=== PATIENT | female | born 1995 | race Caucasian/White ===

== ENCOUNTER 2021-09-20 10:46 | Outpatient (REF) | payer OTHER, SELFPAY ==
[2021-09-20 13:53] LABS: MANUAL DIFF FLAG NO
[2021-09-20 13:58] LABS: Basophils Percent Auto 0.4 % (0-2); Eosinophils Absolute Auto 0.1 X10*3/uL (0.0-0.4); Eosinophils Percent Auto 1.2 % (0-4); Hematocrit 39.8 % (37.0-47.0); Hemoglobin 13.2 g/dl (12.0-16.0); Imm Gran Abs Auto 0.03 X10*3/uL (0.00-0.03); Imm Gran Pct Auto 0.3 % (0.0-0.4); Lymphocytes Absolute Auto 2.6 X10*3/uL (1.2-4.9); Lymphocytes Percent Auto 28.5 % (20-40); Mean Corpuscular HGB Conc 33.2 g/dl (31.0-35.0); Mean Corpuscular Volume 84.5 fL (80.0-98.0); Mean Platelet Volume 9.6 fL (9.4-12.3); Monocytes Absolute Auto 0.4 X10*3/uL (0.1-1.2); Monocytes Percent Auto 4.7 % (2-11); Neutrophils Percent Auto 64.9 % (45-73); Platelet Count 408 X10*3/uL (160-400); Red Blood Count 4.71 X10*6/uL (4.20-5.50); Red Cell Distribution Width 13.4 % (11.0-16.0); White Blood Count 9.2 X10*3/uL (4.8-10.8)
[2021-09-20 14:43] LABS: Alanine Aminotransferase 19 U/L (0-31); Albumin Level 4.2 g/dL (3.5-5.0); Alkaline Phosphatase 77 U/L (39-117); Anion Gap 13 (12-20); Aspartate Amino Transferase 19 U/L (5-31); Bilirubin Total 0.4 mg/dL (0.0-1.0); Blood Urea Nitrogen 11 mg/dL (9-16); Calcium 9.9 mg/dL (8.4-10.2); Carbon Dioxide 26 mmol/L (22-29); Chloride 103 mmol/L (96-108); Cholesterol 200 mg/dL; Estimated Glomerular Filt Rate > 60; Glucose Fasting 90 mg/dL (60-99); HDL Cholesterol 43 mg/dL; LDL Cholesterol Calculated 112 mg/dl; Potassium 4.5 mmol/L (3.3-5.1); Sodium 137 mmol/L (135-145); Total Protein 7.3 g/dL (6.5-8.0); Triglycerides 227 mg/dL
[2021-09-20 15:05] LABS: TSH reflex Free T4 1.99 uIU/mL (0.32-4.0)
== END 2021-09-20 10:47 | disposition home or self-care (01) ==
LOC: HO.WFDLDS 10:46
PROVIDERS: Visit Provider Family Medicine
DX: Z00.00 Encounter for general adult medical examination without abnormal findings (principal); E55.9 Vitamin D deficiency, unspecified
CPT/HCPCS: 36415; 80053; 80061; 82306; 84443; 85025

== ENCOUNTER 2021-10-23 08:29 | Outpatient (REF) | payer OTHER, SELFPAY ==
[2021-10-23 11:44] LABS: Free T4 (Free Thyroxine) 0.88 ng/dL (0.71-1.85); Thyroid Stimulating Hormone 1.71 uIU/mL (0.32-4.0)
[2021-10-23 12:20] LABS: Folate 3.6 ng/mL (> or = 4.0)
[2021-10-23 13:52] LABS: Vitamin B12 324 pg/mL (200-900)
[2021-10-24 22:02] LABS: Triiodothyronine T3 Total 135 ng/dL (76-181)
[2021-10-25 14:49] LABS: H Pylori Breath Test Negative (Negative)
[2021-10-26 06:46] LABS: Transglutaminase IgA <1.0 U/mL
[2021-10-26 06:51] LABS: Transglutaminase Ab IgG <1.0 U/mL
== END 2021-10-23 08:30 | disposition home or self-care (01) ==
LOC: HO.LAB 08:29
PROVIDERS: PCP Family Medicine; Referring Provider Family Medicine; Visit Provider Nurse Practitioner Family
DX: E03.9 Hypothyroidism, unspecified (principal); K57.92 Diverticulitis of intestine, part unspecified, without perforation or abscess without bleeding; K57.90 Diverticulosis of intestine, part unspecified, without perforation or abscess without bleeding; E66.01 Morbid (severe) obesity due to excess calories; R79.89 Other specified abnormal findings of blood chemistry; K58.2 Mixed irritable bowel syndrome; K21.9 Gastro-esophageal reflux disease without esophagitis; Z68.42 Body mass index [BMI] 45.0-49.9, adult; Z87.891 Personal history of nicotine dependence
CPT/HCPCS: 36415; 82607; 82746; 83013; 84439; 84443; 84480; 86140; 86364; 99202

== ENCOUNTER → 2021-11-27 08:33 | Outpatient (BNVA) | payer OTHER, SELFPAY | PROVIDERS: PCP Family Medicine; Referring Provider Family Medicine; Visit Provider Nurse Practitioner Family | DX: K58.2 Mixed irritable bowel syndrome (principal); K59.04 Chronic idiopathic constipation; R10.32 Left lower quadrant pain | CPT/HCPCS: 99212 ==

== ENCOUNTER 2021-12-11 08:14 | Outpatient (REF) | payer OTHER, SELFPAY ==
[2021-12-11 11:14] LABS: Blood Urea Nitrogen 8 mg/dL (9-16); Estimated Glomerular Filt Rate > 60
[2021-12-12 17:46] LABS: Transglutaminase IgA <1.0 U/mL
== END 2021-12-11 08:15 | disposition home or self-care (01) ==
LOC: HO.LAB 08:14
PROVIDERS: PCP Family Medicine; Visit Provider Nurse Practitioner Family
DX: R10.32 Left lower quadrant pain (principal); R10.11 Right upper quadrant pain; K58.2 Mixed irritable bowel syndrome
CPT/HCPCS: 36415; 82565; 84520; 86364; 99212

== ENCOUNTER 2021-12-13 12:48 | Outpatient (REF) | payer OTHER, SELFPAY ==
--- NOTE | ~2021-12-13 | CT_ITS ---
EXAMINATION: CT ABDOMEN AND PELVIS WITH CONTRAST CLINICAL INFORMATION: Abdominal pain COMPARISON: None TECHNIQUE: Multidetector volumetric images were obtained from the superior aspect of the liver through the pubic symphysis following administration 100 mL of Omnipaque 350 intravenous contrast. Sagittal and coronal reformatted images were obtained on the technologist's workstation. Oral contrast: Yes This CT examination was performed using dose optimization techniques as appropriate, variously including the following: *Automated exposure control *Adjustment of mA and/or kV according to patient size (this includes techniques or standardized protocols for targeted exams where dose is matched to indication/reason for exam; i.e. extremities or head) *Use of iterative reconstruction technique DLP: 746 mGy-cm FINDINGS: LUNG BASES: The visualized lung bases are unremarkable. No pleural or pericardial effusion. LIVER, GALLBLADDER, AND BILIARY TREE: There is diffuse fatty infiltration of the liver. No focal mass or intrahepatic bile duct dilatation is seen. The gallbladder is unremarkable with no evidence of radiopaque gallstones, gallbladder wall thickening, or obvious pericholecystic inflammatory changes. PANCREAS: Unremarkable. SPLEEN: Unremarkable. There is a small accessory spleen present ADRENAL GLANDS: Unremarkable. KIDNEYS AND URETERS: The kidneys are normal in size, shape, and attenuation. No hydronephrosis, hydroureter, or calculi seen. No perinephric stranding. BLADDER: Unremarkable. GASTROINTESTINAL TRACT: No dilated loops of large or small bowel are evident. No free air or free fluid. No pericolonic inflammatory change. Appendix appears unremarkable. ABDOMINAL WALL: No significant hernia is appreciated. LYMPH NODES: No lymphadenopathy appreciated. VASCULAR: Unremarkable. PELVIC VISCERA: Pessary seen in place. OSSEOUS STRUCTURES: Unremarkable. CT/CT abdomen pelvis w con IMPRESSION: Fatty infiltration of liver. No evidence of obstructive uropathy. No evidence of ileus or obstruction. Fleischner guidelines were followed.
[2021-12-13] MEDS: iohexoL 350 MG/ML 100 ML INFUS..BTL IV (15:34)
[2021-12-13] MEDS: Barium Sulfate Oral (Berry) 450 ML ORAL.SUSP 900 ML PO (15:34)
== END 2021-12-13 12:49 | disposition home or self-care (01) ==
LOC: HO.CT 12:48
PROVIDERS: PCP Family Medicine; Visit Provider Nurse Practitioner Family
DX: R10.9 Unspecified abdominal pain (principal); K57.92 Diverticulitis of intestine, part unspecified, without perforation or abscess without bleeding
CPT/HCPCS: 74177; Q9967

== ENCOUNTER → 2022-02-15 08:50 | Outpatient (BNVA) | payer OTHER, SELFPAY | PROVIDERS: PCP Family Medicine; Referring Provider Family Medicine; Visit Provider Nurse Practitioner Family | DX: K21.9 Gastro-esophageal reflux disease without esophagitis (principal); K58.2 Mixed irritable bowel syndrome; R10.32 Left lower quadrant pain | CPT/HCPCS: 99212 ==

== ENCOUNTER 2022-06-11 07:36 | Day surgery (SDC) | payer OTHER, SELFPAY ==
[2022-06-05 13:58] VITALS: BMI 47.5
[2022-06-11 08:32] LABS: UPreg QC Valid YES; Urine Pregnancy NEGATIVE (NEGATIVE)
[2022-06-11] MEDS: Lactated Ringers 1,000 ML 50 ML IVCONT (08:34)
[2022-06-11 08:36] VITALS: BP 114/63; PULSE 82; RESP 18; TEMP 36.6; O2SAT 96
--- NOTE | 2022-06-11 08:40 | P.HPSUR_ITS ---
Pre-Procedural Eval Section A Date of Service: 06/11/22 Section B Chief Complaint: reflux disease Relevant Family History (Specify if Yes): No Relevant Social History: None Present Medications: see Short Stay Collaborative assessment Medical History: Significant History (Diverticulitis IBS (irritable bowel syndrome) Low vitamin D level) History of Previous Operations: Relevant previous surgery/procedure and date(s) (History of colonoscopy History of esophagogastroduodenoscopy (EGD) History of tonsillectomy History of wisdom tooth extraction) Allergies: Allergies Allergy/AdvReac Type Severity Reaction Status Date / Time cobalt Allergy Intermediate Rash Verified 06/11/22 08:19 gluten Allergy Intermediate rash, GI Verified 06/11/22 08:19 issues nickel Allergy Intermediate Rash Verified 06/11/22 08:19 Review of Systems Sugical H&P ROS: Negative: Constitution, Cardiovascular, Respiratory, Neurological, Psychiatric, Hem-Onc, Allergic/Immunologic, Gastrointestinal, Genitourinary, Musculoskeletal, Integumentary, Endocrine and Eyes/Ears/Nose/Th roat Exam Surgical H&P Exam: Normal: HEENT, Normal: Heart, Normal: Lungs, Normal: Extremities, Normal: Abdomen, Normal: Skin and Normal: Neurological Plan Diagnosis/Plan: Unchanged I have reviewed the history and physical and performed a pertinent physical examination on my patient. No changes have occurred unless specified.
--- NOTE | 2022-06-11 08:52 | HO.ANESPROP2 ---
[facility] Active Problems Active Problems: All Active Problems (Updated 02/15/22 @ 17:46 by Edel Andersen, [facility]) Morbid obesity with BMI of 45.0-49.9, adult (Acute) Dermatofibroma (Acute) Screening for cervical cancer (Acute) High triglycerides (Acute) Adult general medical exam (Acute) Abdominal pain (Acute) Anxiety (Acute) History of Lyme disease (Acute) Low vitamin D level (Acute) Hypothyroidism (Acute) IBS (irritable bowel syndrome) (Acute) Laboratory exam ordered as part of routine general medical examination (Acute) Past Medical History Medical History Diverticulitis IBS (irritable bowel syndrome) Low vitamin D level Patient : No Family History Family History Other Mental health disorder Family history of problems with anesthesia: No Surgical History Surgical History History of colonoscopy History of esophagogastroduodenoscopy (EGD) History of tonsillectomy History of wisdom tooth extraction History of Problems with Anesthesia: No Social History Social History Housing: House Alcohol intake: current Alcohol intake frequency: a few times a month Patient Tobacco Use Status: Former Tobacco user e-Cigarette/Vaping Use: Never Used Second Hand Smoke Exposure: No Substance Use Frequency: Occasionally Are you DNR?: No Advance Directives: No Advance Directives Information Provided: Yes Nutrition Risks: No Nutritional Risk FDLMP: FINISHED TWO DAYS A service: No Current occupational status: employed 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 Cognitive needs: No Hearing needs: No Vision needs: Yes (reading glasses) Meds Allergies Allergy/AdvReac Type Severity Reaction Status Date / Time cobalt Allergy Intermediate Rash Verified 06/11/22 08:19 gluten Allergy Intermediate rash, GI Verified 06/11/22 08:19 issues nickel Allergy Intermediate Rash Verified 06/11/22 08:19 Active Medications: Current Medications Lactated Ringer's (Lr) 1,000 mls @ 50 mls/hr IVCONT .Q20H HILARIO Last Admin: 06/11/22 08:34 Dose: 50 mls/hr Exam Exam Date and Time: June 11, 2022 0852 Height,Weight and Vital Signs: Height 4 ft 11 in Weight 106.594 kg Last Vital Signs Temp 97.8 F 06/11/22 08:36 Pulse 82 06/11/22 08:36 Resp 18 06/11/22 08:36 BP 114/63 06/11/22 08:36 Pulse Ox 96 06/11/22 08:36 O2 Del Method 06/11/22 08:36 Pertinent Lab Results Pertinent Lab Results: Laboratory Tests 06/11/22 08:21 Urine Test NEGATIVE Airway Mallampati Class: II TM Dist: >3cm Neck ROM: Full Loose/Missing/Broken Teeth: No Heart: rrr Lungs: clear Assessment and Plan Final Anesthetic Review Family History of Problems with Anesthesia: No History of Problems with Anesthesia: No NPO: Yes ASA Class: II Final Preanesthetic Review: No Changes in Pt Med Stat, Meds/Allgs Chart Reviewed, Consent Obtained/Reviewed and Anes Risks/Benef Reviewed Patient Risk: Intermediate Procedure Risk: Low Anesthetic Plan Anesthetic Plan: MAC: Disposition: Standard PACU
--- NOTE | 2022-06-11 09:29 | W.PM.OPN ---
Operative Note Operative Note Date of Service: 06/11/22 Narrative: Procedure Description: EGD Indication: GERD Anesthesia: MAC FLEXIBLE TRANSORAL UPPER GASTROINTESTINAL ENDOSCOPY UPPER ENDOSCOPY Consent: Indications for the procedure and potential complications of bleeding, perforation, reaction to medications and missed diagnosis were discussed with the patient and informed consent was obtained. Instrument: Olympus GIF H 190 J mid size upper endoscope Monitoring: Vital signs and clinical assessment, continuous EKG monitoring, Pulse oximetry, Carbon Dioxide monitoring and blood pressure monitoring were done throughout the procedure. Procedure: The patient was placed in the left lateral decubitis position and pre-procedure medications were administered and a bite block was placed. The endoscope was inserted into the mouth and advanced under direct vision to the third part of duodenum. A careful inspection was made as the upper endoscope was withdrawn including a retroflexed examination of the proximal stomach; Findings and interventions are described below. Findings: Larynx:normal Esophagus: GE junction at 35 cm, diaphragm hiatus at 35 cm, mild esophagitis, bx taken from GEJ and distal/proximal esophagus in separate jars Stomach: Mild patchy gastric erythema. Biopsies were obtained. Grade 2 flap valve on retroflexed examination of the cardia. Few fundic gland polyps noted, one of these was biopsied Duodenum: Normal bulb and descending duodenum, Intervention: Biopsies as noted above Impression/Findings: mild esophagitis mild gastritis fundic gland polyps PLAN: cont with PPI seems her reflux is well controlled
[2022-06-11 10:19] VITALS: BP 101/44; PULSE 91; RESP 20; TEMP 36.1; O2SAT 97
[2022-06-11 10:33] VITALS: BP 117/66; PULSE 79; RESP 18; TEMP 36.1; O2SAT 99
== END 2022-06-11 11:18 | disposition home or self-care (01) ==
PROVIDERS: Anesthesiology; PCP Family Medicine; Visit Provider Internal Medicine Gastroenterology
PROC: 0DJ08ZZ Inspection of Upper Intestinal Tract, Via Natural or Artificial Opening Endoscopic (ICD-10-PCS; CPT 43235; principal; 2022-06-11 09:20)
DX: K21.9 Gastro-esophageal reflux disease without esophagitis (principal); K20.80 Other esophagitis without bleeding; K29.50 Unspecified chronic gastritis without bleeding; K31.7 Polyp of stomach and duodenum; K44.9 Diaphragmatic hernia without obstruction or gangrene; K58.2 Mixed irritable bowel syndrome; E55.9 Vitamin D deficiency, unspecified; Z79.899 Other long term (current) drug therapy; Z87.891 Personal history of nicotine dependence
CPT/HCPCS: 43239; 81025; 88305; 88342

== ENCOUNTER 2022-06-19 17:34 | Emergency (ER) | payer OTHER, SELFPAY ==
--- NOTE | ~2022-06-19 | CT_ITS ---
EXAMINATION: CT ABDOMEN AND PELVIS WITH CONTRAST CLINICAL INFORMATION: Left lower quadrant pain, nausea/vomiting, history of diverticulitis COMPARISON: 12/13/2021 TECHNIQUE: Multidetector volumetric images were obtained from the superior aspect of the liver through the pubic symphysis following administration 85 mL of Omnipaque 350 intravenous contrast. Sagittal and coronal reformatted images were obtained on the technologist's workstation. Oral contrast: No This CT examination was performed using dose optimization techniques as appropriate, variously including the following: *Automated exposure control *Adjustment of mA and/or kV according to patient size (this includes techniques or standardized protocols for targeted exams where dose is matched to indication/reason for exam; i.e. extremities or head) *Use of iterative reconstruction technique DLP: 956 mGy-cm FINDINGS: LUNG BASES: The visualized lung bases are unremarkable. LIVER, GALLBLADDER, AND BILIARY TREE: There is hypoattenuation of the liver suspicious for steatosis, with some sparing near the gallbladder. No intrahepatic biliary ductal dilatation. The gallbladder is unremarkable with no evidence of radiopaque gallstones, gallbladder wall thickening, or obvious pericholecystic inflammatory changes. PANCREAS: Unremarkable. SPLEEN: Unremarkable. ADRENAL GLANDS: Unremarkable. KIDNEYS AND URETERS: The kidneys are normal in size, shape, and attenuation. No hydronephrosis, hydroureter, or calculi seen. No perinephric stranding. BLADDER: Unremarkable. GASTROINTESTINAL TRACT: No evidence of bowel obstruction. Colonic diverticulosis is present. There is a short segment of wall thickening and surrounding inflammation in the presence of proximal descending colon diverticula, most consistent with diverticulitis. No pericolonic abscess or free air is seen. The appendix is unremarkable. ABDOMINAL WALL: No significant hernia is appreciated. LYMPH NODES: Normal. VASCULAR: Unremarkable. PELVIC VISCERA: Unremarkable. Trace pelvic free fluid may be physiologic or reactive. OSSEOUS STRUCTURES: Unremarkable. CT/CT abdomen pelvis w IV con IMPRESSION: Diverticulitis of the proximal descending colon. No pericolonic abscess or free air identified.
[2022-06-19 17:40] VITALS: BP 143/85; PULSE 122; RESP 18; TEMP 36.9; O2SAT 94; BMI 46.4
[2022-06-19 19:05] LABS: MANUAL DIFF FLAG NO
[2022-06-19 19:13] LABS: Basophils Percent Auto 0.2 % (0-2); Eosinophils Absolute Auto 0.1 X10*3/uL (0.0-0.4); Eosinophils Percent Auto 0.3 % (0-4); Hematocrit 38.4 % (37.0-47.0); Hemoglobin 12.3 g/dl (12.0-16.0); Imm Gran Abs Auto 0.07 X10*3/uL (0.00-0.03); Imm Gran Pct Auto 0.4 % (0.0-0.4); Lymphocytes Percent Auto 11.2 % (20-40); Mean Corpuscular Hemoglobin 25.4 pg (27.0-33.0); Mean Corpuscular Volume 79.3 fL (80.0-98.0); Mean Platelet Volume 9.2 fL (9.4-12.3); Monocytes Percent Auto 5.7 % (2-11); Neutrophils Absolute Auto 14.4 x10*3/uL (2.0-8.3); Neutrophils Percent Auto 82.2 % (45-73); Platelet Count 402 X10*3/uL (160-400); Red Blood Count 4.84 X10*6/uL (4.20-5.50); Red Cell Distribution Width 14.9 % (11.0-16.0); White Blood Count 17.4 X10*3/uL (4.8-10.8)
[2022-06-19 19:22] LABS: Anion Gap 16 (12-20); Blood Urea Nitrogen 6 mg/dL (9-16); Calcium 9.6 mg/dL (8.4-10.2); Carbon Dioxide 24 mmol/L (22-29); Chloride 99 mmol/L (96-108); Creatinine Clr Calc Pharmacy 105.2; Estimated Glomerular Filt Rate > 60; Glucose Random 113 mg/dL (60-115); Potassium 4.1 mmol/L (3.3-5.1); Sodium 135 mmol/L (135-145)
[2022-06-19 19:41] LABS: Appearance Urine Cloudy; Color Urine Yellow; Glucose Urine UA Negative (Negative); Leukocyte Esterase Urine Small (1+) (Negative); Nitrite Urine Negative (Negative); Specific Gravity - Urine 1.015 (1.005-1.025); Urine Blood Trace (Negative); Urine Ketones Trace mg/dL (Negative); Urine Protein Trace mg/dL (Neg-Trace)
[2022-06-19 19:48] LABS: Bacteria Urine 1+ (None Seen); RBC Urine 0-2 /HPF (0-2); UACC Culture Trigger YES; WBC Urine 0-5 /HPF (0-5)
[2022-06-19 20:49] VITALS: BP 133/74; PULSE 100; RESP 16; TEMP 36.7; O2SAT 97
--- NOTE | 2022-06-20 00:13 | ED_ITS ---
HPI - Abdominal Pain General Chief Complaint: Abdominal Pain Stated Complaint: left sided abd pain Time Seen by Provider: 06/20/22 00:10 Source: patient Mode of arrival: ambulatory Limitations: no limitations History of Present Illness HPI narrative: This is a 26-year-old female past medical history significant for anxiety, hypothyroidism, IBS, diverticulitis presenting to the emergency department with complaints of severe left lower quadrant pain and nausea and vomiting that started this morning. Patient tells me the pain is constant severe, sharp and localized to the left lower quadrant without radiation. Unable to specify what makes the pain better or worse. Patient tells me she has not been able to keep anything down by mouth. She tells me that this feels like the time she diverticulitis. Patient tells me she is very uncomfortable. She denies fevers, chills, chest pain, shortness of breath, nausea, vomiting, headache, dizziness, weakness. MD elicited complaint: abdominal pain Pertinent past history: diverticulitis Onset (ago): day(s) (1) Pain Consistency: constant Location: LLQ Severity: severe Pain scale (0-10): 10 Quality: cramping, stabbing and aching Radiation: none Related Data Previous Rx's Medication Instructions Recorded cholecalciferol (vitamin D3) 50 50 mcg PO DAILY 90 days #90 caps 02/05/22 mcg (2,000 unit) capsule methylcellulose (laxative) 500 mg 500 mg PO DAILY #90 tabs 02/15/22 tablet (Citrucel) pantoprazole 40 mg tablet,delayed 40 mg PO DAILY #90 tabs 02/15/22 release sennosides 8.6 mg tablet (Natural 17.2 mg PO BEDTIME constipation 02/15/22 Senna Laxative) #180 tabs levofloxacin 750 mg tablet 750 mg PO DAILY 7 days #7 tabs 06/20/22 metronidazole 500 mg tablet 500 mg PO BID 7 days #14 tabs 06/20/22 Allergies Allergy/AdvReac Type Severity Reaction Status Date / Time cobalt Allergy Intermediate Rash Verified 06/11/22 08:19 gluten Allergy Intermediate rash, GI Verified 06/11/22 08:19 issues nickel Allergy Intermediate Rash Verified 06/11/22 08:19 Review of Systems Review of Systems Constitutional : No Weight loss, No Fever, No Chills, No Fatigue, No Malaise ENT/Mouth : No sore throat, No Rhinorrhea Eyes: No Eye Pain, No Swelling, No Redness Cardiovascular : No Chest Pain, No SOB, No Dyspnea on Exertion, No Orthopnea, No Edema, No Palpitations Respiratory : No Cough, No Sputum, No Wheezing Gastrointestinal : + Nausea, + Vomiting, No Diarrhea, No Constipation, + abdominal Pain, No Hematochezia, No Melena Genitourinary : No Dysuria, No Urinary Frequency, No Hematuria, Musculoskeletal : No joint pain, No Myalgias, No Joint Swelling Skin : No Skin Lesions, No rash Neuro : No Weakness, No Numbness, No Dizziness, No Headache Psych : No Anxiety/Panic, No Depression All other systems reviewed and are negative Yes all other systems are reviewed and are negative [facility] Past Medical History Attestation statement: The following information was validated with the patient. Source: old records reviewed and nursing notes reviewed Medical History Diverticulitis IBS (irritable bowel syndrome) Low vitamin D level Surgical History History of colonoscopy History of esophagogastroduodenoscopy (EGD) History of tonsillectomy History of wisdom tooth extraction Family History Family History Other Mental health disorder Social History Social History Housing: House Alcohol intake: current Alcohol intake frequency: a few times a month Patient Tobacco Use Status: Former Tobacco user e-Cigarette/Vaping Use: Never Used Second Hand Smoke Exposure: No Advance Directives: No Advance Directives Information Provided: Yes service: No Current occupational status: employed 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 Oriented X3.? No acute distress.? Head: Normocephalic, atraumatic, no step-offs or deformities Eyes: Pupils equal, round and reactive to light.? Neck: Normal inspection.? Neck supple.? CVS: Normal heart rate and rhythm.? Pulses normal.? Respiratory: No respiratory distress.? Breath sounds normal.? Abdomen: Soft and + pain with palpation to left lower quadrant. Normoactive bowel sounds. No peritoneal signs on exam..? Skin: Skin warm and dry.? Normal skin color.? Normal skin turgor.? Extremities: No lower extremity edema.? No calf ttp. 5/5 strength to bilateral upper and lower extremities Back: No midline tenderness, no C-spine tenderness, full range of motion, no CVA tenderness bilaterally Neuro: Oriented X 3.? No motor deficit.? No sensory deficit. CN 2-12 intact Course Reevaluation(s) Reevaluation #1: Patient noted to have a leukocytosis, concern for possible infection verses reactive from nausea and vomiting, at this time blood cultures lactic acid have been ordered as well as IV fluids, chemistry with no acute electrolyte abnormalities requiring intervention. UA with small amount of blood however no signs of acute infection, low suspicion for kidney stone and pyelo based off patient history and physical examination. HCG pending. CT of the abdomen pelvis pending at this time. Time: 00:18 Reevaluation #2: CT of the abdomen pelvis concerning for sigmoid diverticulitis, patient will receive Levaquin 750 mg p.o. now as well as metronidazole 500 mg p.o. now. Patient will be discharged on these antibiotics as well, educated on tendon rupture, advised her to follow clear liquid diet for week and then transition to a bland diet, provided her with a handout of diverticulitis diet. This time patient tolerating p.o. fluids in the emergency department, patient will be di scharged home educated on worrisome signs and symptoms and when to return. Comfortable discharge home Time: 01:50 MDM - Abdominal Pain MDM Narrative Medical decision making narrative: 0015 26-year-old female presents with nausea, vomiting and left lower quadrant pain x1 day worsening, patient reports history of diverticulitis, which feels like this episode. On physical exam patient with left lower quadrant pain to palpation on exam, no peritoneal signs, normoactive bowel sounds, soft abdomen, regular rate and rhythm, lungs clear, abdomen soft nontender nondistended. Vital signs are stable. Concerns for diverticulitis, low suspicion for appendicitis, cholecystitis, acute abdomen. Plan at this time is to obtain basic labs, urine, hCG, CT of the abdomen and pelvis with contrast, fluids. Medical Records Attestation: I reviewed the patient's medical records. Lab Data Attestation: I reviewed the patient's lab results. Result diagrams: 06/19/22 18:57 06/19/22 18:57 Labs: Lab Results 06/19/22 06/19/22 06/19/22 Range/Units 18:57 18:57 19:28 WBC 17.4 H (4.8-10.8) X10*3/uL RBC 4.84 (4.20-5.50) X10*6/uL Hgb 12.3 (12.0-16.0) g/dl Hct 38.4 (37.0-47.0) % MCV 79.3 L (80.0-98.0) fL MCH 25.4 L (27.0-33.0) pg MCHC 32.0 (31.0-35.0) g/dl RDW 14.9 (11.0-16.0) % Plt Count 402 H (160-400) X10*3/uL MPV 9.2 L (9.4-12.3) fL Immature Gran % (Auto) 0.4 (0.0-0.4) % Neut % (Auto) 82.2 H (45-73) % Lymph % (Auto) 11.2 L (20-40) % [place] % (Auto) 5.7 (2-11) % Eos % (Auto) 0.3 (0-4) % Baso % (Auto) 0.2 (0-2) % Lymph # (Auto) 2.0 (1.2-4.9) X10*3/uL [place] # (Auto) 1.0 (0.1-1.2) X10*3/uL Eos # (Auto) 0.1 (0.0-0.4) X10*3/uL Baso # (Auto) 0.0 (0.0-0.2) X10*3/uL Abs Immat Gran (auto) 0.07 H (0.00-0.03) X10*3/uL Absolute Neuts (auto) 14.4 H (2.0-8.3) x10*3/uL Absolute Nucleated RBC 0.000 (0.0-0.012) X10*3/uL Nucleated RBC % (auto) 0.0 (0.0-0.2) /100WBC Sodium 135 (135-145) mmol/L Potassium 4.1 (3.3-5.1) mmol/L Chloride 99 (96-108) mmol/L Carbon Dioxide 24 (22-29) mmol/L Anion Gap 16 (12-20) BUN 6 L (9-16) mg/dL Creatinine 0.85 (0.5-1.4) mg/dL Estim Creat Clear Calc 105.2 Estimated GFR > 60 Random Glucose 113 (60-115) mg/dL Lactic Acid (0.5-2.0) mmol/L Calcium 9.6 (8.4-10.2) mg/dL Total Bilirubin 0.7 (0.0-1.0) mg/dL Direct Bilirubin 0.3 (0.0-0.5) mg/dL AST 14 (5-31) U/L ALT 22 (0-31) U/L Alkaline Phosphatase 83 (39-117) U/L Total Protein 7.5 (6.5-8.0) g/dL Albumin 4.4 (3.5-5.0) g/dL Beta HCG, Quant < 2 mIU/mL Urine Color Yellow Urine Appearance Cloudy Urine pH 6.0 (5.0-9.0) Ur Specific [place] 1.015 (1.005-1.025) Urine Protein Trace (Neg-Trace) mg/dL Urine Glucose (UA) Negative (Negative) mg/dL Urine Ketones Trace (Negative) mg/dL Urine Blood Trace H (Negative) Urine Nitrite Negative (Negative) Ur Leukocyte Esterase Small (1+) H (Negative) Urine RBC 0-2 (0-2) /HPF Urine WBC 0-5 (0-5) /HPF Ur Squamous Epith Cells 11-20 (0-2) /HPF Urine Bacteria 1+ (None Seen) Hyaline Casts 3-5 (0-2) /LPF 06/20/22 Range/Units 00:39 WBC (4.8-10.8) X10*3/uL RBC (4.20-5.50) X10*6/uL Hgb (12.0-16.0) g/dl Hct (37.0-47.0) % MCV (80.0-98.0) fL MCH (27.0-33.0) pg MCHC (31.0-35.0) g/dl RDW (11.0-16.0) % Plt Count (160-400) X10*3/uL MPV (9.4-12.3) fL Immature Gran % (Auto) (0.0-0.4) % Neut % (Auto) (45-73) % Lymph % (Auto) (20-40) % [place] % (Auto) (2-11) % Eos % (Auto) (0-4) % Baso % (Auto) (0-2) % Lymph # (Auto) (1.2-4.9) X10*3/uL [place] # (Auto) (0.1-1.2) X10*3/uL Eos # (Auto) (0.0-0.4) X10*3/uL Baso # (Auto) (0.0-0.2) X10*3/uL Abs Immat Gran (auto) (0.00-0.03) X10*3/uL Absolute Neuts (auto) (2.0-8.3) x10*3/uL Absolute Nucleated RBC (0.0-0.012) X10*3/uL Nucleated RBC % (auto) (0.0-0.2) /100WBC Sodium (135-145) mmol/L Potassium (3.3-5.1) mmol/L Chloride (96-108) mmol/L Carbon Dioxide (22-29) mmol/L Anion Gap (12-20) BUN (9-16) mg/dL Creatinine (0.5-1.4) mg/dL Estim Creat Clear Calc Estimated GFR Random Glucose (60-115) mg/dL Lactic Acid 1.2 (0.5-2.0) mmol/L Calcium (8.4-10.2) mg/dL Total Bilirubin (0.0-1.0) mg/dL Direct Bilirubin (0.0-0.5) mg/dL AST (5-31) U/L ALT (0-31) U/L Alkaline Phosphatase (39-117) U/L Total Protein (6.5-8.0) g/dL Albumin (3.5-5.0) g/dL Beta HCG, Quant mIU/mL Urine Color Urine Appearance Urine pH (5.0-9.0) Ur Specific [place] (1.005-1.025) Urine Protein (Neg-Trace) mg/dL Urine Glucose (UA) (Negative) mg/dL Urine Ketones (Negative) mg/dL Urine Blood (Negative) Urine Nitrite (Negative) Ur Leukocyte Esterase (Negative) Urine RBC (0-2) /HPF Urine WBC (0-5) /HPF Ur Squamous Epith Cells (0-2) /HPF Urine Bacteria (None Seen) Hyaline Casts (0-2) /LPF Critical Care Time Critical Care Time Critical Care Time: No Discharge Plan Discharge Clinical Impression: Diverticulitis Patient Disposition: Home, Self-Care Instructions: Diverticulitis (ED), Diverticulitis Diet (ED) Additional Instructions: Take your medications as prescribed. If you were prescribed antibiotics today, it is important that you take your medication to their entirety, do not skip any doses, do not finish them early. Follow-up with your primary care provider this week. Return to the emergency department with new or worsening symptoms. Such as fevers, chills, chest pain, shortness of breath, nausea, vomiting, dizziness, headache, vision changes, lethargy In case of emergency call 911 Please follow bland diet, I recommend doing clear liquids for a week, and then follow up with a bland diet. I provided you with a pamphlet on diverticulitis and a diverticulitis diet. Levaquin is a antibiotic that is classified as a fluoroquinolone, this class of antibiotics has a black box warning for tendon rupture, your experience any pain anywhere, please be evaluated by medical professional immediately. I do advise that you refrain from physical activity for at least 2-3 weeks until medically cleared. CT/CT abdomen pelvis w IV con IMPRESSION: Diverticulitis of the proximal descending colon. No pericolonic abscess or free air identified. ? Prescriptions: New metronidazole 500 mg tablet 500 mg PO BID 7 Days Qty: 14 0RF levofloxacin 750 mg tablet 750 mg PO DAILY 7 Days Qty: 7 0RF No Action cholecalciferol (vitamin D3) 50 mcg (2,000 unit) capsule 50 mcg PO DAILY 90 Days Qty: 90 3RF Citrucel 500 mg tablet 500 mg PO DAILY Qty: 90 4RF Rx Instructions: take it with full glass of water pantoprazole 40 mg tablet,delayed release (DR/EC) 40 mg PO DAILY Qty: 90 2RF Rx Instructions: take one tablet half an hour before breakfast sennosides [Natural Senna Laxative] 8.6 mg tablet 17.2 mg PO BEDTIME Qty: 180 3RF Referrals: Santy Carolina MD [Primary Care Provider] - 2 days Stand Alone Forms: Work/School Release
[2022-06-20 00:25] LABS: Alanine Aminotransferase 22 U/L (0-31); Albumin Level 4.4 g/dL (3.5-5.0); Alkaline Phosphatase 83 U/L (39-117); Aspartate Amino Transferase 14 U/L (5-31); Bilirubin Direct 0.3 mg/dL (0.0-0.5); Bilirubin Total 0.7 mg/dL (0.0-1.0); Total Protein 7.5 g/dL (6.5-8.0)
[2022-06-20 00:31] VITALS: BP 114/58; PULSE 103; RESP 16; TEMP 37.3; O2SAT 95
[2022-06-20 00:33] LABS: HCG Quantitative < 2 mIU/mL
[2022-06-20] MEDS: 0.9 % Sodium Chloride 1,000 ML 999 ML IV (00:39)
[2022-06-20 00:57] LABS: Lactic Acid 1.2 mmol/L (0.5-2.0)
[2022-06-20] MEDS: iohexoL 350 MG/ML 100 ML INFUS..BTL 85 ML IV (01:22)
[2022-06-20] MEDS: Ketorolac Tromethamine 15 MG/ML VIAL 30 MG IVPUSH (01:52)
[2022-06-20] MEDS: metroNIDAZOLE 500 MG TABLET PO (01:53)
[2022-06-20] MEDS: levoFLOXacin 750 MG TABLET PO (01:53)
== END 2022-06-20 02:16 | disposition home or self-care (01) ==
PROVIDERS: Physician Assistant; Emergency Provider Internal Medicine; PCP Family Medicine
DX: K57.90 Diverticulosis of intestine, part unspecified, without perforation or abscess without bleeding (principal); R10.32 Left lower quadrant pain; R11.2 Nausea with vomiting, unspecified; Z79.899 Other long term (current) drug therapy; Z87.891 Personal history of nicotine dependence
CPT/HCPCS: 36415; 74177; 80048; 80076; 81001; 83605; 84702; 85025; 87040; 87086; 96361; 96374; 99283; 99284; J1885; Q9967

== ENCOUNTER → 2022-06-25 09:04 | Outpatient (BNVA) | payer OTHER, SELFPAY | PROVIDERS: PCP Family Medicine; Visit Provider Nurse Practitioner Family | DX: K21.00 Gastro-esophageal reflux disease with esophagitis, without bleeding (principal); R10.32 Left lower quadrant pain; K58.2 Mixed irritable bowel syndrome; K57.92 Diverticulitis of intestine, part unspecified, without perforation or abscess without bleeding | CPT/HCPCS: 99212 ==

== ENCOUNTER → 2022-09-03 08:20 | Outpatient (BNVA) | payer OTHER, SELFPAY | PROVIDERS: PCP Family Medicine; Visit Provider Nurse Practitioner Family | DX: R10.32 Left lower quadrant pain (principal); K58.2 Mixed irritable bowel syndrome | CPT/HCPCS: 99212 ==

== ENCOUNTER 2022-11-05 11:20 | Outpatient (REF) | payer OTHER, SELFPAY ==
[2022-11-05 14:18] LABS: Basophils Percent Auto 0.5 % (0-2); Eosinophils Absolute Auto 0.1 X10*3/uL (0.0-0.4); Eosinophils Percent Auto 1.7 % (0-4); Hematocrit 35.7 % (37.0-47.0); Imm Gran Abs Auto 0.02 X10*3/uL (0.00-0.03); Imm Gran Pct Auto 0.2 % (0.0-0.4); Lymphocytes Absolute Auto 2.8 X10*3/uL (1.2-4.9); Lymphocytes Percent Auto 33.4 % (20-40); MANUAL DIFF FLAG NO; Mean Corpuscular HGB Conc 30.8 g/dl (31.0-35.0); Mean Corpuscular Hemoglobin 24.6 pg (27.0-33.0); Mean Corpuscular Volume 79.7 fL (80.0-98.0); Mean Platelet Volume 9.9 fL (9.4-12.3); Monocytes Absolute Auto 0.4 X10*3/uL (0.1-1.2); Monocytes Percent Auto 5.3 % (2-11); Neutrophils Absolute Auto 4.9 x10*3/uL (2.0-8.3); Neutrophils Percent Auto 58.9 % (45-73); Platelet Count 421 X10*3/uL (160-400); Red Blood Count 4.48 X10*6/uL (4.20-5.50); Red Cell Distribution Width 14.4 % (11.0-16.0); White Blood Count 8.3 X10*3/uL (4.8-10.8)
[2022-11-05 15:07] LABS: Creatinine Urine 238.77 mg/dL
[2022-11-05 15:41] LABS: Alanine Aminotransferase 17 U/L (0-31); Alkaline Phosphatase 76 U/L (39-117); Anion Gap 15 (12-20); Aspartate Amino Transferase 15 U/L (5-31); Bilirubin Total 0.3 mg/dL (0.0-1.0); Blood Urea Nitrogen 13 mg/dL (9-16); Calcium 9.4 mg/dL (8.4-10.2); Carbon Dioxide 25 mmol/L (22-29); Chloride 104 mmol/L (96-108); Cholesterol 179 mg/dL; Estimated Glomerular Filt Rate > 60; Glucose Fasting 91 mg/dL (60-99); HDL Cholesterol 43 mg/dL; Iron 37 mcg/dL (30-160); LDL Cholesterol Calculated 101 mg/dl; Percent Iron Saturation 10 % (15-50); Potassium 4.5 mmol/L (3.3-5.1); Sodium 139 mmol/L (135-145); TSH reflex Free T4 2.04 uIU/mL (0.32-4.0); Total Iron Binding Capacity 379 mcg/dL (228-428); Total Protein 6.9 g/dL (6.5-8.0); Triglycerides 176 mg/dL; Unsaturated Iron Binding 342 ug/dL; Vitamin D 25-OH Total 26.5 ng/mL (>30)
[2022-11-05 17:07] LABS: Microalbum/Creatinine Ratio Ur 5.8 ug/mg cr
== END 2022-11-05 11:21 | disposition home or self-care (01) ==
LOC: HO.WFDLDS 11:20
PROVIDERS: Visit Provider Family Medicine
DX: Z00.00 Encounter for general adult medical examination without abnormal findings (principal); D64.9 Anemia, unspecified; I10 Essential (primary) hypertension; E55.9 Vitamin D deficiency, unspecified
CPT/HCPCS: 36415; 80053; 80061; 82043; 82306; 83540; 84443; 85025

== ENCOUNTER → 2023-01-08 09:33 | Outpatient (BNVA) | payer OTHER, SELFPAY | PROVIDERS: PCP Family Medicine; Visit Provider Nurse Practitioner Family | DX: R06.83 Snoring (principal); R53.83 Other fatigue; G47.10 Hypersomnia, unspecified | CPT/HCPCS: 99202 ==

== ENCOUNTER → 2023-01-29 09:18 | Outpatient (REF) | payer OTHER, SELFPAY | LOC: HO.SL 09:18 | PROVIDERS: PCP Family Medicine; Visit Provider Nurse Practitioner Family | DX: G47.10 Hypersomnia, unspecified (principal); R06.83 Snoring; R53.83 Other fatigue; E66.01 Morbid (severe) obesity due to excess calories; Z68.42 Body mass index [BMI] 45.0-49.9, adult | CPT/HCPCS: 95806 ==

== ENCOUNTER 2023-05-13 07:44 | Outpatient (REF) | payer OTHER, SELFPAY ==
[2023-05-13 11:16] LABS: MANUAL DIFF FLAG NO
[2023-05-13 11:29] LABS: Basophils Absolute Auto 0.1 X10*3/uL (0.0-0.2); Basophils Percent Auto 0.5 % (0-2); Eosinophils Absolute Auto 0.2 X10*3/uL (0.0-0.4); Eosinophils Percent Auto 1.9 % (0-4); Hematocrit 36.8 % (37.0-47.0); Hemoglobin 11.5 g/dl (12.0-16.0); Imm Gran Abs Auto 0.03 X10*3/uL (0.00-0.03); Imm Gran Pct Auto 0.3 % (0.0-0.4); Lymphocytes Absolute Auto 3.1 X10*3/uL (1.2-4.9); Lymphocytes Percent Auto 31.7 % (20-40); Mean Corpuscular HGB Conc 31.3 g/dl (31.0-35.0); Mean Corpuscular Hemoglobin 25.1 pg (27.0-33.0); Mean Corpuscular Volume 80.3 fL (80.0-98.0); Mean Platelet Volume 9.5 fL (9.4-12.3); Monocytes Absolute Auto 0.6 X10*3/uL (0.1-1.2); Monocytes Percent Auto 5.9 % (2-11); Neutrophils Absolute Auto 5.8 x10*3/uL (2.0-8.3); Neutrophils Percent Auto 59.7 % (45-73); Platelet Count 387 X10*3/uL (160-400); Red Blood Count 4.58 X10*6/uL (4.20-5.50); Red Cell Distribution Width 16.1 % (11.0-16.0); White Blood Count 9.7 X10*3/uL (4.8-10.8)
[2023-05-13 12:49] LABS: Alanine Aminotransferase 18 U/L (0-31); Albumin Level 3.8 g/dL (3.5-5.0); Alkaline Phosphatase 64 U/L (39-117); Anion Gap 16 (12-20); Aspartate Amino Transferase 15 U/L (5-31); Bilirubin Total 0.3 mg/dL (0.0-1.0); Blood Urea Nitrogen 14 mg/dL (9-16); Calcium 9.4 mg/dL (8.4-10.2); Carbon Dioxide 20 mmol/L (22-29); Chloride 105 mmol/L (96-108); Cholesterol 174 mg/dL; Estimated Glomerular Filt Rate > 60; Glucose Fasting 92 mg/dL (60-99); Glucose Random 91 mg/dL (60-115); HDL Cholesterol 41 mg/dL; LDL Cholesterol Calculated 90 mg/dl; Potassium 4.1 mmol/L (3.3-5.1); Sodium 137 mmol/L (135-145); TSH reflex Free T4 3.41 uIU/mL (0.32-4.0); Triglycerides 216 mg/dL
[2023-05-14 15:13] LABS: Lyme Blot 3.62 index
[2023-05-14 16:04] LABS: Lyme Abs Screen POSITIVE
[2023-05-14 21:49] LABS: 18 KD (IgG) Band REACTIVE; 23 KD (IgG) Band REACTIVE; 23 KD (IgM) Band REACTIVE; 28 KD (IgG) Band REACTIVE; 30 KD (IgG) Band REACTIVE; 39 KD (IgM) Band NON-REACTIVE; 39KD (IgG) Band REACTIVE; 41 KD (IgM) Band NON-REACTIVE; 41KD (IgG) Band REACTIVE; 45 KD (IgG) Band REACTIVE; 58 KD (IgG) Band REACTIVE; 66 KD (IgG) Band REACTIVE; 93 KD (IgG) Band REACTIVE; Lyme IgG Blot Interp POSITIVE (NEGATIVE); Lyme IgM Blot Interp NEGATIVE (NEGATIVE)
== END 2023-05-13 07:45 | disposition home or self-care (01) ==
LOC: HO.WFDLDS 07:44
PROVIDERS: Visit Provider Family Medicine
DX: Z00.00 Encounter for general adult medical examination without abnormal findings (principal); R53.83 Other fatigue; T14.8XXA Other injury of unspecified body region, initial encounter; W57.XXXA Bitten or stung by nonvenomous insect and other nonvenomous arthropods, initial encounter
CPT/HCPCS: 36415; 80048; 80053; 80061; 84443; 85025; 86617; 86618

== ENCOUNTER → 2023-05-21 19:30 | Outpatient (REF) | payer OTHER, SELFPAY | LOC: HO.SL 19:30 | PROVIDERS: PCP Family Medicine; Visit Provider Nurse Practitioner Family | DX: G47.10 Hypersomnia, unspecified (principal); R06.83 Snoring; R53.83 Other fatigue; E66.01 Morbid (severe) obesity due to excess calories; Z68.42 Body mass index [BMI] 45.0-49.9, adult | CPT/HCPCS: 95810 ==

== ENCOUNTER → 2023-05-21 21:51 | Outpatient (BNV) | payer OTHER, SELFPAY | PROVIDERS: PCP Family Medicine; Visit Provider Psychiatry & Neurology Neurology | DX: R06.83 Snoring (principal) | CPT/HCPCS: 95810 ==

== ENCOUNTER 2023-05-22 13:34 | Outpatient (AMB) | payer OTHER, SELFPAY ==
[2023-05-22 13:53] VITALS: BP 110/70; PULSE 98; O2SAT 99; BMI 47.9
--- NOTE | 2023-05-22 13:53 | A.OFFPC_ITS ---
Vital Signs 05/22/23 13:53 Height 4 ft 11 in Weight 237 lb 4 oz BMI 47.9 BP 110/70 Blood Pressure Location Lt brachial Position Sitting Pulse 98 Pulse Source Pulse Oximeter Pulse Oximetry (%) 99 Oxygen Delivery Method Room Air Intake Visit Reasons: f/u labs Intake Note: Patient is here to review blood work. Allergies adhesive Allergy (Intermediate, Verified 05/22/23 13:55) Rash cobalt Allergy (Intermediate, Verified 05/22/23 13:55) Rash gluten Allergy (Intermediate, Verified 05/22/23 13:55) rash, GI issues nickel Allergy (Intermediate, Verified 05/22/23 13:55) Rash Tobacco use date assessed: 05/22/23 Dental Screening Dental Screen Date: 05/22/23 Did you have a dental visit in the last 12 months?: No Did you have a dental problem in the last 6 months where you did not have access to dental care?: No Was dental information given to patient?: No HPI f/u labs HPI Details 27 y/o female presents to f/u fatigue and labs. Labs were drawn 05/13/23. Reviewed labs with pt. Ongoing but improving mild anemia. Positive Lyme IgG. Triglycerides 216. TC 174. LDL 90. HDL 41. She reports she had used to be on thyroid medications but had stopped this in 2016. She had been on it for 10 years. [facility] Medical History Diverticulitis Hx of endometriosis IBS (irritable bowel syndrome) Low vitamin D level Surgical History History of appendix removal History of colonoscopy History of esophagogastroduodenoscopy (EGD) History of tonsillectomy History of wisdom tooth extraction Family History Father History of IBS HTN (hypertension) Psoriasis Mother Lupus Skin cancer Sister Lupus Thyroid disease Cervical cancer Other Mental health disorder Social History Housing: House Alcohol intake: former Patient Tobacco Use Status: Former Tobacco user e-Cigarette/Vaping Use: Never Used Second Hand Smoke Exposure: No service: No Current occupational status: employed 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 Bari Aguillon, Ammy Fisher, Ish Grimaldo and colleagues, with an educational maldonado from [employer]. Review of Systems Const Reports fatigue, Denies headache(s) and Denies weakness ENT Denies dizziness and Denies headache(s) Card Denies dyspnea Resp Denies cough, Denies dyspnea, Denies wheezing and Denies other (shortness of breath) Musc Denies numbness and Denies tingling Neuro Denies dizziness, Denies headache(s), Denies numbness, Denies tingling and Denies weakness Psych Denies anxiety and Denies depression Endo Reports fatigue Aller/Immun Denies wheezing Physical exam (Primary Care) Vital Signs: Last Vital Signs Pulse 98 05/22/23 13:53 BP 110/70 05/22/23 13:53 Pulse Ox 99 05/22/23 13:53 Oxygen Delivery Method Room Air 05/22/23 13:53 BMI result Body Mass Index 47.9 Tobacco/Smoking Status: Tobacco use Status Tobacco use date assessed 05/22/23 05/22/23 14:00 Patient Tobacco Use Status Former Tobacco user 05/22/23 14:00 e-Cigarette/Vaping Use Never Used 05/22/23 14:00 Thrive Assessment: Date of Thrive Assessment Date Thrive assessed 10/28/22 05/22/23 14:00 Const General: well developed; No acute distress Nutritional Appearance: well nourished and obese morbidly obese Orientation/consciousness: patient oriented x3 [facility] Head: Yes normocephalic and Yes atraumatic Eyes General: appearance normal, both eyes and all related structures Pupils: Equal, round and reactive pupils present EOM: EOMs intact bilaterally Resp Effort & Inspection: normal respiratory effort Auscultation: clear to auscultation bilaterally Cardio Rate: regular rate Rhythm: regular rhythm Heart sounds: S1 normal heart sound present, S2 normal heart sound present, no gallops, no murmurs and no rubs Neuro General: patient oriented x3 and gait normal Cranial nerves: Yes Equal, round and reactive pupils present Psych Affect: normal affect Assessment and Plan Assessment & Plan (1) Fatigue: Code(s): R53.83 - Other fatigue Plan: Ongoing fatigue. Had sleep study yesterday. Lab work unrevealing for explanation of fatigue. Recent tick bite but Lyme titers negative for a new/current infection. She does have a history of old affection and lab work is consistent with this. Patient has significant irritability and I will give her a script for bupropion which may help with irritability as well as fatigue Has a family history of lupus. Checking inflammatory and autoimmune markers She also notes history of hypothyroidism though TSH is still within normal limits today. Patient requests more thorough investigation so rechecking with free T4 and total T3. (2) Mild anemia: Code(s): D64.9 - Anemia, unspecified Plan: Improving Continue iron supplement (3) Family history of lupus erythematosus: Code(s): Z84.0 - Family history of diseases of the skin and subcutaneous tissue Plan: Checking labs as above (4) Anxiety: Code(s): F41.9 - Anxiety disorder, unspecified Plan: Irritability and anxiety. She has a therapist. Adding bupropion which may help with anxiety as well as some of her other carmen rns and symptoms (5) Tick bite: Code(s): W57.XXXA - Bitten or stung by nonvenomous insect and other nonvenomous arthropods, initial encounter Plan: Recent Lyme titer consistent with old infection. Patient is still having significant fatigue and joint pain. Rechecking Lyme titer Orders: Orders Vitamin B12 and Folate Today E53.8 - Deficiency of other specified B group vitamins, R53.83 - Other fatigue Basic Metabolic Panel Today R53.83 - Other fatigue, Z00.00 - Encounter for general adult medical examination without abnormal findings CRP High Sensitivity Today R53.83 - Other fatigue IRON PROFILE Today R53.83 - Other fatigue Triiodothyronine T3 Total Today E03.9 - Hypothyroidism, unspecified, R53.83 - Other fatigue Free T4 (Free Thyroxine) Today E03.9 - Hypothyroidism, unspecified, R53.83 - Other fatigue Thyroid Stimulating Hormone Today E03.9 - Hypothyroidism, unspecified, R53.83 - Other fatigue Vitamin D 25-OH Total Today E55.9 - Vitamin D deficiency, unspecified, R53.83 - Other fatigue Complete Blood Count Auto Diff Today R53.83 - Other fatigue, Z00.00 - Encounter for general adult medical examination without abnormal findings Erythrocyte Sedimentation Rate Today R53.83 - Other fatigue ENID Reflex Titer and Pattern Today R53.83 - Other fatigue, Z84.0 - Family history of diseases of the skin and subcutaneous tissue Lyme IgG/IgM w/reflex to WB Today R53.83 - Other fatigue Medications: New bupropion HCl 75 mg PO BID 30 days 60 tabs 1RF Coding Level of Care Code Est Pt Level 4 (86268) Diagnoses Fatigue R53.83 Mild anemia D64.9 Family history of lupus erythematosus Z84.0 Anxiety F41.9 Tick bite W57.XXXA
== END 2023-05-22 14:32 | disposition home or self-care (01) ==
PROVIDERS: PCP Family Medicine; Visit Provider Family Medicine
DX: R53.83 Other fatigue (principal); D64.9 Anemia, unspecified; Z84.0 Family history of diseases of the skin and subcutaneous tissue; F41.9 Anxiety disorder, unspecified; W57.XXXA Bitten or stung by nonvenomous insect and other nonvenomous arthropods, initial encounter
CPT/HCPCS: 99214

== ENCOUNTER 2023-05-27 14:48 | Outpatient (AMB) | payer OTHER, SELFPAY ==
--- NOTE | 2023-05-27 14:50 | A.OFFPC_ITS ---
Vital Signs 05/27/23 14:53 Height 4 ft 11 in Weight 238 lb BMI 48.1 BP 118/72 Blood Pressure Location Lt brachial Position Sitting Pulse 69 Pulse Source Pulse Oximeter Pulse Oximetry (%) 97 Oxygen Delivery Method Room Air Intake Visit Reasons: f/u paperwork for intermittent leave Intake Note: Patient is here for paperwork for itermittent leave. Allergies adhesive Allergy (Intermediate, Verified 05/27/23 14:54) Rash cobalt Allergy (Intermediate, Verified 05/27/23 14:54) Rash gluten Allergy (Intermediate, Verified 05/27/23 14:54) rash, GI issues nickel Allergy (Intermediate, Verified 05/27/23 14:54) Rash Tobacco use date assessed: 05/27/23 Dental Screening Dental Screen Date: 05/27/23 Did you have a dental visit in the last 12 months?: No Did you have a dental problem in the last 6 months where you did not have access to dental care?: No Was dental information given to patient?: Patient has dentist HPI f/u paperwork for intermittent leave HPI Details Pt presents today to f/u paperwork for intermittent leave due to worsening fatigue. Hx of mild anemia and lyme disease. Pt reports episodes up to twice a month, with about 8 hours each episode. [facility] Medical History Diverticulitis Hx of endometriosis IBS (irritable bowel syndrome) Low vitamin D level Surgical History History of appendix removal History of colonoscopy History of esophagogastroduodenoscopy (EGD) History of tonsillectomy History of wisdom tooth extraction Family History Father History of IBS HTN (hypertension) Psoriasis Mother Lupus Skin cancer Sister Lupus Thyroid disease Cervical cancer Other Mental health disorder Social History Housing: House Alcohol intake: former Patient Tobacco Use Status: Former Tobacco user e-Cigarette/Vaping Use: Never Used Second Hand Smoke Exposure: No service: No Current occupational status: employed 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 Bari Aguillon, Ammy Fisher, Ish Grimaldo and colleagues, with an educational maldonado from [employer]. Review of Systems Const Denies chills, Reports fatigue, Denies fever(s), Denies headache(s) and Denies weakness ENT Denies dizziness and Denies headache(s) Card Denies dyspnea Resp Denies cough, Denies dyspnea, Denies wheezing and Denies other (shortness of breath) Musc Denies numbness and Denies tingling Neuro Denies dizziness, Denies headache(s), Denies numbness, Denies tingling and Denies weakness Psych Denies anxiety and Denies depression Endo Reports fatigue Aller/Immun Denies wheezing Physical exam (Primary Care) Vital Signs: Last Vital Signs Pulse 69 05/27/23 14:53 BP 118/72 05/27/23 14:53 Pulse Ox 97 05/27/23 14:53 Oxygen Delivery Method Room Air 05/27/23 14:53 BMI result Body Mass Index 48.1 Tobacco/Smoking Status: Tobacco use Status Tobacco use date assessed 05/27/23 05/27/23 15:00 Patient Tobacco Use Status Former Tobacco user 05/27/23 14:52 e-Cigarette/Vaping Use Never Used 05/27/23 14:52 Thrive Assessment: Date of Thrive Assessment Date Thrive assessed 10/28/22 05/27/23 14:52 Const General: well developed; No acute distress Nutritional Appearance: well nourished Orientation/consciousness: patient oriented x3 [facility] Head: Yes normocephalic and Yes atraumatic Eyes General: appearance normal, both eyes and all related structures Pupils: Equal, round and reactive pupils present EOM: EOMs intact bilaterally Resp Effort & Inspection: normal respiratory effort Neuro General: patient oriented x3 and gait normal Cranial nerves: Yes Equal, round and reactive pupils present Psych Affect: normal affect Assessment and Plan Assessment & Plan (1) Fatigue: Code(s): R53.83 - Other fatigue Plan: Patient presents for ongoing fatigue and intermittent leave paperwork due to this. Contributing factors may be a history of Lyme disease though no current infect ion and also history of IBS and mild anemia. Patient still has current, mild anemia. No single definitive underlying cause has been found at present. Reviewed paperwork with patient. She will require intermittent leave of 2-3 episodes per month and up to 8 hours out of work per episode. Estimated time of intermittent leave is 6 months. She will follow-up with me just prior to this to review fatigue and review need for intermittent leave (2) History of Lyme disease: Code(s): Z86.19 - Personal history of other infectious and parasitic diseases Plan: IgM bands negative for current infection IgG bands positive for prior infection (3) Mild anemia: Code(s): D64.9 - Anemia, unspecified Plan: Ongoing mild anemia Will follow-up Coding Level of Care Code Est Pt Level 3 (62078) Diagnoses Fatigue R53.83 History of Lyme disease Z86.19 Mild anemia D64.9
[2023-05-27 14:53] VITALS: BP 118/72; PULSE 69; O2SAT 97; BMI 48.1
== END 2023-05-27 15:31 | disposition home or self-care (01) ==
PROVIDERS: PCP Family Medicine; Visit Provider Family Medicine
DX: R53.83 Other fatigue (principal); Z86.19 Personal history of other infectious and parasitic diseases; D64.9 Anemia, unspecified
CPT/HCPCS: 99213

== ENCOUNTER 2023-06-04 11:42 | Outpatient (REF) | payer OTHER, SELFPAY ==
[2023-06-04 14:36] LABS: MANUAL DIFF FLAG NO
[2023-06-04 14:52] LABS: Basophils Percent Auto 0.4 % (0-2); Eosinophils Absolute Auto 0.1 X10*3/uL (0.0-0.4); Eosinophils Percent Auto 1.2 % (0-4); Hematocrit 38.5 % (37.0-47.0); Hemoglobin 12.4 g/dl (12.0-16.0); Imm Gran Abs Auto 0.04 X10*3/uL (0.00-0.03); Imm Gran Pct Auto 0.5 % (0.0-0.4); Lymphocytes Absolute Auto 2.8 X10*3/uL (1.2-4.9); Mean Corpuscular HGB Conc 32.2 g/dl (31.0-35.0); Mean Corpuscular Hemoglobin 26.1 pg (27.0-33.0); Mean Corpuscular Volume 80.9 fL (80.0-98.0); Mean Platelet Volume 9.6 fL (9.4-12.3); Monocytes Absolute Auto 0.3 X10*3/uL (0.1-1.2); Neutrophils Absolute Auto 5.1 x10*3/uL (2.0-8.3); Neutrophils Percent Auto 60.9 % (45-73); Platelet Count 418 X10*3/uL (160-400); Red Blood Count 4.76 X10*6/uL (4.20-5.50); Red Cell Distribution Width 16.1 % (11.0-16.0); White Blood Count 8.4 X10*3/uL (4.8-10.8)
[2023-06-04 15:07] LABS: Anion Gap 14 (12-20); Blood Urea Nitrogen 8 mg/dL (9-16); Calcium 9.9 mg/dL (8.4-10.2); Carbon Dioxide 23 mmol/L (22-29); Chloride 105 mmol/L (96-108); Estimated Glomerular Filt Rate > 60; Glucose Random 109 mg/dL (60-115); Iron 36 mcg/dL (30-160); Percent Iron Saturation 10 % (15-50); Potassium 3.9 mmol/L (3.3-5.1); Sodium 138 mmol/L (135-145); Total Iron Binding Capacity 351 mcg/dL (228-428); Unsaturated Iron Binding 315 ug/dL
[2023-06-04 15:22] LABS: Free T4 (Free Thyroxine) 0.83 ng/dL (0.71-1.85)
[2023-06-04 15:28] LABS: Erythrocyte Sedimentation Rate 11 MM/HR (0-20)
[2023-06-04 15:40] LABS: Vitamin B12 429 pg/mL (200-900)
[2023-06-05 13:48] LABS: CRP High Sensitivity 5.4 mg/L
[2023-06-05 15:23] LABS: Triiodothyronine T3 Total 143 ng/dL (76-181)
[2023-06-05 21:04] LABS: Lyme Blot 3.51 index
[2023-06-09 07:33] LABS: Anti Nuclear Antibody Screen NEGATIVE (NEGATIVE)
[2023-06-09 10:54] LABS: 18 KD (IgG) Band NON-REACTIVE; 23 KD (IgG) Band REACTIVE; 23 KD (IgM) Band REACTIVE; 28 KD (IgG) Band NON-REACTIVE; 30 KD (IgG) Band NON-REACTIVE; 39 KD (IgM) Band NON-REACTIVE; 39KD (IgG) Band REACTIVE; 41 KD (IgM) Band NON-REACTIVE; 41KD (IgG) Band REACTIVE; 45 KD (IgG) Band NON-REACTIVE; 58 KD (IgG) Band REACTIVE; 66 KD (IgG) Band NON-REACTIVE; 93 KD (IgG) Band REACTIVE; Lyme IgG Blot Interp POSITIVE (NEGATIVE); Lyme IgM Blot Interp NEGATIVE (NEGATIVE)
[2023-06-09 11:01] LABS: Lyme Abs Screen POSITIVE
== END 2023-06-04 11:43 | disposition home or self-care (01) ==
LOC: HO.WFDLDS 11:42
PROVIDERS: Visit Provider Family Medicine
DX: E55.9 Vitamin D deficiency, unspecified (principal); R53.83 Other fatigue; E03.9 Hypothyroidism, unspecified; Z00.00 Encounter for general adult medical examination without abnormal findings; E53.8 Deficiency of other specified B group vitamins; Z84.0 Family history of diseases of the skin and subcutaneous tissue
CPT/HCPCS: 36415; 80048; 82306; 82607; 82746; 83540; 84439; 84443; 84480; 85025; 85652; 86038; 86141; 86617; 86618

== ENCOUNTER 2023-06-06 09:24 | Outpatient (AMB) | payer OTHER, SELFPAY ==
--- NOTE | 2023-06-06 09:29 | MHC.OFFVIS ---
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 The PSG sleep study result was normal sleep study. There was no evidence of sleep apnea or sleep related movement disorders. Sleep efficiency was 72.8%. Pt continues to endorse daytime tiredness and fatigue. Pt reports that her sleep hours 5-6 hrs, from around 1 am to 6 am. She can take a nap but not falling asleep during work or sudden loss of muscle tone with strong emotions. Denies hallucination when she falling asleep. Pt reports that she had hx of Lyme disease and anemia, followed by PCP. [facility] Medical History Diverticulitis Hx of endometriosis IBS (irritable bowel syndrome) Low vitamin D level Surgical History History of appendix removal History of colonoscopy History of esophagogastroduodenoscopy (EGD) History of tonsillectomy History of wisdom tooth extraction Family History Father History of IBS HTN (hypertension) Psoriasis Mother Lupus Skin cancer Sister Lupus Thyroid disease Cervical cancer Other Mental health disorder Social History (Updated 06/06/23 @ 09:32 by Thao Lee CMA) Housing: House Alcohol intake: former Patient Tobacco Use Status: Never used Tobacco e-Cigarette/Vaping Use: Never Used Second Hand Smoke Exposure: No Use of substances other than those prescribed or required for medical reasons: No service: No Current occupational status: employed 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 Current occupational exposures/hazards: No Cognitive needs: No Hearing needs: No Vision needs: Yes (reading glasses) Review of Systems Const All systems reviewed & are unremarkable except as noted in HPI and below ENT Reports Normal hearing present Neuro Reports Normal hearing present Physical Exam Vital Signs: Last Vital Signs Pulse 76 06/06/23 09:33 BP 122/76 06/06/23 09:33 Pulse Ox 98 06/06/23 09:33 Oxygen Delivery Method Room Air 06/06/23 09:33 Const General: cooperative and tired appearing Nutritional Appearance: obese Orientation/consciousness: patient oriented x3 HEENT Throat: Yes other (mallampati grade 4) Neck Neck: Yes full ROM and Yes supple Resp Effort & Inspection: normal respiratory effort and able to speak in complete sentences Neuro General: patient oriented x3, gait normal and moves all extremities Cranial nerves: Yes Bilaterally intact EOM present, Yes Normal facial strength present, Yes Midline tongue present, Yes Symmetric palate elevation present, Yes Normal hearing present, Yes Ability to bilaterally rotate head present and Yes Ability to bilaterally elevate shoulders present Cognition (Neuro): normal cognition Gait exam (Neuro): Normal gait present Motor exam (neuro): 5/5 motor strength present throughout, Pronator motor function not present and no tremor noted Psych Appearance: grossly normal Mental Status: mental status grossly normal Speech and movement: Normal speech and movement present Affect: normal affect Attitude: cooperative Assessment & Plan Assessment & Plan (1) Fatigue: Code(s): R53.83 - Other fatigue (2) Snoring: Code(s): R06.83 - Snoring Plan Advised patient to increase sleep hours, 7-9 hrs sleep for adult. Practice sleep hygiene, increase daily physical activity during daytime. Continue to take vitamin D and iron supplement. Coding Level of Care Code Est Pt Level 3 (98813) Diagnoses Fatigue R53.83 Snoring R06.83
[2023-06-06 09:33] VITALS: BP 122/76; PULSE 76; O2SAT 98
== END 2023-06-06 10:29 | disposition home or self-care (01) ==
PROVIDERS: Visit Provider Nurse Practitioner Family
DX: R53.83 Other fatigue (principal); R06.83 Snoring
CPT/HCPCS: 99213

== ENCOUNTER → 2023-06-06 09:24 | Outpatient (BNVA) | payer OTHER, SELFPAY | PROVIDERS: Visit Provider Nurse Practitioner Family | DX: R53.83 Other fatigue (principal); R06.83 Snoring | CPT/HCPCS: 99212 ==

== ENCOUNTER 2023-06-19 10:36 | Outpatient (AMB) | payer OTHER, SELFPAY ==
--- NOTE | 2023-06-19 10:46 | A.OFFPC_ITS ---
Vital Signs 06/19/23 10:48 Height 4 ft 11 in Weight 237 lb BMI 47.9 BP 122/64 Blood Pressure Location Rt brachial Position Sitting Respiration 14 Pulse 87 Pulse Source Pulse Oximeter Temp 98.9 F Temp Source Oral Pulse Oximetry (%) 99 Oxygen Delivery Method Room Air Intake Visit Reasons: f/u labs Intake Note: Patient reports she is here to follow up on labs and expresses no concerns. 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 Labs were drawn 06/04/23. Reviewed labs with pt. Mildly high platelet count at 418. Anemia has resolved. She notes bupropion 75mg b.i.d. has not been doing much for her. [facility] Medical History Diverticulitis Hx of endometriosis IBS (irritable bowel syndrome) Low vitamin D level Surgical History History of appendix removal History of colonoscopy History of esophagogastroduodenoscopy (EGD) History of tonsillectomy History of wisdom tooth extraction Family History Father History of IBS HTN (hypertension) Psoriasis Mother Lupus Skin cancer Sister Lupus Thyroid disease Cervical cancer Other Mental health disorder Social History (Updated 06/06/23 @ 09:32 by Thao Lee CMA) Housing: House Alcohol intake: former Patient Tobacco Use Status: Never used Tobacco e-Cigarette/Vaping Use: Never Used Second Hand Smoke Exposure: No service: No Current occupational status: employed 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 Bari Aguillon, Ammy Fisher, Ish Grimaldo and colleagues, with an educational maldonado from [employer]. Review of Systems Const Denies chills, Denies fatigue, Denies fever(s), Denies headache(s) and Denies weakness ENT Denies dizziness and Denies headache(s) Card Denies dyspnea Resp Denies cough, Denies dyspnea, Denies wheezing and Denies other (shortness of breath) Musc Denies numbness and Denies tingling Neuro Denies dizziness, Denies headache(s), Denies numbness, Denies tingling and Denies weakness Psych Reports anxiety Endo Denies fatigue Aller/Immun Denies wheezing Physical exam (Primary Care) Vital Signs: Last Vital Signs Temp 98.9 F 06/19/23 10:48 Pulse 87 06/19/23 10:48 Resp 14 06/19/23 10:48 BP 122/64 06/19/23 10:48 Pulse Ox 99 06/19/23 10:48 Oxygen Delivery Method Room Air 06/19/23 10:48 BMI result Body Mass Index 47.9 Tobacco/Smoking Status: Tobacco use Status Tobacco use date assessed 05/27/23 06/19/23 10:47 Patient Tobacco Use Status Never used Tobacco 06/19/23 10:47 e-Cigarette/Vaping Use Never Used 06/19/23 10:47 Thrive Assessment: Date of Thrive Assessment Date Thrive assessed 10/28/22 06/19/23 10:47 Const General: well developed; No acute distress Nutritional Appearance: well nourished Orientation/consciousness: patient oriented x3 [facility] Head: Yes normocephalic and Yes atraumatic Eyes General: appearance normal, both eyes and all related structures Pupils: Equal, round and reactive pupils present EOM: EOMs intact bilaterally Resp Effort & Inspection: normal respiratory effort Neuro General: patient oriented x3 and gait normal Cranial nerves: Yes Equal, round and reactive pupils present Psych Affect: normal affect Assessment and Plan Assessment & Plan (1) Fatigue: Code(s): R53.83 - Other fatigue Plan: Ongoing significant fatigue. Likely multifactorial. She had anemia and a prior Lyme infection. These have resolved She also has significant anxiety and depression. I have started her on bupropion and she has only recently increased This medication to b.i.d. dosing. Will continue to follow Sleep medicine has also recommended increasing hours of sleep and working on sleep hygiene (2) Anxiety: Code(s): F41.9 - Anxiety disorder, unspecified Plan: Recently increased bupropion to b.i.d. dosing No changes made today Will follow-up in 4-6 weeks (3) Snoring: Code(s): R06.83 - Snoring Plan: Snoring and high BMI but sleep study negative for sleep apnea. She can sleep on her side and sleep Anacin recommended increasing hours of sleep and working on sleep hygiene. Coding Level of Care Code Est Pt Level 3 (68311) Diagnoses Fatigue R53.83 Anxiety F41.9 Snoring R06.83
[2023-06-19 10:48] VITALS: BP 122/64; PULSE 87; RESP 14; TEMP 37.2; O2SAT 99; BMI 47.9
== END 2023-06-19 11:25 | disposition home or self-care (01) ==
PROVIDERS: PCP Family Medicine; Visit Provider Family Medicine
DX: R53.83 Other fatigue (principal); F41.9 Anxiety disorder, unspecified; R06.83 Snoring
CPT/HCPCS: 99213

== ENCOUNTER 2023-09-10 08:45 | Outpatient (AMB) | payer OTHER, SELFPAY ==
[2023-09-10 08:48] VITALS: BP 104/66; PULSE 82; RESP 13; TEMP 36.3; O2SAT 99; BMI 48.1
--- NOTE | 2023-09-10 08:48 | A.OFFPC_ITS ---
Vital Signs 09/10/23 08:48 Height 4 ft 11 in Weight 238 lb BMI 48.1 BP 104/66 Blood Pressure Location Rt brachial Position Sitting Respiration 13 Pulse 82 Pulse Source Pulse Oximeter Temp 97.4 F Temp Source Temporal Artery Scan Pulse Oximetry (%) 99 Oxygen Delivery Method Room Air Intake Visit Reasons: f/u anxiety Marketing Segment Manager Required: No Accompanied by: Self / Same As Patient Allergies adhesive Allergy (Intermediate, Verified 09/10/23 08:52) Rash cobalt Allergy (Intermediate, Verified 09/10/23 08:52) Rash gluten Allergy (Intermediate, Verified 09/10/23 08:52) rash, GI issues nickel Allergy (Intermediate, Verified 09/10/23 08:52) Rash Tobacco use date assessed: 05/27/23 Dental Screening Dental Screen Date: 09/10/23 Did you have a dental visit in the last 12 months?: No Did you have a dental problem in the last 6 months where you did not have access to dental care?: No Was dental information given to patient?: Patient has dentist HPI f/u anxiety HPI Details 28 y/o female presents to f/u anxiety. She had recently increased bupropion from once a day dosing to b.i.d. dosing. She reports she is - 12 weeks. Also f/u ongoing significant fatigue. Sleep study showed no sleep apnea. She reports sleep improved ever since and is able to fall asleep right away. Fatigue has significantly improved. She reports she has been experiencing bursts of energy throughout the day. Pt reports she had stopped her bupropion due to hives. Hives had stopped when she stopped her buproprion and had come back when she restarted it. Mood feels stable and denies any SI/HI. She states she feels okay discontinuing meds while . [facility] Medical History 12 weeks gestation of Hx of endometriosis Low vitamin D level IBS (irritable bowel syndrome) Diverticulitis Surgical History History of appendix removal History of esophagogastroduodenoscopy (EGD) History of wisdom tooth extraction History of tonsillectomy History of colonoscopy Family History Father History of IBS HTN (hypertension) Psoriasis Mother Lupus Skin cancer Sister Lupus Thyroid disease Cervical cancer Other Mental health disorder Social History Housing: House Alcohol intake: former Patient Tobacco Use Status: Never used Tobacco e-Cigarette/Vaping Use: Never Used Second Hand Smoke Exposure: No service: No Current occupational status: employed 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 Current occupational exposures/hazards: No Cognitive needs: No Hearing needs: No Vision needs: No (reading glasses) Questionnaire Thrive Questionnaire Date Thrive assessed: 10/28/22 JADON-7 AMB Questionnaire JADON-7 Date JADON - 7 assessed: 09/10/23 Feeling nervous, anxious, or on edge: 0 = Not at all Not being able to stop or control worryin = Not at all Worrying too much about different things: 0 = Not at all Trouble relaxin = Several days Being so restless that it is hard to sit still: 0 = Not at all Becoming easily annoyed or irritable: 1 = Several days Feeling afraid as if something awful might happen: 1 = Several days Total JADON-7 score (0-4 normal; 5-9 mild; 10-14 moderate; 15-21 severe): 3 Source: Developed by Drs. Bari Aguillon, Ammy Fisher, Ish Grimaldo and colleagues, with an educational maldonado from [employer]. JADON-7 Assessment Billing JADON-7 Assessment Tool: JADON-7 Assessment 22046 Review of Systems Const Denies chills, Denies fatigue, Denies fever(s), Denies headache(s) and Denies weakness ENT Denies dizziness and Denies headache(s) Card Denies chest pain, Denies lightheadedness, Denies dyspnea and Denies other (Palpitations) Resp Denies cough, Denies dyspnea, Denies wheezing and Denies other ( shortness of breath) Musc Denies numbness and Denies tingling Neuro Denies dizziness, Denies headache(s), Denies numbness, Denies tingling, Denies paresthesias and Denies weakness Psych Denies anxiety and Denies depression Endo Denies fatigue Aller/Immun Denies wheezing Physical exam (Primary Care) Vital Signs: Last Vital Signs Temp 97.4 F 09/10/23 08:48 Pulse 82 09/10/23 08:48 Resp 13 09/10/23 08:48 BP 104/66 09/10/23 08:48 Pulse Ox 99 09/10/23 08:48 Oxygen Delivery Method Room Air 09/10/23 08:48 BMI result Body Mass Index 48.1 Tobacco/Smoking Status: Tobacco use Status Tobacco use date assessed 05/27/23 09/10/23 09:15 Patient Tobacco Use Status Never used Tobacco 09/10/23 09:15 e-Cigarette/Vaping Use Never Used 09/10/23 09:15 Thrive Assessment: Date of Thrive Assessment Date Thrive assessed 10/28/22 09/10/23 09:15 Const General: no acute distress and well developed Nutritional Appearance: obese morbidly obese Orientation/consciousness: patient oriented x3 HENMT Head: Yes normocephalic and Yes atraumatic Eyes General: appearance normal, both eyes and all related structures Pupils: Equal, round and reactive pupils present EOM: EOMs intact bilaterally Resp Effort & Inspection: normal respiratory effort Auscultation: clear to auscultation bilaterally Cardio Rate: regular rate Rhythm: regular rhythm Heart sounds: S1 normal heart sound present, S2 normal heart sound present, no gallops, no murmurs and no rubs Neuro General: patient oriented x3 and gait normal Cranial nerves: Yes Equal, round and reactive pupils present Psych Affect: normal affect Assessment and Plan Assessment & Plan (1) Anxiety: Code(s): F41.9 - Anxiety disorder, unspecified Plan: Patient?is?off?bupropion?which?was?causing?hives. Mood?is?rather?stable?and?no?thoughts?of?harming?herself?or?others. She?feels?okay?with?discontinuing?medications?right?now?as?she?is?12?weeks?pregn ant. Will?continue?to?follow.??She?has?an?appointment?in?October?for?paperwork (2) Fatigue: Code(s): R53.83 - Other fatigue Plan: Had?advised?improving?her?sleep?hygiene. Patient?notes?that?since?she?has?been??her?fatigue?has?decreased?signifi cantly.??She?is?sleeping?better. Evaluation?for?sleep?apnea?was?negative. (3) Incidental : Code(s): Z33.1 - state, incidental Plan: Patient?is?12?weeks?. She?is?followed?by?die designer and?getting??care Taking?a??vitamin Doing?well I?advised?regular?mild?exercise Coding Level of Care Code Est Pt Level 4 (87910) Diagnoses Anxiety F41.9 Fatigue R53.83 Incidental Z33.1 Additional Codes JADON-7 Assessment Billing - JADON-7 Assessment Tool: JADON-7 Assessment 21235 ([id number])
== END 2023-09-10 09:30 | disposition home or self-care (01) ==
PROVIDERS: PCP Family Medicine; Visit Provider Family Medicine
DX: F41.9 Anxiety disorder, unspecified (principal); R53.83 Other fatigue; Z33.1 Pregnant state, incidental
CPT/HCPCS: 99214

== ENCOUNTER 2023-10-21 14:28 | Outpatient (AMB) | payer OTHER, SELFPAY ==
[2023-10-21 14:37] VITALS: BP 104/54; PULSE 111; RESP 13; O2SAT 97; BMI 48.5
--- NOTE | 2023-10-21 14:37 | A.OFFPC_ITS ---
Vital Signs 10/21/23 14:37 Height 4 ft 11 in Weight 240 lb BMI 48.5 BP 104/54 L Blood Pressure Location Rt brachial Position Sitting Respiration 13 Pulse 111 H Pulse Source Pulse Oximeter Pulse Oximetry (%) 97 Oxygen Delivery Method Room Air Intake Visit Reasons: f/u paperwork for intermittent leave Intake Note: Patient reports she has no concerns at this time. Patient would like to return back to full schedule. Allergies adhesive Allergy (Intermediate, Verified 10/21/23 14:41) Rash cobalt Allergy (Intermediate, Verified 10/21/23 14:41) Rash gluten Allergy (Intermediate, Verified 10/21/23 14:41) rash, GI issues nickel Allergy (Intermediate, Verified 10/21/23 14:41) Rash Tobacco use date assessed: 05/27/23 HPI f/u paperwork for intermittent leave HPI Details 28 y/o female presents to f/u intermitte nt leave paperwork. Pt would like to return back to full schedule. She states she has been doing well now and is able to make it to the end of the day. She has been doing well in regard to her and continues to f/u with her Scheduling Clerk. ON LICENSE OF [facility] Medical History 12 weeks gestation of Hx of endometriosis Low vitamin D level IBS (irritable bowel syndrome) Diverticulitis Surgical History History of appendix removal History of esophagogastroduodenoscopy (EGD) History of wisdom tooth extraction History of tonsillectomy History of colonoscopy Family History Father History of IBS HTN (hypertension) Psoriasis Mother Lupus Skin cancer Sister Lupus Thyroid disease Cervical cancer Other Mental health disorder Social History Housing: House Alcohol intake: former Patient Tobacco Use Status: Never used Tobacco e-Cigarette/Vaping Use: Never Used Second Hand Smoke Exposure: No service: No Current occupational status: employed 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 Bari Aguillon, Ammy Fisher, Ish Grimaldo and colleagues, with an educational maldonado from [employer]. Review of Systems Const Denies chills, Denies fatigue, Denies fever(s), Denies headache(s) and Denies weakness ENT Denies dizziness and Denies headache(s) Card Denies chest pain, Denies lightheadedness, Denies dyspnea and Denies other (Palpitations) Resp Denies cough, Denies dyspnea, Denies wheezing and Denies other ( shortness of breath) Musc Denies numbness and Denies tingling Neuro Denies dizziness, Denies headache(s), Denies numbness, Denies tingling, Denies paresthesias and Denies weakness Psych Denies anxiety and Denies depression Endo Denies fatigue Aller/Immun Denies wheezing Physical exam (Primary Care) Vital Signs: Last Vital Signs Pulse 111 H 10/21/23 14:37 Resp 13 10/21/23 14:37 BP 104/54 L 10/21/23 14:37 Pulse Ox 97 10/21/23 14:37 Oxygen Delivery Method Room Air 10/21/23 14:37 BMI result Body Mass Index 48.5 Tobacco/Smoking Status: Tobacco use Status Tobacco use date assessed 05/27/23 10/21/23 14:42 Patient Tobacco Use Status Never used Tobacco 10/21/23 14:42 e-Cigarette/Vaping Use Never Used 10/21/23 14:42 Thrive Assessment: Date of Thrive Assessment Date Thrive assessed 10/28/22 10/21/23 14:42 Const General: no acute distress and well developed Nutritional Appearance: well nourished Orientation/consciousness: patient oriented x3 HENMT Head: Yes normocephalic and Yes atraumatic Eyes General: appearance normal, both eyes and all related structures Pupils: Equal, round and reactive pupils present EOM: EOMs intact bilaterally Resp Effort & Inspection: normal respiratory effort Auscultation: clear to auscultation bilaterally Cardio Rate: regular rate Rhythm: regular rhythm Heart sounds: S1 normal heart sound present, S2 normal heart sound present, no gallops, no murmurs and no rubs Neuro General: patient oriented x3 and gait normal Cranial nerves: Yes Equal, round and reactive pupils present Psych Affect: normal affect Assessment and Plan Assessment & Plan (1) Fatigue: Code(s): R53.83 - Other fatigue Plan: Fatigue?has?resolved?and?patient?would?like?to?return?to?full- time?work?without?restrictions. Exam?today?is?within?normal?limits Will?send?a?letter?to?her?employer?for?the?above?change. (2) Incidental : Code(s): Z33.1 - state, incidental Plan: Doing?well?and?excited?about?her?20?week?evaluation. Follow-up?with?Ob?as?recommended Coding Level of Care Code Est Pt Level 3 (14623) Diagnoses Fatigue R53.83 Incidental Z33.1
== END 2023-10-21 15:06 | disposition home or self-care (01) ==
PROVIDERS: PCP Family Medicine; Visit Provider Family Medicine
DX: R53.83 Other fatigue (principal); Z33.1 Pregnant state, incidental
CPT/HCPCS: 99213

== ENCOUNTER 2024-01-01 09:01 | Outpatient (AMB) | payer OTHER, SELFPAY ==
[2024-01-01 09:03] VITALS: BP 108/68; PULSE 80; O2SAT 98; BMI 51.3
--- NOTE | 2024-01-01 09:03 | A.OFFPC_ITS ---
Vital Signs 01/01/24 09:03 Height 4 ft 11 in Weight 254 lb 4 oz BMI 51.3 BP 108/68 Blood Pressure Location Rt brachial Position Sitting Pulse 80 Pulse Source Pulse Oximeter Pulse Oximetry (%) 98 Oxygen Delivery Method Room Air Intake Visit Reasons: CPE Intake Note: Patient is here for her physical today. Patient : Yes (28 weeks.) Allergies adhesive Allergy (Intermediate, Verified 01/01/24 09:06) Rash cobalt Allergy (Intermediate, Verified 01/01/24 09:06) Rash gluten Allergy (Intermediate, Verified 01/01/24 09:06) rash, GI issues nickel Allergy (Intermediate, Verified 01/01/24 09:06) Rash Tobacco use date assessed: 01/01/24 Dental Screening Dental Screen Date: 01/01/24 Did you have a dental visit in the last 12 months?: Yes Did you have a dental problem in the last 6 months where you did not have access to dental care?: No Was dental information given to patient?: Patient has dentist HPI CPE HPI Details 28 y/o female presents for a CPE with f/ u labs and health maintenance. No recent labs to review. Takes aspirin every morning. 28 weeks . [facility] Medical History 12 weeks gestation of Hx of endometriosis Low vitamin D level IBS (irritable bowel syndrome) Diverticulitis Surgical History History of appendix removal History of esophagogastroduodenoscopy (EGD) History of wisdom tooth extraction History of tonsillectomy History of colonoscopy Family History Father History of IBS HTN (hypertension) Psoriasis Mother Lupus Skin cancer Sister Lupus Thyroid disease Cervical cancer Other Mental health disorder Social History Housing: House Alcohol intake: former Patient Tobacco Use Status: Never used Tobacco e-Cigarette/Vaping Use: Never Used Second Hand Smoke Exposure: No service: No Current occupational status: employed 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 1. Little interest or pleasure in doing things: not at all 2. Feeling down, depressed, or hopeless: not at all 3. Trouble falling or staying asleep, or sleeping too much: several days 4. Feeling tired or having little energy: several days () 5. Poor appetite or overeating: not at all 6. Feeling bad about yourself - or that you are a failure or have let yourself or your family down: not at all 7. Trouble concentrating on things, such as reading the newspaper or watching television: several days 8. Moving or speaking so slowly that other people could have noticed. Or the opposite - being so fidgety or restless that you have been moving around a lot more than usual: not at all 9. Thoughts that you would be better off or of hurting yourself in some way: not at all Total score: 3 Depression Screening Interpretation: Negative Depression Screening Done: Yes Source: Developed by Drs. Bari Aguillon, Ammy Fisher, Ish Grimaldo and colleagues, with an educational maldonado from [employer]. Thrive Questionnaire Date Thrive assessed: 10/28/22 I am a: Patient What is your living situation today?: I have a steady place to live Within the past 12 months, did the food you bought not last and you didn't have the money to get more?: Never true Within the past 12 months, did you worry whether your food would run out before you got money to buy more?: Never true Do you have trouble paying for medicines?: No Do you have trouble getting transportation to medical appointments?: No Do you have trouble paying your heating and electricity bill?: No Do you have trouble taking care of your child, family member or friend?: No Do you have trouble with day-to-day activities such as bathing, preparing meals, shopping, managing finances, etc.?: No Are you currently unemployed and looking for a job?: No Are you interested in more education?: No THRIVE Score: 0 AUDIT C Alcohol Use Questionnaire (AUDIT-C) 1. How often do you have a drink containing alcohol?: Never 3. How often do you have six or more drinks on one occasion?: Never Total Score: 0 JADON-7 AMB Questionnaire JADON-7 Date JADON - 7 assessed: 01/01/24 Feeling nervous, anxious, or on edge: 1 = Several days Not being able to stop or control worryin = Several days Worrying too much about different things: 1 = Several days Trouble relaxin = Not at all Being so restless that it is hard to sit still: 0 = Not at all Becoming easily annoyed or irritable: 0 = Not at all Feeling afraid as if something awful might happen: 0 = Not at all Total JADON-7 score (0-4 normal; 5-9 mild; 10-14 moderate; 15-21 severe): 3 Source: Developed by Drs. Bari Aguillon, Ammy Fisher, Ish Grimaldo and colleagues, with an educational maldonado from [employer]. Review of Systems Const Denies chills, Denies fatigue, Denies fever(s), Denies headache(s) and Denies weakness Eyes Denies change in vision ENT Denies dizziness, Denies headache(s), Denies hearing loss, Denies nasal congestion, Denies sinus pain, Denies sinus pressure and Denies sore throat Card Denies chest pain, Denies lightheadedness, Denies dyspnea and Denies other (palpitations) Resp Denies cough, Denies dyspnea and Denies wheezing GI Denies abdominal pain, Denies melena, Denies hematochezia, Denies change in bowel habits, Denies dyspepsia and Denies nausea Denies hematuria and Denies dysuria Musc Denies abnormal gait, Denies myalgias, Denies arthralgias, Denies numbness and Denies tingling Skin/Breast Denies rash, Denies unusual bruising and Denies wounds Neuro Denies abnormal gait, Denies dizziness, Denies headache(s), Denies memory loss, Denies numbness, Denies Sensory deficit (Neuro), Denies tingling and Denies weakness Psych Denies anxiety, Denies depression and Denies memory loss Endo Denies cold intolerance, Denies fatigue, Denies heat intolerance, Denies polydipsia and Denies polyuria Jeremiah/Lymph Denies easy bleeding and Denies easy bruising Aller/Immun Denies wheezing Physical exam (Primary Care) Vital Signs: Last Vital Signs Pulse 80 01/01/24 09:03 BP 108/68 01/01/24 09:03 Pulse Ox 98 01/01/24 09:03 Oxygen Delivery Method Room Air 01/01/24 09:03 BMI result Body Mass Index 51.3 Tobacco/Smoking Status: Tobacco use Status Tobacco use date assessed 01/01/24 01/01/24 09:14 Patient Tobacco Use Status Never used Tobacco 01/01/24 09:14 e-Cigarette/Vaping Use Never Used 01/01/24 09:14 PHQ-9: PHQ-9 Score PHQ-9: Total score 3 01/01/24 09:14 Depression Screening Interpretation: Negative Thrive Assessment: Date of Thrive Assessment Date Thrive assessed 10/28/22 01/01/24 09:14 Const General: no acute distress, well developed, alert and awake Nutritional Appearance: well nourished and obese morbidly obese Orientation/consciousness: patient oriented x3 HENMT Head: Yes normocephalic and Yes atraumatic Ears: hearing grossly normal bilaterally and TM's normal bilaterally General nose exam: Normal external nose present and Normal nares present Mouth: Normal oral and palatal mucosa present and moist mucous membranes Teeth and gingiva: dentition normal Throat: Yes posterior oropharynx normal Eyes General: appearance normal, both eyes and all related structures Pupils: Equal, round and reactive pupils present and Pupil accommodation reflex normal EOM: EOMs intact bilaterally Neck Neck: Yes normal visual inspection, Yes no lymphadenopathy and Yes trachea midline Thyroid: Thyroid normal Carotids: no bruits Lymphatic: no lymphadenopathy noted Chest Chest palpation & inspection: normal inspection of the chest Resp Effort & Inspection: normal respiratory effort Auscultation: clear to auscultation bilaterally Cardio Rate: regular rate Rhythm: regular rhythm Heart sounds: S1 normal heart sound present, S2 normal heart sound present, no gallops, no murmurs and no rubs Bruits: no abdominal aortic bruits and no carotid bruits GI Other: Gravid?abdomen.??Nontender Palpation (GI): No Abdominal aortic bruit present, Soft to palpation, nontender, No hepatosplenomegaly present and No Rebound tenderness present Auscultation: normal bowel sounds General: Yes no CVA tenderness Back/Spine/Pelvis Back: no CVA tenderness Cervical Spine: cervical ROM normal and No Cervical spine tenderness Thoracic/Lumbar Spine: thoraco-lumbar ROM normal, No pain with thoraco-lumbar ROM, No thoracic spinal tenderness and No lumbar spinal tenderness Skin Lesions: no lesions Rashes: no rashes Trauma: no lacerations or abrasions Wounds: no wounds Nails: normal Neuro General: patient oriented x3 Cranial nerves: Yes Equal, round and reactive pupils present Cognition (Neuro): normal cognition Gait exam (Neuro): Normal gait present Motor exam (neuro): 5/5 motor strength present throughout Sensory Exam: No Sensory deficit (Neuro) Deep tendon reflexes (DTR's): Right patellar reflex intensity grade: 2+ and Left patellar reflex intensity grade: 2+ Extrem General: Yes normal to inspection and No edema Psych Appearance: grossly normal Affect: normal affect Attitude: cooperative Thought process: Normal thought process present Assessment and Plan Assessment & Plan (1) Adult general medical exam: Code(s): Z00.00 - Encounter for general adult medical examination without abnormal findings Plan: 28-year-old?female?presents?for?complete?physical?exam Encouraged?healthy?diet?with?active?lifestyle?and?plenty?of?exercise?as?tolerate d (2) Incidental : Code(s): Z33.1 - state, incidental Plan: Now?at?28?weeks?gestation Doing?well.??Has?some?pubic?symphysis?pain?and?will?begin?physical?therapy. Taking??vitamin?and?has??care?with?OBGYN. She?is?using?aspirin?for?aches/pain?discomfort. I?encouraged?her?to?discuss?this?with?her?OBGYN?as?as pirin?towards?the?end?of??can?lead?to?complications. (3) Screening for cervical cancer: Code(s): Z12.4 - Encounter for screening for malignant neoplasm of cervix Plan: Followed?by?OBGYN Medications: Discontinued sennosides (Natural Senna Laxative) Discontinued Reason: Doctor's Order 17.2 mg (2 x 8.6 mg) PO BEDTIME 180 tabs 3RF constipation K59.00 - Constipation, unspecified pantoprazole take one tablet half an hour before breakfast Discontinued Reason: Doctor's Order 40 mg PO DAILY 90 tabs 2RF K21.9 - Gastro-esophageal reflux disease without esophagitis Coding Level of Care Code Est Pt Level 3 (25055) Est Pt Prev Care 18-39y(24314) Diagnoses Adult general medical exam Z00.00 Incidental Z33.1 Screening for cervical cancer Z12.4
== END 2024-01-01 09:35 | disposition home or self-care (01) ==
PROVIDERS: PCP Family Medicine; Visit Provider Family Medicine
DX: Z00.00 Encounter for general adult medical examination without abnormal findings (principal); Z33.1 Pregnant state, incidental
CPT/HCPCS: 99395

== ENCOUNTER 2024-01-15 10:06 | Outpatient (REF) | payer OTHER, SELFPAY ==
[2024-01-15 11:19] LABS: MANUAL DIFF FLAG NO
[2024-01-15 11:38] LABS: Basophils Percent Auto 0.2 % (0-2); Eosinophils Absolute Auto 0.1 X10*3/uL (0.0-0.4); Eosinophils Percent Auto 1.1 % (0-4); Hematocrit 36.8 % (37.0-47.0); Hemoglobin 12.1 g/dl (12.0-16.0); Lymphocytes Percent Auto 20.1 % (20-40); Mean Corpuscular HGB Conc 32.9 g/dl (31.0-35.0); Mean Corpuscular Hemoglobin 28.1 pg (27.0-33.0); Mean Corpuscular Volume 85.4 fL (80.0-98.0); Mean Platelet Volume 10.4 fL (9.4-12.3); Monocytes Absolute Auto 0.5 X10*3/uL (0.1-1.2); Monocytes Percent Auto 5.2 % (2-11); Neutrophils Absolute Auto 7.1 x10*3/uL (2.0-8.3); Neutrophils Percent Auto 72.4 % (45-73); Platelet Count 298 X10*3/uL (160-400); Red Blood Count 4.31 X10*6/uL (4.20-5.50); Red Cell Distribution Width 14.9 % (11.0-16.0); White Blood Count 9.8 X10*3/uL (4.8-10.8)
[2024-01-15 11:54] LABS: Alanine Aminotransferase 11 U/L (0-31); Albumin Level 3.3 g/dL (3.5-5.0); Alkaline Phosphatase 120 U/L (39-117); Anion Gap 13 (12-20); Aspartate Amino Transferase 15 U/L (5-31); Bilirubin Total 0.2 mg/dL (0.0-1.0); Blood Urea Nitrogen 6 mg/dL (9-16); Calcium 9.5 mg/dL (8.4-10.2); Carbon Dioxide 20 mmol/L (22-29); Chloride 106 mmol/L (96-108); Cholesterol 226 mg/dL (<200); Estimated Glomerular Filt Rate > 60; Glucose Fasting 94 mg/dL (60-99); HDL Cholesterol 56 mg/dL (>40); LDL Cholesterol Calculated 104 mg/dL (<100); Sodium 135 mmol/L (135-145); Total Protein 6.5 g/dL (6.5-8.0); Triglycerides 334 mg/dL (<150)
[2024-01-15 12:13] LABS: TSH reflex Free T4 2.15 uIU/mL (0.32-4.0); Vitamin D 25-OH Total 52.3 ng/mL (>30)
[2024-01-15 12:26] LABS: Folate 15.4 ng/mL (> or = 4.0)
[2024-01-15 12:32] LABS: Vitamin B12 254 pg/mL (200-900)
== END 2024-01-15 10:07 | disposition home or self-care (01) ==
LOC: HO.WFDLDS 10:06
PROVIDERS: Visit Provider Family Medicine
DX: Z00.00 Encounter for general adult medical examination without abnormal findings (principal); Z13.6 Encounter for screening for cardiovascular disorders; R53.83 Other fatigue; E53.8 Deficiency of other specified B group vitamins; E55.9 Vitamin D deficiency, unspecified
CPT/HCPCS: 36415; 80053; 80061; 82306; 82607; 82746; 84443; 85025

== ENCOUNTER → 2024-02-10 14:05 | Outpatient (AMB) | payer OTHER, SELFPAY ==
--- NOTE | 2024-02-10 13:55 | MHC.PC.OV ---
Intake Visit Reasons: f/u CPE-labs Intake Note: Patient is calling to follow up on her recent labs, also, she was seen at [facility] ED for vision changes. She states she also had CT done, which came out normal, would like Dr. Carolina to be aware of the visit. Notes are on Dr. Carolina's desk. Allergies adhesive Allergy (Intermediate, Verified 02/10/24 13:56) Rash cobalt Allergy (Intermediate, Verified 02/10/24 13:56) Rash gluten Allergy (Intermediate, Verified 02/10/24 13:56) rash, GI issues nickel Allergy (Intermediate, Verified 02/10/24 13:56) Rash Tobacco use date assessed: 02/10/24 Dental Screening Dental Screen Date: 01/01/24 HPI f/u CPE-labs HPI Details 28 y/o female presents to f/u CPE-labs via telemedicine. Labs were drawn 01/15/24. Reviewed labs with pt. Triglycerides 334. TC 226. LDL 104. HDL 56. TSH level 2.15. She reprots she does have gestational diabetes. [facility] Medical History 12 weeks gestation of Hx of endometriosis Low vitamin D level IBS (irritable bowel syndrome) Diverticulitis Surgical History History of appendix removal History of esophagogastroduodenoscopy (EGD) History of wisdom tooth extraction History of tonsillectomy History of colonoscopy Family History Father History of IBS HTN (hypertension) Psoriasis Mother Lupus Skin cancer Sister Lupus Thyroid disease Cervical cancer Other Mental health disorder Social History Housing: House Alcohol intake: former Patient Tobacco Use Status: Never used Tobacco e-Cigarette/Vaping Use: Never Used Second Hand Smoke Exposure: No service: No Current occupational status: employed 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 Bari Aguillon, Ammy Fisher, Ish Grimaldo and colleagues, with an educational maldonado from [employer]. Review of Systems Const Denies chills, Denies fatigue, Denies fever(s), Denies headache(s) and Denies weakness ENT Denies dizziness and Denies headache(s) Card Denies dyspnea Resp Denies cough, Denies dyspnea, Denies wheezing and Denies other (shortness of breath) Musc Denies numbness and Denies tingling Neuro Denies dizziness, Denies headache(s), Denies numbness, Denies tingling and Denies weakness Psych Denies anxiety and Denies depression Endo Denies fatigue Aller/Immun Denies wheezing Physical exam (Primary Care) Tobacco/Smoking Status: Tobacco use Status Tobacco use date assessed 02/10/24 02/10/24 14:04 Patient Tobacco Use Status Never used Tobacco 02/10/24 14:04 e-Cigarette/Vaping Use Never Used 02/10/24 14:04 Thrive Assessment: Date of Thrive Assessment Date Thrive assessed 10/28/22 02/10/24 14:04 Telehealth Telehealth Telehealth Platform: Telephone Location of provider rendering services: practice address Location of patient: address on file Patient Identification confirmed using: Name, : Yes Telehealth method: voice only Patient verbally consented to treatment: Yes Patient verbally consented to billing insurance company: Yes Patient informed of any privacy concerns related to visit: Yes Minutes spent on Phone/Video with Pt.: 11 Assessment and Plan Assessment & Plan (1) Gestational diabetes: Code(s): O24.419 - Gestational diabetes mellitus in , unspecified control Plan: Fasting?blood?sugar?is?okay?but?patient?failed?her?glucose?tolerance?test?with?her?OBGYN. She?is?working?on?diet?control (2) Hypertriglyceridemia: Code(s): E78.1 - Pure hyperglyceridemia Plan: Triglycerides?are?significantly?elevated?and?this?is?likely?due?to?her?elevated?blood?sugars Encouraged?her?to?continue?working?on?diet?control?of?gestational?diabetes?as?recommended?by?her?OBGYN?and?to?watch?saturated?fats?and?cholesterol?as?well (3) Incidental : Code(s): Z33.1 - state, incidental Plan: Patient?is?due?March?. Now?diagnosed?with?gestational?diabetes?and?is?also?being?watched?for?preeclampsia. She?had?high?blood?pressures?and?double?vision.??Encouraged?her?to?follow-up?with?her?neurology professor. Coding Level of Care Code Tele Est Pt Level 2 (25122) Diagnoses Gestational diabetes O24.419 Hypertriglyceridemia E78.1 Incidental Z33.1
== END ==
PROVIDERS: PCP Family Medicine; Visit Provider Family Medicine
DX: E78.1 Pure hyperglyceridemia (principal); O24.419 Gestational diabetes mellitus in pregnancy, unspecified control
CPT/HCPCS: 99212

== ENCOUNTER 2024-04-14 12:53 | Outpatient (AMB) | payer OTHER, SELFPAY ==
--- NOTE | 2024-04-14 13:03 | A.OFFPC_ITS ---
Vital Signs 04/14/24 13:09 Weight 238 lb 4 oz BP 128/70 Blood Pressure Location Lt brachial Position Sitting Respiration 16 Pulse 71 Pulse Source Pulse Oximeter Temp 98.1 F Temp Source Temporal Artery Scan Pulse Oximetry (%) 97 Oxygen Delivery Method Room Air Intake Visit Reasons: Discharged from [facility] 04/07/24. Intake Note: patient here for follow up from hospital. she was admitted for diverticulitis. Payroll Manager Required: No Is last menstrual period known: Yes Last menstrual period: 06/15/23 Post menopausal: No Patient : No Allergies adhesive Allergy (Intermediate, Verified 04/14/24 13:38) Rash cobalt Allergy (Intermediate, Verified 04/14/24 13:38) Rash gluten Allergy (Intermediate, Verified 04/14/24 13:38) rash, GI issues nickel Allergy (Intermediate, Verified 04/14/24 13:38) Rash Medication List - Last Reconciled 04/14/24 by Idalia Leal, SENIOR MOBILE WEB DEVELOPER- cholecalciferol (vitamin D3) (Vitamin D3) 25 mcg PO DAILY compr.stocking,knee,long,large Daily As directed, 90 days PNV #[id number] acid-[id number] 30 mg iron-10 mg iron-1 mg caps PO Tobacco use date assessed: 02/10/24 Dental Screening Dental Screen Date: 01/01/24 HPI HPI Comments History of Present Illness Details 28-year-old female being seen today for hospital discharge follow up. She was admitted to [facility] 04/05/2024 and discharged 04/07/2024. Discharge summary has been reviewed. Medication reconciliation has been done. She had a normal spontaneous vaginal delivery about 3 weeks ago which was complicated by preeclampsia and diverticulitis. She was admitted with pyelonephritis of the left kidney and leukocytosis. She was managed in the hospital with ceftriaxone, she was found to have acute diverticulitis so Flagyl was added. She was able to tolerate a p.o. diet. . CT of the abdomen was reviewed. The liver showed diffuse low attenuation throughout the liver parenchyma consistent with hepatic steatosis. No evidence of liver mass, new splenomegaly measuring up to 15.5 cm, slight asymmetric enlargement of the left kidney with mild surrounding fat stranding. No loss of corticomedullary different chair cushion. No hydronephrosis, stones or suspicious masses. Mild fluid flat stranding along the left paracolic gutter centered around and inflamed appearing reticulum arising from the splenic flexure sure consistent with acute uncomplicated diverticulitis of the left colon. The splenomegaly could be reactive. She had an ultrasound of the abdomen done which showed cholelithiasis, unremarkable kidneys, hepatic steatosis. Discharge medications include Tylenol as needed for pain, ciprofloxacin 500 mg 1 tab p.o. b.i.d. x7 days, ibuprofen 800 as needed for pain, metronidazole 500 mg 1 tab by mouth every 8 hours for 7 days, vitamin, Zofran She presents today overall feeling much better. She reports that she continues to have some mild pain in her left lower quadrant. She has not having any flank pain. She will complete her antibiotics tomorrow. She has not taking any medications for pain. No medications for nausea. She reports normal urination. She continues with bloody vaginal discharge status post vaginal 4 weeks ago. She is having daily bowel movements however she reports that they are thin and pencil like. Denies bloody stools. Admits to not following a low fiber diet as she is and during her acute illness her milk supply went down and she has been trying to eat normally to increase her breast milk supply; has been pumping/dumping w/ current meds Reports a longstanding history of diverticulitis. Diagnosed about 10 years ago. Hospitalized with the 1st time in 2020. A total of 6 flares since diagnosis. She was being ff'd by GI prior to becoming but fell out of care during - [place], will send her back. Other concerns she reported is that of depression. 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 She wonders if this is circumstantial. Has fu with GENERAL COUNSEL 04/21/24 , Initially had hard time getting OOB when got home from hosp assoc w/ crying & feeling of not bonding w/ the baby like my baby bird fell out of the nest . Admits this has resolved. Denies fever, chills, nausea, vomiting. Urine dip negative for nitrites today, + blood however she reports vaginally bleeding from P.P. Exam Awake alert oriented, morbidly obese, accompanied by 4-week-old son Appears bonded and nurturing with child Regular rate and rhythm Lung sounds clear to auscultation bilat No CVAT bilat Abdomen- difficult exam given body habitus however is soft, nontender, hypoactive bowel sounds, no peritoneal signs Plan Miralax at bedtime, colace 100 mg po BID , senna p.r.n. Avoid constipation, low fiber diet, increase p.o. fluids Follow up with [facility]'s GI group. A stat referral has been placed. Complete antibiotics Follow up with experimental mechanic electrical in regards to the depression and . Discuss potential referral to Urology or Nephrology however she does not feel this is necessary. Thinks that she had a UTI as a result of labor. However she ignored the symptoms as she was busy tending to her . Return to the office to see your primary care in 2-3 weeks, sooner as needed. [facility] Medical History (Updated 04/14/24 @ 15:34 by Idalia Leal, [facility]) Diverticulitis 12 weeks gestation of Hx of endometriosis Low vitamin D level IBS (irritable bowel syndrome) Surgical History History of appendix removal History of esophagogastroduodenoscopy (EGD) History of wisdom tooth extraction History of tonsillectomy History of colonoscopy Family History Father History of IBS HTN (hypertension) Psoriasis Mother Lupus Skin cancer Sister Lupus Thyroid disease Cervical cancer Other Mental health disorder Social History Housing: House Alcohol intake: former Patient Tobacco Use Status: Never used Tobacco e-Cigarette/Vaping Use: Never Used Second Hand Smoke Exposure: No service: No Current occupational status: employed 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 Bari Aguillon, Ammy Fisher, Ish Grimaldo and colleagues, with an educational maldonado from [employer]. Physical exam (Primary Care) Vital Signs: Last Vital Signs Temp 98.1 F 04/14/24 13:09 Pulse 71 04/14/24 13:09 Resp 16 04/14/24 13:09 BP 128/70 04/14/24 13:09 Pulse Ox 97 04/14/24 13:09 Oxygen Delivery Method Room Air 04/14/24 13:09 Tobacco/Smoking Status: Tobacco use Status Tobacco use date assessed 02/10/24 04/14/24 13:05 Patient Tobacco Use Status Never used Tobacco 04/14/24 13:05 e-Cigarette/Vaping Use Never Used 04/14/24 13:05 Thrive Assessment: Date of Thrive Assessment Date Thrive assessed 10/28/22 04/14/24 13:05 Results AMB Urinalysis Dipstick UR Leukocytes Small Last Edit by Comfort Estrella CMA on 04/14/24 14: 09 UR Nitrite Negative Last Edit by Comfort Estrella CMA on 04/14/24 14: 09 UR Urobilinogen Normal Last Edit by Comfort Estrella CMA on 04/14/24 14:09 UR Protein Trace Last Edit by Comfort Estrella CMA on 04/14/24 14:09 UR Ph 5.0 Last Edit by Comfort Estrella CMA on 04/14/24 14:09 UR Blood Large Last Edit by Comfort Estrella CMA on 04/14/24 14:09 UR Specific [place] 1.025 Last Edit by Comfort Estrella CMA on 14:09 UR Ketone Negative Last Edit by Comfort Estrella CMA on 04/14/24 14:0 9 UR Bilirubin Negative Last Edit by Comfort Estrella CMA on 04/14/24 14:09 UR Glucose Negative Last Edit by Comfort Estrella CMA on 04/14/24 14: 09 Results Reviewed Results Reviewed: Laboratory Last Values Urine pH (Clinic) 5.0 04/14/24 14:06 Specific [place] (Clinic) 1.025 04/14/24 14:06 Ur Protein (Clinic) Trace 04/14/24 14:06 Ur Ketones (Clinic) Negative 04/14/24 14:06 Urine Blood (Clinic) Large 04/14/24 14:06 Urine Nitrite Negative 04/14/24 14:06 Urine Bilirubin (Clinic) Negative 04/14/24 14:06 Urobilinogen (Clinic) Normal 04/14/24 14:06 Leukocyte Esterase (Clinic) Small 04/14/24 14:06 Urine Glucose (Clinic) Negative 04/14/24 14:06 Assessment and Plan Assessment & Plan (1) Hospital discharge follow-up: Code(s): Z09 - Encounter for follow-up examination after completed treatment for conditions other than malignant neoplasm (2) Diverticulitis: Code(s): K57.92 - Diverticulitis of intestine, part unspecified, without perforation or abscess without bleeding (3) Pyelonephritis: Code(s): N12 - Tubulo-interstitial nephritis, not specified as acute or chronic (4) depression: Code(s): F53.0 - depression Plan This note is constructed using voice recognition software. While every effort has been made to ensure accuracy in automobile body customizer, still errors may have been included Sometimes, these errors may affect the content or meaning of the given sentence . Total time spent caring for the patient today was 49 minutes. This includes time spent before the visit reviewing the chart, time spent during the visit, and time spent after the visit on documentation Orders: Orders AMB Urinalysis Dipstick Today N12 - Tubulo-interstitial nephritis, not specified as acute or chronic Referrals Gastroenterology Referral K57.92 - Diverticulitis of intestine, part unspecified, without perforation or abscess without bleeding Coding Level of Care Code Est Pt Level 5 (30621) Diagnoses Hospital discharge follow-up Z09 Diverticulitis K57.92 Pyelonephritis N12 depression F53.0
[2024-04-14 13:09] VITALS: BP 128/70; PULSE 71; RESP 16; TEMP 36.7; O2SAT 97
== END 2024-04-14 14:11 | disposition home or self-care (01) ==
PROVIDERS: PCP Family Medicine; Visit Provider Nurse Practitioner Family
DX: K57.92 Diverticulitis of intestine, part unspecified, without perforation or abscess without bleeding (principal); Z09 Encounter for follow-up examination after completed treatment for conditions other than malignant neoplasm; N12 Tubulo-interstitial nephritis, not specified as acute or chronic; F53.0 Postpartum depression
CPT/HCPCS: 81002; 99215

== ENCOUNTER 2024-04-14 14:52 | Outpatient (REF) | payer OTHER, SELFPAY | END 2024-04-14 14:53 | disposition home or self-care (01) | LOC: HO.LAB 14:52 | PROVIDERS: Visit Provider Family Medicine | DX: Z13.89 Encounter for screening for other disorder (principal) ==

== ENCOUNTER 2024-04-26 09:25 | Outpatient (AMB) | payer OTHER, SELFPAY ==
--- NOTE | 2024-04-26 09:37 | AM.OFFWIN_ITS ---
Intake Vital Signs 04/26/24 09:39 Height 4 ft 11 in Weight 278 lb BMI 56.1 BP 112/74 Blood Pressure Location Lt brachial Position Sitting Respiration 16 Pulse 74 Pulse Source Pulse Oximeter Temp 97.9 F Temp Source Oral Pulse Oximetry (%) 97 Oxygen Delivery Method Room Air Intake Visit Reasons: Possible UTI Intake Note: Burning while urinating. Patient Tobacco Use Status: Never used Tobacco Allergies adhesive Allergy (Intermediate, Verified 04/26/24 09:51) Rash cobalt Allergy (Intermediate, Verified 04/26/24 09:51) Rash gluten Allergy (Intermediate, Verified 04/26/24 09:51) rash, GI issues nickel Allergy (Intermediate, Verified 04/26/24 09:51) Rash Medication List - Last Reconciled 04/26/24 by Idalia Leal, [employer] AMBASSADOR-BC acetaminophen 975 mg PO Q6H PRN amoxicillin-pot clavulanate 875-125 mg 1 tab PO BID cholecalciferol (vitamin D3) (Vitamin D3) 25 mcg PO DAILY compr.stocking,knee,long,large Daily As directed, 90 days oxycodone mg PO PNV #[id number] acid-[id number] 30 mg iron-10 mg iron-1 mg caps PO Do you need a note to return to daycare/school/sports/work: No HPI HPI Comments History of Present Illness Details Here today for c/o dysuria which started while she was in the hospital. Tells me today that on Friday was at ED for abd pain, admitted, had lap jim 04/21/24; DC home on Friday04/23/24 she is currently on augmentin for concern for diverticulitis, she was started on this prior to hospital admission; she notes recieving IV AB while in the hosp; told to complete Augmentin therapy upon discharge. Unsure how many she has left. some white vaginal d/c noted while in the shower, she has itching under stomach denies fever, chills, n/v, hematuria. She then asks for refill on oxycodone for pain control. & for FMLA extension Exam awake alert NAD MMM Offered and declined employee benefits insurance agent Under pannus is fungal skin infection worse on the left side External vaginal exam + yeast, vaginal introitus erythematous Plan given her medical history and risks, i will send urine for culture. The dip today is negative she should complete her augmentin take diflucan as directed along w/ Nystop power advised to call surgeon for oxycodone refill advised to make appt for FMLA paperwork to be completed If urine culture + will let her know and tx PRN. This note is constructed using voice recognition software. While every effort has been made to ensure accuracy in wallpaper printer helper, still errors may have been included Sometimes, these errors may affect the content or meaning of the given sentence . Total time spent caring for the patient today was 31 minutes. This includes time spent before the visit reviewing the chart, time spent during the visit, and time spent after the visit on documentation [facility] Medical History (Updated 04/26/24 @ 10:00 by GREGORY Armstrong-) Diverticulitis 12 weeks gestation of Hx of endometriosis Low vitamin D level IBS (irritable bowel syndrome) Surgical History History of appendix removal History of esophagogastroduodenoscopy (EGD) History of wisdom tooth extraction History of tonsillectomy History of colonoscopy Family History Father History of IBS HTN (hypertension) Psoriasis Mother Lupus Skin cancer Sister Lupus Thyroid disease Cervical cancer Other Mental health disorder Social History Housing: House Alcohol intake: former Patient Tobacco Use Status: Never used Tobacco e-Cigarette/Vaping Use: Never Used Second Hand Smoke Exposure: No service: No Current occupational status: employed 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 Current occupational exposures/hazards: No Cognitive needs: No Hearing needs: No Vision needs: No (reading glasses) Physical Exam Vital Signs: Last Vital Signs Temp 97.9 F 04/26/24 09:39 Pulse 74 04/26/24 09:39 Resp 16 04/26/24 09:39 BP 112/74 04/26/24 09:39 Pulse Ox 97 04/26/24 09:39 Oxygen Delivery Method Room Air 04/26/24 09:39 BMI result Body Mass Index 56.1 Results AMB Urinalysis Dipstick UR Leukocytes Negative Last Edit by Evette Baez CMA on 04/26/24 09:46 UR Nitrite Negative Last Edit by Evette Baez CMA on 04/26/24 09:46 UR Urobilinogen Normal Last Edit by Evette Baez CMA on 04/26/24 09:46 UR Protein Negative Last Edit by Evette Baez CMA on 04/26/24 09:46 UR Ph 5.5 Last Edit by Evette Baez CMA on 04/26/24 09:46 UR Blood Negative Last Edit by Evette Baez CMA on 04/26/24 09:46 UR Specific [place] 1.010 Last Edit by Evette Baez CMA on 04/26/24 09: 46 UR Ketone Negative Last Edit by Evette Baez CMA on 04/26/24 09:46 UR Bilirubin Negative Last Edit by Evette Baez CMA on 04/26/24 09:46 UR Glucose Negative Last Edit by Evette Baez CMA on 04/26/24 09:46 Results Reviewed Results Reviewed: Laboratory Last Values Urine pH (Clinic) 5.5 04/26/24 09:44 Specific [place] (Clinic) 1.010 04/26/24 09:44 Ur Protein (Clinic) Negative 04/26/24 09:44 Ur Ketones (Clinic) Negative 04/26/24 09:44 Urine Blood (Clinic) Negative 04/26/24 09:44 Urine Nitrite Negative 04/26/24 09:44 Urine Bilirubin (Clinic) Negative 04/26/24 09:44 Urobilinogen (Clinic) Normal 04/26/24 09:44 Leukocyte Esterase (Clinic) Negative 04/26/24 09:44 Urine Glucose (Clinic) Negative 04/26/24 09:44 Assessment & Plan Assessment & Plan (1) Candidiasis: Code(s): B37.9 - Candidiasis, unspecified Plan: . (2) Dysuria: Code(s): R30.0 - Dysuria Plan: . (3) Pain: Code(s): R52 - Pain, unspecified Plan: . (4) Other issue of medical certificates: Code(s): Z02.79 - Encounter for issue of other medical certificate Plan: . Plan . Orders: Orders AMB Urinalysis Dipstick Today R30.9 - Painful micturition, unspecified Urine Culture Today R30.0 - Dysuria Medications: New fluconazole 150 mg PO DAILY 3 days 3 tabs 0RF nystatin 1 appl topical TID 60 grams 2RF Patient Instructions: Take diflucan 1 tab today, repeat in 72 hours. Wait 72 more hours and if cont to have symptoms, take 3rd dose. RTO to complete FMLA paperwork. Coding Level of Care Code Est Pt Level 4 (56594) Diagnoses Candidiasis B37.9 Dysuria R30.0 Pain R52 Other issue of medical certificates Z02.79
[2024-04-26 09:39] VITALS: BP 112/74; PULSE 74; RESP 16; TEMP 36.6; O2SAT 97; BMI 56.1
== END 2024-04-26 10:02 | disposition home or self-care (01) ==
PROVIDERS: PCP Family Medicine; Visit Provider Nurse Practitioner Family
DX: B37.9 Candidiasis, unspecified (principal); R30.0 Dysuria; R52 Pain, unspecified; R30.9 Painful micturition, unspecified
CPT/HCPCS: 81002; 99214

== ENCOUNTER 2024-04-26 09:47 | Outpatient (REF) | payer OTHER, SELFPAY | END 2024-04-26 09:48 | disposition home or self-care (01) | LOC: HO.LAB 09:47 | PROVIDERS: Visit Provider Nurse Practitioner Family | DX: R30.0 Dysuria (principal); R30.9 Painful micturition, unspecified | CPT/HCPCS: 87086 ==

== ENCOUNTER 2024-05-03 11:30 | Outpatient (AMB) | payer OTHER, SELFPAY ==
--- NOTE | 2024-05-03 11:34 | MHC.PC.OV ---
Vital Signs 05/03/24 11:41 Height 4 ft 11 in Weight 235 lb 8 oz BMI 47.6 BP 112/70 Blood Pressure Location Lt brachial Position Sitting Pulse 87 Pulse Source Pulse Oximeter Pulse Oximetry (%) 97 Oxygen Delivery Method Room Air Intake Visit Reasons: filling out medical cert paper/ fu opperation Intake Note: Disability paperwork Fixed Income Director Required: No Allergies adhesive Allergy (Intermediate, Verified 05/03/24 11:41) Rash cobalt Allergy (Intermediate, Verified 05/03/24 11:41) Rash gluten Allergy (Intermediate, Verified 05/03/24 11:41) rash, GI issues nickel Allergy (Intermediate, Verified 05/03/24 11:41) Rash Medication List - Last Reconciled 05/03/24 by Idalia Leal, [employer] INST[employer]ER-BC acetaminophen 975 mg PO Q6H PRN cholecalciferol (vitamin D3) (Vitamin D3) 25 mcg PO DAILY compr.stocking,knee,long,large Daily As directed, 90 days nystatin 1 appl topical TID oxycodone mg PO PNV #[id number] acid-omega3 30 mg iron-10 mg iron-1 mg caps PO Tobacco use date assessed: 02/10/24 Dental Screening Dental Screen Date: 01/01/24 HPI HPI Comments History of Present Illness Details 28-year-old female with depression, obesity, diverticulitis here today to complete FMLA paperwork. She is currently out for leave related to . Original preg leave 03/15/2024- 07/19/2024 with multiple post complications requiring 2 hospital admissions and several subsequent follow ups requiring the extension of her leave Looking for ext through 08/02/24 to cont to care for herself, medical conditions and depression this is for cont leave w/ goal of return to work full duty 08/02/24 Has appt on Friday with the surgeon to follow up on her lap jim. worried she has infection in umbilical incision, thinks it might be getting red. Exam: awake alert, accompanied by Son well healing incision to umbilicus w/o odor or drainage. Plan: reassured about the incision, fu with surgeon on friday ppw completed today and returned to her directly. FU as scheduled w/ your PCP, sooner PRN PFSH Medical History (Updated 04/26/24 @ 10:00 by Idalia Leal [facility]) Diverticulitis 12 weeks gestation of Hx of endometriosis Low vitamin D level IBS (irritable bowel syndrome) Surgical History (Updated 05/03/24 @ 13:[address] [facility] 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 Bari Aguillon, Ammy Fisher, Ish Grimaldo and colleagues, with an educational maldonado from [employer]. Physical exam (Primary Care) Vital Signs: Last Vital Signs Pulse 87 05/03/24 11:41 BP 112/70 05/03/24 11:41 Pulse Ox 97 05/03/24 11:41 Oxygen Delivery Method Room Air 05/03/24 11:41 BMI result Body Mass Index 47.6 Tobacco/Smoking Status: Tobacco use Status Tobacco use date assessed 02/10/24 05/03/24 11:36 Patient Tobacco Use Status Never used Tobacco 05/03/24 11:36 e-Cigarette/Vaping Use Never Used 05/03/24 11:36 Thrive Assessment: Date of Thrive Assessment Date Thrive assessed 10/28/22 05/03/24 11:36 Assessment and Plan Assessment & Plan (1) depression: Code(s): F53.0 - depression (2) Diverticulitis: Code(s): K57.92 - Diverticulitis of intestine, part unspecified, without perforation or abscess without bleeding (3) S/P laparoscopic cholecystectomy: Code(s): Z90.49 - Acquired absence of other specified parts of digestive tract Plan: Total time spent caring for the patient today was 30 minutes. This includes time spent before the visit reviewing the chart, time spent during the visit, and time spent after the visit on documentation This note is constructed using voice recognition software. While every effort has been made to ensure accuracy in life science technical officer, still errors may have been included Sometimes, these errors may affect the content or meaning of the given sentence . Coding Level of Care Code Est Pt Level 4 (67300) Diagnoses depression F53.0 Diverticulitis K57.92 S/P laparoscopic cholecystectomy Z90.49
[2024-05-03 11:41] VITALS: BP 112/70; PULSE 87; O2SAT 97; BMI 47.6
== END 2024-05-03 12:05 | disposition home or self-care (01) ==
PROVIDERS: PCP Family Medicine; Visit Provider Nurse Practitioner Family
DX: F53.0 Postpartum depression (principal); K57.92 Diverticulitis of intestine, part unspecified, without perforation or abscess without bleeding; Z90.49 Acquired absence of other specified parts of digestive tract
CPT/HCPCS: 99214

== ENCOUNTER 2024-05-07 10:31 | Outpatient (AMB) | payer OTHER, SELFPAY ==
--- NOTE | 2024-05-07 10:41 | MHC.PC.OV ---
Vital Signs 05/07/24 10:42 Height 4 ft 11.13 in Weight 236 lb 4 oz BMI 47.5 BP 110/80 Blood Pressure Location Rt brachial Position Sitting Pulse 99 Pulse Source Pulse Oximeter Temp 98.1 F Temp Source Oral Intake Visit Reasons: FU diverticulitis, Pyelo & Mood Intake Note: follow up hospital admin Is last menstrual period known: No Patient : No Allergies adhesive Allergy (Intermediate, Verified 05/07/24 11:01) Rash cobalt Allergy (Intermediate, Verified 05/07/24 11:01) Rash gluten Allergy (Intermediate, Verified 05/07/24 11:01) rash, GI issues nickel Allergy (Intermediate, Verified 05/07/24 11:01) Rash Medication List - Last Reconciled 05/07/24 by GREGORY Armstrong- compr.stocking,knee,long,large Daily As directed, 90 days PNV #[id number] acid-omega3 30 mg iron-10 mg iron-1 mg caps PO Tobacco use date assessed: 02/10/24 Dental Screening Dental Screen Date: 01/01/24 HPI HPI Comments History of Present Illness Details Here today for close interim follow up status post lap jim, diverticulitis flare with hospital admission and pyelonephritis. Since our last office visit she is feeling well. She reports normal bowel movements. She is not taking any medications to assist in bowel movements. Prefers to use a natural approach such as prunes. She is having normal urination patterns. She continues with some chronic left upper quadrant pain however this is no worse than it has been. She did have her follow up with the surgeon status post lap jim. No concerns for surgical site infection. The patient feels the surgical areas are healing well. Completed a total of 3 doses of diflucan to treat vaginal yeast that was resultant of repeat AB therapy. Currently off all AB! She has a her gastroenterology appointment scheduled 05/26/2024 at [facility]. Wonders if it is okay to swim ? Exam Awake alert oriented, accompanied by infant Scleras nonicteric bilat MMM RRR Abdomen is soft, mildly tender in the left upper quadrant without rebound, normoactive bowel sounds. Well healing surgical incision status post lap jim. No CVAT bilat Plan She looks well. Advised that it is ok to swim as long as clean water source, be sure to dry the surgical areas and monitor. Ensure normal bowel movements. Follow up with gastroenterology as scheduled. Recommend a close follow up with primary care in , sooner as needed This note is constructed using voice recognition software. While every effort has been made to ensure accuracy in personnel research psychologist, still errors may have been included Sometimes, these errors may affect the content or meaning of the given sentence . [facility] Medical History (Updated 04/26/24 @ 10:00 by JONATHAN Armstrong) Diverticulitis 12 weeks gestation of Hx of endometriosis Low vitamin D level IBS (irritable bowel syndrome) Surgical History (Updated 05/03/24 @ 13:15 by JONATHAN Armstrong) History of appendix removal History of esophagogastroduodenoscopy (EGD) History of wisdom tooth extraction History of tonsillectomy History of colonoscopy Family History Father History of IBS HTN (hypertension) Psoriasis Mother Lupus Skin cancer Sister Lupus Thyroid disease Cervical cancer Other Mental health disorder Social History Housing: House Alcohol intake: former Patient Tobacco Use Status: Never used Tobacco e-Cigarette/Vaping Use: Never Used Second Hand Smoke Exposure: No service: No Current occupational status: employed 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 Bari Aguillon, Ammy Fisher, Ish Grimaldo and colleagues, with an educational maldonado from [employer]. Physical exam (Primary Care) Vital Signs: Last Vital Signs Temp 98.1 F 05/07/24 10:42 Pulse 99 05/07/24 10:42 BP 110/80 05/07/24 10:42 BMI result Body Mass Index 47.5 Tobacco/Smoking Status: Tobacco use Status Tobacco use date assessed 02/10/24 05/07/24 10:50 Patient Tobacco Use Status Never used Tobacco 05/07/24 10:50 e-Cigarette/Vaping Use Never Used 05/07/24 10:50 Thrive Assessment: Date of Thrive Assessment Date Thrive assessed 10/28/22 05/07/24 10:50 Assessment and Plan Assessment & Plan (1) S/P laparoscopic cholecystectomy: Code(s): Z90.49 - Acquired absence of other specified parts of digestive tract (2) Candidiasis: Code(s): B37.9 - Candidiasis, unspecified (3) Pyelonephritis: Code(s): N12 - Tubulo-interstitial nephritis, not specified as acute or chronic (4) Diverticulitis: Code(s): K57.92 - Diverticulitis of intestine, part unspecified, without perforation or abscess without bleeding Coding Level of Care Code Est Pt Level 4 (48185) Diagnoses S/P laparoscopic cholecystectomy Z90.49 Candidiasis B37.9 Pyelonephritis N12 Diverticulitis K57.92
[2024-05-07 10:42] VITALS: BP 110/80; PULSE 99; TEMP 36.7; BMI 47.5
== END 2024-05-07 11:09 | disposition home or self-care (01) ==
PROVIDERS: PCP Family Medicine; Visit Provider Nurse Practitioner Family
DX: Z90.49 Acquired absence of other specified parts of digestive tract (principal); B37.9 Candidiasis, unspecified; N12 Tubulo-interstitial nephritis, not specified as acute or chronic; K57.92 Diverticulitis of intestine, part unspecified, without perforation or abscess without bleeding
CPT/HCPCS: 99214

== ENCOUNTER 2024-05-26 15:57 | Outpatient (AMB) | payer OTHER, SELFPAY ==
--- NOTE | 2024-05-26 16:02 | MHC.OFFVIS ---
Vital Signs 05/26/24 16:11 Height 4 ft 11 in Weight 240 lb 11.916 oz BMI 48.6 BP 110/64 Blood Pressure Location Rt brachial Position Sitting Pulse 86 Pulse Source Pulse Oximeter Pulse Oximetry (%) 97 Oxygen Delivery Method Room Air Intake Visit Reasons: Diverticulitis of intestine Intake Note: Rosemary presents in office today for a scheduled office visit. CC; Pt had been [facility] at [facility] for diverticulitis. Pt also had a child within the last 3 mos. Pt was admitted again a few weeks after their original admission and had a cholecystectomy. Pt reports that she is still having moderate to severe R side pain. Pt is typically most comfortable on their R side however, they are unable to put much, if any, weight on that side. Pt is also still having occasional L side pain which was the side that was affected by her diverticulitis. Pt is approximately 5 weeks post op at this time. Deflector Operator Required: No Allergies adhesive Allergy (Intermediate, Verified 05/26/24 16:16) Rash cobalt Allergy (Intermediate, Verified 05/26/24 16:16) Rash gluten Allergy (Intermediate, Verified 05/26/24 16:16) rash, GI issues nickel Allergy (Intermediate, Verified 05/26/24 16:16) Rash HPI HPI Diverticulitis of intestine: Details: LAST VISIT: Abdominal pain Patient reports that she is doing much better. She had her surgery for endometriosis and had appendix removed at the same time as she states that was adhered to the endometrium shifting her bowel to the left. Her surgery was done August 23 and she of ready is feeling better. Patient states that she is moving her bowels much better. She continues to take Senokot and Colace, however she states that her abdominal discomfort has completely gone away. Currently patient only reports mild discomfort to her surgical sites with bending IBS (irritable bowel syndrome) Patient is moving her bowels better. Denies having any abdominal discomfort, cramping or postprandial bloating. Patient can continue FODMAP diet, however her previous symptoms of abdominal discomfort could have been related to her bowels shift to the left due to her appendix adhesion. Status post appendectomy. Patient is moving her bowels much better denies left lower quadrant pain or cramping. I will see patient in 3 months, sooner if patient will have any GI concerning symptoms. She is agreeable to this plan and verbalizes understanding of instructions. She was given the opportunity to ask questions and all questions answered. TODAY'S VISIT Patient is here today for requested visit. I have not seen patient since 09/01/2022. Patient reports that she was feeling better after I have seen her, however recently patient had episode of diverticulitis. Patient delivered healthy baby boy about 2-1/2 months ago. Soon after patient had experience right upper quadrant pain and was found to have cholelithiasis without cholecystitis, however patient has spiked fever despite being on antibiotic for diverticulitis and had laparoscopic cholecystectomy. Currently patient is feeling better. Not breast-feeding anymore. She is however experiencing frequent right upper quadrant pain. Patient reports that the pain is on her right upper quadrant and right lower quadrant. History of appendectomy back in 2021. Patient denies any fever or chills. Patient reports occasional postprandial loose stools, however for the most part patient has been moving her bowels well. Patient denies melena, hematochezia. Denies any dyspepsia, dysphagia or odynophagia. Patient's main concern is her right sided pain. Patient feels that the pain is so severe that she is unable to sleep on her right side. [facility] Medical History Diverticulitis 12 weeks gestation of Hx of endometriosis Low vitamin D level IBS (irritable bowel syndrome) Surgical History Hx of cholecystectomy History of appendix removal History of esophagogastroduodenoscopy (EGD) History of wisdom tooth extraction History of tonsillectomy History of colonoscopy Family History Father History of IBS HTN (hypertension) Psoriasis Mother Lupus Skin cancer Sister Lupus Thyroid disease Cervical cancer Other Mental health disorder Social History Housing: House Alcohol intake: former Patient Tobacco Use Status: Never used Tobacco e-Cigarette/Vaping Use: Never Used Second Hand Smoke Exposure: No service: No Current occupational status: employed 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 Current occupational exposures/hazards: No Cognitive needs: No Hearing needs: No Vision needs: No (reading glasses) Review of Systems Const Denies weight gain and Denies weight loss ENT Reports no additional complaints, Denies dysphagia and Denies odynophagia Card Reports no additional complaints Resp Reports no additional complaints GI Reports abdominal pain (RUQ), Denies belching, Denies melena, Reports bloating, Denies change in bowel habits, Reports constipation, Denies dysphagia, Denies excessive flatus, Denies dyspepsia, Denies heartburn, Denies diarrhea, Denies loose stools, Denies nausea, Denies odynophagia and Denies vomiting Reports no additional complaints Musc Reports no additional complaints Neuro Reports no additional complaints Psych Reports no additional complaints Endo Reports no additional complaints Physical Exam Vital Signs: Last Vital Signs Pulse 86 05/26/24 16:11 BP 110/64 05/26/24 16:11 Pulse Ox 97 05/26/24 16:11 Oxygen Delivery Method Room Air 05/26/24 16:11 BMI result Body Mass Index 48.6 Const General: healthy appearing and no acute distress Nutritional Appearance: obese Orientation/consciousness: patient oriented x3 Resp Effort & Inspection: normal respiratory effort, able to speak in complete sentences, no tracheal deviation and symmetric chest movement Auscultation: clear to auscultation bilaterally Cardio Rate: regular rate GI Inspection: No distended and Yes obesity Palpation (GI): Soft to palpation, not firm, nontender and No hepatosplenomegaly present Auscultation: normal bowel sounds General: Yes no CVA tenderness Back/Spine/Pelvis Back: no CVA tenderness Skin General skin exam: elasticity normal, turgor normal and dry skin Neuro General: patient oriented x3 Psych Appearance: grossly normal Mental Status: mental status grossly normal Assessment & Plan Assessment & Plan (1) S/P laparoscopic cholecystectomy: Code(s): Z90.49 - Acquired absence of other specified parts of digestive tract Category: Surgical (2) Diverticulitis: Code(s): K57.92 - Diverticulitis of intestine, part unspecified, without perforation or abscess without bleeding Category: Medical (3) Abdominal pain: Code(s): R10.9 - Unspecified abdominal pain Category: Medical Qualifiers: Abdominal location: left lower quadrant Qualified Code(s): R10.32 - Left lower quadrant pain (4) IBS (irritable bowel syndrome): Code(s): K58.9 - Irritable bowel syndrome without diarrhea Category: Medical Qualifiers: Irritable bowel syndrome type: with both diarrhea and constipation Qualified Code(s): K58.2 - Mixed irritable bowel syndrome Plan Patient will increase fiber in her diet. Patient may take fiber gummies with probiotics. Avoid dietary triggers and late night snacking. Low FODMAP diet discussed with patient. List of food recommended as well as list of food to avoid given to patient. Abdomen normal on exam. No tenderness. Patient will return in 10 weeks to discuss going for colonoscopy and possible upper endoscopy. Patient will call our office if she will have worsened GI symptoms. She is agreeable to this plan and verbalizes understanding of instructions. She was given the opportunity to ask questions and all questions answered. Thank you for allowing me to participate in her care Coding Level of Care Code Est Pt Level 4 (02464) Diagnoses S/P laparoscopic cholecystectomy Z90.49 Diverticulitis K57.92 Left lower quadrant abdominal pain R10.32 Abdominal location: left lower quadrant Irritable bowel syndrome with both constipation and diarrhea K58.2 Irritable bowel syndrome type: with both diarrhea and constipation Time Spent (min) 40 Comment 25 minutes spent with patient and additional 15 minutes spent reviewing her records
[2024-05-26 16:11] VITALS: BP 110/64; PULSE 86; O2SAT 97; BMI 48.6
== END 2024-05-26 16:44 | disposition home or self-care (01) ==
PROVIDERS: PCP Family Medicine; Visit Provider Nurse Practitioner Family
DX: Z90.49 Acquired absence of other specified parts of digestive tract (principal); K57.92 Diverticulitis of intestine, part unspecified, without perforation or abscess without bleeding; R10.32 Left lower quadrant pain; K58.2 Mixed irritable bowel syndrome
CPT/HCPCS: 99214

== ENCOUNTER → 2024-05-26 15:57 | Outpatient (BNVA) | payer OTHER, SELFPAY | PROVIDERS: PCP Family Medicine; Visit Provider Nurse Practitioner Family | DX: K58.9 Irritable bowel syndrome, unspecified (principal); K58.2 Mixed irritable bowel syndrome; R10.32 Left lower quadrant pain; Z90.49 Acquired absence of other specified parts of digestive tract; Z87.19 Personal history of other diseases of the digestive system | CPT/HCPCS: 99212 ==

== ENCOUNTER 2024-07-08 11:38 | Outpatient (AMB) | payer OTHER, SELFPAY ==
--- NOTE | 2024-07-08 11:47 | MHC.PC.OV ---
Vital Signs 07/08/24 11:53 Height 4 ft 11 in Weight 252 lb 4 oz BMI 50.9 BP 110/60 Blood Pressure Location Lt brachial Position Sitting Respiration 12 Pulse 79 Pulse Source Pulse Oximeter Temp 97.8 F Temp Source Oral Pulse Oximetry (%) 98 Oxygen Delivery Method Room Air Intake Visit Reasons: routine fu with Dr Mora Intake Note: 4month pp f/u and hormonal weight gain Allergies adhesive Allergy (Intermediate, Verified 07/08/24 11:51) Rash cobalt Allergy (Intermediate, Verified 07/08/24 11:51) Rash gluten Allergy (Intermediate, Verified 07/08/24 11:51) rash, GI issues nickel Allergy (Intermediate, Verified 07/08/24 11:51) Rash Tobacco use date assessed: 02/10/24 Dental Screening Dental Screen Date: 01/01/24 HPI routine fu with Dr Mora HPI Details 28 y/o female presents to f/u chronic conditions. Wound from s/p palaproscopic cholecystectomy has resolved. Pt notes she is doing well depression/anxiety benedict. Feels steady and stable, denies any SI/HI. Pt notes significant weight gain after delivering her baby. [facility] Medical History Diverticulitis 12 weeks gestation of Hx of endometriosis Low vitamin D level IBS (irritable bowel syndrome) Surgical History Hx of cholecystectomy History of appendix removal History of esophagogastroduodenoscopy (EGD) History of wisdom tooth extraction History of tonsillectomy History of colonoscopy Family History Father History of IBS HTN (hypertension) Psoriasis Mother Lupus Skin cancer Sister Lupus Thyroid disease Cervical cancer Other Mental health disorder Social History Housing: House Alcohol intake: former Patient Tobacco Use Status: Never used Tobacco e-Cigarette/Vaping Use: Never Used Second Hand Smoke Exposure: No service: No Current occupational status: employed 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 Bari Aguillon, Ammy Fisher, Ish Grimaldo and colleagues, with an educational maldonado from [employer]. Review of Systems Const Denies chills, Denies fatigue, Denies fever(s), Denies headache(s) and Denies weakness ENT Denies dizziness and Denies headache(s) Card Denies dyspnea Resp Denies cough, Denies dyspnea, Denies wheezing and Denies other (shortness of breath) Musc Denies numbness and Denies tingling Neuro Denies dizziness, Denies headache(s), Denies numbness, Denies tingling and Denies weakness Psych Denies anxiety and Denies depression Endo Denies fatigue Aller/Immun Denies wheezing Physical exam (Primary Care) Vital Signs: Last Vital Signs Temp 97.8 F 07/08/24 11:53 Pulse 79 07/08/24 11:53 Resp 12 07/08/24 11:53 BP 110/60 07/08/24 11:53 Pulse Ox 98 07/08/24 11:53 Oxygen Delivery Method Room Air 07/08/24 11:53 BMI result Body Mass Index 50.9 Tobacco/Smoking Status: Tobacco use Status Tobacco use date assessed 02/10/24 07/08/24 11:52 Patient Tobacco Use Status Never used Tobacco 07/08/24 11:52 e-Cigarette/Vaping Use Never Used 07/08/24 11:52 Thrive Assessment: Date of Thrive Assessment Date Thrive assessed 10/28/22 07/08/24 11:52 Const General: well developed; No acute distress Nutritional Appearance: well nourished Orientation/consciousness: patient oriented x3 HENMT Head: Yes normocephalic and Yes atraumatic Eyes General: appearance normal, both eyes and all related structures Pupils: Equal, round and reactive pupils present EOM: EOMs intact bilaterally Resp Effort & Inspection: normal respiratory effort Neuro General: patient oriented x3 and gait normal Cranial nerves: Yes Equal, round and reactive pupils present Psych Affect: normal affect Assessment and Plan Assessment & Plan (1) Morbid obesity with body mass index of 50 or higher: Code(s): E66.01 - Morbid (severe) obesity due to excess calories Plan: Patient?has?had?additional?significant?weight?gain?after?delivering?her?baby.??She?says?she?had?lost?all?of?her??weight?shortly?after?delivery?but?then?begin?gaining?weight?back. Will?refer?her?to?the?weight?management?program Encouraged?regular?exercise Check?labs (2) Anxiety: Code(s): F41.9 - Anxiety disorder, unspecified Plan: Much?improved.??Patient?says?that?initially?she?had?significant?anxiety?but?this?has?resolved. (3) S/P laparoscopic cholecystectomy: Code(s): Z90.49 - Acquired absence of other specified parts of digestive tract Plan: Some?abdominal?pain?after?the?surgery?and?this?appears?to?be?improving. She?has?follow-up?with?Gastroenterology?for?abdominal?discomfort?and?also?has?an?upcoming?colonoscopy. Follow-up?with?Gastroenterology?as?recommended Orders: Orders Complete Blood Count Auto Diff Today Z00.00 - Encounter for general adult medical examination without abnormal findings Triiodothyronine T3 Total Today E03.9 - Hypothyroidism, unspecified Hemoglobin A1c Today R73.01 - Impaired fasting glucose Microalbumin, Random (w Creat) Today I10 - Essential (primary) hypertension Comprehensive [place]. Panel Fast Today Z00.00 - Encounter for general adult medical examination without abnormal findings Free T4 (Free Thyroxine) Today E03.9 - Hypothyroidism, unspecified Thyroid Stimulating Hormone Today E03.9 - Hypothyroidism, unspecified Lipid Panel Today Z00.00 - Encounter for general adult medical examination without abnormal findings Referrals Medical Weight Management Referral E66.01 - Morbid (severe) obesity due to excess calories Coding Level of Care Code Est Pt Level 3 (92121) Diagnoses Morbid obesity with body mass index of 50 or higher E66.01 Anxiety F41.9 S/P laparoscopic cholecystectomy Z90.49
[2024-07-08 11:53] VITALS: BP 110/60; PULSE 79; RESP 12; TEMP 36.6; O2SAT 98; BMI 50.9
== END 2024-07-08 12:20 | disposition home or self-care (01) ==
PROVIDERS: PCP Family Medicine; Visit Provider Family Medicine
DX: F41.9 Anxiety disorder, unspecified (principal); E66.01 Morbid (severe) obesity due to excess calories; Z68.43 Body mass index [BMI] 50.0-59.9, adult; Z90.49 Acquired absence of other specified parts of digestive tract

== ENCOUNTER → 2024-07-08 11:38 | Outpatient (BNVA) | payer OTHER, SELFPAY | PROVIDERS: PCP Family Medicine; Visit Provider Family Medicine | DX: E66.01 Morbid (severe) obesity due to excess calories (principal); F41.9 Anxiety disorder, unspecified; Z90.49 Acquired absence of other specified parts of digestive tract | CPT/HCPCS: 99212 ==

== ENCOUNTER 2024-07-09 08:59 | Outpatient (REF) | payer OTHER, SELFPAY ==
[2024-07-09 11:11] LABS: MANUAL DIFF FLAG NO
[2024-07-09 11:17] LABS: Basophils Percent Auto 0.3 % (0-2); Eosinophils Absolute Auto 0.2 X10*3/uL (0.0-0.4); Eosinophils Percent Auto 2.2 % (0-4); Hematocrit 37.8 % (37.0-47.0); Hemoglobin 12.4 g/dl (12.0-16.0); Imm Gran Abs Auto 0.04 X10*3/uL (0.00-0.03); Imm Gran Pct Auto 0.4 % (0.0-0.4); Lymphocytes Absolute Auto 2.9 X10*3/uL (1.2-4.9); Mean Corpuscular HGB Conc 32.8 g/dl (31.0-35.0); Mean Corpuscular Volume 82.4 fL (80.0-98.0); Mean Platelet Volume 9.3 fL (9.4-12.3); Monocytes Absolute Auto 0.5 X10*3/uL (0.1-1.2); Monocytes Percent Auto 5.3 % (2-11); Neutrophils Percent Auto 61.8 % (45-73); Platelet Count 326 X10*3/uL (160-400); Red Blood Count 4.59 X10*6/uL (4.20-5.50); Red Cell Distribution Width 14.6 % (11.0-16.0); White Blood Count 9.7 X10*3/uL (4.8-10.8)
[2024-07-09 11:22] LABS: Appearance Urine Clear; Color Urine Yellow; Glucose Urine UA Negative (Negative); Leukocyte Esterase Urine Small (1+) (Negative); Nitrite Urine Negative (Negative); PH 5.5 (5.0-9.0); Specific Gravity - Urine 1.025 (1.005-1.025); UMIC TRIGGER UA YES; Urine Blood Negative (Negative); Urine Ketones Negative (Negative); Urine Protein Negative (Neg-Trace)
[2024-07-09 11:26] LABS: Bacteria Urine 1+ (None Seen); Hyaline Casts Urine 0-2 /LPF (0-2); RBC Urine 0-2 /HPF (0-2)
[2024-07-09 11:39] LABS: Estimated Average Glucose 97 mg/dL
[2024-07-09 12:18] LABS: Alanine Aminotransferase 24 U/L (0-31); Albumin Level 4.1 g/dL (3.5-5.0); Alkaline Phosphatase 68 U/L (39-117); Anion Gap 12 (12-20); Aspartate Amino Transferase 18 U/L (5-31); Bilirubin Total 0.3 mg/dL (0.0-1.0); Blood Urea Nitrogen 14 mg/dL (9-16); Calcium 9.8 mg/dL (8.4-10.2); Carbon Dioxide 24 mmol/L (22-29); Chloride 104 mmol/L (96-108); Cholesterol 205 mg/dL (<200); Estimated Glomerular Filt Rate > 60; Glucose Fasting 98 mg/dL (60-99); HDL Cholesterol 48 mg/dL (>40); LDL Cholesterol Calculated 80 mg/dL (<100); Potassium 4.1 mmol/L (3.3-5.1); Sodium 136 mmol/L (135-145); Total Protein 7.2 g/dL (6.5-8.0); Triglycerides 388 mg/dL (<150)
[2024-07-09 12:34] LABS: Free T4 (Free Thyroxine) 0.76 ng/dL (0.71-1.85); Thyroid Stimulating Hormone 1.87 uIU/mL (0.32-4.0)
[2024-07-09 12:48] LABS: Creatinine Urine 139.76 mg/dL; Microalbum/Creatinine Ratio Ur 9.3 ug/mg cr (<30)
[2024-07-10 08:54] LABS: Triiodothyronine T3 Total 136 ng/dL (76-181)
== END 2024-07-09 09:00 | disposition home or self-care (01) ==
LOC: HO.WFDLDS 08:59
PROVIDERS: Visit Provider Family Medicine
DX: Z00.00 Encounter for general adult medical examination without abnormal findings (principal); I10 Essential (primary) hypertension; E03.9 Hypothyroidism, unspecified; R73.01 Impaired fasting glucose
CPT/HCPCS: 36415; 80053; 80061; 81001; 82043; 82570; 83036; 84439; 84443; 84480; 85025

== ENCOUNTER → 2024-08-11 09:24 | Outpatient (BNVA) | payer OTHER, SELFPAY | PROVIDERS: PCP Family Medicine; Visit Provider Surgery | DX: R10.32 Left lower quadrant pain (principal); K58.2 Mixed irritable bowel syndrome; Z90.49 Acquired absence of other specified parts of digestive tract; Z87.19 Personal history of other diseases of the digestive system | CPT/HCPCS: 99212 ==

== ENCOUNTER 2024-08-11 16:41 | Outpatient (AMB) | payer OTHER, SELFPAY ==
[2024-08-11 16:45] VITALS: BP 119/55; PULSE 104; BMI 50.8
--- NOTE | 2024-08-11 16:45 | A.OFFVIS_ITS ---
Vital Signs 08/11/24 16:45 Height 4 ft 11 in Weight 251 lb 5.231 oz BMI 50.8 BP 119/55 L Blood Pressure Location Lt brachial Position Sitting Pulse 104 H Intake Visit Reasons: 10 week follow up Intake Note: Rosemary presents to in office follow up of IBS and abdominal pain. CC: Patient went to the ER last Friday due to bilateral upper abdominal pain. She reports diarrhea but states that's normal for her. Denies other GI symptoms. Allergies adhesive Allergy (Intermediate, Verified 08/23/24 08:31) Rash cobalt Allergy (Intermediate, Verified 08/23/24 08:31) Rash gluten Allergy (Intermediate, Verified 08/23/24 08:31) rash, GI issues nickel Allergy (Intermediate, Verified 08/23/24 08:31) Rash No Known Drug Allergies Allergy (Unknown, Verified 08/23/24 08:) none HPI HPI 10 week follow up: Details: LAST VISIT: S/P laparoscopic cholecystectomy Diverticulitis Abdominal pain IBS (irritable bowel syndrome) Plan Patient will increase fiber in her diet. Patient may take fiber gummies with probiotics. Avoid dietary triggers and late night snacking. Low FODMAP diet discussed with patient. List of food recommended as well as list of food to avoid given to patient. Abdomen normal on exam. No tenderness. Patient will return in 10 weeks to discuss going for colonoscopy and possible upper endoscop y. Patient will call our office if she will have worsened GI symptoms. She is agreeable to this plan and verbalizes understanding of instructions. She was given the opportunity to ask questions and all questions answered. TODAY'S VISIT Patient is here today for follow-up. Patient reports that she was seen in the ER for diarrhea and abdominal pain. History of diverticulitis in the past. Postprandial loose stools quite frequent. Patient denies fever or chills. Reports that she is feeling little better, however she continues to have occasional left lower quadrant pain. Patient reports since she had her cholecystectomy 04/21/2024 she has been getting more frequent loose stools specially after meals. Patient denies any nausea or vomiting. Denies any dyspepsia, dysphagia or odynophagia. Denies melena, hematochezia, unintentional weight loss or ribbon like stools. Patient has appointment with bariatric surgeon in the beginning of August for weight loss surgery. [facility] Medical History (Updated 08/23/24 @ 08:36 by Carlos Knapp MD) GERD (gastroesophageal reflux disease) Morbid obesity Diverticulitis 12 weeks gestation of Hx of endometriosis Low vitamin D level IBS (irritable bowel syndrome) Surgical History History of endometrial ablation Hx of cholecystectomy History of appendix removal History of esophagogastroduodenoscopy (EGD) History of wisdom tooth extraction History of tonsillectomy History of colonoscopy Family History Father History of IBS HTN (hypertension) Psoriasis Mother Lupus Skin cancer Sister Lupus Thyroid disease Cervical cancer Son No problems noted. 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 Current occupational exposures/hazards: No Cognitive needs: No Hearing needs: No Vision needs: No (reading glasses) Review of Systems Const Denies weight gain and Denies weight loss ENT Reports no additional complaints, Denies dysphagia and Denies odynophagia Card Reports no additional complaints Resp Reports no additional complaints GI Denies abdominal pain, Denies belching, Denies melena, Denies bloating, Denies change in bowel habits, Denies dysphagia, Denies excessive flatus, Denies dyspepsia, Denies heartburn, Denies diarrhea, Denies loose stools, Denies nausea, Denies odynophagia and Denies vomiting Musc Reports no additional complaints Neuro Reports no additional complaints Psych Reports no additional complaints Endo Reports no additional complaints Physical Exam Vital Signs: Last Vital Signs Pulse 104 H 08/11/24 16:45 BP 119/55 L 08/11/24 16:45 BMI result Body Mass Index 50.8 Const General: healthy appearing and no acute distress Nutritional Appearance: obese Orientation/consciousness: patient oriented x3 Resp Effort & Inspection: normal respiratory effort, able to speak in complete sentences, no tracheal deviation and symmetric chest movement Auscultation: clear to auscultation bilaterally Cardio Rate: regular rate GI Inspection: No distended and Yes obesity Palpation (GI): Soft to palpation, not firm, nontender and No hepatosplenomegaly present Auscultation: normal bowel sounds General: Yes no CVA tenderness Back/Spine/Pelvis Back: no CVA tenderness Skin General skin exam: elasticity normal, turgor normal and dry skin Neuro General: patient oriented x3 Psych Appearance: grossly normal Mental Status: mental status grossly normal Assessment & Plan Assessment & Plan (1) S/P laparoscopic cholecystectomy: Code(s): Z90.49 - Acquired absence of other specified parts of digestive tract Category: Surgical (2) IBS (irritable bowel syndrome): Code(s): K58.9 - Irritable bowel syndrome, unspecified Category: Medical Qualifiers: Irritable bowel syndrome type: with both diarrhea and constipation Qualified Code(s): K58.2 - Mixed irritable bowel syndrome (3) Abdominal pain: Code(s): R10.9 - Unspecified abdominal pain Category: Medical Qualifiers: Abdominal location: left lower quadrant Qualified Code(s): R10.32 - Left lower quadrant pain (4) History of diverticulitis of colon: Code(s): Z87.19 - Personal history of other diseases of the digestive system Plan More frequent symptoms of postprandial diarrhea most likely related to post cholecystectomy syndrome. Discussed with patient avoiding high fat food or fast food. Increase fiber and fluid intake as well as activity to promote better bowel motility. Patient was encouraged to take probiotics. Patient will return in October and we will discuss going for colonoscopy. Patient is agreeable to current plan of care and verbalizes understanding of instructions. She was given the opportunity to ask questions and all questions answered. Thank you for allowing me to participate in her care Coding Level of Care Code Est Pt Level 4 (21263) Complex EM visit Add On G2211 Diagnoses S/P laparoscopic cholecystectomy Z90.49 Irritable bowel syndrome with both constipation and diarrhea K58.2 Irritable bowel syndrome type: with both diarrhea and constipation Left lower quadrant abdominal pain R10.32 Abdominal location: left lower quadrant History of diverticulitis of colon Z87.19 Time Spent (min) 35 Comment 20 minutes spent with patient and additional 10 minutes spent reviewing her records
== END 2024-08-11 17:00 | disposition home or self-care (01) ==
LOC: HO.HGI 16:41
PROVIDERS: PCP Family Medicine; Visit Provider Nurse Practitioner Family
DX: Z90.49 Acquired absence of other specified parts of digestive tract (principal); K58.2 Mixed irritable bowel syndrome; R10.32 Left lower quadrant pain; Z87.19 Personal history of other diseases of the digestive system
CPT/HCPCS: 99214; G2211

== ENCOUNTER → 2024-08-12 08:42 | Outpatient (AMB) | payer OTHER, SELFPAY ==
--- NOTE | 2024-08-12 08:40 | MHC.PC.OV ---
Intake Visit Reasons: f/u labs via telemedicine Intake Note: lab review Allergies adhesive Allergy (Intermediate, Verified 08/12/24 08:41) Rash cobalt Allergy (Intermediate, Verified 08/12/24 08:41) Rash gluten Allergy (Intermediate, Verified 08/12/24 08:41) rash, GI issues nickel Allergy (Intermediate, Verified 08/12/24 08:41) Rash No Known Drug Allergies Allergy (Unknown, Verified 08/12/24 08:41) none Tobacco use date assessed: 02/10/24 Dental Screening Dental Screen Date: 01/01/24 HPI f/u labs via telemedicine HPI Details 29 y/o female presents to f/u labs via telemedicine. Labs drawn 07/09/24. Reviewed labs with pt. Triglycerides 388. TC 205. LDL 80. HDL 48. A1c 5.0%. Notes she had went to the ED recently for R sided abdominal pain. Work up was negative but pt notes she had went to her ObGyn and she states they had found some uterine fibroids. [facility] Medical History Diverticulitis 12 weeks gestation of Hx of endometriosis Low vitamin D level IBS (irritable bowel syndrome) Surgical History History of endometrial ablation Hx of cholecystectomy History of appendix removal History of esophagogastroduodenoscopy (EGD) History of wisdom tooth extraction History of tonsillectomy History of colonoscopy Family History Father History of IBS HTN (hypertension) Psoriasis Mother Lupus Skin cancer Sister Lupus Thyroid disease Cervical cancer Son No problems noted. 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 Bari Aguillon, Ammy Fisher, Ish Grimaldo and colleagues, with an educational maldonado from [employer]. Physical exam (Primary Care) Tobacco/Smoking Status: Tobacco use Status Tobacco use date assessed 02/10/24 08/12/24 08:43 Patient Tobacco Use Status Never used Tobacco 08/12/24 08:43 e-Cigarette/Vaping Use Never Used 08/12/24 08:43 Thrive Assessment: Date of Thrive Assessment Date Thrive assessed 10/28/22 08/12/24 08:43 Telehealth Telehealth Telehealth Platform: Telephone Location of provider rendering services: practice address Location of patient: address on file Patient Identification confirmed using: Name, : Yes Telehealth method: voice only Patient verbally consented to treatment: Yes Patient verbally consented to billing insurance company: Yes Patient informed of any privacy concerns related to visit: Yes Minutes spent on Phone/Video with Pt.: 10 Coding Level of Care Code Tele Est Pt Level 2 (28773) Diagnoses High triglycerides E78.1 Uterine fibroid D25.9 Assessment & Plan Assessment & Plan (1) High triglycerides: Code(s): E78.1 - Pure hyperglyceridemia Category: Medical Plan: Triglycerides?are?too?high. Start?fenofibrate Will?recheck?in?about?6?weeks?and?adjust?medication?if?necessary (2) Uterine fibroid: Code(s): D25.9 - Leiomyoma of uterus, unspecified Category: Medical Plan: Patient?went?to?the?ED?for?abdominal?discomfort. ED?report?mentions?that?Ultrasound?did?not?show?any?torsion?of?ovaries.??I?do?not?have?the the?ultrasound?reading?itself. The?patient?says?that?a?small,?1.6?cm?fibroid?was?seen. She?seems?rather?convinced?that?she?has?PCOS?though?no?mention?is?made?of?polycystic?ovaries.??She?also?mentions?adenomyosis?which?could?be?related?to?uterine?fibroids. I?advised?that?she?follow-up?with?her?emergency spill response technician.??She?also?notes?that?she?has?a?manufacturing lab technician and?she?can?follow-up?with?them?regarding?any?further?hormonal?problems. She?was?also?concerned?about?insulin?resistance?and?blood?sugar?problems?but?her?A1c?is?normal?and?fasting?blood?sugars?normal?as?well.??Reassured?patient; she?says?she?will?follow-up?with?her?manufacturing lab technician.
== END ==
LOC: HO.HMCFM 08:42
PROVIDERS: PCP Family Medicine; Visit Provider Family Medicine
DX: E78.1 Pure hyperglyceridemia (principal); D25.9 Leiomyoma of uterus, unspecified

== ENCOUNTER → 2024-08-12 08:42 | Outpatient (BNVA) | payer OTHER, SELFPAY | PROVIDERS: PCP Family Medicine; Visit Provider Family Medicine ==

== ENCOUNTER 2024-08-23 07:55 | Outpatient (AMB) | payer OTHER, SELFPAY ==
--- NOTE | 2024-08-23 08:30 | MHC.OFFVISWM ---
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 [facility] BMI 50.0 Allergies adhesive Allergy (Intermediate, Verified 08/23/24 08:31) Rash cobalt Allergy (Intermediate, Verified 08/23/24 08:31) Rash gluten Allergy (Intermediate, Verified 08/23/24 08:31) rash, GI issues nickel Allergy (Intermediate, Verified 08/23/24 08:31) Rash No Known Drug Allergies Allergy (Unknown, Verified 08/23/24 08:31) none Medication List - Last Reconciled 08/23/24 by Carlos Knapp MD [Bio complete 3 2 caps PO DAILY] compr.stocking,knee,long,large Daily As directed, 90 days docosahexaenoic acid ( DHA) mg PO fenofibrate 160 mg PO DAILY 90 days HPI HPI [employer] RESPONSE SPECIALIST [facility] BMI 50.0: Details: Start time: 8.21am, End time: 9.09am ?I spent 43 minutes speaking with the patient on the phone plus an additional 5 minutes reviewing and updating records for a total of 48 minutes HPI Comments Details: Previous weight loss efforts: Exercise program, [employer] jessica, [employer] Wakes up: 5.30am on weekends at 7am, Sleeps:10.30-11pm Breakfast: 8.30am (Gluten-free sandwich) Lunch: 1pm (chicken, rice and vegetables) Dinner: 8pm (chicken, rice and vegetables) Snacks: 3-4pm (chickpea puffs, string cheese), 9pm (chocolate, candy, rice cakes) Exercise: none Fluids: Coffee x1/wk (Enoc Donuts), tea: none, soda: Vanilla Coke/Dr. De Guzman, some times per week, juice: none, ETOH: none PFSH Medical History (Updated 08/23/24 @ 08:36 by Carlos Knapp MD) GERD (gastroesophageal reflux disease) Morbid obesity Diverticulitis 12 weeks gestation of Hx of endometriosis Low vitamin D level IBS (irritable bowel syndrome) Surgical History History of endometrial ablation Hx of cholecystectomy History of appendix removal History of esophagogastroduodenoscopy (EGD) History of wisdom tooth extraction History of tonsillectomy History of colonoscopy Family History Father History of IBS HTN (hypertension) Psoriasis Mother Lupus Skin cancer Sister Lupus Thyroid disease Cervical cancer Son No problems noted. 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 Current occupational exposures/hazards: No Cognitive needs: No Hearing needs: No Vision needs: No (reading glasses) Telehealth Telehealth Telehealth Platform: Telephone Location of provider rendering services: practice address Location of patient: address on file Patient Identification confirmed using: Name, : Yes Telehealth method: voice only Patient verbally consented to treatment: Yes Patient verbally consented to billing insurance company: Yes Patient informed of any privacy concerns related to visit: Yes Minutes spent on Phone/Video with Pt.: 48 Assessment & Plan Assessment & Plan (1) Morbid obesity with body mass index of 50 or higher: Code(s): E66.01 - Morbid (severe) obesity due to excess calories Category: Medical Plan: 1.? Plan for lap sleeve gastrectomy. If diaphragmatic or ventral hernias are present at time of surgery, these will be repaired laparoscopically as well. Risks and complications include possible conversion to an open procedure, anastomotic leak, bleeding requiring transfusion, small bowel obstruction, , DVT and pulmonary embolism, cardiac, or pulmonary complications, as jail complications such as anastomotic ulcer, insufficient weight loss and vitamin deficiencies. I emphasized the importance of close follow-up, adherence to instructions and good communication. 2. You will receive a link of our software cyndi to generate an individualized nutritional and exercise plan specific for you. Please send me a screenshot of the plans you will generate Meal to include lean meat (beef, fish, pork, turkey, chicken), or telugu yogurt, or egg whites, or beans with a salad with olive oil and fruits (berries, pears, apples, kiwi). Avoid salt, breads, potatoes, rice, pasta, desserts. ?3. If you choose shakes, each shake would be drunk slowly, like coffee in a period of 2 hours. ?4. If you choose bars, cut each bar in 4 pieces and eat each piece in 30min ?to make each bar last 2 hours. ?5. I emphasized the importance of measuring accurately the food portion and measure it when serving the food in plate ?6. The meal portions include a specific number of forks of meat and salad. You always eat the meat portion but you can replace up to half of salad/vegetables portion with rice, potatoes or pasta, or a fruit ?if you like. The less you do it the better weight loss will be. ?7. One full-size fork is what it can be scooped on the fork without falling aside and not what can be bit with the fork. Use regular forks like those you find in a typical restaurant. ?8.? Please send me weight measurements as soon as possible and then once a week. Always include your diet and exercise plan. 9. The best choice would be to purchase a stationary bike, elliptical or treadmill at home that can track calories. Let me know if you do so I can give you an exercise plan. ?10.?It is important of avoiding and for at least 18 months postoperatively and has been discussed at the infosession. ?11. Goal is to lose at least 1.5-2lbs per week ?12. Goal to lose 10% of your weight before surgery, which is about 25lbs. Ultimate weight goal: 222lbs before surgery 13. Please follow the diet plan exactly without any change. If you don't like something about the plan or you feel hungry you need to communicate with me so I can help you revise the plan. You should not change the plan yourself. 14. To be scheduled for EGD due to history of GERD. The possibility of biopsies was discussed. Patient needs to avoid use of NSAIDs and aspirin for 1 week prior to EGD. Risks of perforation and bleeding was discussed with the patient. This will be an outpatient procedure with IV sedation. Orders: Orders Hemoglobin A1c Today E03.9 - Hypothyroidism, unspecified, E66.01 - Morbid (severe) obesity due to excess calories, E78.1 - Pure hyperglyceridemia Zinc Today E03.9 - Hypothyroidism, unspecified, E66.01 - Morbid (severe) obesity due to excess calories, E78.1 - Pure hyperglyceridemia C Reactive Protein Today E03.9 - Hypothyroidism, unspecified, E66.01 - Morbid (severe) obesity due to excess calories, E78.1 - Pure hyperglyceridemia Vitamin A Today E03.9 - Hypothyroidism, unspecified, E66.01 - Morbid (severe) obesity due to excess calories, E78.1 - Pure hyperglyceridemia Ferritin Today E03.9 - Hypothyroidism, unspecified, E66.01 - Morbid (severe) obesity due to excess calories, E78.1 - Pure hyperglyceridemia ECG 12 lead EKG Today E03.9 - Hypothyroidism, unspecified, E66.01 - Morbid (severe) obesity due to excess calories, E78.1 - Pure hyperglyceridemia FL upper GI w air Today E03.9 - Hypothyroidism, unspecified, E66.01 - Morbid (severe) obesity due to excess calories, E78.1 - Pure hyperglyceridemia Insulin Today E03.9 - Hypothyroidism, unspecified, E66.01 - Morbid (severe) obesity due to excess calories, E78.1 - Pure hyperglyceridemia H Pylori Breath Test Today E03.9 - Hypothyroidism, unspecified, E66.01 - Morbid (severe) obesity due to excess calories, E78.1 - Pure hyperglyceridemia Complete Blood Count Auto Diff Today E03.9 - Hypothyroidism, unspecified, E66.01 - Morbid (severe) obesity due to excess calories, E78.1 - Pure hyperglyceridemia Lipid Panel Today E03.9 - Hypothyroidism, unspecified, E66.01 - Morbid (severe) obesity due to excess calories, E78.1 - Pure hyperglyceridemia IRON PROFILE Today E03.9 - Hypothyroidism, unspecified, E66.01 - Morbid (severe) obesity due to excess calories, E78.1 - Pure hyperglyceridemia Comprehensive Met. Panel Today E03.9 - Hypothyroidism, unspecified, E66.01 - Morbid (severe) obesity due to excess calories, E78.1 - Pure hyperglyceridemia Vitamin B12 and Folate Today E03.9 - Hypothyroidism, unspecified, E66.01 - Morbid (severe) obesity due to excess calories, E78.1 - Pure hyperglyceridemia Vitamin B1 Today E03.9 - Hypothyroidism, unspecified, E66.01 - Morbid (severe) obesity due to excess calories, E78.1 - Pure hyperglyceridemia TSH reflex Free T4 Today E03.9 - Hypothyroidism, unspecified, E66.01 - Morbid (severe) obesity due to excess calories, E78.1 - Pure hyperglyceridemia Vitamin D 25-OH Total Today E03.9 - Hypothyroidism, unspecified, E66.01 - Morbid (severe) obesity due to excess calories, E78.1 - Pure hyperglyceridemia US abdomen comp w elastography Today E03.9 - Hypothyroidism, unspecified, E66.01 - Morbid (severe) obesity due to excess calories, E78.1 - Pure hyperglyceridemia XR chest 2V Today E03.9 - Hypothyroidism, unspecified, E66.01 - Morbid (severe) obesity due to excess calories, E78.1 - Pure hyperglyceridemia Referrals Behavioral Health Referral E03.9 - Hypothyroidism, unspecified, E66.01 - Morbid (severe) obesity due to excess calories, E78.1 - Pure hyperglyceridemia Nutrition/Dietitian Referral E03.9 - Hypothyroidism, unspecified, E66.01 - Morbid (severe) obesity due to excess calories, E78.1 - Pure hyperglyceridemia
[2024-08-23 08:41] VITALS: BMI 55.4
== END 2024-08-23 09:10 | disposition home or self-care (01) ==
LOC: HO.HBS 07:55
PROVIDERS: PCP Family Medicine; Visit Provider Surgery
DX: E66.813 Obesity, class 3 (principal); Z68.43 Body mass index [BMI] 50.0-59.9, adult
CPT/HCPCS: 99204

== ENCOUNTER 2024-08-23 07:55 | Outpatient (REF) | payer OTHER, SELFPAY ==
--- NOTE | 2024-08-23 11:34 | ECG_ITS ---
Test Reason : MORBID OBESITY Blood Pressure : / mmHG Vent. Rate : 071 BPM Atrial Rate : 071 BPM P-R Int : 156 ms QRS Dur : 082 ms QT Int : 386 ms P-R-T Axes : 014 037 020 degrees QTc Int : 419 ms Normal sinus rhythm Normal ECG No previous ECGs available Referred By: Carlos Knapp Electronically Signed By:Max Huitron
[2024-08-23 11:56] LABS: MANUAL DIFF FLAG NO
[2024-08-23 12:07] LABS: Basophils Percent Auto 0.5 % (0-2); Eosinophils Absolute Auto 0.1 X10*3/uL (0.0-0.4); Eosinophils Percent Auto 1.8 % (0-4); Hemoglobin 12.2 g/dl (12.0-16.0); Imm Gran Abs Auto 0.03 X10*3/uL (0.00-0.03); Imm Gran Pct Auto 0.4 % (0.0-0.4); Lymphocytes Absolute Auto 2.9 X10*3/uL (1.2-4.9); Lymphocytes Percent Auto 36.8 % (20-40); Mean Corpuscular HGB Conc 33.9 g/dl (31.0-35.0); Mean Corpuscular Hemoglobin 27.2 pg (27.0-33.0); Mean Corpuscular Volume 80.2 fL (80.0-98.0); Monocytes Absolute Auto 0.4 X10*3/uL (0.1-1.2); Monocytes Percent Auto 4.9 % (2-11); Neutrophils Absolute Auto 4.4 x10*3/uL (2.0-8.3); Neutrophils Percent Auto 55.6 % (45-73); Platelet Count 327 X10*3/uL (160-400); Red Blood Count 4.49 X10*6/uL (4.20-5.50); White Blood Count 7.8 X10*3/uL (4.8-10.8)
[2024-08-23 12:14] LABS: Estimated Average Glucose 97 mg/dL; Hemoglobin A1C 102.4837 umol/L; Total Hemoglobin (HGBA1C) 3324.1825 umol/L
[2024-08-23 12:41] LABS: Alanine Aminotransferase 28 U/L (0-31); Alkaline Phosphatase 72 U/L (39-117); Anion Gap 11 (12-20); Aspartate Amino Transferase 27 U/L (5-31); Bilirubin Total 0.4 mg/dL (0.0-1.0); Blood Urea Nitrogen 10 mg/dL (9-16); C Reactive Protein 0.73 mg/dL (< or = 0.50); Calcium 9.5 mg/dL (8.4-10.2); Carbon Dioxide 22 mmol/L (22-29); Chloride 107 mmol/L (96-108); Cholesterol 181 mg/dL (<200); Estimated Glomerular Filt Rate > 60; Glucose Random 91 mg/dL (60-115); HDL Cholesterol 37 mg/dL (>40); Iron 52 mcg/dL (30-160); LDL Cholesterol Calculated 74 mg/dL (<100); Percent Iron Saturation 15 % (15-50); Potassium 4.1 mmol/L (3.3-5.1); Sodium 136 mmol/L (135-145); Total Iron Binding Capacity 347 mcg/dL (228-428); Total Protein 7.2 g/dL (6.5-8.0); Triglycerides 351 mg/dL (<150); Unsaturated Iron Binding 295 ug/dL
[2024-08-23 13:07] LABS: Ferritin 25 ng/mL (10-122); TSH reflex Free T4 1.29 uIU/mL (0.32-4.0); Vitamin D 25-OH Total 34.8 ng/mL (>30)
[2024-08-23 13:09] LABS: Folate 10.8 ng/mL (> or = 4.0); Vitamin B12 416 pg/mL (200-900)
[2024-08-23 13:15] LABS: Insulin 16 uU/mL (2-29)
[2024-08-25 18:17] LABS: Zinc 68 mcg/dL (60-130)
[2024-08-27 16:47] LABS: Vitamin B1 13 nmol/L (8-30)
[2024-08-27 18:58] LABS: Vitamin A 73 mcg/dL (38-98)
== END 2024-08-23 07:56 | disposition home or self-care (01) ==
LOC: HO.XRAY 07:55
PROVIDERS: PCP Family Medicine; Visit Provider Surgery
DX: E66.01 Morbid (severe) obesity due to excess calories (principal); E03.9 Hypothyroidism, unspecified; E78.1 Pure hyperglyceridemia; Z13.1 Encounter for screening for diabetes mellitus
CPT/HCPCS: 36415; 71046; 80053; 80061; 82306; 82607; 82728; 82746; 83036; 83525; 83540; 84425; 84443; 84590; 84630; 85025; 86140; 93005

== ENCOUNTER → 2024-08-23 11:34 | Outpatient (BNV) | payer OTHER, SELFPAY | PROVIDERS: PCP Family Medicine; Visit Provider Internal Medicine Cardiovascular Disease | DX: E78.1 Pure hyperglyceridemia (principal); E03.9 Hypothyroidism, unspecified; E66.01 Morbid (severe) obesity due to excess calories | CPT/HCPCS: 93010 ==

== ENCOUNTER → 2024-09-13 08:00 | Outpatient (BNVA) | payer OTHER, SELFPAY | PROVIDERS: PCP Family Medicine; Visit Provider Counselor Mental Health ==

== ENCOUNTER → 2024-09-13 08:00 | Outpatient (AMB) | payer OTHER, SELFPAY ==
--- NOTE | 2024-09-13 08:00 | A.OFFWM_ITS ---
Intake Intake Visit Reasons: VIDEO BH Intake Allergies adhesive Allergy (Intermediate, Verified 08/23/24 08:31) Rash cobalt Allergy (Intermediate, Verified 08/23/24 08:31) Rash gluten Allergy (Intermediate, Verified 08/23/24 08:31) rash, GI issues nickel Allergy (Intermediate, Verified 08/23/24 08:31) Rash No Known Drug Allergies Allergy (Unknown, Verified 08/23/24 08:31) none PFSH Medical History (Updated 08/23/24 @ 08:36 by Carlos Knapp MD) GERD (gastroesophageal reflux disease) Morbid obesity Diverticulitis 12 weeks gestation of Hx of endometriosis Low vitamin D level IBS (irritable bowel syndrome) Surgical History History of endometrial ablation Hx of cholecystectomy History of appendix removal History of esophagogastroduodenoscopy (EGD) History of wisdom tooth extraction History of tonsillectomy History of colonoscopy Family History Father History of IBS HTN (hypertension) Psoriasis Mother Lupus Skin cancer Sister Lupus Thyroid disease Cervical cancer Son No problems noted. 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 Presenting Concerns Referral Source WMP Provider. PT saw Dr. Ureña on 08/23/24 Reason for referral Completion of behavioral health assessment as part of process for weight-loss surgery. Precipitating Event Obesity Living Situation Current Living Situation Own At risk of losing current housing? No Satisfied with current living situation? Yes Comments PT lives with her , son and 2 dogs. Food/Weight/Diet Expectations of change Most recent weight: 239Lbs this morning - Meal plan: 1 shake divided n 2 in the morning, 1.5 protein bars in the afternoon, 1 meal (dinner, 8F/8F), another protein bar after dinner. Exercise plan: Struggling. Just got a treadmill. History/Relationship with food PT reports she's aware that restricting food is a triggers Fast food is a weakness when very hungry and once something very quick. History/Relationship with weight PT reports she has always been obese. started at 3rd grade as she develop hypothyroidism and hormonal changes. She has been unmedicated since age 18. Since age 11 she developed painful periods and became less active, was also put on control to help with periods however, she ended up developing other issues such as PMDD. Recently diagnosed with endometriosis in 2021. PT reports she was 238Lbs at the beginning of and 274Lbs when she gave . Her weight at the weight check In the last 5 years her Highest 252Lbs, lowest 190Lbs (2014). Maintained 238Lbs for 4 years ([id number]) Social History Family history and relationship PT is 3 years ago. Parents still . She has 3 sisters. PT reports they're very close. Diallo Hx with 's parents, they're civil. They have a good relationship with 's father. 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 Developmental history and status Had special reading class in second. Currently WNL. Social support Sisters, 2 close best friends, mother. and mom will help with post-op recovery. Community support None reported. Taoist/Spirituality None. Cultural/Ethnic information [place] in [place] Lived in [place] a while, then back to [place] and now living in [place] with . Legal Involvement and History Current or historical involvement with the legal system? None reported. Education Highest grade completed 3 years of college. Preferred learning style Learn by doing and Visual Currently enrolled in educational program? No Interested in further educational program? Yes (Thinking about finishing her bachelors. 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 No Meaningful activities Reading, play videogames, outdoors activities, does her own nails. Financial Situation Describe current financial situation Comfortable Financial assistance? None Service Service? 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 ) Mental Health and Addiction Treatment Current/Past substance abuse? No Comments Alcohol: Rarely, less than 1 drink at month. Cigarettes/Tobacco: None Cannabis/Edibles: Edibles in the past to help with pain. None currently. Current/Past addictive behavior concerns? No Psychiatric history PT is not in counseling right now, but has been in therapy before, from 2021 - 2022, she did counseling to help with grief after losing her cat. PT reports having emotional challenges after due to multiple health challenges and suffered fom medication-induced depressive Sx. Never clinically diagnosed with any MH illness. PT feels she has some social-re anxiety and deals with catastrophic thinking. Sx have intensified since became a mom. Also, she has Premenstrual dysphoric disorder (PMDD). She's very aware of Sx, keeps track of her period Questionnaires PHQ-9 Over the last 2 weeks, how often have you been bothered by any of the following problems? 1. Little interest or pleasure in doing things: several days 2. Feeling down, depressed, or hopeless: several days 3. Trouble falling or staying asleep, or sleeping too much: several days 4. Feeling tired or having little energy: several days 5. Poor appetite or overeating: several days 6. Feeling bad about yourself - or that you are a failure or have let yourself or your family down: more than half the days 7. Trouble concentrating on things, such as reading the newspaper or watching television: not at all 8. Moving or speaking so slowly that other people could have noticed. Or the opposite - being so fidgety or restless that you have been moving around a lot more than usual: not at all 9. Thoughts that you would be better off or of hurting yourself in some way: not at all Total score: 7 Depression Screening Interpretation: Positive (from new PT pack. New one will be administered before finishing assessment. ) Depression Screening Done: Yes Source: Developed by Drs. Bari Aguillon, Ammy Fisher, Ish Grimaldo and colleagues, with an educational maldonado from [employer]. Assessment & Plan Assessment & Plan (1) PMDD (premenstrual dysphoric disorder): Code(s): F32.81 - Premenstrual dysphoric disorder (2) Adjustment disorder with anxiety: Code(s): F43.22 - Adjustment disorder with anxiety Plan We discussed ways she can increase exercise, PT will try to use her lunch time break and to aim for 3-4 days at week. We will meet again on 10/04/2024 at 10am, via Telehealth to finish assessement. Telehealth Telehealth Telehealth Platform: [employer] Location of provider rendering services: other Location of patient: address on file Patient Identification confirmed using: Name, : Yes Telehealth method: video Patient verbally consented to treatment: Yes Patient verbally consented to billing insurance company: Yes Patient informed of any privacy concerns related to visit: Yes Minutes spent on Phone/Video with Pt.: 60 Coding Level of Care Code New Pt Tele Psy Diag Eval (07712) Patient Type New Diagnoses PMDD (premenstrual dysphoric disorder) F32.81 Adjustment disorder with anxiety F43.22 Time Spent (min) 60
== END ==
LOC: HO.HBST 08:24
PROVIDERS: PCP Family Medicine; Visit Provider Counselor Mental Health
DX: F32.81 Premenstrual dysphoric disorder (principal); F43.22 Adjustment disorder with anxiety
CPT/HCPCS: 90791

== ENCOUNTER 2024-09-24 08:43 | Outpatient (REF) | payer OTHER, SELFPAY | END 2024-09-24 08:44 | disposition home or self-care (01) | LOC: HO.US 08:43 | PROVIDERS: PCP Family Medicine; Visit Provider Surgery | DX: E66.01 Morbid (severe) obesity due to excess calories (principal); E03.9 Hypothyroidism, unspecified; E78.1 Pure hyperglyceridemia | CPT/HCPCS: 76700; 76981 ==

== ENCOUNTER → 2024-09-24 08:45 | Outpatient (BNV) | payer OTHER, SELFPAY | PROVIDERS: PCP Family Medicine; Visit Provider Radiology Diagnostic Radiology | DX: E66.01 Morbid (severe) obesity due to excess calories (principal) | CPT/HCPCS: 76700 ==

== ENCOUNTER 2024-09-29 07:03 | Day surgery (SDC) | payer OTHER, SELFPAY ==
[2024-09-27 08:26] VITALS: BMI 55.3
--- NOTE | 2024-09-27 13:32 | HO.ANESPROP2 ---
Documented by User: Tammi Scott NP 09/27/24 13:32 HPI - Anesthesia Eval Consult details Narrative: 29yo F for Upper Endoscopy PMFSH Active Problems Active Problems: All Active Problems GERD (gastroesophageal reflux disease) (Acute) Morbid obesity (Acute) Uterine fibroid (Acute) Morbid obesity with body mass index of 50 or higher (Acute) S/P laparoscopic cholecystectomy (Acute) Candidiasis (Acute) depression (Acute) Pyelonephritis (Acute) Diverticulitis (Acute) Gestational diabetes (Acute) Hypertriglyceridemia (Acute) Pain in symphysis pubis during (Acute) Incidental (Acute) Tick bite (Acute) Snoring (Acute) Hypersomnia (Acute) Fatigue (Acute) Mild anemia (Acute) Swelling of lower extremity (Acute) Hx of endometriosis (Acute) Morbid obesity with BMI of 45.0-49.9, adult (Acute) Dermatofibroma (Acute) Screening for cervical cancer (Acute) High triglycerides (Acute) Adult general medical exam (Acute) Abdominal pain (Acute) Anxiety (Acute) History of Lyme disease (Acute) Low vitamin D level (Acute) Hypothyroidism (Acute) IBS (irritable bowel syndrome) (Acute) Laboratory exam ordered as part of routine general medical examination (Acute) Past Medical History Medical History HTN (hypertension) GERD (gastroesophageal reflux disease) Morbid obesity 12 weeks gestation of Hx of endometriosis Low vitamin D level IBS (irritable bowel syndrome) Diverticulitis Family History Family History Father History of IBS HTN (hypertension) Psoriasis Mother Lupus Skin cancer Sister Lupus Thyroid disease Cervical cancer Son No problems noted. Other Mental health disorder Family history of problems with anesthesia: No Surgical History Surgical History History of endometrial ablation Hx of cholecystectomy History of appendix removal History of esophagogastroduodenoscopy (EGD) History of wisdom tooth extraction History of tonsillectomy History of colonoscopy History of Problems with Anesthesia: No Social History Social History Housing: House Alcohol intake: former Patient Tobacco Use Status: Never used Tobacco e-Cigarette/Vaping Use: Never Used Second Hand Smoke Exposure: No Use of substances other than those prescribed or required for medical reasons: No Are you DNR?: No Advance Directives: No Advance Directives Information Provided: Yes Nutrition Risks: No Nutritional Risk service: No Current occupational status: employed 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 Current occupational exposures/hazards: No Cognitive needs: No Hearing needs: No Vision needs: No (reading glasses) Meds Allergies Allergy/AdvReac Type Severity Reaction Status Date / Time adhesive Allergy Intermediate Rash Verified 08/23/24 08:31 cobalt Allergy Intermediate Rash Verified 08/23/24 08:31 gluten Allergy Intermediate rash, GI Verified 08/23/24 08:31 issues nickel Allergy Intermediate Rash Verified 08/23/24 08:31 bupropion [From Wellbutrin] Allergy Hives Verified 09/29/24 07:31 Exam Height,Weight and Vital Signs: Height 4 ft 11 in Weight 124.284 kg Assessment and Plan Assessment Anesthesia Assessment: Chart Reviewed Final Anesthetic Review Family History of Problems with Anesthesia: No History of Problems with Anesthesia: No Documented by User: Carol Ann Malik MD 09/29/24 08:06 [facility] Active Problems Active Problems: All Active Problems GERD (gastroesophageal reflux disease) (Acute) Morbid obesity (Acute) Uterine fibroid (Acute) Morbid obesity with body mass index of 50 or higher (Acute) S/P laparoscopic cholecystectomy (Acute) Candidiasis (Acute) depression (Acute) Pyelonephritis (Acute) Diverticulitis (Acute) Gestational diabetes (Acute) Hypertriglyceridemia (Acute) Pain in symphysis pubis during (Acute) Incidental (Acute) Tick bite (Acute) Snoring (Acute) Hypersomnia (Acute) Fatigue (Acute) Mild anemia (Acute) Swelling of lower extremity (Acute) Hx of endometriosis (Acute) Morbid obesity with BMI of 45.0-49.9, adult (Acute) Dermatofibroma (Acute) Screening for cervical cancer (Acute) High triglycerides (Acute) Adult general medical exam (Acute) Abdominal pain (Acute) Anxiety (Acute) History of Lyme disease (Acute) Low vitamin D level (Acute) Hypothyroidism (Acute) IBS (irritable bowel syndrome) (Acute) Laboratory exam ordered as part of routine general medical examination (Acute) Denies RADHA Past Medical History Medical History HTN (hypertension) GERD (gastroesophageal reflux disease) Morbid obesity 12 weeks gestation of Hx of endometriosis Low vitamin D level IBS (irritable bowel syndrome) Diverticulitis Family History Family History Father History of IBS HTN (hypertension) Psoriasis Mother Lupus Skin cancer Sister Lupus Thyroid disease Cervical cancer Son No problems noted. Other Mental health disorder Family history of problems with anesthesia: No Surgical History Surgical History History of endometrial ablation Hx of cholecystectomy History of appendix removal History of esophagogastroduodenoscopy (EGD) History of wisdom tooth extraction History of tonsillectomy History of colonoscopy History of Problems with Anesthesia: No Social History Social History Housing: House Alcohol intake: former Patient Tobacco Use Status: Never used Tobacco e-Cigarette/Vaping Use: Never Used Second Hand Smoke Exposure: No Use of substances other than those prescribed or required for medical reasons: No Are you DNR?: No Advance Directives: No Advance Directives Information Provided: Yes Nutrition Risks: No Nutritional Risk service: No Current occupational status: employed 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 Current occupational exposures/hazards: No Cognitive needs: No Hearing needs: No Vision needs: No (reading glasses) Meds Allergies Allergy/AdvReac Type Severity Reaction Status Date / Time adhesive Allergy Intermediate Rash Verified 08/23/24 08:31 cobalt Allergy Intermediate Rash Verified 08/23/24 08:31 gluten Allergy Intermediate rash, GI Verified 08/23/24 08:31 issues nickel Allergy Intermediate Rash Verified 08/23/24 08:31 bupropion [From Wellbutrin] Allergy Hives Verified 09/29/24 07:31 Exam Height,Weight and Vital Signs: Height 4 ft 11 in Weight 124.284 kg Vital Signs Temp Pulse Resp BP Pulse Ox O2 Del Method 09/29/24 07:41 91 09/29/24 07:40 97.0 F 99 16 116/71 96 Room Air Pertinent Lab Results Pertinent Lab Results: Lab Results 09/29/24 Range/Units 07:17 Urine Test NEGATIVE (NEGATIVE) Airway Mallampati Class: II TM Dist: >3cm Neck ROM: Full Loose/Missing/Broken Teeth: Yes ([place] teeth extracted. Denies broken or loose teeth) Heart: RRR Lungs: CTAB Assessment and Plan Assessment Anesthesia Assessment: Anesthesia Plan Discussed and Chart Reviewed Final Anesthetic Review Family History of Problems with Anesthesia: No History of Problems with Anesthesia: No NPO: Yes ASA Class: III Final Preanesthetic Review: No Changes in Pt Med Stat, Meds/Allgs Chart Reviewed, Consent Obtained/Reviewed and Anes Risks/Benef Reviewed Patient Risk: Intermediate Procedure Risk: Low Assessment/Block/Sedation in SS: Assess/Block/Sedation-SS Anesthetic Plan Anesthetic Plan: TIVA Disposition: Standard PACU
[2024-09-29 07:33] VITALS: BMI 46.7
[2024-09-29 07:36] LABS: UPreg QC Valid YES
[2024-09-29 07:38] LABS: Urine Pregnancy NEGATIVE (NEGATIVE)
[2024-09-29 07:40] VITALS: BP 116/71; PULSE 99; RESP 16; TEMP 36.1; O2SAT 96
[2024-09-29 07:41] VITALS: PULSE 91
[2024-09-29] MEDS: Lactated Ringers 1,000 ML 80 ML IVCONT (07:46)
--- NOTE | 2024-09-29 07:59 | P.HPSUR_ITS ---
Pre-Procedural Eval Section A - 24 Hr Update-Section A only Date of Service: 09/29/24 The patient is an INPATIENT: No The patient has been examined within 24 hours of the surgical procedure. The History & Physical has been completed within 30 days and I have reviewed it.: Yes Section B - Complete if H&P > 30 days Chief Complaint: Morbid (severe) obesity due to excess calories Details of Present Illness: GERD Relevant Family History (Specify if Yes): No Relevant Social History: None Present Medications: None Medical History: No relevant PMH History of Previous Operations: No relevant previous surgery Allergies: Allergies Allergy/AdvReac Type Severity Reaction Status Date / Time adhesive Allergy Intermediate Rash Verified 08/23/24 08:31 cobalt Allergy Intermediate Rash Verified 08/23/24 08:31 gluten Allergy Intermediate rash, GI Verified 08/23/24 08:31 issues nickel Allergy Intermediate Rash Verified 08/23/24 08:31 bupropion [From Wellbutrin] Allergy Hives Verified 09/29/24 07:31 Review of Systems Sugical H&P ROS: Negative: Constitution, Cardiovascular, Respiratory, Neurological, Psychiatric, Hem-Onc, Allergic/Immunologic, Gastrointestinal, Genitourinary, Musculoskeletal, Integumentary, Endocrine and Eyes/Ears/Nose/Throat Exam Surgical H&P Exam: Normal: HEENT, Normal: Heart, Normal: Lungs, Normal: Extremit ies, Normal: Abdomen, Normal: Skin and Normal: Neurological Plan Diagnosis/Plan: Unchanged (EGD to assess etiology of GERD. Risks of bleeding and perforation were discussed with the patient and she is in agreement with the plan.) I have reviewed the history and physical and performed a pertinent physical examination on my patient. No changes have occurred unless specified. Time Spent With Patient Time: Total time managing care of this patient today ____ minutes.
--- NOTE | 2024-09-29 08:30 | PM.OP ---
Brief Operative Note Date of Service: 09/29/24 Pre-op diagnosis: GERD Post-op diagnosis: same (& Gastritis) Procedure: PROCEDURE DATE: 09/29/2024 PREOPERATIVE DIAGNOSIS: GERD POSTOPERATIVE DIAGNOSIS: ?Same as above. 1) gastritis, 2) duodenitis PROCEDURE: [id number]-ayfolu-scymndzpekhx with biopsies Surgeon: ?Jaquan Knapp M.D.. Ph.D. Deckhand Fishing Vessel: None ? Anesthesia: IV sedation Estimated blood loss: ?Minimal FINDINGS AND PROCEDURE: ? OPERATIVE INDICATIONS: ?The patient is a 29 year old female known to me who is interested in bariatric surgery. The patient has GERD. Based on this information I recommended an upper endoscopy to evaluate the patient's symptoms. Risks and complications of the surgery were discussed with the patient in advance particularly the possibility of perforation or bleeding that may require surgical intervention. The patient understood the risks and was in agreement with the plan. ? PROCEDURE: After informed consent was obtained by the patient, the patient was ?transferred to the Operating Room and was placed in the supine position.? After successful induction of IV sedation, a mouth block was inserted and the patient was placed in the left lateral decubitus position. An upper endoscopy was performed next, the oropharynx and esophagus appeared within the normal limits. There was no hiatal hernia. The z-line was smooth. Two biopsies were obtained from the distal esophagus 2-3 cm proximal to the GE junction and two additional biopsies from the GE junction. The stomach was entered and it appeared to be of normal size. There was gastritis throughout the stomach. There was no stricture or ulcer. A biopsy was obtained from the gastric fundus and the antrum. No significant bleeding was noted from any of the biopsy sites. Retroflexion of the scope confirmed the presence of a normal GE junction. The scope was then advanced into the duodenum which appeared to have some inflammation. A biopsy was obtained. At that point the duodenum ?and the stomach were decompressed and the scope was withdrawn from the patient's mouth. The patient extubated and was transferred in stable condition to the Recovery Room for further care. I was present and performed all steps of the procedure. There were no residents to assist with this case. Jaquan Knapp M.D., Ph.D. Surgeon: Carlos Knapp MD Anesthesia: MAC Was an Deckhand Fishing Vessel used for this Procedure?: No Estimated blood loss (mL): 0 IV fluids (mL): 400 Urine output (mL): 0 (No [place] to record output) Pathology: other (1) antrum x1, 2) fundus x1, 3) GE junction x2, 4) distal esophagus x2, 5) duodenum x1) Condition: stable Disposition: PACU
[2024-09-29 08:32] VITALS: BP 114/64; PULSE 102; RESP 16; TEMP 36.1; O2SAT 96
[2024-09-29 08:47] VITALS: BP 110/63; PULSE 94; RESP 16; TEMP 36.2; O2SAT 94
== END 2024-09-29 09:13 | disposition home or self-care (01) ==
PROVIDERS: Nurse Practitioner; PCP Family Medicine; Visit Provider Surgery
PROC: 0DJ08ZZ Inspection of Upper Intestinal Tract, Via Natural or Artificial Opening Endoscopic (ICD-10-PCS; CPT 43235; principal; 2024-09-29 08:10)
DX: K21.9 Gastro-esophageal reflux disease without esophagitis (principal); E66.01 Morbid (severe) obesity due to excess calories; Z68.43 Body mass index [BMI] 50.0-59.9, adult; K29.50 Unspecified chronic gastritis without bleeding; K29.80 Duodenitis without bleeding; Z87.19 Personal history of other diseases of the digestive system; K58.9 Irritable bowel syndrome, unspecified; E55.9 Vitamin D deficiency, unspecified; E78.1 Pure hyperglyceridemia; E03.9 Hypothyroidism, unspecified; L23.1 Allergic contact dermatitis due to adhesives; Z90.49 Acquired absence of other specified parts of digestive tract; Z88.8 Allergy status to other drugs, medicaments and biological substances
CPT/HCPCS: 43239; 81025; 88305; 88313; 88342; J1596; J2704

== ENCOUNTER → 2024-09-29 07:03 | Outpatient (BNV) | payer OTHER, SELFPAY | PROVIDERS: PCP Family Medicine; Visit Provider Surgery | DX: K21.9 Gastro-esophageal reflux disease without esophagitis (principal); K29.70 Gastritis, unspecified, without bleeding; K29.80 Duodenitis without bleeding | CPT/HCPCS: 43239 ==

== ENCOUNTER → 2024-10-04 10:17 | Outpatient (AMB) | payer OTHER, SELFPAY ==
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
== END ==
LOC: HO.HBST 10:17
PROVIDERS: PCP Family Medicine; Visit Provider Counselor Mental Health
DX: F32.81 Premenstrual dysphoric disorder (principal); F43.22 Adjustment disorder with anxiety
CPT/HCPCS: 90837

== ENCOUNTER 2024-10-07 08:45 | Outpatient (AMB) | payer OTHER, SELFPAY ==
--- NOTE | 2024-10-07 09:33 | MHC.OFFWIV ---
Intake Vital Signs 10/07/24 09:34 Height 4 ft 11 in Weight 232 lb BMI 46.9 BP 118/80 Blood Pressure Location Rt brachial Position Sitting Pulse 116 H Pulse Source Pulse Oximeter Temp 98.6 F Temp Source Oral Pulse Oximetry (%) 98 Oxygen Delivery Method Room Air Intake Visit Reasons: EP-lt ear infection Intake Note: Patient here for left ear pain that started Friday and is worsening. Patient Tobacco Use Status: Never used Tobacco Allergies adhesive Allergy (Intermediate, Verified 10/07/24 09:35) Rash cobalt Allergy (Intermediate, Verified 10/07/24 09:35) Rash gluten Allergy (Intermediate, Verified 10/07/24 09:35) rash, GI issues nickel Allergy (Intermediate, Verified 10/07/24 09:35) Rash bupropion [From Wellbutrin] Allergy (Verified 10/07/24 09:35) Hives Do you need a note to return to daycare/school/sports/work: Yes HPI HPI Comments History of Present Illness Details History - The patient is a 29-year-old female presenting with acute bilateral ear pain and facial swelling. - The symptoms began 2 days ago with a rapidly escalating infection resulting in facial swelling and trouble closing the jaw, primarily affecting the left side. - Initial attempts to manage the condition included Tylenol, warm compresses, and hydrocortisone drops for a prior infection but resulted in inadequate pain relief. - She has previously been diagnosed with an outer ear infection and was treated with hydrocortisone drops. - There are significant restrictions on her pain management options due to an impending gastric sleeve surgery, notably she is unable to take NSAIDs Physical Exam General: Cooperative, healthy appearing, comfortable and no acute distress Orientation/consciousness: Patient oriented x3 Limitations: No limitations Head: Normal to inspection Ears: Hearing grossly normal bilaterally, external ears normal, left EAC edema and erythema, cannot see left TM due to this. Right TM has purulent effusion, right EAC normal FACE: slight left sided facial swelling Nose: Normal external nose present Eyes: Appearance normal, both eyes and all related structures Neck: Normal visual inspection Respiratory: Normal respiratory effort Skin: No rashes or lesions noted Neuro: Patient oriented x3 Extremities: Normal to inspection and Yes no clubbing, cyanosis or edema [facility] Medical History HTN (hypertension) GERD (gastroesophageal reflux disease) Morbid obesity 12 weeks gestation of Hx of endometriosis Low vitamin D level IBS (irritable bowel syndrome) Diverticulitis Surgical History History of endometrial ablation Hx of cholecystectomy History of appendix removal History of esophagogastroduodenoscopy (EGD) History of wisdom tooth extraction History of tonsillectomy History of colonoscopy Family History Father History of IBS HTN (hypertension) Psoriasis Mother Lupus Skin cancer Sister Lupus Thyroid disease Cervical cancer Son No problems noted. 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 Current occupational exposures/hazards: No Cognitive needs: No Hearing needs: No Vision needs: No (reading glasses) Review of Systems Const All systems reviewed & are unremarkable except as noted in HPI and below Physical Exam Vital Signs: Last Vital Signs Temp 98.6 F 10/07/24 09:34 Pulse 116 H 10/07/24 09:34 BP 118/80 10/07/24 09:34 Pulse Ox 98 10/07/24 09:34 Oxygen Delivery Method Room Air 10/07/24 09:34 BMI result Body Mass Index 46.9 Assessment & Plan Assessment & Plan (1) Otitis externa: Code(s): H60.90 - Unspecified otitis externa, unspecified ear Qualifiers: Otitis externa type: other infective Chronicity: acute Laterality: left Qualified Code(s): H60.392 - Other infective otitis externa, left ear Plan: Plan For the patient's bilateral acute otitis media and facial swelling, Polymyxin B ear drops will be utilized alongside a short course of oral prednisone to mitigate inflammation and pain. Due to upcoming gastric sleeve surgery, NSAIDs are contraindicated, and the patient will maintain Tylenol for pain management, adhering to safe dosing limits. Amoxicillin is prescribed as an oral antibiotic to treat the infection, and detailed instructions have been given to address ear swelling and facilitate drop efficacy. Prednisone dosage instructions were provided to counteract inflammation and assist antibiotic efficacy. The patient was also reminded of the side effects associated with prednisone. Prescriptions will be processed to ensure timely access to medication. Patient was informed and verbally consented to the use of an ambient scribe for clinic note documentation during this visit (2) Otitis media: Code(s): H66.90 - Otitis media, unspecified, unspecified ear Qualifiers: Otitis media type: suppurative Chronicity: acute Laterality: bilateral Recurrence: non-recurrent Spontaneous tympanic membrane rupture: without spontaneous rupture Qualified Code(s): H66.003 - Acute suppurative otitis media without spontaneous rupture of ear drum, bilateral Plan: as above Medications: New amoxicillin 875 mg PO Q12H 14 tabs 0RF prednisone 40 mg (2 x 20 mg) PO DAILY 4 tabs 0RF mlpysbip-[id number]-MQ 3.5-10,000-1 mg/mL-unit/mL-% 4 drps otic (ear) left QID 7 days 10 mL 0RF Coding Level of Care Code Est Pt Level 4 (46679) Diagnoses Other infective acute otitis externa of left ear H60.392 Otitis externa type: other infective Chronicity: acute Laterality: left Non-recurrent acute suppurative otitis media of both ears without spontaneous rupture of tympanic membranes H66.003 Otitis media type: suppurative Chronicity: acute Laterality: bilateral Recurrence: non-recurrent Spontaneous tympanic membrane rupture: without spontaneous rupture
[2024-10-07 09:34] VITALS: BP 118/80; PULSE 116; TEMP 37; O2SAT 98; BMI 46.9
== END 2024-10-07 10:32 | disposition home or self-care (01) ==
PROVIDERS: PCP Family Medicine; Visit Provider Physician Assistant
DX: H60.392 Other infective otitis externa, left ear (principal); H66.003 Acute suppurative otitis media without spontaneous rupture of ear drum, bilateral

== ENCOUNTER → 2024-10-07 08:45 | Outpatient (BNVA) | payer OTHER, SELFPAY | PROVIDERS: PCP Family Medicine; Visit Provider Physician Assistant | DX: H60.392 Other infective otitis externa, left ear (principal); H66.003 Acute suppurative otitis media without spontaneous rupture of ear drum, bilateral | CPT/HCPCS: 99212 ==

== ENCOUNTER 2024-10-20 14:15 | Outpatient (AMB) | payer OTHER, SELFPAY ==
[2024-10-20 14:23] VITALS: BP 108/56; PULSE 112; O2SAT 98; BMI 46.1
--- NOTE | 2024-10-20 14:23 | MHC.OFFVIS ---
Vital Signs 10/20/24 14:23 Height 4 ft 11 in Weight 228 lb 6.382 oz BMI 46.1 BP 108/56 L Blood Pressure Location Rt brachial Position Sitting Pulse 112 H Pulse Source Pulse Oximeter Pulse Oximetry (%) 98 Oxygen Delivery Method Room Air Intake Visit Reasons: Discuss [place]/Endo screening Intake Note: ESTABLISHED PATIENT Reason; Pre op Changes/concerns? No significant concerns. 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 Discussed with patient avoiding high fat food or fast food. Increase fiber and fluid intake as well as activity to promote better bowel motility. Patient was encouraged to take probiotics. Patient will return in October and we will discuss going for colonoscopy. Patient is agreeable to current plan of care and verbalizes understanding of instructions. She was given the opportunity to ask questions and all questions answered. TODAY'S VISIT Patient is here today for follow-up and to discuss going for colonoscopy. Patient had upper endoscopy done with Dr. Knapp. Patient has lost enough weight that she can go for her procedure sooner. Patient is scheduled to go end of this month. We will postpone her procedure as she is scheduled now for November 30. Patient had so much anesthesia in the past year that we will need to manage her bowels better and colonoscopy can be performed sometimes end of January if possible. Patient reports occasional epigastric pain postprandially. Not on any PPI or H2 rudolph at this time. We will order something for her today, however Dr. Knapp will have her most likely on sucralfate after surgery and then we can follow-up with her as well. Patient denies melena, hematochezia, unintentional weight loss or ribbon like stools. Patient denies dyspepsia, dysphagia or odynophagia. [facility] Medical History HTN (hypertension) GERD (gastroesophageal reflux disease) Morbid obesity 12 weeks gestation of Hx of endometriosis Low vitamin D level IBS (irritable bowel syndrome) Diverticulitis Surgical History History of endometrial ablation Hx of cholecystectomy History of appendix removal History of esophagogastroduodenoscopy (EGD) History of wisdom tooth extraction History of tonsillectomy History of colonoscopy Family History Father History of IBS HTN (hypertension) Psoriasis Mother Lupus Skin cancer Sister Lupus Thyroid disease Cervical cancer Son No problems noted. 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 Current occupational exposures/hazards: No Cognitive needs: No Hearing needs: No Vision needs: No (reading glasses) Review of Systems Const Denies weight gain and Denies weight loss ENT Reports no additional complaints, Denies dysphagia and Denies odynophagia Card Reports no additional complaints Resp Reports no additional complaints GI Denies abdominal pain, Denies belching, Denies melena, Reports bloating, Denies change in bowel habits, Denies dysphagia, Denies excessive flatus, Denies dyspepsia, Reports heartburn, Denies diarrhea, Denies loose stools, Denies nausea, Denies odynophagia and Denies vomiting Reports no additional complaints Musc Reports no additional complaints Neuro Reports no additional complaints Psych Reports no additional complaints Endo Reports no additional complaints Physical Exam Vital Signs: Last Vital Signs Pulse 112 H 10/20/24 14:23 BP 108/56 L 10/20/24 14:23 Pulse Ox 98 10/20/24 14:23 Oxygen Delivery Method Room Air 10/20/24 14:23 BMI result Body Mass Index 46.1 Const General: healthy appearing and no acute distress Nutritional Appearance: obese Orientation/consciousness: patient oriented x3 Resp Effort & Inspection: normal respiratory effort, able to speak in complete sentences, no tracheal deviation and symmetric chest movement Auscultation: clear to auscultation bilaterally Cardio Rate: regular rate GI Inspection: No distended and Yes obesity Palpation (GI): Soft to palpation, not firm, nontender and No hepatosplenomegaly present Auscultation: normal bowel sounds General: Yes no CVA tenderness Back/Spine/Pelvis Back: no CVA tenderness Skin General skin exam: elasticity normal, turgor normal and dry skin Neuro General: patient oriented x3 Psych Appearance: grossly normal Mental Status: mental status grossly normal Assessment & Plan Assessment & Plan (1) S/P laparoscopic cholecystectomy: Code(s): Z90.49 - Acquired absence of other specified parts of digestive tract Category: Surgical (2) IBS (irritable bowel syndrome): Code(s): K58.9 - Irritable bowel syndrome, unspecified Category: Medical Qualifiers: Irritable bowel syndrome type: with both diarrhea and constipation Qualified Code(s): K58.2 - Mixed irritable bowel syndrome (3) Abdominal pain: Code(s): R10.9 - Unspecified abdominal pain Category: Medical Qualifiers: Abdominal location: left lower quadrant Qualified Code(s): R10.32 - Left lower quadrant pain (4) History of diverticulitis of colon: Code(s): Z87.19 - Personal history of other diseases of the digestive system (5) GERD (gastroesophageal reflux disease): Code(s): K21.9 - Gastro-esophageal reflux disease without esophagitis Category: Medical Qualifiers: Esophagitis presence: without esophagitis Qualified Code(s): K21.9 - Gastro-esophageal reflux disease without esophagitis Plan Prep will be ordered for her. We will cancel her procedure but still keep the appointment us so we can follow-up with her reflux after her bariatric surgery. For now I will order Protonix and sucralfate. Dr. Knapp will manage her post surgically. Avoid dietary triggers and late night snacking. Staying upright for minimum 3 hours after meals discussed with patient. Continue current management of her bowels. Lapl-esw-jnyjozo laxatives and probiotics. Patient is agreeable to this plan and verbalizes understanding of instructions. She was given the opportunity to ask questions and all questions answered. Thank you for allowing me to participate in her care Medications: New bisacodyl (Dulcolax (bisacodyl)) take 4 tabs at noon the day before your colonoscopy 20 mg (4 x 5 mg) PO ONCE 1 day 4 tabs 0RF Z12.11 - Encounter for screening for malignant neoplasm of colon polyethylene glycol 3350 (Miralax) As directed by gastroenterology department at [facility] 238 grams PO ONCE 238 grams 0RF Z12.11 - Encounter for screening for malignant neoplasm of colon pantoprazole 20 mg PO DAILY 30 tabs 3RF sucralfate 10 mL PO BEDTIME 400 mL 3RF K21.9 - Gastro-esophageal reflux disease without esophagitis Coding Level of Care Code Est Pt Level 4 (98346) Complex EM visit Add On G2211 Diagnoses S/P laparoscopic cholecystectomy Z90.49 Irritable bowel syndrome with both constipation and diarrhea K58.2 Irritable bowel syndrome type: with both diarrhea and constipation Left lower quadrant abdominal pain R10.32 Abdominal location: left lower quadrant History of diverticulitis of colon Z87.19 Gastroesophageal reflux disease without esophagitis K21.9 Esophagitis presence: without esophagitis Time Spent (min) 35 Comment 20 minutes spent with patient and additional 15 minutes spent reviewing her records
== END 2024-10-20 15:36 | disposition home or self-care (01) ==
PROVIDERS: PCP Family Medicine; Visit Provider Nurse Practitioner Family
DX: Z90.49 Acquired absence of other specified parts of digestive tract (principal); K58.2 Mixed irritable bowel syndrome; R10.32 Left lower quadrant pain; Z87.19 Personal history of other diseases of the digestive system; K21.9 Gastro-esophageal reflux disease without esophagitis
CPT/HCPCS: 99214; G2211

== ENCOUNTER → 2024-10-20 14:15 | Outpatient (BNVA) | payer OTHER, SELFPAY | PROVIDERS: PCP Family Medicine; Visit Provider Nurse Practitioner Family | DX: K58.2 Mixed irritable bowel syndrome (principal); K21.9 Gastro-esophageal reflux disease without esophagitis; R10.32 Left lower quadrant pain; Z90.49 Acquired absence of other specified parts of digestive tract; Z87.19 Personal history of other diseases of the digestive system | CPT/HCPCS: 99212 ==

== ENCOUNTER 2024-10-21 10:07 | Outpatient (REF) | payer OTHER, SELFPAY ==
--- NOTE | ~2024-10-21 | FL_ITS ---
EXAMINATION: XR FLUOROSCOPY UPPER GI WITH AIR CLINICAL INFORMATION: Preoperative evaluation prior to bariatric surgery. COMPARISON: None TECHNIQUE: Fluoroscopic air contrast upper GI examination was performed utilizing standard techniques with thin and thick barium and effervescent granules. Numerous spot images were obtained. FINDINGS: Dual and single contrast images of the esophagus demonstrate normal caliber, contour, and mucosal pattern. No evidence of stricture, mass, or ulcerations identified. Esophageal peristalsis was normal. A very small type I hiatal hernia is present. No significant gastroesophageal reflux was seen during the course of the examination and on reflux views. Dual contrast and single contrast images of the stomach demonstrated a normal contour. Evaluation of the gastric mucosa is limited due to poor coating of the barium. No obvious masses or ulcerations are seen. Contrast freely passed into the gastric antrum and duodenal bulb without delay. Single and air-contrast images of the duodenal bulb demonstrate no abnormality. The duodenal sweep has a normal appearance, course, and mucosal fold appearance. The imaged proximal jejunum has a normal fold pattern and caliber. FLUOROSCOPY TIME: 2 minutes 51 seconds Number of Spot Images: 8 Number of Cine: 12 DOSE AREA PRODUCT: 2307 uGy-m2 (microgray-meter squared) FL/FL upper GI w air IMPRESSION: 1. Very small type I hiatal hernia. 2. Limited evaluation of the gastric mucosa due to suboptimal coating of the barium. No obvious masses or ulcerations are seen. This procedure was performed by Nik Fox PA-C, and supervised by Dr. Werner. Electronically signed by: Gary Werner MD 10/21/2024 03:09 PM [facility] [place]
== END 2024-10-21 10:08 | disposition home or self-care (01) ==
LOC: HO.XRAY 10:07
PROVIDERS: PCP Family Medicine; Visit Provider Surgery
DX: E66.01 Morbid (severe) obesity due to excess calories (principal); E03.9 Hypothyroidism, unspecified; E78.1 Pure hyperglyceridemia
CPT/HCPCS: 74246

== ENCOUNTER → 2024-10-21 10:08 | Outpatient (BNV) | payer OTHER, SELFPAY | PROVIDERS: PCP Family Medicine; Visit Provider Physician Assistant Surgical | DX: K44.9 Diaphragmatic hernia without obstruction or gangrene (principal) | CPT/HCPCS: 74246 ==

== ENCOUNTER 2024-10-22 08:00 | Outpatient (AMB) | payer OTHER, SELFPAY ==
--- NOTE | 2024-10-22 11:57 | A.OFFVIS_ITS ---
VS Expanded 10/22/24 12:08 Height 4 ft 11 in Weight 226 lb 6 oz BMI 45.7 Body Fat % 60.9 Body Fat Mass 137.9 Fat Free Mass 90.2 Visceral Fat Rating 26 Body Water % 27.3 Body Water Mass 61.8 Basal Metabolic Rate/Score 1,253 Intake Visit Reasons: TV Pre Op LSG 11/02/24 Allergies adhesive Allergy (Intermediate, Verified 10/22/24 11:58) Rash cobalt Allergy (Intermediate, Verified 10/22/24 11:58) Rash gluten Allergy (Intermediate, Verified 10/22/24 11:58) rash, GI issues nickel Allergy (Intermediate, Verified 10/22/24 11:58) Rash bupropion [From Wellbutrin] Allergy (Verified 10/22/24 11:58) Hives Medication List - Last Reconciled 10/22/24 by Carlos Knapp MD bisacodyl (Dulcolax (bisacodyl)) 20 mg (4 x 5 mg) PO ONCE 1 day compr.stocking,knee,long,large Daily As directed, 90 days fenofibrate 160 mg PO DAILY 90 days ondansetron 4 mg PO Q12H pantoprazole 20 mg PO DAILY pantoprazole 40 mg PO DAILY polyethylene glycol 3350 (Miralax) 238 grams PO ONCE polyethylene glycol 3350 17 grams PO DAILY sucralfate 10 mL PO BEDTIME sucralfate 10 mL PO BID HPI HPI TV Pre Op LSG 11/02/24: Details: Start time: 11.50m, End time: 12.20pm ?I spent 25 minutes speaking with the patient on the phone plus an additional 5 minutes reviewing and updating records for a total of 30 minutes HPI Comments Details: Overall weight loss: 20.8lbs, or 8.41% TBWL Is using the Conduit cyndi for her meal and exercise plan [facility] Medical History HTN (hypertension) GERD (gastroesophageal reflux disease) Morbid obesity 12 weeks gestation of Hx of endometriosis Low vitamin D level IBS (irritable bowel syndrome) Diverticulitis Surgical History History of endometrial ablation Hx of cholecystectomy History of appendix removal History of esophagogastroduodenoscopy (EGD) History of wisdom tooth extraction History of tonsillectomy History of colonoscopy Family History Father History of IBS HTN (hypertension) Psoriasis Mother Lupus Skin cancer Sister Lupus Thyroid disease Cervical cancer Son No problems noted. 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 Current occupational exposures/hazards: No Cognitive needs: No Hearing needs: No Vision needs: No (reading glasses) Telehealth Telehealth Telehealth Platform: Telephone Location of provider rendering services: practice address Location of patient: address on file Patient Identification confirmed using: Name, : Yes Telehealth method: voice only Patient verbally consented to treatment: Yes Patient verbally consented to billing insurance company: Yes Patient informed of any privacy concerns related to visit: Yes Minutes spent on Phone/Video with Pt.: 30 Assessment & Plan Assessment & Plan (1) Morbid obesity with BMI of 45.0-49.9, adult: Code(s): E66.01 - Morbid (severe) obesity due to excess calories; Z68.42 - Body mass index [BMI] 45.0-49.9, adult Category: Medical Plan: 1. Plan for lap sleeve gastrectomy including upper GI endoscopy. All tests has been completed and reviewed and the patient is cleared for the surgery. ?If diaphragmatic or ventral hernias are present at time of surgery, these will be repaired laparoscopically as well. Risks and complications were discussed in detail including possible conversion to an open procedure, anastomotic leak, bleeding requiring transfusion, small bowel obstruction, , DVT and pulmonary embolism, cardiac, or pulmonary complications, as termite renewal inspector complications such as anastomotic ulcer, insufficient weight loss and vitamin deficiencies. I emphasized the importance of close follow-up, adherence to instructions and good communication. So far she has proven to be an excellent c ommunicator and very compliant with all our directions accomplishing a great weight loss. I believe that she is an excellent candidate and she is ready. 2. Preop prescriptions were provided and explained the purpose of each one. Need to be purchased preop. Start Pantoprazole now as you get it from the pharmacy, 1 pill per day. Sucralfate and Zofran are for after surgery as needed. 3. Bowel prep: please do 7 packets ?of Miralax mixing each one with a an 8oz glass of water, crystal light, gatorade zero, or propel ?on 10/31/24 and the same amount on 11/01/24. The Miralax you begin with one packet at a time in 8oz water or crystal light, gatorade zero, or propel ?as early in the day as you can and you do them back to back until you finish them. Continue the protein shakes during ?the bowel prep. 4. Needs to purchase 1oz medicine cups . 5. Needs to purchase Children's liquid Tylenol for postop pain control. 6. Avoid aspirin, motrin, Advil, Aleve, Meloxicam, Excedrin, Ibuprofen, Naproxyn. Tylenol is OK. 7. She needs to purchase the Celebrate multivitamins from the hospital's gift shop. 8. Will do basic preop blood work-up any day between Friday10/25/24 and Friday10/30/24 fasting for 12 hours and is scheduled to see the Anesthesiologist prior to the day of surgery. 9. Importance of adherence to postop folllow-up and recommendations was underscored and she understands that. 10. Stop food and bars as of tomorrow 10/19/2024 and create an aggressive meal plan with the Conduit cyndi and send me a screenshot of the plan you will create 11. No soups, broths or V8 12. The patient's?medical?history has been reviewed and they are considered low risk for post op DVT and therefore DVT prophylaxis is not considered necessary. Travel after surgery was reviewed. The patient has not disclosed any travel plans during the first 30 days after surgery and they have been advised that within the first 30 days after surgery any bus, plane, train or car travel over 2 hours in duration is contraindicated due to the possibility of developing blood clots from immobility. Any travel, needs to include periods of ambulation of 10 minutes in duration every 2 hours.? Patient was instructed to discuss any plans for travel during this period with their bariatric surgeon.? 13. Please take at the day of surgery the following medications: NONE 14. Stop any control pills and don't use them for one month after surgery 15. Absolutely no smoking or vaping, or marijuana until the surgery and for at least the first 4 weeks. Only nicotine patches are allowed. 16. Send me weight measurements on Friday10/25/24 and then on Friday11/02/24, the day of surgery before you go to the hospital. 17. Avoid any steroids by mouth for any reason. Let me know if someone prescribes them to you 18. These instructions supersede anything else you read in the handbook, anything you watched in videos or classes or you were told by any other provider. If there is any conflict, you follow the above instructions and nothing else. Orders: Orders Hemoglobin A1c Today E03.9 - Hypothyroidism, unspecified, E66.01 - Morbid (severe) obesity due to excess calories, E78.1 - Pure hyperglyceridemia, Z68.42 - Body mass index [BMI] 45.0-49.9, adult C Reactive Protein Today E03.9 - Hypothyroidism, unspecified, E66.01 - Morbid (severe) obesity due to excess calories, E78.1 - Pure hyperglyceridemia, Z68.42 - Body mass index [BMI] 45.0-49.9, adult Insulin Today E03.9 - Hypothyroidism, unspecified, E66.01 - Morbid (severe) obesity due to excess calories, E78.1 - Pure hyperglyceridemia, Z68.42 - Body mass index [BMI] 45.0-49.9, adult Comprehensive Met. Panel Today E03.9 - Hypothyroidism, unspecified, E66.01 - Morbid (severe) obesity due to excess calories, E78.1 - Pure hyperglyceridemia, Z68.42 - Body mass index [BMI] 45.0-49.9, adult TSH reflex Free T4 Today E03.9 - Hypothyroidism, unspecified, E66.01 - Morbid (severe) obesity due to excess calories, E78.1 - Pure hyperglyceridemia, Z68.42 - Body mass index [BMI] 45.0-49.9, adult Prothrombin Time INR Today E03.9 - Hypothyroidism, unspecified, E66.01 - Morbid (severe) obesity due to excess calories, E78.1 - Pure hyperglyceridemia, Z68.42 - Body mass index [BMI] 45.0-49.9, adult Type and Screen Today E03.9 - Hypothyroidism, unspecified, E66.01 - Morbid (severe) obesity due to excess calories, E78.1 - Pure hyperglyceridemia, Z68.42 - Body mass index [BMI] 45.0-49.9, adult Lipid Panel Today E03.9 - Hypothyroidism, unspecified, E66.01 - Morbid (severe) obesity due to excess calories, E78.1 - Pure hyperglyceridemia, Z68.42 - Body mass index [BMI] 45.0-49.9, adult Partial Thromboplastin Time Today E03.9 - Hypothyroidism, unspecified, E66.01 - Morbid (severe) obesity due to excess calories, E78.1 - Pure hyperglyceridemia, Z68.42 - Body mass index [BMI] 45.0-49.9, adult Complete Blood Count Auto Diff Today E03.9 - Hypothyroidism, unspecified, E66.01 - Morbid (severe) obesity due to excess calories, E78.1 - Pure hyperglyceridemia, Z68.42 - Body mass index [BMI] 45.0-49.9, adult Medications: New ondansetron Only take one every 12 hours as needed if you have nausea 4 mg PO Q12H 20 tabs 0RF nausea and vomiting R11.0 - Nausea pantoprazole 40 mg PO DAILY 90 tabs 0RF K21.9 - Gastro-esophageal reflux disease without esophagitis sucralfate 10 mL PO BID 600 mL 2RF K21.9 - Gastro-esophageal reflux disease without esophagitis polyethylene glycol 3350 Mix each measuring cup with 8oz of water, Crystal light, or Gatorade zero, or Propel and do 7 measuring cups on 10/31/24 and another 7 measuring cups on 11/01/24 17 grams PO DAILY 238 grams 0RF Z01.818 - Encounter for other pr eprocedural examination
[2024-10-22 12:08] VITALS: BMI 45.7
== END 2024-10-22 12:21 | disposition home or self-care (01) ==
LOC: HO.HBS 08:00
PROVIDERS: PCP Family Medicine; Visit Provider Surgery
DX: E66.01 Morbid (severe) obesity due to excess calories (principal); Z68.42 Body mass index [BMI] 45.0-49.9, adult
CPT/HCPCS: 99499

== ENCOUNTER → 2024-10-22 08:00 | Outpatient (BNVA) | payer OTHER, SELFPAY | PROVIDERS: PCP Family Medicine; Visit Provider Surgery ==

== ENCOUNTER 2024-10-29 07:05 | Outpatient (REF) | payer OTHER, SELFPAY ==
[2024-10-29 07:28] LABS: MANUAL DIFF FLAG NO
[2024-10-29 08:03] LABS: Basophils Percent Auto 0.3 % (0-2); Eosinophils Absolute Auto 0.1 X10*3/uL (0.0-0.4); Eosinophils Percent Auto 1.6 % (0-4); Hematocrit 39.2 % (37.0-47.0); Imm Gran Abs Auto 0.02 X10*3/uL (0.00-0.03); Imm Gran Pct Auto 0.3 % (0.0-0.4); Lymphocytes Percent Auto 28.6 % (20-40); Mean Corpuscular HGB Conc 33.2 g/dl (31.0-35.0); Mean Corpuscular Hemoglobin 26.3 pg (27.0-33.0); Mean Corpuscular Volume 79.4 fL (80.0-98.0); Mean Platelet Volume 9.3 fL (9.4-12.3); Monocytes Absolute Auto 0.5 X10*3/uL (0.1-1.2); Monocytes Percent Auto 7.4 % (2-11); Neutrophils Absolute Auto 4.2 x10*3/uL (2.0-8.3); Neutrophils Percent Auto 61.8 % (45-73); Platelet Count 374 X10*3/uL (160-400); Red Blood Count 4.94 X10*6/uL (4.20-5.50); Red Cell Distribution Width 13.2 % (11.0-16.0); White Blood Count 6.9 X10*3/uL (4.8-10.8)
[2024-10-29 08:08] LABS: Estimated Average Glucose 94 mg/dL; Hemoglobin A1C 103.3394 umol/L; Hemoglobin A1c % 4.9 % (<6.0)
[2024-10-29 08:09] LABS: INTERNATIONAL NORM RATIO 1.1 (0.9-1.1); Prothrombin Time 13.3 SEC (10.9-12.4)
[2024-10-29 08:12] LABS: Partial Thromboplastin Time 35.4 SEC (26.0-36.8)
[2024-10-29 08:36] LABS: Alanine Aminotransferase 24 U/L (0-31); Alkaline Phosphatase 78 U/L (39-117); Anion Gap 13 (12-20); Aspartate Amino Transferase 30 U/L (5-31); Bilirubin Total 0.4 mg/dL (0.0-1.0); Blood Urea Nitrogen 15 mg/dL (9-16); C Reactive Protein 0.79 mg/dL (< or = 0.50); Carbon Dioxide 25 mmol/L (22-29); Chloride 104 mmol/L (96-108); Cholesterol 148 mg/dL (<200); Estimated Glomerular Filt Rate > 60; Glucose Random 93 mg/dL (60-115); HDL Cholesterol 26 mg/dL (>40); LDL Cholesterol Calculated 70 mg/dL (<100); Potassium 3.9 mmol/L (3.3-5.1); Sodium 138 mmol/L (135-145); Total Protein 7.8 g/dL (6.5-8.0); Triglycerides 263 mg/dL (<150)
[2024-10-29 08:50] LABS: Insulin 17 uU/mL (2-29); TSH reflex Free T4 0.01 uIU/mL (0.32-4.0)
[2024-10-29 09:39] LABS: Free T4 (Free Thyroxine) 1.49 ng/dL (0.71-1.85)
== END 2024-10-29 07:06 | disposition home or self-care (01) ==
LOC: HO.LAB 07:05
PROVIDERS: PCP Family Medicine; Visit Provider Surgery
DX: E66.01 Morbid (severe) obesity due to excess calories (principal); Z68.42 Body mass index [BMI] 45.0-49.9, adult; E03.9 Hypothyroidism, unspecified; E78.1 Pure hyperglyceridemia; Z79.01 Long term (current) use of anticoagulants; Z13.1 Encounter for screening for diabetes mellitus
CPT/HCPCS: 36415; 80053; 80061; 83036; 83525; 84439; 84443; 85025; 85610; 85730; 86140

== ENCOUNTER 2024-11-02 06:02 | Inpatient (IN) | payer OTHER, SELFPAY ==
[2024-10-26 13:35] VITALS: BMI 44.6
--- NOTE | 2024-11-01 10:13 | HO.ANESPROP2 ---
Documented by User: Tammi Scott NP 11/01/24 10:14 HPI - Anesthesia Eval Consult details Narrative: 29yo F for Gastrectomy Sleeve,EGD,possibel Diaphragmatic Hernia,possible Ventral Hernia,possible Open PMFSH Active Problems Active Problems: All Active Problems Otitis media (Acute) Otitis externa (Acute) Uterine fibroid (Acute) Morbid obesity with body mass index of 50 or higher (Acute) S/P laparoscopic cholecystectomy (Acute) Candidiasis (Acute) depression (Acute) Pyelonephritis (Acute) Gestational diabetes (Acute) Hypertriglyceridemia (Acute) Pain in symphysis pubis during (Acute) Incidental (Acute) Tick bite (Acute) Snoring (Acute) Hypersomnia (Acute) Fatigue (Acute) Mild anemia (Acute) Swelling of lower extremity (Acute) Morbid obesity with BMI of 45.0-49.9, adult (Acute) Dermatofibroma (Acute) Screening for cervical cancer (Acute) High triglycerides (Acute) Adult general medical exam (Acute) Abdominal pain (Acute) Anxiety (Acute) History of Lyme disease (Acute) Hypothyroidism (Acute) Laboratory exam ordered as part of routine general medical examination (Acute) GERD (gastroesophageal reflux disease) (Acute) Morbid obesity (Acute) Diverticulitis (Acute) Hx of endometriosis (Acute) Low vitamin D level (Acute) IBS (irritable bowel syndrome) (Acute) Past Medical History Medical History Joint pain Lyme disease Post depression Fatty liver Pre-eclampsia Postoperative nausea High triglycerides Gestational diabetes Anxiety Hypothyroid HTN (hypertension) GERD (gastroesophageal reflux disease) Morbid obesity Hx of endometriosis Low vitamin D level IBS (irritable bowel syndrome) Diverticulitis Family History Family History Father History of IBS HTN (hypertension) Psoriasis Mother Lupus Skin cancer Sister Lupus Thyroid disease Cervical cancer Son No problems noted. Other Mental health disorder Family history of problems with anesthesia: No Surgical History Surgical History History of endometrial ablation Hx of cholecystectomy History of appendix removal History of esophagogastroduodenoscopy (EGD) History of wisdom tooth extraction History of tonsillectomy History of colonoscopy History of Problems with Anesthesia: No Social History Social History Housing: House Are you a primary health care recruiter to a significant other at home: No Do you presently have visiting nurse or other home services: No Alcohol intake: former Patient Tobacco Use Status: Never used Tobacco e-Cigarette/Vaping Use: Never Used Second Hand Smoke Exposure: No Use of substances other than those prescribed or required for medical reasons: No Have you been hit, kicked, punched, or otherwise hurt by someone within the past year? 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 Current occupational exposures/hazards: No Cognitive needs: No Hearing needs: No Vision needs: No (reading glasses) Meds Allergies Allergy/AdvReac Type Severity Reaction Status Date / Time adhesive Allergy Intermediate Rash Verified 11/02/24 06:22 bupropion [From Wellbutrin] Allergy Intermediate Hives Verified 11/02/24 06:22 cobalt Allergy Intermediate Rash Verified 11/02/24 06:22 nickel Allergy Intermediate Rash Verified 11/02/24 06:22 Exam Height,Weight and Vital Signs: Height 4 ft 11 in Weight 100.244 kg Pertinent Lab Results Pertinent Lab Results: Laboratory Tests 10/29/24 07:20 Blood Type A Positive Antibody Screen NEGATIVE Laboratory Tests 10/29/24 07:26 WBC 6.9 Hgb 13.0 Hct 39.2 Plt Count 374 Sodium 138 Potassium 3.9 Chloride 104 Carbon Dioxide 25 BUN 15 Creatinine 0.62 Narrative Narrative: EKG 08/2024 Vent. Rate : 071 BPM Atrial Rate : 071 BPM P-R Int : 156 ms QRS Dur : 082 ms QT Int : 386 ms P-R-T Axes : 014 037 020 degrees QTc Int : 419 ms Normal sinus rhythm Normal ECG No previous ECGs available Assessment and Plan Assessment Anesthesia Assessment: Chart Reviewed Final Anesthetic Review Family History of Problems with Anesthesia: No History of Problems with Anesthesia: No Documented by User: Carol Ann Malik MD 11/02/24 08:27 HPI - Anesthesia Eval Consult details Narrative: 29yo F for EGD, Laparoscopic Sleeve Gastrectomy, possible Diaphragmatic Hernia repair, possible Ventral Hernia repair, possible Open PMFSH Active Problems Active Problems: All Active Problems Otitis media (Acute) Otitis externa (Acute) Uterine fibroid (Acute) Morbid obesity with body mass index of 50 or higher (Acute) S/P laparoscopic cholecystectomy (Acute) Candidiasis (Acute) depression (Acute) Pyelonephritis (Acute) Gestational diabetes (Acute) Hypertriglyceridemia (Acute) Pain in symphysis pubis during (Acute) Incidental (Acute) Tick bite (Acute) Snoring (Acute) Hypersomnia (Acute) Fatigue (Acute) Mild anemia (Acute) Swelling of lower extremity (Acute) Morbid obesity with BMI of 45.0-49.9, adult (Acute) Dermatofibroma (Acute) Screening for cervical cancer (Acute) High triglycerides (Acute) Adult general medical exam (Acute) Abdominal pain (Acute) Anxiety (Acute) History of Lyme disease (Acute) Hypothyroidism (Acute) Laboratory exam ordered as part of routine general medical examination (Acute) GERD (gastroesophageal reflux disease) (Acute) Morbid obesity (Acute) Diverticulitis (Acute) Hx of endometriosis (Acute) Low vitamin D level (Acute) IBS (irritable bowel syndrome) (Acute) Denies RADHA Past Medical History Medical History Joint pain Lyme disease Post depression Fatty liver Pre-eclampsia Postoperative nausea High triglycerides Gestational diabetes Anxiety Hypothyroid HTN (hypertension) GERD (gastroesophageal reflux disease) Morbid obesity Hx of endometriosis Low vitamin D level IBS (irritable bowel syndrome) Diverticulitis Family History Family History Father History of IBS HTN (hypertension) Psoriasis Mother Lupus Skin cancer Sister Lupus Thyroid disease Cervical cancer Son No problems noted. Other Mental health disorder Family history of problems with anesthesia: No Surgical History Surgical History History of endometrial ablation Hx of cholecystectomy History of appendix removal History of esophagogastroduodenoscopy (EGD) History of wisdom tooth extraction History of tonsillectomy History of colonoscopy History of Problems with Anesthesia: No Social History Social History Housing: House Are you a primary health care recruiter to a significant other at home: No Do you presently have visiting nurse or other home services: No Alcohol intake: former Patient Tobacco Use Status: Never used Tobacco e-Cigarette/Vaping Use: Never Used Second Hand Smoke Exposure: No Use of substances other than those prescribed or required for medical reasons: No Have you been hit, kicked, punched, or otherwise hurt by someone within the past year? 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 Current occupational exposures/hazards: No Cognitive needs: No Hearing needs: No Vision needs: No (reading glasses) Meds Allergies Allergy/AdvReac Type Severity Reaction Status Date / Time adhesive Allergy Intermediate Rash Verified 11/02/24 06:22 bupropion [From Wellbutrin] Allergy Intermediate Hives Verified 11/02/24 06:22 cobalt Allergy Intermediate Rash Verified 11/02/24 06:22 nickel Allergy Intermediate Rash Verified 11/02/24 06:22 Exam Height,Weight and Vital Signs: Height 4 ft 11 in Weight 100.244 kg Vital Signs Temp Pulse Resp BP Pulse Ox O2 Del Method 11/02/24 06:31 96.7 F L 79 15 107/63 96 Room Air Pertinent Lab Results Pertinent Lab Results: Laboratory Tests 10/29/24 07:20 Blood Type A Positive Antibody Screen NEGATIVE Laboratory Tests 10/29/24 07:26 WBC 6.9 Hgb 13.0 Hct 39.2 Plt Count 374 Sodium 138 Potassium 3.9 Chloride 104 Carbon Dioxide 25 BUN 15 Creatinine 0.62 Laboratory Results - last 24 hr 11/02/24 06:10 Urine Test NEGATIVE Airway Mallampati Class: II TM Dist: >3cm Neck ROM: Full Loose/Missing/Broken Teeth: No (Denies broken, loose, missing teeth ) Heart: RRR Lungs: CTAB Assessment and Plan Assessment Anesthesia Assessment: Anesthesia Plan Discussed and Chart Reviewed Final Anesthetic Review Family History of Problems with Anesthesia: No History of Problems with Anesthesia: No NPO: Yes ASA Class: III Final Preanesthetic Review: No Changes in Pt Med Stat, Meds/Allgs Chart Reviewed, Consent Obtained/Reviewed and Anes Risks/Benef Reviewed Patient Risk: Intermediate Procedure Risk: Intermediate Assessment/Block/Sedation in SS: Assess/Block/Sedation-SS Anesthetic Plan Anesthetic Plan: GA Disposition: Standard PACU and Inp. Admit - Standard Bed
[2024-11-02] VITALS (17 sets, daily range): BP systolic 107–139; BP diastolic 57–79; PULSE 75–106; RESP 6–20; TEMP 35.9–36.8; O2SAT 92–99; BMI 44.6
[2024-11-02 06:34] LABS: UPreg QC Valid YES; Urine Pregnancy NEGATIVE (NEGATIVE)
[2024-11-02] MEDS: Aprepitant 32 MG/4.4 ML VIAL IVPUSH (06:35)
[2024-11-02] MEDS: Lactated Ringers 1,000 ML 999 ML IV (06:36)
--- NOTE | 2024-11-02 07:36 | MHC.SHP ---
Pre-Procedural Eval Section A - 24 Hr Update-Section A only Date of Service: 11/02/24 The patient is an INPATIENT: Yes The patient has been examined within 24 hours of the surgical procedure. The History & Physical has been completed within 30 days and I have reviewed it.: Yes Section B - Complete if H&P > 30 days Chief Complaint: morbid obesity Relevant Family History (Specify if Yes): No Relevant Social History: None Present Medications: None Medical History: No relevant PMH History of Previous Operations: No relevant previous surgery Allergies: Allergies Allergy/AdvReac Type Severity Reaction Status Date / Time adhesive Allergy Intermediate Rash Verified 11/02/24 06:22 bupropion [From Wellbutrin] Allergy Intermediate Hives Verified 11/02/24 06:22 cobalt Allergy Intermediate Rash Verified 11/02/24 06:22 nickel Allergy Intermediate Rash Verified 11/02/24 06:22 Review of Systems Sugical H&P ROS: Negative: Constitution, Cardiovascular, Respiratory, Neurological, Psychiatric, Hem-Onc, Allergic/Immunologic, Gastrointestinal, Genitourinary, Musculoskeletal, Integumentary, Endocrine and Eyes/Ears/Nose/Throat Exam Surgical H&P Exam: Normal: HEENT, Normal: Heart, Normal: Lungs, Normal: Extremities, Normal: Abdomen, Normal: Skin and Normal: Neurological Plan Diagnosis/Plan: Unchanged I have reviewed the history and physical and performed a pertinent physical examination on my patient. No changes have occurred unless specified. Time Spent With Patient Time: Total time managing care of this patient today ____ minutes.
--- NOTE | 2024-11-02 07:37 | PM.OP ---
Brief Operative Note Date of Service: 11/02/24 Pre-op diagnosis: Morbid obesity with comorbidities (see below) Post-op diagnosis: same Procedure: INITIAL PATIENT BMI ON PRESENTATION AT OUR OFFICE: 50 kg/m2 LAST BMI BEFORE SURGERY: 44.9 kg/m2 COMORBIDITIES: GERD, endometriosis, hyperlipidemia, diverticulosis, liver steatosis, anxiety, duodenitis ?The patient presented to the Weight Management Program with significant obesity that was negatively impacting the patient's comorbidities as listed above.? The program is a phased program with a special focus on preoperative medical weight management to promote substantial weight loss and prepare the patients for the second phase of the program: bariatric surgery. The patient participated in an intensive weekly lifestyle ?intervention and exercise program during which the patient ?has lost between the initial office visit and the last preoperative visit 26lbs, or 10.5% of initial actual body weight. It was deemed appropriate for the patient to now have bariatric surgery. In light of the current Covid-19 pandemic and the well documented strong association of obesity and increased risk of worse outcomes if infected with Covid-19 (REFERENCES:https://pubmed.ncbi.nlm.nih.gov/23568846/,?https://pubmed.ncbi.nlm.nih.gov/88555927/), any delay in undergoing bariatric surgery may lead to the patient's worsening health condition and increased?risk of more severe Covid-19 disease if infected. In addition a recent?study from [facility] published in [employer] Surgery on 10/08/2021 ([email or web address]) found that, among patients with obesity, substantial weight loss achieved with surgery was associated with improved outcomes of COVID-19 infection. The findings suggest that obesity can be a modifiable risk factor for the severity of COVID-19 infection. In addition, the patient met the BMI-criteria for bariatric surgery based on the BMI on initial presentation. The patient should not be penalized for achieving such weight loss because ?it is not sustainable long-term without surgical intervention and it was achieved in preparation for bariatric surgery ?under my direction and based on my published research ([email or web address] and?https://www.soard.org/article/[email or web address]-X/pdf) ?that a 10% preoperative weight loss improves long-term weight loss after surgery and reduces perioperative complications.? Insurance carriers such as [facility] have endorsed my recommendations ?and have included in their policies criteria to include a 10% preoperative weight loss requirement. PROCEDURE: Esophago-gastroscopy, laparoscopic sleeve gastrectomy and laparoscopic gastropexy INDICATIONS: This is a 29 year-old female who was electively scheduled for laparoscopic, possibly open sleeve gastrectomy. The risks and complications of the procedure were discussed with the patient in advance, particularly the possibility of ; pulmonary embolism; staple line leak; bleeding; GERD; cardiac, pulmonary, or renal complications; as well as long-term problems such as insufficient weight loss, vitamin deficiency, strictures, or ulcers. The patient understood all the risks, and was in agreement to proceed with surgery. DESCRIPTION OF PROCEDURE: After informed consent was obtained from the patient, the patient was given preoperative antibiotics, and was transferred to the operating room. After successful induction of general anesthesia, pneumatic compression devices were placed on both lower extremities. An upper endoscopy was performed next. The oropharynx and esophagus appeared to be within normal limits. There was no diaphragmatic hernia present. The stomach was entered. Then after all fluid and air were suctioned and the stomach was fully decompressed, the scope was withdrawn and secured in the mid esophagus. The patient was then prepped and draped in the usual sterile manner, and abdominal access was established at the right upper quadrant with the Marva technique. A 12 mm blunt port was inserted, and the abdomen was insufflated with CO2 to a pressure of 15 mmHg. Under direct visualization, additional ports were placed, specifically two 5 mm Versi-step ports to the left upper quadrant, and a 5 mm Versi-Step port to the right upper quadrant. 1% lidocaine plain was used to infiltrate all port sites as well as all fascia defects. Following that, the patient was placed in a steep reverse Trendelenburg position. An additional 5 mm port was placed to the right flank for the Mediflex retractor that was used to retract the left lobe of the liver. The gastro-esophageal fat pad was opened with the ultrasonic device (Thraquelerbeat, Olympus) and the anterior esophagus and hiatus were exposed. The angle of His was opened with the ultrasonic device the fundus of the stomach from any diaphragmatic and splenic attachments. I then opened the gastrocolic ligament between the transverse colon and the greater curvature of the stomach with the ultrasonic device to enter the lesser sac and facilitate the ligation of the short gastric vessels. I started at a mid-point along the greater curvature and using the Thunderbeat, all short gastric vessels were divided all the way to the angle of His until the left alex was completely dissected at its entirety. I then divided the gastro-colic ligament distally to a distance of about 3-4 cm proximal to the pylorus. Near the GE junction there was a prominent lymph node which was excised and retrieved as a separate specimen. The stomach was then divided transversely with three Endo OLIVER-45 purple and three OLIVER-60 articulating purple loads using the C2cube stapler and loads. Every effort was made that the gastric sleeve had a tubular shape and an even caliber throughout. Once the sleeve resection was completed, the staple line of the gastric sleeve was reinforced with Hemoclips. The resected stomach was retrieved without difficulty from the Marva port. A gastropexy was then performed in order to prevent postoperative GERD and partial gastric volvulus. Several interrupted 2.0 Surgidac sutures were placed between the sleeve's staple line and the previously divided greater omentum and gastro-colic ligament using the Endo-Stitch device. ?An upper endoscopy was performed. There was no narrowing at the GE junction. The scope was easily advanced all the way to the pylorus which was clearly visualized. There was no narrowing anywhere and the sleeve's caliber was even throughout. The sleeve's staple line was inspected and there was no evidence of ischemia, bleeding or dehiscence. At that point the gastroscope was withdrawn from the patient?s mouth while we were decompressing the bowel and the stomach from any remaining air. I looked into the lesser sac to see how the sleeve was situating and it was situating well. There was no bleeding from the staple line, spleen, or short gastric vessels. The Mediflex retractor was removed, and the undersurface of the liver was inspected and there was no bleeding. The patient was placed in supine position. I closed the fascial defect of the 12 mm port site with a figure of eight #1 Polysorb suture. Then 30cc Ropivacaine plain with 10 mg of Dexamethasone were used to infiltrate the fascial closure as well as all skin incisions. At this point, the abdomen was deflated, all ports were removed under direct vision, and no bleeding was noted from any of the port sites. The skin incisions were irrigated with saline and were closed with 4-0 absorbable monofilament sutures. Steri-Strips and OpSites were used to cover all incisions. The patient was extubated and was transferred in stable condition to the recovery room for further care. I was present and performed all saleh parts of the procedure. Mr. Pham was the assistant professor sculpture. There were no residents to assist with this case. Jaquan Knapp MD, PhD, FACS Surgeon: Carlos Knapp MD Anesthesia: GETA, local and other (TAP block) Was an Electrical Design Technologist used for this Procedure?: No Electrical Design Technologist: Bert Pham Estimated blood loss (mL): 10 IV fluids (mL): 2,500 Urine output (mL): 0 (No Bradford to record output) Pathology: other (1) Stomach, 2) GEJ lymph node, 3) gastro-esophageal fat pad) Condition: stable Disposition: PACU
--- NOTE | 2024-11-02 07:40 | P.PNGS_ITS ---
Subjective Subjective Date of Service: 11/03/24 Interval history: Feels well. Mild incisional pain. She is tolerating phase 1 bariatric diet Physical Exam 2 Vital Signs: Vital Signs: Last Vital Signs Temp 96.7 F L 11/02/24 06:31 Pulse 79 11/02/24 06:31 Resp 15 11/02/24 06:31 BP 107/63 11/02/24 06:31 Pulse Ox 96 11/02/24 06:31 O2 Del Method Room Air 11/02/24 06:31 BMI result Body Mass Index 44.6 GI: Inspection: Yes normal to inspection, Yes incision (clean, dry and intact) and Yes obesity Palpation (GI): Soft to palpation Extrem: Right lower extremity: normal to inspection (no calf tenderness) L eft lower extremity: normal to inspection (no calf tenderness) Objective Data Active Medications Lactated Ringer's (Lr) 1,000 mls @ 100 mls/hr IVCONT .Q10H HILARIO Lactated Ringer's (Lr) 1,000 mls @ 999 mls/hr IV .Q1H1M HILARIO Stop: 11/02/24 08:15 Last Admin: 11/02/24 06:36 Dose: 999 mls/hr Documented By: HATTIE Labs 11/03/24 05:29 11/03/24 05:29 Labs: Laboratory Results - last 24 hr 11/02/24 06:10 Urine Test NEGATIVE Procedures Date of Service Date of Service: 11/03/24 Progress Note: A&P Assessment and plan (1) Morbid obesity: Status: Acute Assessment and Plan: s/p laparoscopic sleeve gastrectomy and gastropexy Doing well Will check am labs and if OK the patient will be discharged home (2) GERD (gastroesophageal reflux disease): Status: Acute (3) Hypothyroidism: Status: Acute (4) High triglycerides: Status: Acute (5) Anxiety: Status: Acute (6) S/P laparoscopic sleeve gastrectomy: Status: Acute Time Spent With Patient Time: Total time managing care of this patient today ____ minutes. Quality Stroke Does the patient have a stroke diagnosis?: No VTE Prior VTE?: No VTE Risk Level:: Surgical - moderate VTE Device Contraindication: N/A - Device Ordered VTE Drug Contraindication: Treatment Not Indicated
[2024-11-02] MEDS: Haloperidol Lactate 5 MG/ML VIAL 1 MG IVPUSH (10:09)
--- NOTE | 2024-11-02 10:09 | P.DS_ITS ---
DS: Providers Provider Date of Service: 11/03/24 Date of admission: 11/02/24 06:02 Date of discharge: 11/03/24 Primary care physician: Santy Carolina MD DS: Diagnosis Discharge Diagnosis (1) Morbid obesity: Status: Acute (2) GERD (gastroesophageal reflux disease): Status: Acute (3) Hypothyroidism: Status: Acute (4) High triglycerides: Status: Acute (5) Anxiety: Status: Acute DS: Summary Hospital Course Hospital Course: ADMITTING DIAGNOSIS: morbid obesity, hypertriglyceridemia, gerd, ? DISCHARGE DIAGNOSIS: same, s/p laparoscopic sleeve gastrectomy ? PAST SURGICAL HISTORY: cholecystectomy, appendectomy ? PROCEDURE: upper endoscopy, laparoscopic sleeve gastrectomy ? DISCHARGE SUMMARY: ? History of Present Illness: ? The patient is a?29 year-old woman with a BMI of?55.4 kg/m2 and associated co- morbidities as described above. The patient had extensive work-up,lost?54 lbs preoperatively and was electively scheduled for laparoscopic, possible open sleeve gastrectomy and gastropexy. Risks and complications of the surgery were discussed with the patient in advance, particularly the possibility of , pulmonary embolism, anastomotic leak, bleeding, bowel injury, GERD, cardiac, renal or pulmonary complications. The patient understood all the risks and was in agreement with the surgical plan. ? Hospital Course: ? The patient underwent an uneventful laparoscopic sleeve gastrectomy with gastropexy on the day of admission. Postoperatively, the patient was transferred to the surgical floor. The patient received IV Acetaminophen and IV dilaudid for pain control. Patient was started on bariatric phase 1 diet POD #0. On postoperative day one, the patient was feeling well without nausea, vomiting, fevers, or tachycardia. The patient had some mild incisional pain and the abdomen was soft. ? On the morning of postoperative day one, the patient was continued on 1 ounce of water or ice every half hour. During the day, the patient did fairly well, having some incisional pain, but able to ambulate adequately and to tolerate liquids well. ? Since the patient is doing well, we decided that the patient was ready to be discharged. The patient was given instructions to follow-up with me next week and to call my office for any fever over 101, persistent abdominal pain, nausea, vomiting, GERD, symptoms of DVT such as calf tenderness, or leg swelling, or pulmonary embolism such as chest pain or shortness of breath. The patient was also instructed to drink 40-60 ounces of liquids per day using the 1-ounce cups. The patient had been given prescriptions for Tylenol for pain, Zofran prn for nausea, and pantoprazole and carafate previously. The patient was encouraged to ambulate and use the incentive spirometer. The patient was allowed to shower, but no baths, and encouraged to stay active at home. All of these instructions were given to the patient personally. All questions were answered and the patient understood all instructions, the instructions were also given to the patient in print. Time Attestation Total time managing care of this patient today: 25 mintues. Discharge Coordination Time (in mins): 25 Quality: Safe Use of Opioids Does Pt have an Active Cancer Diagnosis on the Problem List?: No Quality: Stroke Does the patient have a stroke diagnosis?: No Physical Exam Vital Signs: Vital Signs: Last Vital Signs Temp 96.7 F L 11/02/24 06:31 Pulse 79 11/02/24 06:31 Resp 15 11/02/24 06:31 BP 107/63 11/02/24 06:31 Pulse Ox 96 11/02/24 06:31 O2 Del Method Room Air 11/02/24 06:31 BMI result Body Mass Index 44.6 DS: Data Data Completed and Pending Pending studies at discharge: Pending at discharge 11/02/24 09:38 Surgical [PTH] Routine Labs on day of discharge: Laboratory Results - last 24 hr 11/02/24 06:10 Urine Test NEGATIVE Discharge Plan Discharge Anticipated Discharge Date/Time: 11/03/24 10:00 Patient Disposition: Home, Self-Care Discharge Diagnosis: s/p laparoscopic sleeve gastrectomy Referrals: Santy Carolina MD [Primary Care Provider] - 1 Week Discharge Medications: Continued polymyxin B sulf-trimethoprim 10,000 unit- 1 mg/mL drops 1 drp ophthalmic (eye) Q6H pantoprazole 40 mg tablet,delayed release (DR/EC) 40 mg PO DAILY@0630 (DME) compr.stocking,knee,long,large Misc See Rx Instructions .Route Qty: 12 3RF Rx Instructions: Daily As directed, 90 days sucralfate 100 mg/mL suspension 10 ml PO BID Qty: 600 2RF ondansetron 4 mg tablet,disintegrating 4 mg PO Q12H Qty: 20 0RF Rx Instructions: Only take one every 12 hours as needed if you have nausea Discharge Orders: Discharge Order (Routine); Ordered 11/03/24 Ordered By: Carlos Knapp Activity on Discharge: No heavy lifting Stand Alone Forms: Patient Portal Discharge page Print Language: Citizen Of [place] Care Plan Goals: weight loss Health Concerns: morbid obesity Plan of Treatment: No tub baths, sex or returning to work until discussed at first post op appointment. No exercise, alcohol, tobacco or illegal drug use. Continue to use incentive spirometer hourly while awake. Walk in home for 5- 10 minutes every 2 hours during the first week. Follow all instructions in the bariatric handbook and call with any questions.Discharge Instructions 1. Please call your doctor or come back to the emergency room should any new s ymptoms arise. 2. You will receive a courtesy call from [facility] 24-48 hours after discharge. 3. Activity: abstain from alcohol, practice limited stair climbing, no bending, no driving, no exercise, no illicit substances, no lifting, no sex, no tub bath, no work. 4. Diet: continue as discussed with Dr. Knapp. 5. Dressing Change/Wound Care: Your incision is covered by clear bandages and guaze underneath. If the area is tender, you may apply an ice pack for short intervals (no more than 20 minutes on, followed by at least 20 minutes off). Do not apply heat. Do not use creams, lotions, or topical antibiotics unless instructed to do so by your surgeon. These can cause infection or allergic reaction. 6. Call your doctor if: - Your temperature exceeds 101.5 F - You experience excessive pain or swelling - You have an unexpected reaction to medication - You have excessive bleeding - You experience continued vomiting/nausea - Your incision begins to separate - Your incision shows signs of infection such as increased redness, swelling, excessive pain, heat, or drainage (light blood or clear fluid is normal) 7. General instructions: No lifting greater than 5 lbs for 1 week and not more than 20lbs the next 3?weeks. No driving until seen at the office in 5-7 days after surgery. If you do not move your bowels in the next 2 days, please tell?Dr. Knapp. Please walk around your home every hour or two to prevent blood clots from forming in your legs. You do not need to wake from sleeping to walk. Please sleep in a bed or couch to prevent kinking at the hips and knees. Please take your incentive spirometer (your lung aerospace mechanic) home with you and use it for the next few days to prevent pneumonia. You may shower, no hot tubs, baths or swimming pools.?Please follow the post op diet instructions you are?given by Dr Knapp? and text me daily at 5-6pm for an update.?If you have any issues or concerns or questions please communicate this to him via text.? The Celebrate shakes have all of the bariatric vitamins you need if you consume these shakes. If you are drinking other protein shakes, you will need to purchase the Celebrate multivitamins and calcium that are available in the hospital gift shop on the first floor of the [facility].??Do not take anything without first discussing with Dr Knapp. Please make sure you are consuming at least 40 ounces of fluids per day starting the?day AFTER your discharge from the hospital. Always drink 1-2 ml per minute using the 5ml?syringe. If you drink faster you may experience?bloating,?gas pain, burping, nausea or heartburn. In that case please slow down your pace and use the syringe to?understand better the?proper?pace and volume of drinking. Do not hesitate to contact the office with any questions at . The patient's medical history has been reviewed and they are considered low risk for post op DVT and therefore DVT prophylaxis is not considered necessary. Travel after surgery was reviewed. The patient has not disclosed any travel plans during the first 30 days after surgery and they have been advised that within the first 30 days after surgery any bus, plane, train or car travel over 2 hours in duration is contraindicated due to the possibility of developing blood clots from immobility. Any travel, needs to include periods of ambulation of 10 minutes in duration every 2 hours.? The patient was instructed to discuss any plans for travel during this period with their bariatric surgeon. Assessment: stable s/p laparoscopic sleeve gastrectomy
[2024-11-02] MEDS: fentaNYL citrate/PF 100 MCG/2 ML VIAL 25 MCG IVPUSH ×4 (10:12→10:38)
[2024-11-02 11:08] LABS: Hematocrit 36.2 % (37.0-47.0); Hemoglobin 11.9 g/dl (12.0-16.0)
[2024-11-02 11:22] LABS: Anion Gap 12 (12-20); Blood Urea Nitrogen 10 mg/dL (9-16); Carbon Dioxide 23 mmol/L (22-29); Chloride 106 mmol/L (96-108); Creatinine Clr Calc Pharmacy 134.8; Estimated Glomerular Filt Rate > 60; Glucose Random 152 mg/dL (60-115); Potassium 4.1 mmol/L (3.3-5.1); Sodium 137 mmol/L (135-145)
[2024-11-02] MEDS: Lactated Ringers 1,000 ML 100 ML IVCONT ×2 (11:31→20:55)
[2024-11-02] MEDS: Metoclopramide HCl 10 MG/2 ML VIAL IVPUSH (11:58)
--- NOTE | 2024-11-02 12:41 | PHA.MEDREC ---
Addendum entered by Sharri Mcmillan RPh 11/02/24 13:00: reviewed by [facility]. Original Note: Pharmacy Consult ? Medication Reconciliation Pharmacy has completed the medication reconciliation. Spoke with patient and she was able to confirm her medications. Patient confirmed she is only taking the Ondansetron 4mg tab once every 12 hours as needed, Pantoprazole 40mg tab once daily, the polymyxin B sulf-trimethoprim eye drops 1 drop every 6 hours and the Sucralfate 100 mg/mL 10mL BID. She was unsure the last time she took her medications last.
[2024-11-02] MEDS: HYDROmorphone HCl 0.5 MG/0.5 ML SYRINGE 0.25 MG IVPUSH (13:11)
[2024-11-02] MEDS: ceFAZolin Sodium/Dextrose,Iso 2 GM/50 ML PIGGYBACK IV (13:50)
[2024-11-02] MEDS: Acetaminophen 1,000 MG/100 ML PIGGYBACK 16.7 MG IV ×2 (14:26→20:05)
[2024-11-03] MEDS: Acetaminophen 1,000 MG/100 ML PIGGYBACK 16.7 MG IV (01:58)
[2024-11-03 04:10] VITALS: BP 106/54; PULSE 97; RESP 16; TEMP 36.5; O2SAT 96
[2024-11-03] MEDS: Pantoprazole Sodium 40 MG/10 ML VIAL IVPUSH (05:48)
[2024-11-03] MEDS: Lactated Ringers 1,000 ML 100 ML IVCONT (05:48)
--- NOTE | 2024-11-03 06:43 | P.PNGS_ITS ---
Subjective Subjective Date of Service: 11/03/24 <Hemanth Velasquez - Last Filed: 11/03/24 07:19> 11/03/24 <Carlos Knapp MD - Last Filed: 11/03/24 08:21> 11/03/24 <KIRSTIN Dixon - Last Filed: 11/03/24 13:27> Interval history: Patient is POD2; she feels well and is prepared for discharge. She endorses 3/10 incisional site pain well-controlled on APAP. Patient has frequently hydrated with water and is urinates without difficulty. She endorses flatus and mild abdominal cramping that resolves with ambulation. She has been engaging with incentive spirometer and ambulating frequently. Patient denies any fever, palpitations, nausea, vomiting, dizziness, bloody stools, dyspnea, chest pain or leg pain. She has bilateral leg swelling which she states is normal for her, especially with her IV fluids. <Hemanth Velasquez - Last Filed: 11/03/24 07:19> Patient is POD1; she feels well and is prepared for discharge. She endorses 3/10 incisional site pain well-controlled on APAP. Patient has frequently hydrated with water and is urinates without difficulty. She endorses flatus and mild abdominal cramping that resolves with ambulation. She has been engaging with incentive spirometer and ambulating frequently. Patient denies any fever, palpitations, nausea, vomiting, dizziness, bloody stools, dyspnea, chest pain or leg pain. She has bilateral leg swelling which she states is normal for her, especially with her IV fluids. <Carlos Knapp MD - Last Filed: 11/03/24 08:21> Physical Exam 2 Vital Signs: Vital Signs: Last Vital Signs Temp 97.7 F 11/03/24 04:10 Pulse 97 11/03/24 04:10 Resp 16 11/03/24 04:10 BP 106/54 L 11/03/24 04:10 Pulse Ox 96 11/03/24 04:10 O2 Del Method Room Air 11/03/24 04:10 O2 Flow Rate 2 11/02/24 11:27 FiO2 49 11/02/24 10:48 BMI result Body Mass Index 44.6 <Hemanth Velasquez - Last Filed: 11/03/24 07:19> Const: General: comfortable <Hemanthmagali Christensentte - Last Filed: 11/03/24 07:19> Nutritional Appearance: obese <Hemanth Amparotte - Last Filed: 11/03/24 07:19> Orientation/consciousness: patient oriented x3 <Hemanth Amparoe - Last Filed: 11/03/24 07:19> Eyes: Sclerae: sclerae normal <[facility] - Last Filed: 11/03/24 07:19> Resp: Effort & Inspection: normal respiratory effort <[facility] - Last Filed: 11/03/24 07:19> Auscultation: clear to auscultation bilaterally, no crackles, no rhonchi and no wheezes <[facility] - Last Filed: 11/03/24 07:19> Cardio: Jugular venous distension: no JVD <[facility] - Last Filed: 11/03/24 07:19> Rate: regular rate <[facility] - Last Filed: 11/03/24 07:19> Rhythm: regular rhythm <[facility] - Last Filed: 11/03/24 07:19> Heart sounds: S1 normal heart sound present, S2 normal heart sound present, no gallops, no murmurs and no rubs <[facility] - Last Filed: 11/03/24 07:19> Peripheral pulses: dorsalis pedis present <[facility] - Last Filed: 11/03/24 07:19> GI: Other: No erythema, discharge or exquisite pain around incisional site dressings. Active bowel sounds. Abdomen soft, non-distended and non-tender. <[facility] - Last Filed: 11/03/24 07:19> Neuro: General: patient oriented x3 <Hemanth Amparotte - Last Filed: 11/03/24 07:19> Motor exam (neuro): 5/5 motor strength present throughout <Hemanth Amparotte - Last Filed: 11/03/24 07:19> Extrem: Other: Bilateral non-pitting leg edema. Pneumatic compression sleeves on both lower extremities. No calf tenderness/ <Hemanth Narikatte - Last Filed: 11/03/24 07:19> Psych: Other: Euthymic. Good mood. <Hemanth Velasquez - Last Filed: 11/03/24 07:19> Objective Data Active Medications Hydromorphone HCl (Hydromorphone Hcl 0.5 Mg/0.5 Ml Syringe) 0.25 mg IVPUSH Q4H PRN; Protocol PRN Reason: Pain, Moderate(Pain Scale 4-6) Last Admin: 11/02/24 13:11 Dose: 0.25 mg Documented By: SWATHI Lactated Ringer's (Lr) 1,000 mls @ 100 mls/hr IVCONT .Q10H [facility] Last Admin: 11/03/24 05:48 Dose: 100 mls/hr Documented By: MARIANO Acetaminophen (Ofirmev) 1,000 mg in 100 mls @ 16.7 mls/hr IV .Q6H [facility] Last Admin: 11/03/24 01:58 Dose: 16.7 mls/hr Documented By: MARIANO Metoclopramide HCl (Metoclopramide Hcl 10 Mg/2 Ml Vial) 10 mg IVPUSH Q6H PRN PRN Reason: Nausea no relief from zofran Last Admin: 11/02/24 11:58 Dose: 10 mg Documented By: SWATHI Naloxone HCl (Naloxone Hcl 0.4 Mg/Ml Vial) 0.04 mg IVPUSH Q5M PRN PRN Reason: Excessive sedation or RR < 8 Ondansetron HCl (Ondansetron Hcl 4 Mg/2 Ml Vial) 4 mg IVPUSH Q8H PRN PRN Reason: Nausea Pantoprazole Sodium (Pantoprazole Sodium 40 Mg/10 Ml Vial) 40 mg IVPUSH DAILY@0630 [facility] Last Admin: 11/03/24 05:48 Dose: 40 mg Documented By: MARIANO Sodium Chloride (0.9 % Sodium Chloride Flush 3 Ml Syringe) 3 ml IVFLUSH QSHIFT [facility] Last Admin: 11/02/24 20:53 Dose: Not Given Documented By: MARIANO Non-Admin Reason: IV Running <Hemanth Velasquez - Last Filed: 11/03/24 07:19> Labs CBC & Chem 7: 11/03/24 05:29 11/03/24 05:29 <Hemanth Velasquez - Last Filed: 11/03/24 07:19> Labs: Laboratory Results - last 24 hr 11/02/24 11:00 Anion Gap 12 Estim Creat Clear Calc 134.8 Estimated GFR > 60 Random Glucose 152 H Calcium 9.0 D <Hemanth Velasquez - Last Filed: 11/03/24 07:19> Procedures Date of Service Date of Service: 11/03/24 <Hemanth Velasquez - Last Filed: 11/03/24 07:19> 11/03/24 <Carlos Knapp MD - Last Filed: 11/03/24 08:21> 11/03/24 <KIRSTIN Dixon - Last Filed: 11/03/24 13:27> Progress Note: A&P Assessment and plan (1) S/P laparoscopic sleeve gastrectomy: Status: Acute <Hemanth Velasquez - Last Filed: 11/03/24 07:19> Assessment and Plan: Patient is a 29 yo with a history of who is POD1 s/p uncomplicated sleeve gastrectomy. She has good pain control, tolerating fluids, ambulating/using IS and has active BM/urinary output. Patient has no clinical signs or symptoms consistent with infection, leaks, DVT/PE or atelectasis. Patient is ready for discharge Note reviewed and patient examined. Agree with this assessment Dr. Knapp <Carlos Knapp MD - Last Filed: 11/03/24 08:21> Assessment and Plan: Patient is a 29 yo with a history of who is POD2 s/p uncomplicated sleeve gastrectomy. She has good pain control, tolerating fluids, ambulating/using IS and has active BM/urinary output. Patient has no clinical signs or symptoms consistent with infection, leaks, DVT/PE or atelectasis. Patient is ready for discharg. <Hemanth Velasquez - Last Filed: 11/03/24 07:19> Time Spent With Patient Time: Total time managing care of this patient today ____ minutes. <Hemanth Velasquez - Last Filed: 11/03/24 07:19> Quality Stroke Does the patient have a stroke diagnosis?: No <Hemanth Velasquez - Last Filed: 11/03/24 07:19> VTE Prior VTE?: No <Hemanth Velasquez - Last Filed: 11/03/24 07:19> VTE Risk Level:: Surgical - moderate <Hemanth Velasquez - Last Filed: 11/03/24 07:19> VTE Device Contraindication: N/A - Device Ordered <Hemanth Velasquez - Last Filed: 11/03/24 07:19> VTE Drug Contraindication: Treatment Not Indicated <Hemanth Velasquez - Last Filed: 11/03/24 07:19>
[2024-11-03 06:50] LABS: MANUAL DIFF FLAG NO
[2024-11-03 07:05] LABS: Basophils Percent Auto 0.1 % (0-2); Eosinophils Percent Auto 0.1 % (0-4); Hematocrit 33.6 % (37.0-47.0); Hemoglobin 11.1 g/dl (12.0-16.0); Imm Gran Abs Auto 0.05 X10*3/uL (0.00-0.03); Imm Gran Pct Auto 0.5 % (0.0-0.4); Lymphocytes Absolute Auto 1.5 X10*3/uL (1.2-4.9); Mean Corpuscular Hemoglobin 26.6 pg (27.0-33.0); Mean Corpuscular Volume 80.6 fL (80.0-98.0); Mean Platelet Volume 9.7 fL (9.4-12.3); Monocytes Absolute Auto 0.8 X10*3/uL (0.1-1.2); Monocytes Percent Auto 7.1 % (2-11); Neutrophils Absolute Auto 8.4 x10*3/uL (2.0-8.3); Neutrophils Percent Auto 78.2 % (45-73); Platelet Count 301 X10*3/uL (160-400); Red Blood Count 4.17 X10*6/uL (4.20-5.50); Red Cell Distribution Width 13.4 % (11.0-16.0); White Blood Count 10.7 X10*3/uL (4.8-10.8)
[2024-11-03 07:12] LABS: Anion Gap 13 (12-20); Blood Urea Nitrogen 7 mg/dL (9-16); Calcium 9.1 mg/dL (8.4-10.2); Carbon Dioxide 23 mmol/L (22-29); Chloride 105 mmol/L (96-108); Creatinine Clr Calc Pharmacy 154.4; Estimated Glomerular Filt Rate > 60; Glucose Random 97 mg/dL (60-115); Sodium 137 mmol/L (135-145)
[2024-11-03 07:27] VITALS: BP 120/60; PULSE 77; RESP 16; TEMP 36.2; O2SAT 98
--- NOTE | 2024-11-03 08:41 | MHC.CM.PN ---
pt left prior to being seen by cm pt dcd home self care
--- NOTE | 2024-11-03 08:56 | HO.POSTANES ---
Post Anesthesia Evaluation Post Anesthesia Evaluation Date of Service: 11/03/24 Vital Signs: Vital Signs Temp Pulse Resp BP Pulse Ox O2 Del Method 11/03/24 07:27 97.1 F 77 16 120/60 98 Room Air 11/03/24 07:03 Room Air 11/03/24 04:10 97.7 F 97 16 106/54 L 96 Room Air 11/02/24 23:49 98.0 F 93 16 128/62 95 Room Air Anesthesia: General Endotracheal-GETA Mental Status: Awake Pain Control: Satisfactory Nausea/Vomiting: None Hydration: Adequate Anesthesia-Related Issues: No Anes. Related Issues
== END 2024-11-03 09:13 | disposition home or self-care (01) | DRG 621 ==
LOC: HO.SSSA 10:11 → HO.S3 10:34
PROVIDERS: Nurse Practitioner; Physician Assistant Surgical; Admitting Provider Surgery; PCP Family Medicine; Visit Provider Surgery
PROC: 0DB64Z3 Excision of Stomach, Percutaneous Endoscopic Approach, Vertical (ICD-10-PCS; CPT 43845; principal; 2024-11-02 07:30)
DX: E66.01 Morbid (severe) obesity due to excess calories (principal); E03.9 Hypothyroidism, unspecified; K21.9 Gastro-esophageal reflux disease without esophagitis; N80.9 Endometriosis, unspecified; K76.0 Fatty (change of) liver, not elsewhere classified; F41.9 Anxiety disorder, unspecified; K57.90 Diverticulosis of intestine, part unspecified, without perforation or abscess without bleeding; K29.80 Duodenitis without bleeding; Z68.41 Body mass index [BMI] 40.0-44.9, adult; Z79.899 Other long term (current) drug therapy
CPT/HCPCS: 36415; 80048; 81025; 85014; 85018; 85025; 86850; 86900; 86901; 88304; 88305; 88307; 88342; A4649; C9145; J0131; J0690; J1100; J1171; J1630; J2003; J2250; J2405; J2470; J2704; J2765; J2795; J3010; J7120

== ENCOUNTER → 2024-11-02 06:02 | Outpatient (BNV) | payer OTHER, SELFPAY | PROVIDERS: Admitting Provider Surgery; PCP Family Medicine; Visit Provider Surgery | DX: E66.01 Morbid (severe) obesity due to excess calories (principal); K21.9 Gastro-esophageal reflux disease without esophagitis; E03.9 Hypothyroidism, unspecified; E78.1 Pure hyperglyceridemia; F41.9 Anxiety disorder, unspecified; Z98.84 Bariatric surgery status | CPT/HCPCS: 43659; 43775; 99024; 99499 ==

== ENCOUNTER 2024-11-08 11:23 | Outpatient (AMB) | payer OTHER, SELFPAY ==
--- NOTE | 2024-11-08 11:36 | A.OFFPC_ITS ---
Vital Signs 11/08/24 11:39 11/08/24 12:07 Height 41 ft Weight 210 lb BMI 0.6 BP 142/72 H 102/58 L Blood Pressure Location Rt brachial Rt brachial Position Sitting Sitting Respiration 13 Pulse 88 Pulse Source Pulse Oximeter Temp 98.1 F Temp Source Oral Pulse Oximetry (%) 98 Oxygen Delivery Method Room Air Intake Visit Reasons: tcm obesity Intake Note: surgery [facility] Maintainer Required: No Allergies adhesive Allergy (Intermediate, Verified 11/08/24 11:36) Rash bupropion [From Wellbutrin] Allergy (Intermediate, Verified 11/08/24 11:36) Hives cobalt Allergy (Intermediate, Verified 11/08/24 11:36) Rash nickel Allergy (Intermediate, Verified 11/08/24 11:36) Rash Medication List - Last Reconciled 11/08/24 by Idalia Leal, GRAIN DRIER- compr.stocking,knee,long,large Daily As directed, 90 days ondansetron 4 mg PO Q12H pantoprazole 40 mg PO DAILY@0630 sucralfate 10 mL PO BID Tobacco use date assessed: 11/08/24 Dental Screening Dental Screen Date: 01/01/24 HPI HPI Comments History of Present Illness Details Here today for a Transitional Care Management Visit Discharge summary reviewed. 29 yo with obesity, GERD, hypothyroid, e levated triglycerides, JADON s/p uncomplicated sleeve gastrectomy. ADMITTING DIAGNOSIS: morbid obesity, hypertriglyceridemia, gerd PROCEDURE: upper endoscopy, laparoscopic sleeve gastrectomy DISCHARGE DIAGNOSIS: same, s/p laparoscopic sleeve gastrectomy The patient was also instructed to drink 40-60 ounces of liquids per day using the 1-ounce cups. The patient had been given prescriptions for Tylenol for pain, Zofran prn for nausea, and pantoprazole and carafate previously. The patient was encouraged to ambulate and use the incentive spirometer. The patient was allowed to shower, but no baths, and encouraged to stay active at home. Activity: abstain from alcohol, practice limited stair climbing, no bending, no driving, no exercise, no illicit substances, no lifting, no sex, no tub bath, no work. Dressing Change/Wound Care: Your incision is covered by clear bandages and guaze underneath. If the area is tender, you may apply an ice pack for short intervals (no more than 20 minutes on, followed by at least 20 minutes off). Do not apply heat. Do not use creams, lotions, or topical antibiotics unless instructed to do so by your surgeon. These can cause infection or allergic reaction. Admission Date: 11/02/24 Discharge Date: 11/03/24 Hospital: [facility] Date of interactive contact with Nurse Turneror: as documented in chart Pending diagnostic tests/treatments: none Pending consults: none DME: none PT/OT/LIBRARY CONSULTANT: no Referrals/Appts: Next appt w/ bariatric surgeon tomorrow Medications reconciled & updated. Discharge Medications: Continued pantoprazole 40 mg tablet,delayed release (DR/EC) 40 mg PO DAILY@0630 (DME) compr.stocking,knee,long,large Misc See Rx Instructions .Route Qty: 12 3RF Rx Instructions: Daily As directed, 90 days sucralfate 100 mg/mL suspension 10 ml PO BID Qty: 600 2RF ondansetron 4 mg tablet,disintegrating 4 mg PO Q12H Qty: 20 0RF Rx Instructions: Only take one every 12 hours as needed if you have nausea During todays TCM visit, the d/c summary was reviewed, along with the need for or follow-up on pending diagnostic tests and treatments, as necessary interaction with other health health care assistant who will assume or reassume care of the beneficiary?s system-specific problems was done or is being worked on, education was provided to the beneficiary, family, guardian, and/or caregiver, referrals to establish or re-establish and arrange needed community resources we completed, assistance in scheduling required follow-up with community providers and services & finally updated medication list given to patient/caregiver History of Present Illness The patient is a 29-year-old female presenting for a transitional care management appointment following her recent bariatric surgery. She was admitted for the surgery and discharged after an overnight stay. Postoperatively, she reported no significant complications such as pain, infection, or gastrointestinal issues, and stated that her incisions are healing well. There is no report of fever or chills. The patient currently takes Zofran, pantoprazole, and Carafate as needed but reports she has not required the Zofran. She noted not taking fenofibrate regularly, as her lipid profiles have improved following a 45-pound weight loss post-surgery. The patient's thyroid function has changed with her TSH levels decreasing, she is requesting a referral to endocrinology. She is tolerating 42 oz of fluid. She was following the recommended diet. She does report some tachycardia that comes and goes without any other associated symptoms. She reports normal elimination. She is not wearing her compression stockings. A rash due to surgical tape was treated with hydrocortisone with noticeable improvement. She feels well. She denies any fever, chills, chest pain, shortness of breath, swelling in her legs. Physical Exam awake alert NAD lips dry tachycardia, regular rhythm LS CTAB Abd soft, normoactive bs, dry clean dressings intact to upper abd under bilat breasts is a faint pink rash that pt reports is resolving no edema ble Discussion Notes During the consultation, we discussed the patient's successful recovery from bariatric surgery. Post-operative assessments revealed healthy incision sites without signs of infection. Medications, including Carafate and pantoprazole, were reviewed. I encouraged the patient to maintain communication with the bariatric. Advised to let her PCP know she is no longer taking fenofibrate. Compression stockings were recommended for management of orthostatic symptoms and associated tachycardia. A referral to an food service employee was initiated due to thyroid level changes, per patient request. I advised consistent monitoring of blood pressure. Importance of hydration was emphasized, with an increase in oral fluid intake encouraged. I outlined the need for compression stockings for post-bariatric orthostasis, recommending a specific vendor to improve compliance and affordability. Follow-up instructions included routine health maintenance exams scheduled subsequently and continuation of cortisone cream for rash management, ensuring monitoring of skin integrity. Patient Instructions - Use compression stockings daily as per the recommendation. - Increase fluid intake to alleviate dry lips and potential dehydration. - Continue applying hydrocortisone cream to the rash as needed. - Adhere to prescribed medications, comm unicate any side effects or issues to the bariatric team. - Monitor blood pressure and consult [facility] providers if elevated readings persist. - Keep upcoming appointments and follow instructions provided by healthcare professionals. Plan - Ensure the patient continues postopera tive care with focus on incision site monitoring for any signs of infection. - Refer to endocrinology for evaluation of lowered TSH levels and potential a djustments in management of thyroid function. - Recommend contact with bariatric team regarding medication adherence - Advise usage of medical-grade compress ion stockings to manage orthostatic symptoms post-surgery. - Encourage increased hydration to addre ss signs of dehydration. - Continue hydrocortisone application fo r post-surgical adhesive rash, assess for allergic reactions or persistence, suggesting alternative treatments if unresolved. - Schedule a physical examination in [facility] with PCP, RTO sooner prn . Patient was informed and verbally consented to the use of an ambient scribe for clinic note documentation during this visit. Total time spent caring for the patient today was 45 minutes. This includes time spent before the visit reviewing the chart, time spent during the visit, and time spent after the visit on documentation, reviewing laboratory results, diagnostic imaging, medications, performing a medically necessary evaluation, counseling on diagnoses, care coordination, ordering appropriate tests, ordering appropriate medications, review of tests performed by other providers, reporting test results with the patient, communication with other healthcare providers. [facility] Medical History Joint pain Lyme disease Post depression Fatty liver Pre-eclampsia Postoperative nausea High triglycerides Gestational diabetes Anxiety Hypothyroid HTN (hypertension) GERD (gastroesophageal reflux disease) Morbid obesity Hx of endometriosis Low vitamin D level IBS (irritable bowel syndrome) Diverticulitis Surgical History History of endometrial ablation Hx of cholecystectomy History of appendix removal History of esophagogastroduodenoscopy (EGD) History of wisdom tooth extraction History of tonsillectomy History of colonoscopy Family History Father History of IBS HTN (hypertension) Psoriasis Mother Lupus Skin cancer Sister Lupus Thyroid disease Cervical cancer Son No problems noted. 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 1. Little interest or pleasure in doing things: not at all 2. Feeling down, depressed, or hopeless: not at all 3. Trouble falling or staying asleep, or sleeping too much: not at all 4. Feeling tired or having little energy: not at all 5. Poor appetite or overeating: not at all 6. Feeling bad about yourself - or that you are a failure or have let yourself or your family down: not at all 7. Trouble concentrating on things, such as reading the newspaper or watching television: not at all 8. Moving or speaking so slowly that other people could have noticed. Or the opposite - being so fidgety or restless that you have been moving around a lot more than usual: not at all 9. Thoughts that you would be better off or of hurting yourself in some way: not at all Total score: 0 Depression Screening Interpretation: Negative Depression Screening Done: Yes 37826 - PHQ-9 Billing: Yes Source: Developed by Drs. Bari Aguillon, Ammy Fisher, Ish Grimaldo and colleagues, with an educational maldonado from [employer]. Thrive Questionnaire Date Thrive assessed: 11/08/24 I am a: Patient What is your living situation today?: I have a steady place to live Within the past 12 months, did the food you bought not last and you didn't have the money to get more?: Never true Within the past 12 months, did you worry whether your food would run out before you got money to buy more?: Never true Do you have trouble paying for medicines?: No Do you have trouble getting transportation to medical appointments?: No Do you have trouble paying your heating and electricity bill?: No Do you have trouble taking care of your child, family member or friend?: No Do you have trouble with day-to-day activities such as bathing, preparing meals, shopping, managing finances, etc.?: No Are you currently unemployed and looking for a job?: No Are you interested in more education?: No Please select the resources that you would like help with: None Currently or been in a relationship where the following occur: No concerns reported THRIVE Score: 0 AUDIT C Alcohol Use Questionnaire (AUDIT-C) 1. How often do you have a drink containing alcohol?: Never Total Score: 0 Score Reviewed/Action Taken: Yes JADON-7 AMB Questionnaire JADON-7 Date JADON - 7 assessed: 11/08/24 Feeling nervous, anxious, or on edge: 0 = Not at all Not being able to stop or control worryin = Not at all Worrying too much about different things: 0 = Not at all Trouble relaxin = Not at all Being so restless that it is hard to sit still: 0 = Not at all Becoming easily annoyed or irritable: 0 = Not at all Feeling afraid as if something awful might happen: 0 = Not at all Total JADON-7 score (0-4 normal; 5-9 mild; 10-14 moderate; 15-21 severe): 0 Source: Developed by Drs. Bari Aguillon, Ammy Fisher, Ish Grimaldo and colleagues, with an educational maldonado from [employer]. JADON-7 Assessment Billing JADON-7 Assessment Tool: JADON-7 Assessment 83403 Physical exam (Primary Care) Vital Signs: Last Vital Signs Temp 98.1 F 11/08/24 11:39 Pulse 88 11/08/24 11:39 Resp 13 11/08/24 11:39 BP 102/58 L 11/08/24 12:07 Pulse Ox 98 11/08/24 11:39 Oxygen Delivery Method Room Air 11/08/24 11:39 BMI result Body Mass Index 0.6 Tobacco/Smoking Status: Tobacco use Status Tobacco use date assessed 11/08/24 11/08/24 11:41 Patient Tobacco Use Status Never used Tobacco 11/08/24 11:41 e-Cigarette/Vaping Use Never Used 11/08/24 11:41 PHQ-9: PHQ-9 Score PHQ-9: Total score 0 11/08/24 12:09 Depression Screening Interpretation: Negative Thrive Assessment: Date of Thrive Assessment Date Thrive assessed 11/08/24 11/08/24 11:41 Currently or been in a relationship where the following occur: No concerns reported Coding Level of Care Code TCM High MDM <= 7 Days Diagnoses Hospital discharge follow-up Z09 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 Hypothyroidism type: due to Michelle's thyroiditis S/P laparoscopic sleeve gastrectomy Z98.84 Fatty liver K76.0 Gastroesophageal reflux disease without esophagitis K21.9 Esophagitis presence: without esophagitis Hypertriglyceridemia E78.1 Orthostasis I95.1 Additional Codes JADON-7 Assessment Billing - JADON-7 Assessment Tool: AJDON-7 Assessment [id number] ([id number]) PHQ-9 - 01770 - PHQ-9 Billing: Yes ([id number]) Assessment & Plan Assessment & Plan (1) Hospital discharge follow-up: Code(s): Z09 - Encounter for follow-up examination after completed treatment for conditions other than malignant neoplasm (2) Hypothyroidism: Code(s): E03.9 - Hypothyroidism, unspecified Category: Medical Qualifiers: Hypothyroidism type: due to Michelle's thyroiditis Qualified Code(s): E06.3 - Autoimmune thyroiditis (3) S/P laparoscopic sleeve gastrectomy: Code(s): Z98.84 - Bariatric surgery status Category: Medical (4) Fatty liver: Code(s): K76.0 - Fatty (change of) liver, not elsewhere classified Category: Medical (5) GERD (gastroesophageal reflux disease): Code(s): K21.9 - Gastro-esophageal reflux disease without esophagitis Category: Medical Qualifiers: Esophagitis presence: without esophagitis Qualified Code(s): K21.9 - Gastro-esophageal reflux disease without esophagitis (6) Hypertriglyceridemia: Code(s): E78.1 - Pure hyperglyceridemia Category: Medical (7) Orthostasis: Code(s): I95.1 - Orthostatic hypotension Category: Medical Plan . Orders: Referrals Endocrinology Referral E03.9 - Hypothyroidism, unspecified Patient Instructions: [email or web address]
[2024-11-08 11:39] VITALS: BP 142/72; PULSE 88; RESP 13; TEMP 36.7; O2SAT 98
[2024-11-08 12:07] VITALS: BP 102/58
--- OUTSIDE RECORDS SUMMARY | 2024-11-08 16:18 | XMS_ITS | Continuity of Care Document ---
Author Organization [place] - [employer] , [facility] Address [address] [place] [id number] Assessment Encounter Date Assessment Date Assessment LastModified by Organization Details LastModified Time 10/26/2024 10/26/2024 Bacterial eye infection DDX: viral vs allergic vs bacterial conjunctivitis Assessment: Suspect bacterial conjunctivitis given the heavy discharge and unilateral presence. Counseled about the diagnosis and typical course of management. Plan: Polymyxin ophthalmic drops 1 drop q 6 hrs for 7 days prescribed. Apply warm compresses. Cleanse from inside to outside/use new section each time of warm compress. Instructed good hand washing and disinfection of commonly touched items. See PCP in person or model dresser if symptoms not improved in 1-2 days. If fever, sudden change in vision or ability to keep eye open go to ER. [facility] Not available 10/26/2024 08:05:21 Plan of Treatment Reminders Order Date Submit Date Provider Last Modified By Organization Details Last Modified Time Details Appointments None recorded. Lab None recorded. Referral None recorded. Procedures None recorded. Surgeries None recorded. Imaging None recorded. Medication Orders Polytrim 10,000 unit-1 mg/mL eye drops 2024 025 [facility] #[id number], [address] [place], [address], 5 08:05:59 Patient TargetsNo targets recorded. Patient InstructionsNo instructions recorded. Reason for Referral None Reported. Problems Name Problem SNOMED Code Status Onset Date Resolution Date Notes Provider Name and Address Organization Details Recorded Time Gastritis 1068607 Active 025 Angie Acosta, [employer] 1 [facility] [address], [place], [address], [place] [employer] 5 08:04:37 Problem Notes None recorded. Medical Equipment None Reported. Allergies Allergen ID Allergen Name Allergen Category Reaction Reaction Severity Criticality Documentation Date Start Date Code Code System Note Provider Name and Address Organization Details Recorded Time 616931 cobalt environme nt Not available Not available Not available 10/26/2024 37202 00 RxNorm Not Available Included [facility] 5 06:36:36 457452 nickel environme nt Not available Not available Not available 10/26/2024 98274 29 RxNorm Not Available Included [facility] 5 06:36:36 [id number] Wellbutri n medicatio n Not available Not available Not available 10/26/2024 98544 RxNorm Not Available Included [facility] 5 06:36:36 Medications Name Sig Start Date Stop Date Status Note LastModified by Organization Details LastModified Time Polytrim 10,000 unit-1 mg/mL eye drops INSTILL 1 DROP INTO AFFECTED EYE(S) BY OPHTHALMI C ROUTE EVERY 6 HOURS 2024 active Not Available Not Available Not Avai lable methylpredn isolone 4 mg tablets in a dose pack 10/26 completed [NOT TAKIN G] Not Available Not Available Not Available ipratropium bromide 42 mcg (0.06 %) nasal spray active [NOT TAKIN G] Not Available Not Available Not Available senna active [NOT TAKIN G] Not Available Not Available Not Available pantoprazol e active Not Available Not Available Not Available UNLISTED MEDICATION [Migrated medicatio n name:] Benzonata te 100 mg capsule:: 0 10/26 completed [NOT TAKIN G] Not Available Not Available Not Available UNLISTED MEDICATION [Migrated medicatio n name:] Diflucan 150 mg tablet::0 12/27 completed Not Available Not Available Not Available Vitals None Recorded Social History None recorded. Functional Status None recorded. Mental Status None recorded. Family History Nothing Reported. Medical History No medical history recorded. Gynecological HistoryNo gynecological history recorded. Obstetrics History GPAL:G 0 P 0 0 0 0 Past Encounters Encounter ID Performer Location Encounter Start Date Encounter Closed Date Diagnosis/Indication Diagnosis SNOMED-CT Code Diagnosis ICD10 Code Diagnosis Note [id number] Angie Acosta , [address] [address] 10/26/2024 08:00:36 10/26/2024 08:06:28 Mucopurulent conjunctivitis of left eye [id number] 56979 H10.022 Health Concerns Section Related Observation LastModified by Organization Detai ls LastModified Time None Recorded Concern Status LastModified by Organization Details LastModified Time None Recorded Payers Encounter Date Sequence Insurance Name Policy Number Policy Ceron Covered Member ID Ceron Member ID Guarantor Name 10/26/2024 1 [employer] - DOS PRIOR TO 2024 - Rosemary Hudson [id number] Rosemary Hudson 10/26/2024 2 *SELF PAY* Rosemary Chunmore [id number] Rosemary Hudson Notes Date Note Type Note Provider Name and Address Organization Details Recorded Time 10/26/2024 text/html Call connected, patient greeted. Patient name, , telephone number and location verified verbally with the patient. Telemedicine limitations reviewed and verbal consent obtained to treat.Clinician attests they are physically located in the following state at the time of visit: [place]. CC: Eye Discharge HPI:29 yo female with left eye symptoms for 2 daysDischarge yellow in color presentMatting of eye is occurringNo complaints of painNo known trauma to eyeSick contactsEye does itchNo light sensitivity noticedNo history of recurrent eye infectionNo history of visual conditionNo contact lens wearLMP-2 weeks ago Angie Acosta, [facility] [address] [facility] [address], [place], [address], [place] [facility] 10/26/2024 08:06:25 OBGyn Episode No OBEpisode recorded.
--- OUTSIDE RECORDS SUMMARY | 2024-11-08 16:18 | XMS_ITS | Clinical Summary ---
Author Organization [facility] Address [address] [place] [address] Care Team Providers Care Core Blower Name Role Phone Pcp, No Primary Care Provider Unavailabl e Social History Tobacco Use Types Packs/Day Years Used Date Smoking Tobacco: Never Assessed Sex and Gender Information Value Date Recorded Sex Assigned at Not on file Gender Identity Not on file Sexual Orientation Not on file Plan of Treatment Health Maintenance Due Date Last Done Comments Hepatitis C Virus Screening 1993 HIV Screening 2006 DTaP/Tdap/Td Vaccines (1 - Tdap) 2012 Hepatitis B Vaccines (1 of 3 - 19+ 3-dose series) 2012 Pap Smear (Ages 21-65) 2014 Influenza Vaccine 05/13/2024 COVID-19 Vaccine (1 - 2023-2 5 season) 2024 HPV Vaccines Aged Out No longer eligi ble based on patient's age to complete this topic Pneumococcal Vaccine: Pediat frankie (0-5 Years) and At-Risk Patients (6 to 49 Years) Aged Out No longer eligible b ased on patient's age to complete this topic Care Teams Core Blower Relationship Specialty Start Date End Date Pcp, No PCP - General General Medicine 08/03/21
--- OUTSIDE RECORDS SUMMARY | 2024-11-08 16:18 | XMS_ITS | Data Portability ---
Author Organization [place] - [employer] , [facility] Address [address] [place] [address] Assessment Encounter Date Assessment Date Assessment LastModified [...] touched items. See PCP in person or manager event if symptoms not improved in 1-2 days. If fever, sudden change in vision or ability to keep eye open go to ER. [facility] Not available 10/26/2024 08:05:21 Plan of Treatment Reminders Order Date Submit Date Provider Last Modified By Organization Details Last Modified Time Details Appointments None recorded. Lab None recorded. Referral None recorded. Procedures None recorded. Surgeries None recorded. Imaging None recorded. Medication Orders Polytrim 10,000 unit-1 mg/mL eye drops 2024 025 [facility]/Pharmacy #[id number], [address] [place], [address], 5 08:05:59 Patient TargetsNo targets recorded. Patient InstructionsNo instructions recorded. Reason for Referral None Reported. Problems Name Problem SNOMED Code Status Onset Date Resolution Date Notes Provider Name and Address Organization Details Recorded Time Gastritis 4314655 Active 025 Angie Acosta, FIRE CONTROL TECHNICIAN G [address] [facility] [address], [place], [address], [employer] 5 08:04:37 Problem Notes None recorded. Medical Equipment None Reported. Allergies Allergen ID Allergen Name Allergen Category Reaction Reaction Severity Criticality Documentation Date Start Date Code Code System Note Provider Name and Address Organization Details Recorded Time 801018 cobalt environme nt Not available Not available Not available 10/26/2024 49652 00 RxNorm Not Available Included [facility] 5 06:36:36 554479 nickel environme nt Not available Not available Not available 10/26/2024 15070 29 RxNorm Not Available Included [facility] 5 06:36:36 183565 Wellbutri n medicatio n Not available Not available Not available 10/26/2024 78711 RxNorm Not Available Included [facility] 5 06:36:36 Medications Name Sig Start Date [...] SNOMED-CT Code Diagnosis ICD10 Code Diagnosis Note [id number] Angie Acosta [address] [address] 10/26/2024 08:00:36 10/26/2024 08:06:28 Mucopurulent conjunctivitis of left eye [id number] 11197 H10.022 Health Concerns Section Related Observation LastModified by Organization Detai ls LastModified Time None Recorded Concern Status LastModified by Organization Details LastModified Time None Recorded Advance Directives Directive None Recorded Payers Encounter Date Sequence Insurance Name Policy Number Policy Ceron Covered Member ID Ceron Member ID Guarantor Name 10/26/2024 1 [employer] - DOS PRIOR TO 2024 - Rosemary Hudsno [id number] Rosemary Chunmore 10/26/2024 2 *SELF PAY* Rosemary Chunmore [id number] Rosemary Hudson Notes Date Note Type Note Provider Name and Address Organization Details Recorded Time 10/26/2024 text/html Call connected, patient greeted. Patient name, , telephone number and location verified verbally with the patient. Telemedicine limitations reviewed and verbal consent obtained to treat.Clinician attests they are physically located in the following state at the time of visit: [place]. CC: Eye Discharge HPI:29 yo female with left eye symptoms for 2 daysDischarge yellow in color presentMatting of eye is occurringNo complaints of painNo known trauma to eyeSick contactsEye does itchNo light sensitivity noticedNo history of recurrent eye infectionNo history of visual conditionNo contact lens wearLMP-2 weeks ago [facility] [address] [facility] [address], [place], [address], [place] [facility] 10/26/2024 08:06:25 OBGyn Episode No OBEpisode recorded.
== END 2024-11-08 12:17 | disposition home or self-care (01) ==
PROVIDERS: PCP Family Medicine; Visit Provider Nurse Practitioner Family
DX: E06.3 Autoimmune thyroiditis (principal); Z09 Encounter for follow-up examination after completed treatment for conditions other than malignant neoplasm; Z98.84 Bariatric surgery status; K76.0 Fatty (change of) liver, not elsewhere classified; K21.9 Gastro-esophageal reflux disease without esophagitis; E78.1 Pure hyperglyceridemia; I95.1 Orthostatic hypotension

== ENCOUNTER → 2024-11-08 11:23 | Outpatient (BNVA) | payer OTHER, SELFPAY | PROVIDERS: PCP Family Medicine; Visit Provider Nurse Practitioner Family | DX: Z09 Encounter for follow-up examination after completed treatment for conditions other than malignant neoplasm (principal); E06.3 Autoimmune thyroiditis; K76.0 Fatty (change of) liver, not elsewhere classified; K21.9 Gastro-esophageal reflux disease without esophagitis; E78.1 Pure hyperglyceridemia; I95.1 Orthostatic hypotension; Z98.84 Bariatric surgery status | CPT/HCPCS: 96127; 99496 ==

== ENCOUNTER 2024-11-09 12:46 | Outpatient (AMB) | payer OTHER, SELFPAY ==
--- NOTE | 2024-11-09 13:08 | MHC.OFFVISWM ---
VS Expanded 11/09/24 13:09 BP 128/59 L Blood Pressure Location Lt brachial Blood Pressure Position Sitting Pulse 103 H Pulse Source Pulse Oximeter Temp 97.4 F Temperature Source Temporal Artery Scan Pulse Oximetry 96 Oxygen Delivery Method Room Air Height 4 ft 11 in Weight 205 lb 3.2 oz BMI 41.4 Body Fat % 47.4 Body Fat Mass 97.2 Fat Free Mass 107.8 Visceral Fat Rating 12 Body Water % 37.7 Body Water Mass 77.4 Muscle Mass/Score 102.2 Basal Metabolic Rate/Score 1,563 Intake Visit Reasons: (OV) PO LSG 11/02/24 Allergies adhesive Allergy (Intermediate, Verified 11/09/24 13:14) Rash bupropion [From Wellbutrin] Allergy (Intermediate, Verified 11/09/24 13:14) Hives cobalt Allergy (Intermediate, Verified 11/09/24 13:14) Rash nickel Allergy (Intermediate, Verified 11/09/24 13:14) Rash Medication List - Last Reconciled 11/09/24 by Ruddy Reinoso RN compr.stocking,knee,long,large Daily As directed, 90 days ondansetron 4 mg PO Q12H pantoprazole 40 mg PO DAILY@0630 sucralfate 10 mL PO BID HPI Comments Details: 29 year old female 1 week s/p LSG 11/02/2024. 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 Weight on day of surgery- 221. Tolerating 3 protein shakes each 1 scoop 4:1. Pt reports issues with HR while moving/taking care of her son. She notices palpitations. She notes her TSH went down right before surgery. She has history of thyroid issues in the past- was last on meds 10 years ago, was not on meds recently. Doing okay with hydration, got to 40oz. Having a difficult time finishing shakes- tried Celebrate unflavored also, thinks all are too sweet. Would like to change type of protein powder. Feels hungry in AM because she wakes 6am and doesn't start shake until 10am. [facility] Medical History Joint pain Lyme disease Post depression Fatty liver Pre-eclampsia Postoperative nausea High triglycerides Gestational diabetes Anxiety Hypothyroid HTN (hypertension) GERD (gastroesophageal reflux disease) Morbid obesity Hx of endometriosis Low vitamin D level IBS (irritable bowel syndrome) Diverticulitis Surgical History History of endometrial ablation Hx of cholecystectomy History of appendix removal History of esophagogastroduodenoscopy (EGD) History of wisdom tooth extraction History of tonsillectomy History of colonoscopy Family History Father History of IBS HTN (hypertension) Psoriasis Mother Lupus Skin cancer Sister Lupus Thyroid disease Cervical cancer Son No problems noted. 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 Current occupational exposures/hazards: No Cognitive needs: No Hearing needs: No Vision needs: No (reading glasses) Physical Exam Vital Signs: Last Vital Signs Temp 97.4 F 11/09/24 13:09 Pulse 103 H 11/09/24 13:09 BP 128/59 L 11/09/24 13:09 Pulse Ox 96 11/09/24 13:09 Oxygen Delivery Method Room Air 11/09/24 13:09 BMI result Body Mass Index 41.4 Const General: cooperative, comfortable and no acute distress Orientation/consciousness: patient oriented x3 GI Other: soft, nontender, nondistended, steri-strips c/d/i, no hernia, no masses Neuro General: patient oriented x3 Assessment & Plan Assessment & Plan (1) S/P laparoscopic sleeve gastrectomy: Code(s): Z98.84 - Bariatric surgery status Category: Surgical (2) Morbid obesity: Code(s): E66.01 - Morbid (severe) obesity due to excess calories Category: Medical Plan Pt may need to start MVI if she changes shake brands. She will try Celebrate caramel macchiato flavor and can mix with UAM. May shower tomorrow but no bath or submersion of abdomen in water. May start exercise in 2 days.? No abdominal exercises x 6 weeks. Abdominal binder for the next 2 weeks with activity or exercise. Continue meal plan per Dr Ureña, text him today with weight updates. Reviewed pantoprazole and carafate dosing. Reminded of the pace of drinking 2 mL/min or 1oz per 15 min. Will be emailed link for post op video for review. Work note provided. EKG ordered for complaints of palpitations. Also electrolytes. RTC 2 weeks. I spent a total of 30 minutes reviewing/updating records, examining the patient and counseling the patient on weight management as detailed above. Orders: Orders Basic Metabolic Panel Today R00.2 - Palpitations Phosphorus Today R00.2 - Palpitations ECG 12 lead EKG Today R00.2 - Palpitations Magnesium Today R00.2 - Palpitations
[2024-11-09 13:09] VITALS: BP 128/59; PULSE 103; TEMP 36.3; O2SAT 96; BMI 41.4
--- OUTSIDE RECORDS SUMMARY | 2024-11-09 13:36 | XMS_ITS | Clinical Summary ---
Author Organization [facility] Address [address] [place] [address] Care Team Providers Care Farmer Cash Grain Name Role Phone Pcp, No Primary Care [...] age to complete this topic Care Teams Farmer Cash Grain Relationship Specialty Start Date End Date Pcp, No PCP - General General Medicine 08/03/21
== END 2024-11-09 14:18 | disposition home or self-care (01) ==
PROVIDERS: PCP Family Medicine; Visit Provider Physician Assistant Surgical
DX: E66.01 Morbid (severe) obesity due to excess calories (principal); Z68.41 Body mass index [BMI] 40.0-44.9, adult; Z90.3 Acquired absence of stomach [part of]; Z98.84 Bariatric surgery status
CPT/HCPCS: 99024

== ENCOUNTER → 2024-11-09 12:46 | Outpatient (REF) | payer OTHER, SELFPAY ==
--- NOTE | 2024-11-09 14:07 | ECG_ITS ---
Test Reason : PALPITATIONS Blood Pressure : */* mmHG Vent. Rate : 99 BPM Atrial Rate : 99 BPM P-R Int : 134 ms QRS Dur : 80 ms QT Int : 348 ms P-R-T Axes : 25 42 16 degrees QTcB Int : 446 ms Normal sinus rhythm Normal ECG When compared with ECG of 23-Aug-2024 11:33, No significant change was found Referred By: Tammy Garcia Electronically Signed By: TERRY LNI
--- OUTSIDE RECORDS SUMMARY | 2024-11-09 15:02 | XMS_ITS | Clinical Summary ---
Author Organization [facility] Address [address] [place] [address] Care Team Providers Care Dredge Engineer Name Role Phone Pcp, No Primary Care [...] age to complete this topic Care Teams Dredge Engineer Relationship Specialty Start Date End Date Pcp, No PCP - General General Medicine 08/03/21
[2024-11-09 15:57] LABS: Anion Gap 20 (12-20); Blood Urea Nitrogen 9 mg/dL (9-16); Calcium 9.8 mg/dL (8.4-10.2); Carbon Dioxide 16 mmol/L (22-29); Chloride 105 mmol/L (96-108); Estimated Glomerular Filt Rate > 60; Glucose Random 77 mg/dL (60-115); Magnesium 1.6 mg/dL (1.6-2.6); Phosphorus 3.5 mg/dL (2.7-4.5); Potassium 3.9 mmol/L (3.3-5.1); Sodium 137 mmol/L (135-145)
== END ==
LOC: HO.CARD 12:46
PROVIDERS: PCP Family Medicine; Visit Provider Physician Assistant Surgical
DX: R00.2 Palpitations (principal)
CPT/HCPCS: 36415; 80048; 83735; 84100; 93005

== ENCOUNTER → 2024-11-09 14:07 | Outpatient (BNV) | payer OTHER, SELFPAY | PROVIDERS: PCP Family Medicine; Visit Provider Internal Medicine | DX: R00.2 Palpitations (principal) | CPT/HCPCS: 93010 ==

== ENCOUNTER 2024-11-10 09:47 | Emergency (ER) | payer OTHER, SELFPAY ==
[2024-11-10 10:30] VITALS: BP 104/71; PULSE 106; RESP 16; TEMP 36.3; O2SAT 99; BMI 41.5
--- NOTE | 2024-11-10 10:30 | ED.GENADULT ---
HPI - General Adult General Chief complaint: Dizziness Stated complaint: Dehydrated Related Data Home Medications ?Medication ?Instructions ?Recorded ?Confirmed pantoprazole 40 mg tablet,delayed 40 mg PO DAILY@0630 11/02/24 11/09/24 release Previous Rx's ?Medication ?Instructions ?Recorded compr.stocking,knee,long,large #12 ea 10/28/22 ondansetron 4 mg disintegrating 4 mg PO Q12H nausea and vomiting 10/22/24 tablet #20 tabs sucralfate 100 mg/mL oral 10 ml PO BID #600 mL 10/22/24 suspension Allergies Allergy/AdvReac Type Severity Reaction Status Date / Time adhesive Allergy Intermediate Rash Verified 11/10/24 10:34 bupropion [From Wellbutrin] Allergy Intermediate Hives Verified 11/10/24 10:34 cobalt Allergy Intermediate Rash Verified 11/10/24 10:34 nickel Allergy Intermediate Rash Verified 11/10/24 10:34 PMFSH Past Medical History Medical History Joint pain Lyme disease Post depression Fatty liver Pre-eclampsia Postoperative nausea High triglycerides Gestational diabetes Anxiety Hypothyroid HTN (hypertension) GERD (gastroesophageal reflux disease) Morbid obesity Hx of endometriosis Low vitamin D level IBS (irritable bowel syndrome) Diverticulitis Surgical History History of endometrial ablation Hx of cholecystectomy History of appendix removal History of esophagogastroduodenoscopy (EGD) History of wisdom tooth extraction History of tonsillectomy History of colonoscopy Family History Family History Father History of IBS HTN (hypertension) Psoriasis Mother Lupus Skin cancer Sister Lupus Thyroid disease Cervical cancer Son No problems noted. 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 Full HPI, ROS, assessment and treatment plan per primary provider in the Main ED. 29 yo female 1 wk s/p bariatric surgery w/ Dr. Knapp here w/ complaint of feeling dehydrated. endorses difficulty meeting her daily fluid intake. admits to dull left flank pain and palpitations. she had blood work done yesterday - was not contacted w/ results however is concerned she has metabolic acidosis. + well appearing Plan: labs, UA, u preg, EKG Reevaluation(s) Reevaluation #1: Patient left the emergency department before myself or any of the other clinicians could review or explain physical exam findings, test results, need or lack there of for additional testing, treatment options, or a treatment plan. Medical Decision Making Lab Data 11/10/24 10:56 11/10/24 10:56 Labs: Lab Results 11/10/24 Range/Units 10:56 WBC 8.2 (4.8-10.8) X10*3/uL RBC 5.47 D (4.20-5.50) X10*6/uL Hgb 14.3 D (12.0-16.0) g/dl Hct 42.9 D (37.0-47.0) % MCV 78.4 L (80.0-98.0) fL MCH 26.1 L (27.0-33.0) pg MCHC 33.3 (31.0-35.0) g/dl RDW 13.3 (11.0-16.0) % Plt Count 367 (160-400) X10*3/uL MPV 9.5 (9.4-12.3) fL Immature Gran % (Auto) 0.2 (0.0-0.4) % Neut % (Auto) 59.7 (45-73) % Lymph % (Auto) 27.0 (20-40) % [place] % (Auto) 7.3 (2-11) % Eos % (Auto) 5.2 H (0-4) % Baso % (Auto) 0.6 (0-2) % Lymph # (Auto) 2.2 (1.2-4.9) X10*3/uL [place] # (Auto) 0.6 (0.1-1.2) X10*3/uL Eos # (Auto) 0.4 (0.0-0.4) X10*3/uL Baso # (Auto) 0.1 (0.0-0.2) X10*3/uL Abs Immat Gran (auto) 0.02 (0.00-0.03) X10*3/uL Absolute Neuts (auto) 4.9 (2.0-8.3) x10*3/uL Absolute Nucleated RBC 0.000 (0.0-0.012) X10*3/uL Nucleated RBC % (auto) 0.0 (0.0-0.2) /100WBC Sodium 134 L (135-145) mmol/L Potassium 3.8 (3.3-5.1) mmol/L Chloride 107 (96-108) mmol/L Carbon Dioxide 14 L (22-29) mmol/L Anion Gap 17 (12-20) BUN 10 (9-16) mg/dL Creatinine 0.67 (0.5-1.4) mg/dL Estim Creat Clear Calc 121.4 Estimated GFR > 60 Random Glucose 81 (60-115) mg/dL Calcium 9.7 (8.4-10.2) mg/dL Magnesium 1.7 (1.6-2.6) mg/dL Total Bilirubin 0.4 (0.0-1.0) mg/dL AST 31 (5-31) U/L ALT 29 (0-31) U/L Alkaline Phosphatase 83 (39-117) U/L Total Protein 8.2 H (6.5-8.0) g/dL Albumin 4.3 (3.5-5.0) g/dL Lipase 17 (8-78) U/L Discharge Plan Discharge Clinical Impression: Dizziness Patient Disposition: Left W/O Completing Treatment Prescriptions: No Action pantoprazole 40 mg tablet,delayed release (DR/EC) 40 mg PO DAILY@0630 (DME) compr.stocking,knee,long,large Misc See Rx Instructions .Route Qty: 12 3RF Rx Instructions: Daily As directed, 90 days sucralfate 100 mg/mL suspension 10 ml PO BID Qty: 600 2RF ondansetron 4 mg tablet,disintegrating 4 mg PO Q12H Qty: 20 0RF Rx Instructions: Only take one every 12 hours as needed if you have nausea Discharge Date/Time: 11/10/24 15:52
--- NOTE | 2024-11-10 10:35 | ECG_ITS ---
Test Reason : DIZZINESS Blood Pressure : */* mmHG Vent. Rate : 83 BPM Atrial Rate : 83 BPM P-R Int : 140 ms QRS Dur : 74 ms QT Int : 358 ms P-R-T Axes : 7 29 5 degrees QTcB Int : 420 ms Normal sinus rhythm Normal ECG When compared with ECG of 09-Nov-2024 14:07, No significant change was found Referred By: Beatrice Rosenbaum Electronically Signed By: TERRY LIN
[2024-11-10 11:00] LABS: MANUAL DIFF FLAG NO
[2024-11-10 11:02] LABS: Basophils Absolute Auto 0.1 X10*3/uL (0.0-0.2); Basophils Percent Auto 0.6 % (0-2); Eosinophils Absolute Auto 0.4 X10*3/uL (0.0-0.4); Eosinophils Percent Auto 5.2 % (0-4); Hematocrit 42.9 % (37.0-47.0); Hemoglobin 14.3 g/dl (12.0-16.0); Imm Gran Abs Auto 0.02 X10*3/uL (0.00-0.03); Imm Gran Pct Auto 0.2 % (0.0-0.4); Lymphocytes Absolute Auto 2.2 X10*3/uL (1.2-4.9); Mean Corpuscular HGB Conc 33.3 g/dl (31.0-35.0); Mean Corpuscular Hemoglobin 26.1 pg (27.0-33.0); Mean Corpuscular Volume 78.4 fL (80.0-98.0); Mean Platelet Volume 9.5 fL (9.4-12.3); Monocytes Absolute Auto 0.6 X10*3/uL (0.1-1.2); Monocytes Percent Auto 7.3 % (2-11); Neutrophils Absolute Auto 4.9 x10*3/uL (2.0-8.3); Neutrophils Percent Auto 59.7 % (45-73); Platelet Count 367 X10*3/uL (160-400); Red Blood Count 5.47 X10*6/uL (4.20-5.50); Red Cell Distribution Width 13.3 % (11.0-16.0); White Blood Count 8.2 X10*3/uL (4.8-10.8)
[2024-11-10 11:33] LABS: Alanine Aminotransferase 29 U/L (0-31); Albumin Level 4.3 g/dL (3.5-5.0); Alkaline Phosphatase 83 U/L (39-117); Anion Gap 17 (12-20); Aspartate Amino Transferase 31 U/L (5-31); Bilirubin Total 0.4 mg/dL (0.0-1.0); Blood Urea Nitrogen 10 mg/dL (9-16); Calcium 9.7 mg/dL (8.4-10.2); Carbon Dioxide 14 mmol/L (22-29); Chloride 107 mmol/L (96-108); Creatinine Clr Calc Pharmacy 121.4; Estimated Glomerular Filt Rate > 60; Glucose Random 81 mg/dL (60-115); Lipase 17 U/L (8-78); Magnesium 1.7 mg/dL (1.6-2.6); Potassium 3.8 mmol/L (3.3-5.1); Sodium 134 mmol/L (135-145); Total Protein 8.2 g/dL (6.5-8.0)
--- OUTSIDE RECORDS SUMMARY | 2024-11-10 17:09 | XMS_ITS | Data Portability ---
Author Organization [place] - [employer] , [facility] Address [address] [place] [address] Assessment Encounter Date Assessment Date Assessment LastModified [...] touched items. See PCP in person or ear machine operator if symptoms not improved in 1-2 days. If fever, sudden change in vision or ability to keep eye open go to ER. [facility] Not available 10/26/2024 08:05:21 Plan of Treatment Reminders Order Date Submit Date Provider Last Modified By Organization Details Last Modified Time Details Appointments None recorded. Lab None recorded. Referral None recorded. Procedures None recorded. Surgeries None recorded. Imaging None recorded. Medication Orders Polytrim 10,000 unit-1 mg/mL eye drops 2024 025 [facility]/Pharmacy #[id number], [address] [place], [address], 5 08:05:59 Patient TargetsNo targets recorded. Patient InstructionsNo instructions recorded. Reason for Referral None Reported. Problems Name Problem SNOMED Code Status Onset Date Resolution Date Notes Provider Name and Address Organization Details Recorded Time Gastritis 3304062 Active 025 Angie Acosta, MARINE BIOLOGIST 1 [facility] [address], [place], [address], [employer] 5 08:04:37 Problem Notes None recorded. Medical Equipment None Reported. Allergies Allergen ID Allergen Name Allergen Category Reaction Reaction Severity Criticality Documentation Date Start Date Code Code System Note Provider Name and Address Organization Details Recorded Time 259346 cobalt environme nt Not available Not available Not available 10/26/2024 83308 00 RxNorm Not Available Included [facility] 5 06:36:36 369084 nickel environme nt Not available Not available Not available 10/26/2024 13355 29 RxNorm Not Available Included [facility] 5 06:36:36 450496 Wellbutri n medicatio n Not available Not available Not available 10/26/2024 74584 RxNorm Not Available Included [facility] 5 06:36:36 Medications Name Sig Start [...] SNOMED-CT Code Diagnosis ICD10 Code Diagnosis Note [id number] Angie Acosta [address] [address] 10/26/2024 08:00:36 10/26/2024 08:06:28 Mucopurulent conjunctivitis of left eye [id number] 55368 H10.022 Health Concerns Section Related Observation LastModified by Organization Detai ls LastModified Time None Recorded Concern Status LastModified by Organization Details LastModified Time None Recorded Advance Directives Directive None Recorded Payers Encounter Date Sequence Insurance Name Policy Number Policy Ceron Covered Member ID Ceron Member ID Guarantor Name 10/26/2024 1 [employer] - DOS PRIOR TO 2024 - Rosemary Hudson [id number] Rosemary Chunmore 10/26/2024 2 *SELF PAY* Rosemary Chunmore [id number] Rosemary Hudson Notes Date Note Type Note Provider Name and Address Organization Details Recorded Time 10/26/2024 text/html Call connected, patient greeted. Patient name, , telephone number and location verified verbally with the patient. Telemedicine limitations reviewed and verbal consent obtained to treat.Clinician attests they are physically located in the following state at the time of visit: [place]. CC: Eye Discharge HPI:29 yo female with left eye symptoms for 2 daysDischarge yellow in color presentMatting of eye is occurringNo complaints of painNo known trauma to eyeSick contactsEye does itchNo light sensitivity noticedNo history of recurrent eye infectionNo history of visual conditionNo contact lens wearLMP-2 weeks ago [facility] 1 [facility] [address], [place], [address], [place] [facility] 10/26/2024 08:06:25 OBGyn Episode No OBEpisode recorded.
--- OUTSIDE RECORDS SUMMARY | 2024-11-10 17:09 | XMS_ITS | Clinical Summary ---
Author Organization [facility] Address [address] [place] [address] Care Team Providers Care Circle Shear Operator Name Role Phone Pcp, No Primary Care [...] age to complete this topic Care Teams Circle Shear Operator Relationship Specialty Start Date End Date Pcp, No PCP - General General Medicine 08/03/21
--- OUTSIDE RECORDS SUMMARY | 2024-11-10 17:09 | XMS_ITS | Continuity of Care Document ---
Author Organization [place] - [employer] , [facility] Address [address] [place] [address] Assessment Encounter Date Assessment Date Assessment LastModified [...] touched items. See PCP in person or director financial analysis if symptoms not improved in 1-2 days. If fever, sudden change in vision or ability to keep eye open go to ER. [facility] Not available 10/26/2024 08:05:21 Plan of Treatment Reminders Order Date Submit Date Provider Last Modified By Organization Details Last Modified Time Details Appointments None recorded. Lab None recorded. Referral None recorded. Procedures None recorded. Surgeries None recorded. Imaging None recorded. Medication Orders Polytrim 10,000 unit-1 mg/mL eye drops 2024 025 [facility]/Pharmacy #[id number], [address] [place], [address], 5 08:05:59 Patient TargetsNo targets recorded. Patient InstructionsNo instructions recorded. Reason for Referral None Reported. Problems Name Problem SNOMED Code Status Onset Date Resolution Date Notes Provider Name and Address Organization Details Recorded Time Gastritis 5616292 Active 025 Angie Acosta, SENIOR FIRMWARE ENGINEER 1 [facility] [address], [place], [address], [place] [employer] 5 08:04:37 Problem Notes None recorded. Medical Equipment None Reported. Allergies Allergen ID Allergen Name Allergen Category Reaction Reaction Severity Criticality Documentation Date Start Date Code Code System Note Provider Name and Address Organization Details Recorded Time 174479 cobalt environme nt Not available Not available Not available 10/26/2024 62454 00 RxNorm Not Available Included [facility] 5 06:36:36 391681 nickel environme nt Not available Not available Not available 10/26/2024 82882 29 RxNorm Not Available Included [facility] 5 06:36:36 755571 Wellbutri n medicatio n Not available Not available Not available 10/26/2024 13293 RxNorm Not Available Included [facility] 5 06:36:36 Medications Name Sig Start Date [...] completed Not Available Not Available Not Available UNLISTED MEDICATION [Migrated medicatio n name:] Benzonata te 100 mg capsule:: 0 10/26 completed [NOT TAKIN G] Not Available Not Available Not Available Vitals [...] SNOMED-CT Code Diagnosis ICD10 Code Diagnosis Note [id number] Angie Acosta , [address] [address] 10/26/2024 08:00:36 10/26/2024 08:06:28 Mucopurulent conjunctivitis of left eye [id number] 64075 H10.022 Health Concerns Section Related Observation LastModified by Organization Detai ls LastModified Time None Recorded Concern Status LastModified by Organization Details LastModified Time None Recorded Payers Encounter Date Sequence Insurance Name Policy Number Policy Ceron Covered Member ID Ceron Member ID Guarantor Name 10/26/2024 1 [employer] - DOS PRIOR TO 2024 - Rosemary Hudson [id number] Rosemary Hudson 10/26/2024 2 *SELF PAY* Rosemary Chunmore [id number] Rosemary Hudson Notes Date Note Type Note Provider Name and Address Organization Details Recorded Time 10/26/2024 text/html Call connected, patient greeted. Patient name, , telephone number and location verified verbally with the patient. Telemedicine limitations reviewed and verbal consent obtained to treat.Clinician attests they are physically located in the following state at the time of visit: [place]. CC: Eye Discharge HPI:29 yo female with left eye symptoms for 2 daysDischarge yellow in color presentMatting of eye is occurringNo complaints of painNo known trauma to eyeSick contactsEye does itchNo light sensitivity noticedNo history of recurrent eye infectionNo history of visual conditionNo contact lens wearLMP-2 weeks ago Angie Acosta, [facility] 1 [facility] [address], [place], [address], [place] [facility] 10/26/2024 08:06:25 OBGyn Episode No OBEpisode recorded.
== END 2024-11-10 15:52 | disposition left against medical advice (07) ==
PROVIDERS: Physician Assistant Medical; Emergency Provider Student in an Organized Health Care Education/Training Program; PCP Family Medicine
DX: R42 Dizziness and giddiness (principal); E86.0 Dehydration; R00.2 Palpitations; Z79.899 Other long term (current) drug therapy
CPT/HCPCS: 36415; 80053; 83690; 83735; 85025; 93005; 99281; 99283

== ENCOUNTER 2024-11-23 13:18 | Outpatient (AMB) | payer OTHER, SELFPAY ==
--- NOTE | 2024-11-23 13:04 | A.OFFVIS_ITS ---
VS Expanded 11/23/24 13:07 Height 4 ft 11 in Weight 200 lb BMI 40.4 Intake Visit Reasons: TV PO LSG 11/02/24 *Call PT for Appt. @ 1PM* Allergies adhesive Allergy (Intermediate, Verified 11/10/24 10:34) Rash bupropion [From Wellbutrin] Allergy (Intermediate, Verified 11/10/24 10:34) Hives cobalt Allergy (Intermediate, Verified 11/10/24 10:34) Rash nickel Allergy (Intermediate, Verified 11/10/24 10:34) Rash Medication List - Last Reconciled 11/23/24 by KIRSTIN Fernandez compr.stocking,knee,long,large Daily As directed, 90 days ondansetron 4 mg PO Q12H pantoprazole 40 mg PO DAILY@0630 sucralfate 10 mL PO BID HPI Comments Details: This?is a?29?yo female who is s/p LSG 11/02/2024. Presents for 3 week post op visit. Weight at last visit on 11/09/2024 was 205.2 pounds with a BMI of 41.4, weight today is 200 pounds, representing a 5.2 pound weight loss with a BMI today of 40.4.? Pt went to ER recently for concern of dehydration, but had brought her protein shakes with her and was able to go home before she had to be seen. Pt reports doing better with fluids, got sick yesterday morning with likely a virus- having a little stomach pain but thinks unrelated to surgery. Pt reports no further episodes of tachycardia. Present meal plan includes: 2 protein shakes, 1 scoop x 2 2 protein bars 3 tbsp cottage cheese Exercise routine includes: exercised once but then got sick [facility] Medical History Joint pain Lyme disease Post depression Fatty liver Pre-eclampsia Postoperative nausea High triglycerides Gestational diabetes Anxiety Hypothyroid HTN (hypertension) GERD (gastroesophageal reflux disease) Morbid obesity Hx of endometriosis Low vitamin D level IBS (irritable bowel syndrome) Diverticulitis Surgical History History of endometrial ablation Hx of cholecystectomy History of appendix removal History of esophagogastroduodenoscopy (EGD) History of wisdom tooth extraction History of tonsillectomy History of colonoscopy Family History Father History of IBS HTN (hypertension) Psoriasis Mother Lupus Skin cancer Sister Lupus Thyroid disease Cervical cancer Son No problems noted. 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 Current occupational exposures/hazards: No Cognitive needs: No Hearing needs: No Vision needs: No (reading glasses) Telehealth Telehealth Telehealth Platform: Telephone Location of provider rendering services: practice address Location of patient: address on file Patient Identification confirmed using: Name, : Yes Telehealth method: voice only Patient verbally consented to treatment: Yes Patient verbally consented to billing insurance company: Yes Patient informed of any privacy concerns related to visit: Yes Minutes spent on Phone/Video with Pt.: 15 Assessment & Plan Assessment & Plan (1) S/P laparoscopic sleeve gastrectomy: Code(s): Z98.84 - Bariatric surgery status Category: Surgical (2) Morbid obesity: Code(s): E66.01 - Morbid (severe) obesity due to excess calories Category: Medical Plan Pt to continue meal plan per Dr Ureña as best as possible. Discussed getting back to her normal routine and increasing exercise once she recovers from illness. Hydration is improving and no further episodes of palpitations. Discussed the importance of getting adequate protein for weight loss. RTC 2-3 weeks. I spent a total of 30 minutes reviewing/updating records, examining the patient and counseling the patient on weight management as detailed above.
[2024-11-23 13:07] VITALS: BMI 40.4
--- OUTSIDE RECORDS SUMMARY | 2024-11-23 14:25 | XMS_ITS | Data Portability ---
Author Organization [place] - [employer] , [facility] Address [address] [place] [address] Assessment Encounter Date Assessment Date Assessment LastModified [...] touched items. See PCP in person or revenue field agent if symptoms not improved in 1-2 days. If fever, sudden change in vision or ability to keep eye open go to ER. [facility] Not available 10/26/2024 08:05:21 Plan of Treatment Reminders Order Date Submit Date Provider Last Modified By Organization Details Last Modified Time Details Appointments None recorded. Lab None recorded. Referral None recorded. Procedures None recorded. Surgeries None recorded. Imaging None recorded. Medication Orders Polytrim 10,000 unit-1 mg/mL eye drops 2024 025 [facility]/Pharmacy #[id number], [address] [place], [address], 5 08:05:59 Patient TargetsNo targets recorded. Patient InstructionsNo instructions recorded. Reason for Referral None Reported. Problems Name Problem SNOMED Code Status Onset Date Resolution Date Notes Provider Name and Address Organization Details Recorded Time Gastritis 8494419 Active 025 Angie Acosta, [employer] 1 [facility] [address], [place], [address], [employer] 5 08:04:37 Problem Notes None recorded. Medical Equipment None Reported. Allergies Allergen ID Allergen Name Allergen Category Reaction Reaction Severity Criticality Documentation Date Start Date Code Code System Note Provider Name and Address Organization Details Recorded Time 572145 cobalt environme nt Not available Not available Not available 10/26/2024 20643 00 RxNorm Not Available Included [facility] 5 06:36:36 289599 nickel environme nt Not available Not available Not available 10/26/2024 27311 29 RxNorm Not Available Included [facility] 5 06:36:36 451681 Wellbutri n medicatio n Not available Not available Not available 10/26/2024 14262 RxNorm Not Available Included [facility] 5 06:36:36 Medications Name Sig Start [...] SNOMED-CT Code Diagnosis ICD10 Code Diagnosis Note [id number] Angie Acosta [address] [address] 10/26/2024 08:00:36 10/26/2024 08:06:28 Mucopurulent conjunctivitis of left eye [id number] 64936 H10.022 Health Concerns Section Related Observation LastModified by Organization Detai ls LastModified Time None Recorded Concern Status LastModified by Organization Details LastModified Time None Recorded Advance Directives Directive None Recorded Payers Encounter Date Sequence Insurance Name Policy Number Policy Ceron Covered Member ID Ceron Member ID Guarantor Name 10/26/2024 1 [employer] - DOS PRIOR TO 2024 - Rosemary Hudson [id number] Rosemary Chunmore 10/26/2024 2 *SELF PAY* Rosemary Chunmore [id number] Rosemary Hudson Notes Date Note Type Note [...] contact lens wearLMP-2 weeks ago [facility] 1 [facility] [address], [place], [address], [place] [facility] 10/26/2024 08:06:25 OBGyn Episode No OBEpisode recorded.
--- OUTSIDE RECORDS SUMMARY | 2024-11-23 14:25 | XMS_ITS | Clinical Summary ---
Author Organization [facility] Address [address] [place] [address] Care Team Providers Care Truck Engine Technician Name Role Phone Pcp, No Primary Care [...] age to complete this topic Care Teams Truck Engine Technician Relationship Specialty Start Date End Date Pcp, No PCP - General General Medicine 08/03/21
--- OUTSIDE RECORDS SUMMARY | 2024-11-23 14:25 | XMS_ITS | Continuity of Care Document ---
Author Organization [place] - [employer] , [facility] Address [address] [place] [address] Assessment Encounter Date Assessment Date Assessment LastModified [...] touched items. See PCP in person or set painter if symptoms not improved in 1-2 days. If fever, sudden change in vision or ability to keep eye open go to ER. [facility] Not available 10/26/2024 08:05:21 Plan of Treatment Reminders Order Date Submit Date Provider Last Modified By Organization Details Last Modified Time Details Appointments None recorded. Lab None recorded. Referral None recorded. Procedures None recorded. Surgeries None recorded. Imaging None recorded. Medication Orders Polytrim 10,000 unit-1 mg/mL eye drops 2024 025 [facility]/Pharmacy #[id number], [address] [place], [address], 5 08:05:59 Patient TargetsNo targets recorded. Patient InstructionsNo instructions recorded. Reason for Referral None Reported. Problems Name Problem SNOMED Code Status Onset Date Resolution Date Notes Provider Name and Address Organization Details Recorded Time Gastritis 8750404 Active 025 Angie Acosta, [employer] 1 [facility] [address], [place], [address], [place] [employer] 5 08:04:37 Problem Notes None recorded. Medical Equipment None Reported. Allergies Allergen ID Allergen Name Allergen Category Reaction Reaction Severity Criticality Documentation Date Start Date Code Code System Note Provider Name and Address Organization Details Recorded Time 431867 cobalt environme nt Not available Not available Not available 10/26/2024 51042 00 RxNorm Not Available Included [facility] 5 06:36:36 430531 nickel environme nt Not available Not available Not available 10/26/2024 84863 29 RxNorm Not Available Included [facility] 5 06:36:36 288639 Wellbutri n medicatio n Not available Not available Not available 10/26/2024 68155 RxNorm Not Available Included [facility] 5 06:36:36 Medications Name Sig Start Date [...] SNOMED-CT Code Diagnosis ICD10 Code Diagnosis Note [id number] Angie Acosta , [address] [address] 10/26/2024 08:00:36 10/26/2024 08:06:28 Mucopurulent conjunctivitis of left eye [id number] 43022 H10.022 Health Concerns Section Related Observation LastModified by Organization Detai ls LastModified Time None Recorded Concern Status LastModified by Organization Details LastModified Time None Recorded Payers Encounter Date Sequence Insurance Name Policy Number Policy Ceron Covered Member ID Ceron Member ID Guarantor Name 10/26/2024 1 [employer] - DOS PRIOR TO 2024 - Rosemary Hudson [id number] Rosemary Hudson 10/26/2024 2 *SELF PAY* Rosemary Chunmore [id number] Rosemary Hudson Notes Date Note Type Note Provider Name and Address Organization Details Recorded Time 10/26/2024 text/html Call connected, patient greeted. Patient name, , telephone number and location verified verbally with the patient. Telemedicine limitations reviewed and verbal consent obtained to treat.Clinician attests they are physically located in the following state at the time of visit: [place]. CC: Eye Discharge HPI:29 yo female with left eye symptoms for 2 daysDischarge yellow in color presentMatting of eye is occurringNo complaints of painNo known trauma to eyeSick contactsEye does itchNo light sensitivity noticedNo history of recurrent eye infectionNo history of visual conditionNo contact lens wearLMP-2 weeks ago Angie Acosta, [facility] 1 [facility] [address], [place], [address], [place] [facility] 10/26/2024 08:06:25 OBGyn Episode No OBEpisode recorded.
== END 2024-11-23 13:18 | disposition home or self-care (01) ==
LOC: HO.HBS 13:18
PROVIDERS: PCP Family Medicine; Visit Provider Physician Assistant Surgical
DX: E66.01 Morbid (severe) obesity due to excess calories (principal); Z98.84 Bariatric surgery status
CPT/HCPCS: 99024

== ENCOUNTER → 2024-11-24 08:12 | Outpatient (AMB) | payer OTHER, SELFPAY ==
--- NOTE | 2024-11-24 08:00 | MHC.WMTHER ---
Intake Intake Visit Reasons: VIDEO PO LSG 11/02/24 Allergies adhesive Allergy (Intermediate, Verified 11/10/24 10:34) Rash bupropion [From Wellbutrin] Allergy (Intermediate, Verified 11/10/24 10:34) Hives cobalt Allergy (Intermediate, Verified 11/10/24 10:34) Rash nickel Allergy (Intermediate, Verified 11/10/24 10:34) Rash PFSH Medical History Joint pain Lyme disease Post depression Fatty liver Pre-eclampsia Postoperative nausea High triglycerides Gestational diabetes Anxiety Hypothyroid HTN (hypertension) GERD (gastroesophageal reflux disease) Morbid obesity Hx of endometriosis Low vitamin D level IBS (irritable bowel syndrome) Diverticulitis Surgical History History of endometrial ablation Hx of cholecystectomy History of appendix removal History of esophagogastroduodenoscopy (EGD) History of wisdom tooth extraction History of tonsillectomy History of colonoscopy Family History Father History of IBS HTN (hypertension) Psoriasis Mother Lupus Skin cancer Sister Lupus Thyroid disease Cervical cancer Son No problems noted. 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 She reports a positive surgical experience and a smooth recovery with no pain. However, her mood has fluctuated, and at times, she struggled with adhering to the liquid meal plan. The patient has been unwell for the past few days due to a respiratory illness, which has temporarily hindered her ability to exercise. Despite these challenges, she has noticed significant positive changes, including improved sleep and the fact that some clothes that had not fit her in years now do. Objective: The patient presents for a post-operative telehealth visit. We discussed her overall recovery and progress thus far. A PHQ-9 was administered, showing lower scores indicating improved mood this week. We focused on habit building, cultivating a positive mindset, and maintaining consistency. Cognitive processing interventions were introduced, and constructive feedback was provided to support her ongoing progress. Assessment/Response: Mental status: The patient is alert, oriented to time, place, and person, euthymic, and motivated. Mild disruptions to daily functioning due to illness (respiratory virus). Risk reported/identified: None. PT was open active and engaged in session. Food/Weight/Diet Expectations of change The initial goal is to lose 10% of your weight before surgery, about 25 lbs. The ultimate weight goal is 222 lbs before surgery. 08/11/2024 - Initial weight visit: 247 lb 6.4 oz 09/13/2024 weight: 239Lbs 10/04/2024: 231Lbs Pre-surgery weight: 221Lbs 11/09/2024 was 205.2 11/23/2024: 200Lbs PT target weight: 120-130Lbs - Questionnaires PHQ-9 Over the last 2 weeks, how often have you been bothered by any of the following problems? 1. Little interest or pleasure in doing things: several days (better this week.) 2. Feeling down, depressed, or hopeless: several days (PMDD) 3. Trouble falling or staying asleep, or sleeping too much: not at all 4. Feeling tired or having little energy: several days 5. Poor appetite or overeating: not at all 6. Feeling bad about yourself - or that you are a failure or have let yourself or your family down: not at all 7. Trouble concentrating on things, such as reading the newspaper or watching television: not at all 8. Moving or speaking so slowly that other people could have noticed. Or the opposite - being so fidgety or restless that you have been moving around a lot more than usual: not at all 9. Thoughts that you would be better off or of hurting yourself in some way: not at all Total score: 3 Depression Screening Interpretation: Negative Depression Screening Done: Yes 91792 - PHQ-9 Billing: Yes Source: Developed by Drs. Bari Aguillon, Ammy Fisher, Ish Grimaldo and colleagues, with an educational maldonado from [employer]. Assessment & Plan Assessment & Plan (1) PMDD (premenstrual dysphoric disorder): Code(s): F32.81 - Premenstrual dysphoric disorder (2) Adjustment disorder with anxiety: Code(s): F43.22 - Adjustment disorder with anxiety Plan We will meet again in about 3 weeks for support. Next cyndi: 12/16/2024 at 8am, Telehealth Telehealth Telehealth Telehealth Platform: [facility] Location of provider rendering services: other Location of patient: address on file Patient Identification confirmed using: Name, : Yes Telehealth method: video Patient verbally consented to treatment: Yes Patient verbally consented to billing insurance company: Yes Patient informed of any privacy concerns related to visit: Yes Minutes spent on Phone/Video with Pt.: 45 Coding Level of Care Code Established Pt Tele Psytx 45 mins (17375) Patient Type Established Diagnoses PMDD (premenstrual dysphoric disorder) F32.81 Adjustment disorder with anxiety F43.22 Additional Codes PHQ-9 - 86415 - PHQ-9 Billing: Yes ([id number]) Time Spent (min) 45
== END ==
LOC: HO.HBST 08:12
PROVIDERS: PCP Family Medicine; Visit Provider Counselor Mental Health
DX: F32.81 Premenstrual dysphoric disorder (principal); F43.22 Adjustment disorder with anxiety
CPT/HCPCS: 90834

== ENCOUNTER 2024-12-14 09:01 | Outpatient (REF) | payer OTHER, SELFPAY ==
[2024-12-14 11:48] LABS: Free T4 (Free Thyroxine) 0.96 ng/dL (0.71-1.85); Thyroid Stimulating Hormone 0.03 uIU/mL (0.32-4.0)
--- OUTSIDE RECORDS SUMMARY | 2024-12-14 11:54 | XMS_ITS | Clinical Summary ---
Author Organization Formerly [facility] Address [address] [place] [address] Care Team Providers Care Solar Systems Designer Name Role Phone Pcp, No Primary Care [...] age to complete this topic Care Teams Solar Systems Designer Relationship Specialty Start Date End Date Pcp, No PCP - General General Medicine 08/03/21
[2024-12-15 07:03] LABS: Triiodothyronine T3 Total 100 ng/dL (76-181)
[2024-12-15 11:08] LABS: Thyroid Peroxidase Antibodies 4 IU/mL (<9)
[2024-12-17 17:48] LABS: Thyroid Stimulating Immunoglob 373 % baseline (<140)
[2024-12-17 20:38] LABS: Thyrotropin Receptor Antibody 4.73 IU/L (<=2.00)
== END 2024-12-14 09:02 | disposition home or self-care (01) ==
LOC: HO.LAB 09:01
PROVIDERS: PCP Family Medicine; Visit Provider Student in an Organized Health Care Education/Training Program
DX: E05.90 Thyrotoxicosis, unspecified without thyrotoxic crisis or storm (principal)
CPT/HCPCS: 36415; 83520; 84439; 84443; 84445; 84480; 86376; 99202

== ENCOUNTER 2024-12-14 09:01 | Outpatient (AMB) | payer OTHER, SELFPAY ==
--- NOTE | 2024-12-14 09:06 | A.OFFVIS_ITS ---
Vital Signs 12/14/24 09:07 Height 4 ft 11 in Weight 205 lb 0.478 oz BMI 41.4 BP 116/68 Blood Pressure Location Rt brachial Position Sitting Pulse 79 Pulse Source Pulse Oximeter Pulse Oximetry (%) 96 Oxygen Delivery Method Room Air Intake Visit Reasons: Hypothyroidism, unspecified Intake Note: Patient present today for Hypothyroidism unspecified. Software Development Intern Required: No Accompanied by: Self / Same As Patient Allergies adhesive Allergy (Intermediate, Verified 12/14/24 09:11) Rash bupropion [From Wellbutrin] Allergy (Intermediate, Verified 12/14/24 09:11) Hives cobalt Allergy (Intermediate, Verified 12/14/24 09:11) Rash nickel Allergy (Intermediate, Verified 12/14/24 09:11) Rash Medication List - Last Reconciled 12/14/24 by Leslie Faulkner MD compr.stocking,knee,long,large Daily As directed, 90 days ondansetron 4 mg PO Q12H pantoprazole 40 mg PO DAILY@0630 sucralfate 10 mL PO BID HPI Comments Details: 29-year-old female here today for initial evaluation of hypothyroidism. 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 Labs most recently done 10/29/2024 showed TSH low at 0.01, with normal free T4 at 1.49. Prior to that in August 1024 she had a normal TSH of 1.29. Diagnosed at age 9, was on medication till 19 years old , then stopped and remained euthroid, were 50 and 75 mcg of synthroid. Did have preceding viral illness at that time. no contrast exposure recenlty. Down a total of 55 lbs, lost 25 lbs prior to surgery constipation since surgery , post suregery palpitations in Nov 02 2024 , no more. Patient currently denies heat or cold intolerance, diarrhea or constipation, hair loss, palpitation, anxiety, mood changes has PMDD, low energy, changes in appearance of eyes or vision changes, tremors, increased diaphoresis or dry skin. ? LMP 08 November, 9 months old son. 2 , one chemical Planning to use condoms Patient denies any difficulty swallowing, pain on swallowing or voice changes or difficulty breathing. Patient denies any history of childhood neck radiation. Denies having ever used lithium, amiodarone or biotin supplements. Patient denies any family history of thyroid cancer .Lots of maternal relatives Sister: hyper Mother: hypo Grandma: hypo another sister hypo No history of heart disease, no fractures Physical exam General: sitting comfortably in no acute distress HEENT: normocephalic/atraumatic, no lid lag Neck: supple, symmetrical, no thyromegaly , Cardiac: normal heart sounds Pulm: normal breath sounds B/L, no added breath sounds Abd: not distended, no tenderness Extremities: no edema, no signs of myxedema, no tremor Laboratory Tests 10/23/21 06/04/23 01/15/24 10:35 11:45 10:10 Free T4 0.88 0.83 TSH 2.15 07/09/24 08/23/24 10/29/24 09:01 11:54 07:26 Free T4 0.76 1.49 TSH 1.87 1.29 0.01 L [facility] Medical History Joint pain Lyme disease Post depression Fatty liver Pre-eclampsia Postoperative nausea High triglycerides Gestational diabetes Anxiety Hypothyroid HTN (hypertension) GERD (gastroesophageal reflux disease) Morbid obesity Hx of endometriosis Low vitamin D level IBS (irritable bowel syndrome) Diverticulitis Surgical History History of endometrial ablation Hx of cholecystectomy History of appendix removal History of esophagogastroduodenoscopy (EGD) History of wisdom tooth extraction History of tonsillectomy History of colonoscopy Family History Father History of IBS HTN (hypertension) Psoriasis Mother Lupus Skin cancer Sister Lupus Thyroid disease Cervical cancer Son No problems noted. 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 Patient does not have any significant symptoms of hyperthyroidism and does not look very hyperthyroid on my exam either. No orbitopathy, no goiter. No lid lag or tremors. She does think she might have had a preceding viral illness at the time the labs were done, possibly suggesting thyroiditis. She does have a strong maternal history of thyroid dysfunction in autoimmune disease, and I told her 1 of the differentials could possibly be Graves disease. Especially given that she had a history of hypothyroidism before she could have had underlying autoimmune thyroid disease. At this point we will repeat her labs and given degree of TSH suppression, she would meet criteria for further investigation and treatment which is includes TSH less than 0.1. Plan: -ordered TSH, free T4, total T3, TSI, TSH receptor and TPO antibodies -follow up in 2 weeks to discuss results Patient was informed and verbally consented to the use of an ambient scribe for clinic note documentation during this visit. Plan I spent 45 minutes in reviewing the record, seeing the patient and documenting in the medical record. Orders: Orders Free T4 (Free Thyroxine) Today E05.90 - Thyrotoxicosis, unspecified without thyrotoxic crisis or storm Thyrotropin Receptor Antibody Today E05.90 - Thyrotoxicosis, unspecified without thyrotoxic crisis or storm Thyroid Stimulating Hormone Today E05.90 - Thyrotoxicosis, unspecified without thyrotoxic crisis or storm Triiodothyronine T3 Total Today E05.90 - Thyrotoxicosis, unspecified without thyrotoxic crisis or storm Thyroid Peroxidase Antibodies Today E05.90 - Thyrotoxicosis, unspecified without thyrotoxic crisis or storm Thyroid Stimulating Immunoglob Today E05.90 - Thyrotoxicosis, unspecified without thyrotoxic crisis or storm Coding Level of Care Code New Pt Level 4 (68633) Diagnoses Subclinical hyperthyroidism E05.90 Time Spent (min) 45
[2024-12-14 09:07] VITALS: BP 116/68; PULSE 79; O2SAT 96; BMI 41.4
--- OUTSIDE RECORDS SUMMARY | 2024-12-14 09:56 | XMS_ITS | Data Portability ---
Author Organization [place] - [employer] , [facility] Address [address] [place] [address] Assessment Encounter Date Assessment Date Assessment LastModified [...] touched items. See PCP in person or abstracter if symptoms not improved in 1-2 days. If fever, sudden change in vision or ability to keep eye open go to ER. [facility] Not available 10/26/2024 08:05:21 Plan of Treatment Reminders Order Date Submit Date Provider Last Modified By Organization Details Last Modified Time Details Appointments None recorded. Lab None recorded. Referral None recorded. Procedures None recorded. Surgeries None recorded. Imaging None recorded. Medication Orders Polytrim 10,000 unit-1 mg/mL eye drops 2024 025 [facility]/Pharmacy #[id number], [address] [place], [address], 5 08:05:59 Patient TargetsNo targets recorded. Patient InstructionsNo instructions recorded. Reason for Referral None Reported. Problems Name Problem SNOMED Code Status Onset Date Resolution Date Notes Provider Name and Address Organization Details Recorded Time Gastritis 8650575 Active 025 Angie Acosta, SAP DIRECTOR 1 [facility] [address], [place], [address], [employer] 5 08:04:37 Problem Notes None recorded. Medical Equipment None Reported. Allergies Allergen ID Allergen Name Allergen Category Reaction Reaction Severity Criticality Documentation Date Start Date Code Code System Note Provider Name and Address Organization Details Recorded Time 776032 cobalt environme nt Not available Not available Not available 10/26/2024 25012 00 RxNorm Not Available Included [facility] 5 06:36:36 566067 nickel environme nt Not available Not available Not available 10/26/2024 54443 29 RxNorm Not Available Included [facility] 5 06:36:36 529541 Wellbutri n medicatio n Not available Not available Not available 10/26/2024 49440 RxNorm Not Available Included [facility] 5 06:36:36 Medications Name Sig [...] SNOMED-CT Code Diagnosis ICD10 Code Diagnosis Note [id number] Angie Acosta [address] [address] 10/26/2024 08:00:36 10/26/2024 08:06:28 Mucopurulent conjunctivitis of left eye [id number] 55206 H10.022 Health Concerns Section Related Observation LastModified by Organization Detai ls LastModified Time None Recorded Concern Status LastModified by Organization Details LastModified Time None Recorded Advance Directives Directive None Recorded Payers Encounter Date Sequence Insurance Name Policy Number Policy Ceron Covered Member ID Ceron Member ID Guarantor Name 10/26/2024 1 [employer] - DOS PRIOR TO 2024 - Rosemary Hudson [id number] Rosemary Chunmore 10/26/2024 2 *SELF PAY* Rosemary Chunmore [id number] Rosemary Hudson Notes Date Note Type Note Provider Name and Address Organization Details Recorded Time 10/26/2024 text/html Call connected, patient greeted. Patient name, , telephone number and location verified verbally with the patient. Telemedicine limitations reviewed and verbal consent obtained to treat.Clinician attests they are physically located in the following state at the time of visit: [place]. CC: Eye Discharge HPI:29 yo female with left eye symptoms for 2 daysDischarge yellow in color presentMatting of eye is occurringNo complaints of painNo known trauma to eyeSick contactsEye does itchNo light sensitivity noticedNo history of recurrent eye infectionNo history of visual conditionNo contact lens wearLMP-2 weeks ago [facility] 1 [facility] [address], [place], [address], [place] [facility] 10/26/2024 08:06:25 OBGyn Episode No OBEpisode recorded.
--- OUTSIDE RECORDS SUMMARY | 2024-12-14 09:56 | XMS_ITS | Clinical Summary ---
Author Organization Formerly [facility] Address [address] [place] [address] Care Team Providers Care Alum Plant Operator Name Role Phone Pcp, No Primary [...] age to complete this topic Care Teams Alum Plant Operator Relationship Specialty Start Date End Date Pcp, No PCP - General General Medicine 08/03/21
== END 2024-12-14 09:34 | disposition home or self-care (01) ==
PROVIDERS: PCP Family Medicine; Visit Provider Student in an Organized Health Care Education/Training Program
DX: E05.90 Thyrotoxicosis, unspecified without thyrotoxic crisis or storm (principal)
CPT/HCPCS: 99204

== ENCOUNTER 2024-12-15 13:37 | Outpatient (AMB) | payer OTHER, SELFPAY ==
--- NOTE | 2024-12-15 13:33 | A.OFFVIS_ITS ---
VS Expanded 12/15/24 13:40 Height 4 ft 11 in Weight 195 lb BMI 39.4 Intake Visit Reasons: TELEPHONE PO LSG 11/02/24 Allergies adhesive Allergy (Intermediate, Verified 12/14/24 09:11) Rash bupropion [From Wellbutrin] Allergy (Intermediate, Verified 12/14/24 09:11) Hives cobalt Allergy (Intermediate, Verified 12/14/24 09:11) Rash nickel Allergy (Intermediate, Verified 12/14/24 09:11) Rash Medication List - Last Reconciled 12/15/24 by KIRSTIN Fernandez compr.stocking,knee,long,large Daily As directed, 90 days ondansetron 4 mg PO Q12H pantoprazole 40 mg PO DAILY@0630 sucralfate 10 mL PO BID HPI Comments Details: This?is a?29?yo female who is s/p LSG 11/02/2024. Presents for 6 week post op visit. Weight at last visit on 11/23/2024 was 200 pounds with a BMI of 40.4, weight today is 195 pounds, representing a 5 pound weight loss with a BMI today of 39.4.? No issues with tachycardia, dizziness, lightheadedness. Had some pain around umbilicus, is wearing binder more per Dr. Ureña. Last week was difficult for pt. She reports she continues to have thyroid issues. She feels hungrier in the mornings, wonders if this is related to her hypothyroidism. Was premenstrual, also constipated- tried Metamucil, Colace, MoM. I miss vegetables Doing well with fluid intake. Present meal plan includes: 2 protein shakes, 1 scoop x 2 2 protein bars- changed to Magic [employer]oon brand 3 tbsp cottage cheese, egg or yogurt Exercise routine includes: 3x/week 30 min 300 [address], schedule limits her - 'crazier than normal recently also walks, does not track [facility] Medical History (Updated 12/15/24 @ 13:42 by KIRSTIN Fernandez) Subclinical hyperthyroidism Otitis media Otitis externa Morbid obesity with body mass index of 50 or higher Candidiasis depression Pyelonephritis Gestational diabetes Pain in symphysis pubis during Incidental Tick bite Swelling of lower extremity Screening for cervical cancer Adult general medical exam Abdominal pain History of Lyme disease Laboratory exam ordered as part of routine general medical examination Joint pain Lyme disease Post depression Fatty liver Pre-eclampsia Postoperative nausea High triglycerides Gestational diabetes Anxiety Hypothyroid HTN (hypertension) GERD (gastroesophageal reflux disease) Morbid obesity Hx of endometriosis Low vitamin D level IBS (irritable bowel syndrome) Diverticulitis Surgical History S/P laparoscopic cholecystectomy History of endometrial ablation Hx of cholecystectomy History of appendix removal History of esophagogastroduodenoscopy (EGD) History of wisdom tooth extraction History of tonsillectomy History of colonoscopy Family History Father History of IBS HTN (hypertension) Psoriasis Mother Lupus Skin cancer Sister Lupus Thyroid disease Cervical cancer Son No problems noted. 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 Current occupational exposures/hazards: No Cognitive needs: No Hearing needs: No Vision needs: No (reading glasses) Telehealth Telehealth Telehealth Platform: Telephone Location of provider rendering services: practice address Location of patient: address on file Patient Identification confirmed using: Name, : Yes Telehealth method: voice only Patient verbally consented to treatment: Yes Patient verbally consented to billing insurance company: Yes Patient informed of any privacy concerns related to visit: Yes Minutes spent on Phone/Video with Pt.: 18 Assessment & Plan Assessment & Plan (1) S/P laparoscopic sleeve gastrectomy: Code(s): Z98.84 - Bariatric surgery status Category: Surgical (2) Obesity: Code(s): E66.9 - Obesity, unspecified Category: Medical Plan Can try Citrucel plus Senna (has worked well for pt in the past). She texted Dr Ureña about feeling hungry, awaiting his response. Cleared for all exercise once she is 6 weeks. Wants recommendations for other michelet MVIs as she is having trouble tolerating Celebrate- will send via text. Suggested opening Celebrate capsule and emptying granules also. RTC 1 month. I spent a total of 30 minutes reviewing/updating records, examining the patient and counseling the patient on weight management as detailed above.
[2024-12-15 13:40] VITALS: BMI 39.4
--- OUTSIDE RECORDS SUMMARY | 2024-12-15 16:14 | XMS_ITS | Data Portability ---
Author Organization [place] - [employer] , [facility] Address [address] [place] [address] Assessment Encounter Date Assessment Date Assessment LastModified [...] touched items. See PCP in person or editing clerk if symptoms not improved in 1-2 days. If fever, sudden change in vision or ability to keep eye open go to ER. [facility] Not available 10/26/2024 08:05:21 Plan of Treatment Reminders Order Date Submit Date Provider Last Modified By Organization Details Last Modified Time Details Appointments None recorded. Lab None recorded. Referral None recorded. Procedures None recorded. Surgeries None recorded. Imaging None recorded. Medication Orders Polytrim 10,000 unit-1 mg/mL eye drops [address] [facility]/Pharmacy #[id number], [address] [place], [address], 5 08:05:59 Patient TargetsNo targets recorded. Patient InstructionsNo instructions recorded. Reason for Referral None Reported. Problems Name Problem SNOMED Code Status Onset Date Resolution Date Notes Provider Name and Address Organization Details Recorded Time Gastritis 4274373 Active 025 Angie Acosta, CLINICAL ACCOUNT MANAGER 1 [facility] [address], [place], [address], [address] 5 08:04:37 Problem Notes None recorded. Medical Equipment None Reported. Allergies Allergen ID Allergen Name Allergen Category Reaction Reaction Severity Criticality Documentation Date Start Date Code Code System Note Provider Name and Address Organization Details Recorded Time 413543 cobalt environme nt Not available Not available Not available 10/26/2024 90171 00 RxNorm Not Available [facility] 5 06:36:36 684080 nickel environme nt Not available Not available Not available 10/26/2024 08503 29 RxNorm Not Available [facility] 5 06:36:36 953327 Wellbutri n medicatio n Not available Not available Not available 10/26/2024 17878 RxNorm Not Available [facility] 5 06:36:36 Medications Name Sig Start Date [...] SNOMED-CT Code Diagnosis ICD10 Code Diagnosis Note [id number] Angie Acosta [address] [address] 10/26/2024 08:00:36 10/26/2024 08:06:28 Mucopurulent conjunctivitis of left eye [id number] 70677 H10.022 Health Concerns Section Related Observation LastModified by Organization Detai ls LastModified Time None Recorded Concern Status LastModified by Organization Details LastModified Time None Recorded Advance Directives Directive None Recorded Payers Encounter Date Sequence Insurance Name Policy Number Policy Ceron Covered Member ID Ceron Member ID Guarantor Name 10/26/2024 1 [employer] - DOS PRIOR TO 2024 - Rosemary Hudson [id number] Rosemary Chunmore 10/26/2024 2 *SELF PAY* Rosemary Chunmore [id number] Rosemary Hudson Notes Date Note Type Note Provider Name and Address Organization Details Recorded Time 10/26/2024 text/html Call connected, patient greeted. Patient name, , telephone number and location verified verbally with the patient. Telemedicine limitations reviewed and verbal consent obtained to treat.Clinician attests they are physically located in the following state at the time of visit: [place]. CC: Eye Discharge HPI:29 yo female with left eye symptoms for 2 daysDischarge yellow in color presentMatting of eye is occurringNo complaints of painNo known trauma to eyeSick contactsEye does itchNo light sensitivity noticedNo history of recurrent eye infectionNo history of visual conditionNo contact lens wearLMP-2 weeks ago [facility] 1 [facility] [address], [place], [address], [place] [facility] 10/26/2024 08:06:25 OBGyn Episode No OBEpisode recorded.
--- OUTSIDE RECORDS SUMMARY | 2024-12-15 16:14 | XMS_ITS | Clinical Summary ---
Author Organization [facility] Address [address] [place] [address] Care Team Providers Care Public Affairs Manager Name Role Phone Pcp, No Primary Care [...] 21-65) 2014 Influenza Vaccine 05/13/2024 COVID-19 Vaccine ( - 2023-2 5 season) 2024 HPV Vaccines Aged Out No longer eligi ble based on patient's age to complete this topic Pneumococcal Vaccine: Pediat frankie (0-5 Years) and At-Risk Patients (6 to 49 Years) Aged Out No longer eligible b ased on patient's age to complete this topic Care Teams Public Affairs Manager Relationship Specialty Start Date End Date Pcp, No PCP - General General Medicine 08/03/21
== END 2024-12-15 13:56 | disposition home or self-care (01) ==
LOC: HO.HBS 13:37
PROVIDERS: PCP Family Medicine; Visit Provider Physician Assistant Surgical
DX: E66.9 Obesity, unspecified (principal); Z98.84 Bariatric surgery status
CPT/HCPCS: 99024

== ENCOUNTER → 2024-12-15 13:37 | Outpatient (BNVA) | payer OTHER, SELFPAY | PROVIDERS: PCP Family Medicine; Visit Provider Physician Assistant Surgical ==

== ENCOUNTER 2024-12-16 08:17 | Outpatient (AMB) | payer OTHER, SELFPAY ==
--- NOTE | 2024-12-16 08:05 | A.OFFWM_ITS ---
Intake Intake Visit Reasons: VIDEO PO LSG 11/02/24 Allergies adhesive Allergy (Intermediate, Verified 01/06/25 13:07) Rash bupropion [From Wellbutrin] Allergy (Intermediate, Verified 01/06/25 13:07) Hives cobalt Allergy (Intermediate, Verified 01/06/25 13:07) Rash nickel Allergy (Intermediate, Verified 01/06/25 13:07) Rash PFSH Medical History Subclinical hyperthyroidism Otitis media Otitis externa Morbid obesity with body mass index of 50 or higher Candidiasis depression Pyelonephritis Gestational diabetes Pain in symphysis pubis during Incidental Tick bite Swelling of lower extremity Screening for cervical cancer Adult general medical exam Abdominal pain History of Lyme disease Laboratory exam ordered as part of routine general medical examination Joint pain Lyme disease Post depression Fatty liver Pre-eclampsia Postoperative nausea High triglycerides Gestational diabetes Anxiety Hypothyroid HTN (hypertension) GERD (gastroesophageal reflux disease) Morbid obesity Hx of endometriosis Low vitamin D level IBS (irritable bowel syndrome) Diverticulitis Surgical History S/P laparoscopic cholecystectomy History of endometrial ablation Hx of cholecystectomy History of appendix removal History of esophagogastroduodenoscopy (EGD) History of wisdom tooth extraction History of tonsillectomy History of colonoscopy Family History Father History of IBS HTN (hypertension) Psoriasis Mother Lupus Skin cancer Sister Lupus Thyroid disease Cervical cancer Son No problems noted. 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 PT reports she has been better this week, but the last 2 weeks she had her period and it was hard on her , she was mentally and physically drained. This time she still exercise and followed the meal plan. PT shared she has a history of seasonal depression by the end of summer, so she believes she might be going trough that now. Objective: PT presents for a follow up visit via Telehealth. . Discussed functioning, progress and challenges. Suggested the implementation of grounding exercises like walking in the nature when feeling heavy - Worked in a coping plan for heavy moments . Reflected on things under Vs out of her control and ways to work on her responses (within her control things). Validated and normalized feelings. Used reflective listening and constructive feedback provided. Assessment/Response: * Mental status: Mild Sx of depression, mild-mod functioning issues due to pain around her period as she has endometriosis. * Risk reported/identified: None. Food/Weight/Diet Expectations of change The initial goal is to lose 10% of your weight before surgery, about 25 lbs. The ultimate weight goal is 222 lbs before surgery. 08/11/2024 - Initial weight visit: 247 l b 6.4 oz 09/13/2024 weight: 239Lbs 10/04/2024: 231Lbs Pre-surgery weight: 221Lbs 11/09/2024 was 205.2 Lbs 11/23/2024: 200Lbs 12/07/24: 198 Lbs 12/15/24:195Lbs PT target weight: 120-130Lbs - Current meal plan: 2 shakes, 2 bar, 1 meal (3FT protein/3FT cooked vegetables). Assessment & Plan Assessment & Plan (1) PMDD (premenstrual dysphoric disorder): Code(s): F32.81 - Premenstrual dysphoric disorder (2) Adjustment disorder with anxiety: Code(s): F43.22 - Adjustment disorder with anxiety Plan F/up in 3-4 weeks. Next cyndi: 01/10 at 8am. Telehealth Telehealth Telehealth Platform: [facility] Location of provider rendering services: other Location of patient: address on file Patient Identification confirmed using: Name, : Yes Telehealth method: video Patient verbally consented to treatment: Yes Patient verbally consented to billing insurance company: Yes Patient informed of any privacy concerns related to visit: Yes Minutes spent on Phone/Video with Pt.: 55 Coding Level of Care Code Established Pt Tele Psytx >53 mins (50814) Patient Type Established Diagnoses PMDD (premenstrual dysphoric disorder) F32.81 Adjustment disorder with anxiety F43.22 Time Spent (min) 55
--- OUTSIDE RECORDS SUMMARY | 2024-12-16 08:36 | XMS_ITS | Clinical Summary ---
Author Organization [facility] Address [address] [place] [address] Care Team Providers Care Health Unit Coordinator Name Role Phone Pcp, No Primary Care [...] age to complete this topic Care Teams Health Unit Coordinator Relationship Specialty Start Date End Date Pcp, No PCP - General General Medicine 08/03/21
== END 2024-12-16 09:30 | disposition home or self-care (01) ==
LOC: HO.HBST 08:17
PROVIDERS: PCP Family Medicine; Visit Provider Counselor Mental Health
DX: F32.81 Premenstrual dysphoric disorder (principal); F43.22 Adjustment disorder with anxiety
CPT/HCPCS: 90837

== ENCOUNTER 2025-01-05 08:29 | Outpatient (AMB) | payer OTHER, SELFPAY ==
--- NOTE | 2025-01-05 08:30 | A.OFFWM_ITS ---
Intake Intake Visit Reasons: VIDEO PO LSG 11/02/24 Allergies adhesive Allergy (Intermediate, Verified 12/14/24 09:11) Rash bupropion [From Wellbutrin] Allergy (Intermediate, Verified 12/14/24 09:11) Hives cobalt Allergy (Intermediate, Verified 12/14/24 09:11) Rash nickel Allergy (Intermediate, Verified 12/14/24 09:11) Rash PFSH Medical History (Updated 12/15/24 @ 13:42 by KIRSTIN Fernandez) Subclinical hyperthyroidism Otitis media Otitis externa Morbid obesity with body mass index of 50 or higher Candidiasis depression Pyelonephritis Gestational diabetes Pain in symphysis pubis during Incidental Tick bite Swelling of lower extremity Screening for cervical cancer Adult general medical exam Abdominal pain History of Lyme disease Laboratory exam ordered as part of routine general medical examination Joint pain Lyme disease Post depression Fatty liver Pre-eclampsia Postoperative nausea High triglycerides Gestational diabetes Anxiety Hypothyroid HTN (hypertension) GERD (gastroesophageal reflux disease) Morbid obesity Hx of endometriosis Low vitamin D level IBS (irritable bowel syndrome) Diverticulitis Surgical History S/P laparoscopic cholecystectomy History of endometrial ablation Hx of cholecystectomy History of appendix removal History of esophagogastroduodenoscopy (EGD) History of wisdom tooth extraction History of tonsillectomy History of colonoscopy Family History Father History of IBS HTN (hypertension) Psoriasis Mother Lupus Skin cancer Sister Lupus Thyroid disease Cervical cancer Son No problems noted. 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 She has been under significant stress, has not been exercising as recommended, and is adjusting to her son?s new growth spurt, leading to sleep deprivation and difficulty managing daily responsibilities. Despite these challenges, she feels very hungry but is aware of her fullness cues. PT suspects her thyroid issues may be contributing to her increased hunger. Objective: PT presents for a follow-up via Telehealth. We discussed her current functioning, recent stressors, and how she is responding to them. Through reflective listening, we explored her motivations before and after weight loss surgery, her current motivations, three non-scale victories, and one personal commitment for her weight loss journey to implement this week. We also discussed what is within her control and brainstormed ways to increase physical activity. Strategies for coping with negative responses to triggers were explored, and we developed a personalized coping plan. Assessment/Response: * Mental status: Engaged, though distressed about recent weight check-in. No signs of acute distress or mood disturbances. * Risk: No safety concerns identified. Food/Weight/Diet Expectations of change The initial goal is to lose 10% of your weight before surgery, about 25 lbs. The ultimate weight goal is 222 lbs before surgery. 08/11/2024 - Initial weight visit: 247 l b 6.4 oz 09/13/2024 weight: 239Lbs 10/04/2024: 231Lbs Pre-surgery weight: 221Lbs 11/09/2024 was 205.2 Lbs 11/23/2024: 200Lbs 12/07/24: 198 Lbs 12/15/24:195Lbs 01/04/25: 189Lbs PT target weight: 120- 130 lbs - Current meal plan: 2 shakes, 2 bar, 1 meal (3FT protein/3FT cooked vegetables). PT reports been following as prescribed by , denies any snacking despite hunger. Assessment & Plan Assessment & Plan (1) PMDD (premenstrual dysphoric disorder): Code(s): F32.81 - Premenstrual dysphoric disorder (2) Adjustment disorder with anxiety: Code(s): F43.22 - Adjustment disorder with anxiety Plan Follow-up in 2 weeks. Continue with the coping plan and work on implementing strategies to increase physical activity. Next cyndi: 01/18/2025 at 1pm, Telehealth. Telehealth Telehealth Telehealth Platform: [facility] Location of provider rendering services: other Location of patient: address on file Patient Identification confirmed using: Name, : Yes Telehealth method: video Patient verbally consented to treatment: Yes Patient verbally consented to billing insurance company: Yes Patient informed of any privacy concerns related to visit: Yes Minutes spent on Phone/Video with Pt.: 42 Coding Level of Care Code Established Pt Tele Psytx 45 mins (67807) Patient Type Established Diagnoses PMDD (premenstrual dysphoric disorder) F32.81 Adjustment disorder with anxiety F43.22 Time Spent (min) 42
--- OUTSIDE RECORDS SUMMARY | 2025-01-05 08:54 | XMS_ITS | Clinical Summary ---
Author Organization [facility] Address [address] [place] [address] Care Team Providers Care Fixture Maker Name Role Phone Pcp, No Primary Care [...] age to complete this topic Care Teams Fixture Maker Relationship Specialty Start Date End Date Pcp, No PCP - General General Medicine 08/03/21
--- OUTSIDE RECORDS SUMMARY | 2025-01-05 08:54 | XMS_ITS | Data Portability ---
Author Organization [place] - [facility] , [facility] Address [address] [place] [address] Assessment Encounter Date Assessment Date Assessment LastModified [...] touched items. See PCP in person or lace pinner if symptoms not improved in 1-2 days. If fever, sudden change in vision or ability to keep eye open go [facility] ER. [facility] 10/26/2024 08:05:21 Plan of Treatment Reminders Order Date Submit Date Provider Last Modified By Organization Details Last Modified Time Details Appointments None recorded. Lab None recorded. Referral None recorded. Procedures None recorded. Surgeries None recorded. Imaging None recorded. Medication Orders Polytrim 10,000 unit-1 mg/mL eye drops 2024 025 [facility] #[id number], [address] [place], [address], 5 08:05:59 Patient TargetsNo targets recorded. Patient InstructionsNo instructions recorded. Reason for Referral None Reported. Problems Name Problem SNOMED Code Status Onset Date Resolution Date Notes Provider Name and Address Organization Details Recorded Time Gastritis 4962344 Active 025 Angie Acosta, [facility] 1 [facility] [address], [place], [address], [employer] 5 08:04:37 Problem Notes None recorded. Medical Equipment None Reported. Allergies Allergen ID Allergen Name Allergen Category Reaction Reaction Severity Criticality Documentation Date Start Date Code Code System Note Provider Name and Address Organization Details Recorded Time 281935 cobalt environme nt Not available Not available Not available 10/26/2024 61470 00 RxNorm Not Available Included [facility] 5 06:36:36 371131 nickel environme nt Not available Not available Not available 10/26/2024 21711 29 RxNorm Not Available Included [facility] 5 06:36:36 101030 Wellbutri n medicatio n Not available Not available Not available 10/26/2024 81984 RxNorm Not Available Included [facility] 5 06:36:36 Medications Name Sig Start [...] SNOMED-CT Code Diagnosis ICD10 Code Diagnosis Note [id number] Angie Acosta [address] [address] 10/26/2024 08:00:36 10/26/2024 08:06:28 Mucopurulent conjunctivitis of left eye [id number] 85824 H10.022 Health Concerns Section Related Observation LastModified by Organization Detai ls LastModified Time None Recorded Concern Status LastModified by Organization Details LastModified Time None Recorded Advance Directives Directive None Recorded Payers Encounter Date Sequence Insurance Name Policy Number Policy Ceron Covered Member ID Ceron Member ID Guarantor Name 10/26/2024 1 [employer] - DOS PRIOR TO 2024 - Rosemary Hudson [id number] Rosemary Chunmore 10/26/2024 2 *SELF PAY* Rosemary hCunmore [id number] Rosemary Hudson Notes Date Note Type Note Provider Name and Address Organization Details Recorded Time 10/26/2024 text/html Call connected, patient greeted. Patient name, , telephone number and location verified verbally with the patient. Telemedicine limitations reviewed and verbal consent obtained to treat.Clinician attests they are physically located in the following state at the time of visit: [place]. CC: Eye Discharge HPI:29 yo female with left eye symptoms for 2 daysDischarge yellow in color presentMatting of eye is occurringNo complaints of painNo known trauma to eyeSick contactsEye does itchNo light sensitivity noticedNo history of recurrent eye infectionNo history of visual conditionNo contact lens wearLMP-2 weeks ago [facility] [address] [facility] [address], [place], [address], [place] [facility] 10/26/2024 08:06:25 OBGyn Episode No OBEpisode recorded.
== END 2025-01-05 09:20 | disposition home or self-care (01) ==
LOC: HO.HBST 08:29
PROVIDERS: PCP Family Medicine; Visit Provider Counselor Mental Health
DX: F32.81 Premenstrual dysphoric disorder (principal); F43.22 Adjustment disorder with anxiety
CPT/HCPCS: 90834

== ENCOUNTER 2025-01-06 07:21 | Outpatient (REF) | payer OTHER, SELFPAY ==
[2025-01-06 07:46] LABS: MANUAL DIFF FLAG NO
[2025-01-06 08:36] LABS: Basophils Percent Auto 0.6 % (0-2); Eosinophils Absolute Auto 0.1 X10*3/uL (0.0-0.4); Eosinophils Percent Auto 1.2 % (0-4); Hematocrit 41.3 % (37.0-47.0); Hemoglobin 13.3 g/dl (12.0-16.0); Imm Gran Abs Auto 0.01 X10*3/uL (0.00-0.03); Imm Gran Pct Auto 0.2 % (0.0-0.4); Lymphocytes Percent Auto 31.3 % (20-40); Mean Corpuscular HGB Conc 32.2 g/dl (31.0-35.0); Mean Corpuscular Hemoglobin 25.9 pg (27.0-33.0); Mean Corpuscular Volume 80.5 fL (80.0-98.0); Mean Platelet Volume 10.1 fL (9.4-12.3); Monocytes Absolute Auto 0.4 X10*3/uL (0.1-1.2); Neutrophils Percent Auto 60.7 % (45-73); Platelet Count 325 X10*3/uL (160-400); Red Blood Count 5.13 X10*6/uL (4.20-5.50); Red Cell Distribution Width 16.3 % (11.0-16.0); White Blood Count 6.5 X10*3/uL (4.8-10.8)
[2025-01-06 08:55] LABS: Appearance Urine Cloudy; Color Urine Dark Yellow; Glucose Urine UA Negative (Negative); Leukocyte Esterase Urine Moderate (2+) (Negative); Nitrite Urine Negative (Negative); PH 5.5 (5.0-9.0); Specific Gravity - Urine >= 1.030 (1.005-1.025); UMIC TRIGGER UA YES; Urine Blood Negative (Negative); Urine Ketones Trace mg/dL (Negative); Urine Protein Trace mg/dL (Neg-Trace)
[2025-01-06 08:57] LABS: Alanine Aminotransferase 13 U/L (0-31); Albumin Level 4.2 g/dL (3.5-5.0); Alkaline Phosphatase 80 U/L (39-117); Anion Gap 10 (12-20); Aspartate Amino Transferase 15 U/L (5-31); Bilirubin Total 0.4 mg/dL (0.0-1.0); Blood Urea Nitrogen 16 mg/dL (9-16); Calcium 9.9 mg/dL (8.4-10.2); Carbon Dioxide 26 mmol/L (22-29); Chloride 106 mmol/L (96-108); Cholesterol 145 mg/dL (<200); Estimated Glomerular Filt Rate > 60; Glucose Fasting 92 mg/dL (60-99); HDL Cholesterol 30 mg/dL (>40); LDL Cholesterol Calculated 85 mg/dL (<100); Potassium 4.3 mmol/L (3.3-5.1); Sodium 138 mmol/L (135-145); Total Protein 7.4 g/dL (6.5-8.0); Triglycerides 152 mg/dL (<150)
[2025-01-06 09:11] LABS: Bacteria Urine 1+ (None Seen); Hyaline Casts Urine 0-2 /LPF (0-2); RBC Urine 0-2 /HPF (0-2); Squamous Epithelial Cell Urine >20 /HPF (0-2)
[2025-01-06 09:12] LABS: Creatinine Urine 301.12 mg/dL; Microalbum/Creatinine Ratio Ur 8.9 ug/mg cr (<30)
== END 2025-01-06 07:22 | disposition home or self-care (01) ==
LOC: HO.LAB 07:21
PROVIDERS: PCP Family Medicine; Visit Provider Family Medicine
DX: Z00.00 Encounter for general adult medical examination without abnormal findings (principal); E78.1 Pure hyperglyceridemia; I10 Essential (primary) hypertension; Z98.84 Bariatric surgery status; E05.90 Thyrotoxicosis, unspecified without thyrotoxic crisis or storm
CPT/HCPCS: 36415; 80053; 80061; 81001; 82043; 82570; 85025; 96127; 99212; 99395

== ENCOUNTER 2025-01-06 07:53 | Outpatient (AMB) | payer OTHER, SELFPAY ==
--- OUTSIDE RECORDS SUMMARY | 2025-01-06 07:57 | XMS_ITS | Clinical Summary ---
Author Organization [facility] Address [address] [place] [address] Care Team Providers Care Reservations Manager Name Role Phone Pcp, No Primary [...] age to complete this topic Care Teams Reservations Manager Relationship Specialty Start Date End Date Pcp, No PCP - General General Medicine 08/03/21
[2025-01-06 08:04] VITALS: BP 110/68; PULSE 66; O2SAT 100; BMI 38.7
--- NOTE | 2025-01-06 08:04 | A.OFFVIS_ITS ---
Vital Signs 01/06/25 08:04 Height 4 ft 11 in Weight 191 lb 12.835 oz BMI 38.7 BP 110/68 Blood Pressure Location Rt brachial Position Sitting Pulse 66 Pulse Source Pulse Oximeter Pulse Oximetry (%) 100 Oxygen Delivery Method Room Air Intake Visit Reasons: Subclinical hyperthyroidism Intake Note: Patient present today for Subclinical Hyperthyroidism: Accounting Auditor Required: No Accompanied by: Self / Same As Patient Allergies adhesive Allergy (Intermediate, Verified 01/06/25 08:06) Rash bupropion [From Wellbutrin] Allergy (Intermediate, Verified 01/06/25 08:06) Hives cobalt Allergy (Intermediate, Verified 01/06/25 08:06) Rash nickel Allergy (Intermediate, Verified 01/06/25 08:06) Rash Medication List - Last Reconciled 01/06/25 by Leslie Faulkner MD compr.stocking,knee,long,large Daily As directed, 90 days ondansetron 4 mg PO Q12H pantoprazole 40 mg PO DAILY@0630 sucralfate 10 mL PO BID HPI Comments Details: 29-year-old female here today for followup of hypothyroidism. 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 HPI from prior visit Labs done 10/29/2024 showed TSH low at 0.01, with normal free T4 at 1.49. Prior to that in August 1024 she had a normal TSH of 1.29. Diagnosed at age 9, was on medication till 19 years old , then stopped and remained euthroid, were 50 and 75 mcg of synthroid. Did have preceding viral illness at that time. no contrast exposure recenlty. Down a total of 55 lbs, lost 25 lbs prior to surgery constipation since surgery , post suregery palpitations in Nov 02 2024 , no more. Patient currently denies heat or cold intolerance, diarrhea or constipation, hair loss, palpitation, anxiety, mood changes has PMDD, low energy, changes in appearance of eyes or vision changes, tremors, increased diaphoresis or dry skin. ? LMP 08 November, 9 months old son. 2 , one chemical Planning to use condoms Patient denies any difficulty swallowing, pain on swallowing or voice changes or difficulty breathing. Patient denies any history of childhood neck radiation. Denies having ever used lithium, amiodarone or biotin supplements. Patient denies any family history of thyroid cancer .Lots of maternal relatives Sister: hyper Mother: hypo Grandma: hypo another sister hypo No history of heart disease, no fractures Interval history 12/14/2024: Labs showed TSH low at 0.03, free T4 normal at 0.96, total T3 normal at 100, TSI antibodies elevated at 373, TPO antibodies normal at 4, TSH receptor antibody elevated at 4.73. Lost 15 lbs since beginning of December 2024, but had sleeve gastrectomy in Oct 2024 no palpitation, no tremors No heat intolerance feels might be sweating a little bit more feels more loose stools since she started senna as she was having constipation LMP:12/14/24 feels too much anxiety and rage and hunger is increased and she is eating more than usual Physical exam General: sitting comfortably in no acute distress HEENT: normocephalic/atraumatic, no lid lag Neck: supple, symmetrical, no thyromegaly , Cardiac: normal heart sounds Pulm: normal breath sounds B/L, no added breath sounds Abd: not distended, no tenderness Extremities: no edema, no signs of myxedema, no tremor Laboratory Tests 10/29/24 12/14/24 07:26 10:20 TSH 0.01 L 0.03 L Free T4 1.49 0.96 Total T3 100 Thyroid Stim Immunoglob 373 H Thyroid Peroxidase Ab 4 TSH Receptor Ab 4.73 H Laboratory Tests 10/23/21 06/04/23 01/15/24 10:35 11:45 10:10 Free T4 0.88 0.83 TSH 2.15 07/09/24 08/23/24 10/29/24 09:01 11:54 07:26 Free T4 0.76 1.49 TSH 1.87 1.29 0.01 L [facility] Medical History (Updated 12/15/24 @ 13:42 by KIRSTIN Fernandez) Subclinical hyperthyroidism Otitis media Otitis externa Morbid obesity with body mass index of 50 or higher Candidiasis depression Pyelonephritis Gestational diabetes Pain in symphysis pubis during Incidental Tick bite Swelling of lower extremity Screening for cervical cancer Adult general medical exam Abdominal pain History of Lyme disease Laboratory exam ordered as part of routine general medical examination Joint pain Lyme disease Post depression Fatty liver Pre-eclampsia Postoperative nausea High triglycerides Gestational diabetes Anxiety Hypothyroid HTN (hypertension) GERD (gastroesophageal reflux disease) Morbid obesity Hx of endometriosis Low vitamin D level IBS (irritable bowel syndrome) Diverticulitis Surgical History S/P laparoscopic cholecystectomy History of endometrial ablation Hx of cholecystectomy History of appendix removal History of esophagogastroduodenoscopy (EGD) History of wisdom tooth extraction History of tonsillectomy History of colonoscopy Family History Father History of IBS HTN (hypertension) Psoriasis Mother Lupus Skin cancer Sister Lupus Thyroid disease Cervical cancer Son No problems noted. 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 Current occupational exposures/hazards: No Cognitive needs: No Hearing needs: No Vision needs: No (reading glasses) Physical Exam Vital Signs: BMI result Body Mass Index 38.7 Assessment & Plan Assessment & Plan (1) Subclinical hyperthyroidism: Code(s): E05.90 - Thyrotoxicosis, unspecified without thyrotoxic crisis or storm Category: Medical Plan: 29-year-old female with past medical history significant for hypothyroidism who used to be on levothyroxine from age 9- age 19, who has been biochemically euthyroid subsequently, with labs in October 2024 showing low TSH level of 0.01, with normal free T4 consistent with subclinical hyperthyroidism. Patient does does not look very hyperthyroid on my exam either. No orbitopathy, no goiter. No lid lag or tremors. She does have a strong maternal history of thyroid dysfunction , 12/14/2024: Labs showed TSH low at 0.03, free T4 normal at 0.96, total T3 normal at 100, TSI antibodies elevated at 373, TPO antibodies normal at 4, TSH receptor antibody elevated at 4.73. I explained to the patient That she classifies as low risk of complications based on age less than 65 years, premenopausal, no history of heart disease. We could potentially repeat labs in 3 months and continue to observe, however given TSH is less than 0.1, and elevated TSI and TSH receptor antibodies are consistent with a diagnosis of Graves disease, we could also treat her depending on how symptomatic she is. While my examination does not shows she is symptomatic, she is complaining of a lot of emotional turmoil due to increased rage and anxiety, and increased hunger which is bothering her a lot as she underwent bariatric surgery recently and this is counter intuitive to her goals. I explained to her that observation is an alternative in asymptomatic patients however she is leaning towards treatment. She is sexually active, I explained to her methimazole is teratogenic, and can cause serious congenital defects, patient verbalized understanding and says she does not want to go on an oral contraceptive pill but will use condoms. Plan: -start methimazole 2.5 mg daily ( half a tablet) -Do blood work in 6 week -Fup in 7 weeks The following were discussed as potential side effects of methimazole: - Serious skin rashes - nausea, vomiting, or severe hepatic injury - Agranulocytosis: a rare side effect of methimazole involves a severe decrease in the production of white blood cells. This condition is extremely serious, but affects only one out of every 200 to 500 people who take an antithyroid drug. Agranulocytosis more commonly occurs within the first three months of starting treatment with an antithyroid drug, but can occur at any time. If patient develops a fever (temperature above 100.5F), or other signs or symptoms of infection, she should stop taking the tapazole and immediately have a complete blood count (CBC) done. Serious and potentially life threatening infections, or even , can occur before agranulocytosis resolves. However, once the antithyroid drug is stopped, agranulocytosis usually resolves within a week. - Arthralgias, myalgias - Renal: Nephritis - Fever Patient will stop medication and call our office if these occur. This is a teratogenic medication, please use contraception reliably. Plan I spent 30 minutes in reviewing the record, seeing the patient and documenting in the medical record. Orders: Orders Thyroid Stimulating Hormone 6 Weeks E05.90 - Thyrotoxicosis, unspecified without thyrotoxic crisis or storm Triiodothyronine T3 Total 6 Weeks E05.90 - Thyrotoxicosis, unspecified without thyrotoxic crisis or storm Free T4 (Free Thyroxine) 6 Weeks E05.90 - Thyrotoxicosis, unspecified without thyrotoxic crisis or storm Medications: New methimazole 2.5 mg (1/2 x 5 mg) PO DAILY 30 tabs 2RF Patient Instructions: start methimazole 2.5 mg daily ( half a tablet) Do blood work in 6 week Fup in 7 weeks The following were discussed as potential side effects of methimazole: - Serious skin rashes - nausea, vomiting, or severe hepatic injury - Agranulocytosis: a rare side effect of methimazole involves a severe decrease in the production of white blood cells. This condition is extremely serious, but affects only one out of every 200 to 500 people who take an antithyroid drug. Agranulocytosis more commonly occurs within the first three months of starting treatment with an antithyroid drug, but can occur at any time. If patient develops a fever (temperature above 100.5F), or other signs or symptoms of infection, she should stop taking the tapazole and immediately have a complete blood count (CBC) done. Serious and potentially life threatening infections, or even , can occur before agranulocytosis resolves. However, once the antithyroid drug is stopped, agranulocytosis usually resolves within a week. - Arthralgias, myalgias - Renal: Nephritis - Fever Patient will stop medication and call our office if these occur. This is a teratogenic medication, please use contraception reliably. Coding Level of Care Code Est Pt Level 4 (92276) Diagnoses Subclinical hyperthyroidism E05.90 Time Spent (min) 30
== END 2025-01-06 08:26 | disposition home or self-care (01) ==
LOC: HO.ENCR 07:54
PROVIDERS: PCP Family Medicine; Visit Provider Student in an Organized Health Care Education/Training Program
DX: E05.90 Thyrotoxicosis, unspecified without thyrotoxic crisis or storm (principal)
CPT/HCPCS: 99214

== ENCOUNTER 2025-01-06 12:48 | Outpatient (AMB) | payer OTHER, SELFPAY ==
--- NOTE | 2025-01-06 13:03 | MHC.PC.OV ---
Vital Signs 01/06/25 13:09 Height 4 ft 11 in Weight 191 lb 8 oz BMI 38.7 BP 110/60 Blood Pressure Location Rt brachial Position Sitting Respiration 16 Pulse 97 Pulse Source Pulse Oximeter Temp 98.2 F Temp Source Oral Pulse Oximetry (%) 96 Oxygen Delivery Method Room Air Intake Visit Reasons: cpe (Pls keep appt) Intake Note: patient is scheduled for cpe Any Commodity Sales Deliverer Required: No Is last menstrual period known: Yes Last menstrual period: 12/14/24 Post menopausal: No Patient : No Allergies adhesive Allergy (Intermediate, Verified 01/06/25 13:07) Rash bupropion [From Wellbutrin] Allergy (Intermediate, Verified 01/06/25 13:07) Hives cobalt Allergy (Intermediate, Verified 01/06/25 13:07) Rash nickel Allergy (Intermediate, Verified 01/06/25 13:07) Rash Tobacco use date assessed: 11/08/24 Dental Screening Dental Screen Date: 01/01/24 HPI cpe (Pls keep appt) HPI Details Patient?presents?for?CPE Recent?diagnosis?of?subclinical?hyperthyroidism?and?likely?Graves?disease. TSH?is?suppressed?and?T3?and?T4?are?within?normal?range. Thyroid?stimulating?immune?globulin?and?thyroid?stimulating?hormone?receptor?antibody?are?elevated. She?has?been?started?on?methimazole. Doing?well?with?weight?loss?after?gastric?sleeve.??Followed?by?bariatric?surgery. No?complaints.??Patient?feels?well [facility] Medical History Subclinical hyperthyroidism Otitis media Otitis externa Morbid obesity with body mass index of 50 or higher Candidiasis depression Pyelonephritis Gestational diabetes Pain in symphysis pubis during Incidental Tick bite Swelling of lower extremity Screening for cervical cancer Adult general medical exam Abdominal pain History of Lyme disease Laboratory exam ordered as part of routine general medical examination Joint pain Lyme disease Post depression Fatty liver Pre-eclampsia Postoperative nausea High triglycerides Gestational diabetes Anxiety Hypothyroid HTN (hypertension) GERD (gastroesophageal reflux disease) Morbid obesity Hx of endometriosis Low vitamin D level IBS (irritable bowel syndrome) Diverticulitis Surgical History S/P laparoscopic cholecystectomy History of endometrial ablation Hx of cholecystectomy History of appendix removal History of esophagogastroduodenoscopy (EGD) History of wisdom tooth extraction History of tonsillectomy History of colonoscopy Family History Father History of IBS HTN (hypertension) Psoriasis Mother Lupus Skin cancer Sister Lupus Thyroid disease Cervical cancer Son No problems noted. 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 1. Little interest or pleasure in doing things: not at all 2. Feeling down, depressed, or hopeless: not at all 3. Trouble falling or staying asleep, or sleeping too much: more than half the days 4. Feeling tired or having little energy: nearly every day 5. Poor appetite or overeating: not at all 6. Feeling bad about yourself - or that you are a failure or have let yourself or your family down: not at all 7. Trouble concentrating on things, such as reading the newspaper or watching television: not at all 8. Moving or speaking so slowly that other people could have noticed. Or the opposite - being so fidgety or restless that you have been moving around a lot more than usual: not at all 9. Thoughts that you would be better off or of hurting yourself in some way: not at all Total score: 5 Depression Screening Interpretation: Negative Depression Screening Done: Yes 63979 - PHQ-9 Billing: Yes Source: Developed by Drs. Bari Aguillon, Ammy FisherIsh and colleagues, with an educational maldonado from [employer]. Thrive Questionnaire Date Thrive assessed: 01/06/25 I am a: Patient What is your living situation today?: I have a steady place to live Within the past 12 months, did the food you bought not last and you didn't have the money to get more?: Never true Within the past 12 months, did you worry whether your food would run out before you got money to buy more?: Never true Do you have trouble paying for medicines?: No Do you have trouble getting transportation to medical appointments?: No Do you have trouble paying your heating and electricity bill?: No Do you have trouble taking care of your child, family member or friend?: No Do you have trouble with day-to-day activities such as bathing, preparing meals, shopping, managing finances, etc.?: No Are you currently unemployed and looking for a job?: No Are you interested in more education?: No Please select the resources that you would like help with: None Currently or been in a relationship where the following occur: No concerns reported THRIVE Score: 0 AUDIT C Alcohol Use Questionnaire (AUDIT-C) 1. How often do you have a drink containing alcohol?: Never 3. How often do you have six or more drinks on one occasion?: Never Total Score: 0 Score Reviewed/Action Taken: Yes JADON-7 AMB Questionnaire JADON-7 Date JADON - 7 assessed: 01/06/25 Feeling nervous, anxious, or on edge: 2 = More than half the days Not being able to stop or control worryin = Not at all Worrying too much about different things: 0 = Not at all Trouble relaxin = Not at all Being so restless that it is hard to sit still: 0 = Not at all Becoming easily annoyed or irritable: 2 = More than half the days Feeling afraid as if something awful might happen: 0 = Not at all Total JADON-7 score (0-4 normal; 5-9 mild; 10-14 moderate; 15-21 severe): 4 Source: Developed by Drs. Bari Aguillon, Ammy Fisher, Ish Grimaldo and colleagues, with an educational maldonado from [employer]. JADON-7 Assessment Billing JADON-7 Assessment Tool: JADON-7 Assessment 88463 Review of Systems Const Denies chills, Denies fatigue, Denies fever(s), Denies headache(s) and Denies weakness Eyes Denies change in vision ENT Denies dizziness, Denies headache(s), Denies hearing loss, Denies nasal congestion, Denies sinus pain, Denies sinus pressure and Denies sore throat Card Denies chest pain, Denies lightheadedness, Denies dyspnea and Denies other (palpitations) Resp Denies cough, Denies dyspnea and Denies wheezing GI Denies abdominal pain, Denies melena, Denies hematochezia, Denies change in bowel habits, Denies dyspepsia and Denies nausea Denies hematuria and Denies dysuria Musc Denies abnormal gait, Denies myalgias, Denies arthralgias, Denies numbness and Denies tingling Skin/Breast Denies rash, Denies unusual bruising and Denies wounds Neuro Denies abnormal gait, Denies dizziness, Denies headache(s), Denies memory loss, Denies numbness, Denies Sensory deficit (Neuro), Denies tingling and Denies weakness Psych Denies anxiety, Denies depression and Denies memory loss Endo Denies cold intolerance, Denies fatigue, Denies heat intolerance, Denies polydipsia and Denies polyuria Jeremiah/Lymph Denies easy bleeding and Denies easy bruising Aller/Immun Denies wheezing Physical exam (Primary Care) Vital Signs: Last Vital Signs Temp 98.2 F 01/06/25 13:09 Pulse 97 01/06/25 13:09 Resp 16 01/06/25 13:09 BP 110/60 01/06/25 13:09 Pulse Ox 96 01/06/25 13:09 Oxygen Delivery Method Room Air 01/06/25 13:09 BMI result Body Mass Index 38.7 Tobacco/Smoking Status: Tobacco use Status Tobacco use date assessed 11/08/24 01/06/25 13:12 Patient Tobacco Use Status Never used Tobacco 01/06/25 13:12 e-Cigarette/Vaping Use Never Used 01/06/25 13:12 PHQ-9: PHQ-9 Score PHQ-9: Total score 5 01/06/25 13:12 Depression Screening Interpretation: Negative Thrive Assessment: Date of Thrive Assessment Date Thrive assessed 03/27/25 03/27/25 13:12 Currently or been in a relationship where the following occur: No concerns reported Const General: no acute distress, well developed, alert and awake Nutritional Appearance: well nourished and obese Orientation/consciousness: patient oriented x3 [facility] Head: Yes normocephalic and Yes atraumatic Ears: hearing grossly normal bilaterally and TM's normal bilaterally General nose exam: Normal external nose present and Normal nares present Mouth: Normal oral and palatal mucosa present and moist mucous membranes Teeth and gingiva: dentition normal Throat: Yes posterior oropharynx normal Eyes Pupils: Equal, round and reactive pupils present and Pupil accommodation reflex normal EOM: EOMs intact bilaterally Neck Neck: Yes normal visual inspection, Yes no lymphadenopathy and Yes trachea midline Thyroid: Thyroid normal Carotids: no bruits Lymphatic: no lymphadenopathy noted Chest Chest palpation & inspection: normal inspection of the chest Resp Effort & Inspection: normal respiratory effort Auscultation: clear to auscultation bilaterally Cardio Rate: regular rate Rhythm: regular rhythm Heart sounds: S1 normal heart sound present, S2 normal heart sound present, no gallops, no murmurs and no rubs Bruits: no abdominal aortic bruits and no carotid bruits GI Palpation (GI): No Abdominal aortic bruit present, Soft to palpation, nontender, No hepatosplenomegaly present and No Rebound tenderness present Auscultation: normal bowel sounds General: Yes no CVA tenderness Back/Spine/Pelvis Back: no CVA tenderness Cervical Spine: cervical ROM normal and No Cervical spine tenderness Thoracic/Lumbar Spine: thoraco-lumbar ROM normal, No pain with thoraco-lumbar ROM, No thoracic spinal tenderness and No lumbar spinal tenderness Skin Lesions: no lesions Rashes: no rashes Trauma: no lacerations or abrasions Wounds: no wounds Nails: normal Neuro General: patient oriented x3, gait normal and CN's II-XI intact bilaterally Cranial nerves: Yes Equal, round and reactive pupils present Cognition (Neuro): normal cognition Gait exam (Neuro): Normal gait present Motor exam (neuro): 5/5 motor strength present throughout Sensory Exam: No Sensory deficit (Neuro) Deep tendon reflexes (DTR's): Right patellar reflex intensity grade: 2+ and Left patellar reflex intensity grade: 2+ Extrem General: Yes normal to inspection and No edema Psych Appearance: grossly normal Affect: normal affect Attitude: cooperative Thought process: Normal thought process present Coding Level of Care Code Est Pt Prev Care 18-39y(63745) Diagnoses Annual physical exam Z00.00 Subclinical hyperthyroidism E05.90 S/P laparoscopic sleeve gastrectomy Z98.84 Screening for cervical cancer Z12.4 Additional Codes JADON-7 Assessment Billing - JADON-7 Assessment Tool: JADON-7 Assessment 38773 ([id number]) PHQ-9 - 76229 - PHQ-9 Billing: Yes ([id number]) Assessment & Plan Assessment & Plan (1) Annual physical exam: Code(s): Z00.00 - Encounter for general adult medical examination without abnormal findings Category: Medical Plan: 29-year-old?female?presents?for?complete?physical?exam Encouraged?healthy?diet?with?active?lifestyle?and?plenty?of?exercise (2) Subclinical hyperthyroidism: Code(s): E05.90 - Thyrotoxicosis, unspecified without thyrotoxic crisis or storm Category: Medical Plan: Recent?diagnosis?of?subclinical?hyperthyroidism?and?likely?Graves?disease 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 Follow-up?with?bariatric?as?recommended (4) Screening for cervical cancer: Code(s): Z12.4 - Encounter for screening for malignant neoplasm of cervix Plan: Recent?Pap?smear?about?2?weeks?ago.??I?do?not?have?the?records?currently Up-to-date.??Follow-up?with?pediatric occupational therapist?as?recommend
[2025-01-06 13:09] VITALS: BP 110/60; PULSE 97; RESP 16; TEMP 36.8; O2SAT 96; BMI 38.7
--- OUTSIDE RECORDS SUMMARY | 2025-01-06 15:51 | XMS_ITS | Clinical Summary ---
Author Organization Formerly [facility] Address [address] [place] [address] Care Team Providers Care It Security Consultant Name Role Phone Pcp, No Primary Care [...] age to complete this topic Care Teams It Security Consultant Relationship Specialty Start Date End Date Pcp, No PCP - General General Medicine 08/03/21
--- OUTSIDE RECORDS SUMMARY | 2025-01-06 15:51 | XMS_ITS | Data Portability ---
Author Organization [place] [facility] , [facility] Address [address] [place] [address] Assessment Encounter Date Assessment Date Assessment LastModified [...] touched items. See PCP in person or gypsum calciner if symptoms not improved in 1-2 days. If fever, sudden change in vision or ability to keep eye open go to ER. [email or web address] Not available 10/26/2024 08:05:21 Plan of Treatment Reminders Order Date Submit Date Provider Last Modified By Organization Details Last Modified Time Details Appointments None recorded. Lab None recorded. Referral None recorded. Procedures None recorded. Surgeries None recorded. Imaging None recorded. Medication Orders Polytrim 10,000 unit-1 mg/mL eye drops 2024 025 [id number], [address] [place], [address], 5 08:05:59 Patient TargetsNo targets recorded. Patient InstructionsNo instructions recorded. Reason for Referral None Reported. Problems Name Problem SNOMED Code Status Onset Date Resolution Date Notes Provider Name and Address Organization Details Recorded Time Gastritis 2149708 Active 025 Angie Acosta, CLINICAL SECRETARY 1 [facility] [address], [place], [address], [employer] 5 08:04:37 Problem Notes None recorded. Medical Equipment None Reported. Allergies Allergen ID Allergen Name Allergen Category Reaction Reaction Severity Criticality Documentation Date Start Date Code Code System Note Provider Name and Address Organization Details Recorded Time 265822 cobalt environme nt Not available Not available Not available 10/26/2024 16216 00 RxNorm Not Available Included [facility] 5 06:36:36 584646 nickel environme nt Not available Not available Not available 10/26/2024 22290 29 RxNorm Not Available Included [facility] 5 06:36:36 556408 Wellbutri n medicatio n Not available Not available Not available 10/26/2024 92779 RxNorm Not Available Included [facility] 5 06:36:36 Medications Name Sig Start [...] SNOMED-CT Code Diagnosis ICD10 Code Diagnosis Note [id number] Angie Acosta [address] [address] 10/26/2024 08:00:36 10/26/2024 08:06:28 Mucopurulent conjunctivitis of left eye [id number] 60845 H10.022 Health Concerns Section Related Observation LastModified by Organization Detai ls LastModified Time None Recorded Concern Status LastModified by Organization Details LastModified Time None Recorded Advance Directives Directive None Recorded Payers Encounter Date Sequence Insurance Name Policy Number Policy Ceron Covered Member ID Ceron Member ID Guarantor Name 10/26/2024 1 [employer] - DOS PRIOR TO 2024 - Rosemary Hudson [id number] Rosemary Chunmore 10/26/2024 2 *SELF PAY* Rosemary Chunmore [id number] Rosemary Hudson Notes Date Note Type Note Provider Name and Address Organization Details Recorded Time 10/26/2024 text/html Call connected, patient greeted. Patient name, , telephone number and location verified verbally with the patient. Telemedicine limitations reviewed and verbal consent obtained to treat.Clinician attests they are physically located in the following state at the time of visit: [place]. CC: Eye Discharge HPI:29 yo female with left eye symptoms for 2 daysDischarge yellow in color presentMatting of eye is occurringNo complaints of painNo known trauma to eyeSick contactsEye does itchNo light sensitivity noticedNo history of recurrent eye infectionNo history of visual conditionNo contact lens wearLMP-2 weeks ago [facility] [address], [place], [address], [place] [facility] 10/26/2024 08:06:25 OBGyn Episode No OBEpisode recorded.
== END 2025-01-06 13:27 | disposition home or self-care (01) ==
LOC: HO.HMCFM 12:49
PROVIDERS: PCP Family Medicine; Visit Provider Family Medicine
DX: Z00.00 Encounter for general adult medical examination without abnormal findings (principal); E05.90 Thyrotoxicosis, unspecified without thyrotoxic crisis or storm; Z98.84 Bariatric surgery status; Z12.4 Encounter for screening for malignant neoplasm of cervix

== ENCOUNTER 2025-01-17 13:22 | Outpatient (AMB) | payer OTHER, SELFPAY ==
--- NOTE | 2025-01-17 13:05 | MHC.OFFVISWM ---
VS Expanded 01/17/25 13:10 Height 4 ft 11 in Weight 185 lb BMI 37.4 Intake Visit Reasons: TV PO LSG 11/02/24 Allergies adhesive Allergy (Intermediate, Verified 01/06/25 13:07) Rash bupropion [From Wellbutrin] Allergy (Intermediate, Verified 01/06/25 13:07) Hives cobalt Allergy (Intermediate, Verified 01/06/25 13:07) Rash nickel Allergy (Intermediate, Verified 01/06/25 13:07) Rash Medication List - Last Reconciled 01/17/25 by KIRSTIN Fernandez compr.stocking,knee,long,large Daily As directed, 90 days methimazole 2.5 mg (1/2 x 5 mg) PO DAILY pantoprazole 20 mg PO DAILY sennosides (senna) 8.6 mg PO BEDTIME sucralfate 10 mL PO BID HPI Comments Details: This?is a?29?yo female who is s/p LSG 11/02/2024. Presents for 2.5 month post op visit. Weight at last visit on 12/15/2024 was 195 pounds with a BMI of 39.4, weight today is 185 pounds, representing a 10 pound weight loss with a BMI today of 37.5.? No complaints of nausea, emesis, abdominal pain or reflux, or constipation. Recently diagnosed with Graves' dz, started on methimazole. Does not want to communicate with Dr Ureña anymore, seeing Mikayla and finds that helpful. Present meal plan includes: 2 Celebrate Rebuild protein shakes, 1/2 scoop in 8oz UAM x 2, 7-9am and 1-3pm -sometimes will use premade shake but only drinks half, so protein is the same 2 protein bars- Magic Spoon brand or Built puffs 3 ff meat, 3ff veg then 1 shake at night with 1 scoop using Fusion MVI, tolerating this better Exercise routine includes: worked out 5x last week, 270-390 josephine also walks, does not track [facility] Medical History Subclinical hyperthyroidism Otitis media Otitis externa Morbid obesity with body mass index of 50 or higher Candidiasis depression Pyelonephritis Gestational diabetes Pain in symphysis pubis during Incidental Tick bite Swelling of lower extremity Screening for cervical cancer Adult general medical exam Abdominal pain History of Lyme disease Laboratory exam ordered as part of routine general medical examination Joint pain Lyme disease Post depression Fatty liver Pre-eclampsia Postoperative nausea High triglycerides Gestational diabetes Anxiety Hypothyroid HTN (hypertension) GERD (gastroesophageal reflux disease) Morbid obesity Hx of endometriosis Low vitamin D level IBS (irritable bowel syndrome) Diverticulitis Surgical History S/P laparoscopic cholecystectomy History of endometrial ablation Hx of cholecystectomy History of appendix removal History of esophagogastroduodenoscopy (EGD) History of wisdom tooth extraction History of tonsillectomy History of colonoscopy Family History Father History of IBS HTN (hypertension) Psoriasis Mother Lupus Skin cancer Sister Lupus Thyroid disease Cervical cancer Son No problems noted. 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 Current occupational exposures/hazards: No Cognitive needs: No Hearing needs: No Vision needs: No (reading glasses) Telehealth Telehealth Telehealth Platform: Telephone Location of provider rendering services: practice address Location of patient: address on file Patient Identification confirmed using: Name, : Yes Telehealth method: voice only Patient verbally consented to treatment: Yes Patient verbally consented to billing insurance company: Yes Patient informed of any privacy concerns related to visit: Yes Minutes spent on Phone/Video with Pt.: 16 Assessment & Plan Assessment & Plan (1) Obesity: Code(s): E66.9 - Obesity, unspecified Category: Medical (2) S/P laparoscopic sleeve gastrectomy: Code(s): Z98.84 - Bariatric surgery status Category: Surgical Plan Pt to continue current meal plan, doing better with exercise. Has another appt with Mikayla coming up. Has endo followup scheduled. Due to complete PPI and carafate. Sent healthy foods list. RTC 1 month.
[2025-01-17 13:10] VITALS: BMI 37.4
--- OUTSIDE RECORDS SUMMARY | 2025-01-17 15:52 | XMS_ITS | Clinical Summary ---
Author Organization Formerly [facility] Address [address] [place] [address] Care Team Providers Care Engineering Job Titles Name Role Phone Pcp, No Primary Care [...] age to complete this topic Care Teams Engineering Job Titles Relationship Specialty Start Date End Date Pcp, No PCP - General General Medicine 08/03/21
--- OUTSIDE RECORDS SUMMARY | 2025-01-17 15:53 | XMS_ITS | Data Portability ---
Author Organization [place] [employer] , [facility] Address [address] [place] [address] Assessment Encounter Date Assessment Date Assessment LastModified [...] touched items. See PCP in person or switchgear repairer if symptoms not improved in 1-2 days. If fever, sudden change in vision or ability to keep eye open go to ER. [facility] Not available 10/26/2024 08:05:21 Plan of Treatment Reminders Order Date Submit Date Provider Last Modified By Organization Details Last Modified Time Details Appointments None recorded. Lab None recorded. Referral None recorded. Procedures None recorded. Surgeries None recorded. Imaging None recorded. Medication Orders Polytrim 10,000 unit-1 mg/mL eye drops 2024 025 [facility]/Pharmacy #[id number], [address] [place], [address], 5 08:05:59 Patient TargetsNo targets recorded. Patient InstructionsNo instructions recorded. Reason for Referral None Reported. Problems Name Problem SNOMED Code Status Onset Date Resolution Date Notes Provider Name and Address Organization Details Recorded Time Gastritis 0077714 Active 025 Angie Acosta, [employer] 1 [facility] [address], [place], [address], [employer] 5 08:04:37 Problem Notes None recorded. Medical Equipment None Reported. Allergies Allergen ID Allergen Name Allergen Category Reaction Reaction Severity Criticality Documentation Date Start Date Code Code System Note Provider Name and Address Organization Details Recorded Time 914146 cobalt environme nt Not available Not available Not available 10/26/2024 18046 00 RxNorm Not Available Included [facility] 5 06:36:36 904912 nickel environme nt Not available Not available Not available 10/26/2024 99917 29 RxNorm Not Available Included [facility] 5 06:36:36 810666 Wellbutri n medicatio n Not available Not available Not available 10/26/2024 38434 RxNorm Not Available Included [facility] 5 06:36:36 Medications Name Sig Start [...] SNOMED-CT Code Diagnosis ICD10 Code Diagnosis Note [id number] Angie Acosta [address] [address] 10/26/2024 08:00:36 10/26/2024 08:06:28 Mucopurulent conjunctivitis of left eye [id number] 43088 H10.022 Health Concerns Section Related Observation LastModified by Organization Detai ls LastModified Time None Recorded Concern Status LastModified by Organization Details LastModified Time None Recorded Advance Directives Directive None Recorded Payers Encounter Date Sequence Insurance Name Policy Number Policy Ceron Covered Member ID Ceron Member ID Guarantor Name 10/26/2024 1 [employer] - DOS PRIOR TO 2024 - Rosemary Hudson [id number] Rosemary Chunmore 10/26/2024 2 *SELF PAY* Rosemary Chunmore [id number] Rosemary Hudson Notes Date Note Type Note Provider Name and Address Organization Details Recorded Time 10/26/2024 text/html Call connected, patient greeted. Patient name, , telephone number and location verified verbally with the patient. Telemedicine limitations reviewed and verbal consent obtained to treat.Clinician attests they are physically located in the following state at the time of visit: [place]. CC: Eye Discharge HPI:29 yo female with left eye symptoms for 2 daysDischarge yellow in color presentMatting of eye is occurringNo complaints of painNo known trauma to eyeSick contactsEye does itchNo light sensitivity noticedNo history of recurrent eye infectionNo history of visual conditionNo contact lens wearLMP-2 weeks ago [facility] 1 [facility] [address], [place], [address], [place] [facility] 10/26/2024 08:06:25 OBGyn Episode No OBEpisode recorded.
== END 2025-01-17 13:24 | disposition home or self-care (01) ==
LOC: HO.HBS 13:22
PROVIDERS: PCP Family Medicine; Visit Provider Physician Assistant Surgical
DX: E66.9 Obesity, unspecified (principal); Z98.84 Bariatric surgery status
CPT/HCPCS: 99024

== ENCOUNTER → 2025-01-17 13:22 | Outpatient (BNVA) | payer OTHER, SELFPAY | PROVIDERS: PCP Family Medicine; Visit Provider Physician Assistant Surgical ==

== ENCOUNTER 2025-01-18 13:17 | Outpatient (AMB) | payer OTHER, SELFPAY ==
--- NOTE | 2025-01-18 13:00 | MHC.WMTHER ---
Intake Intake Visit Reasons: VIDEO PO LSG 11/02/24 Allergies adhesive Allergy (Intermediate, Verified 03/01/25 07:52) Rash bupropion [From Wellbutrin] Allergy (Intermediate, Verified 03/01/25 07:52) Hives cobalt Allergy (Intermediate, Verified 03/01/25 07:52) Rash nickel Allergy (Intermediate, Verified 03/01/25 07:52) Rash PFSH Medical History Subclinical hyperthyroidism Otitis media Otitis externa Morbid obesity with body mass index of 50 or higher Candidiasis depression Pyelonephritis Gestational diabetes Pain in symphysis pubis during Incidental Tick bite Swelling of lower extremity Screening for cervical cancer Adult general medical exam Abdominal pain History of Lyme disease Laboratory exam ordered as part of routine general medical examination Joint pain Lyme disease Post depression Fatty liver Pre-eclampsia Postoperative nausea High triglycerides Gestational diabetes Anxiety Hypothyroid HTN (hypertension) GERD (gastroesophageal reflux disease) Morbid obesity Hx of endometriosis Low vitamin D level IBS (irritable bowel syndrome) Diverticulitis Surgical History S/P laparoscopic cholecystectomy History of endometrial ablation Hx of cholecystectomy History of appendix removal History of esophagogastroduodenoscopy (EGD) History of wisdom tooth extraction History of tonsillectomy History of colonoscopy Family History Father History of IBS HTN (hypertension) Psoriasis Mother Lupus Skin cancer Sister Lupus Thyroid disease Cervical cancer Son No problems noted. 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 she also went to see her poultry offal worker and after she started a new medication, she has been feeling better. Hunger have decreased and feels with more energy and motivated, also has been exercising daily. Objective: PT presents for a follow-up via Telehealth. . Supported client to continue her weight-loss journey redefining her goals/motivations and be back on track with excercise/meal plan. Used CBT and Strength-based approach. Assessment/Response: Mental status: WNL. Risk: No safety concerns identified. Food/Weight/Diet Expectations of change The initial goal is to lose 10% of your weight before surgery, about 25 lbs. The ultimate weight goal is 222 lbs before surgery. 08/11/2024 - Initial weight visit: 247 lb 6.4 oz 09/13/2024 weight: 239Lbs 10/04/2024: 231Lbs Pre-surgery weight: 221Lbs 11/09/2024 was 205.2 Lbs 11/23/2024: 200Lbs 12/07/24: 198 Lbs 12/15/24:195Lbs 01/04/25: 189Lbs 01/18/2025: 185Lbs. PT target weight: 120- 130 lbs - Current meal plan: 2 shakes, 2 bar, 1 meal (3FT protein/3FT cooked vegetables). PT reports having been following as prescribed by , denies any snacking despite hunger. Assessment & Plan Assessment & Plan (1) PMDD (premenstrual dysphoric disorder): Code(s): F32.81 - Premenstrual dysphoric disorder (2) Adjustment disorder with anxiety: Code(s): F43.22 - Adjustment disorder with anxiety (3) Status post bariatric surgery: Code(s): Z98.84 - Bariatric surgery status Plan PT to implement behavioral activation plan. F/up in 1 month. Next cyndi: 02/15/2025 at 1pm, via Telehealth Telehealth Telehealth [facility]health [facility] Location of provider rendering services: other Location of patient: address on file Patient Identification confirmed using: Name, : Yes Telehealth method: video Patient verbally consented to treatment: Yes Patient verbally consented to billing insurance company: Yes Patient informed of any privacy concerns related to visit: Yes Minutes spent on Phone/Video with Pt.: 50 Coding Level of Care Code Established Pt Tele Psytx 45 mins (93156) Patient Type Established Diagnoses PMDD (premenstrual dysphoric disorder) F32.81 Adjustment disorder with anxiety F43.22 Status post bariatric surgery Z98.84 Time Spent (min) 50
--- OUTSIDE RECORDS SUMMARY | 2025-01-18 16:11 | XMS_ITS | Data Portability ---
Author Organization [place] - [employer] , [facility] Address [address] [place] [address] Assessment Encounter Date Assessment Date Assessment LastModified [...] touched items. See PCP in person or technical clerk if symptoms not improved in 1-2 days. If fever, sudden change in vision or ability to keep eye open [facility] 10/26/2024 08:05:21 Plan of Treatment Reminders Order Date Submit Date Provider Last Modified By Organization Details Last Modified Time Details Appointments None recorded. Lab None recorded. Referral None recorded. Procedures None recorded. Surgeries None recorded. Imaging None recorded. Medication Orders Polytrim 10,000 unit-1 mg/mL eye drops 2024 025 [facility]/Pharmacy #[id number], [address] [place], [address], 5 08:05:59 Patient TargetsNo targets recorded. Patient InstructionsNo instructions recorded. Reason for Referral None Reported. Problems Name Problem SNOMED Code Status Onset Date Resolution Date Notes Provider Name and Address Organization Details Recorded Time Gastritis 9756269 Active 025 Angie Acosta, [employer] 1 [facility] [address], [place], [address], [employer] 5 08:04:37 Problem Notes None recorded. Medical Equipment None Reported. Allergies Allergen ID Allergen Name Allergen Category Reaction Reaction Severity Criticality Documentation Date Start Date Code Code System Note Provider Name and Address Organization Details Recorded Time 009478 cobalt environme nt Not available Not available Not available 10/26/2024 30849 00 RxNorm Not Available Included [facility] 5 06:36:36 168534 nickel environme nt Not available Not available Not available 10/26/2024 20674 29 RxNorm Not Available Included [facility] 5 06:36:36 913690 Wellbutri n medicatio n Not available Not available Not available 10/26/2024 25140 RxNorm Not Available Included [facility] 5 06:36:36 Medications Name Sig Start Date [...] SNOMED-CT Code Diagnosis ICD10 Code Diagnosis Note [id number] Angie Acosta [address] [address] 10/26/2024 08:00:36 10/26/2024 08:06:28 Mucopurulent conjunctivitis of left eye [id number] 44810 H10.022 Health Concerns Section Related Observation LastModified by Organization Detai ls LastModified Time None Recorded Concern Status LastModified by Organization Details LastModified Time None Recorded Advance Directives Directive None Recorded Payers Encounter Date Sequence Insurance Name Policy Number Policy Creon Covered Member ID Ceron Member ID Guarantor Name 10/26/2024 1 [employer] - DOS PRIOR TO 2024 - Rosemary Hudson [id number] Rosemary Chunmore 10/26/2024 2 *SELF PAY* Rosemary Chunmore [id number] Rosemary Hudson Notes Date Note Type Note Provider Name and Address Organization Details Recorded Time 10/26/2024 text/html Call connected, patient greeted. Patient name, , telephone number and location verified verbally with the patient. Telemedicine limitations reviewed and verbal consent obtained to treat.Clinician attests they are physically located in the following state at the time of visit: [place]. CC: Eye Discharge HPI:29 yo female with left eye symptoms for 2 daysDischarge yellow in color presentMatting of eye is occurringNo complaints of painNo known trauma to eyeSick contactsEye does itchNo light sensitivity noticedNo history of recurrent eye infectionNo history of visual conditionNo contact lens wearLMP-2 weeks ago [facility] 1 [facility] [address], [place], [address], [place] [facility] 10/26/2024 08:06:25 OBGyn Episode No OBEpisode recorded.
--- OUTSIDE RECORDS SUMMARY | 2025-01-18 16:11 | XMS_ITS | Clinical Summary ---
Author Organization Formerly [facility] Address [address] [place] [address] Care Team Providers Care Guest Experience Representative Name Role Phone Pcp, No Primary Care [...] age to complete this topic Care Teams Guest Experience Representative Relationship Specialty Start Date End Date Pcp, No PCP - General General Medicine 08/03/21
== END 2025-01-18 13:50 | disposition home or self-care (01) ==
LOC: HO.HBST 13:17
PROVIDERS: PCP Family Medicine; Visit Provider Counselor Mental Health
DX: F32.81 Premenstrual dysphoric disorder (principal); F43.22 Adjustment disorder with anxiety; Z98.84 Bariatric surgery status
CPT/HCPCS: 90834

== ENCOUNTER → 2025-01-18 13:17 | Outpatient (BNVA) | payer OTHER, SELFPAY | PROVIDERS: PCP Family Medicine; Visit Provider Counselor Mental Health | DX: Z13.89 Encounter for screening for other disorder (principal) ==

== ENCOUNTER 2025-02-15 13:27 | Outpatient (AMB) | payer OTHER, SELFPAY ==
--- NOTE | 2025-02-15 13:15 | A.OFFWM_ITS ---
Intake Intake Visit Reasons: VIDEO PO LSG 11/02/24 Allergies adhesive Allergy (Intermediate, Verified 01/06/25 13:07) Rash bupropion [From Wellbutrin] Allergy (Intermediate, Verified 01/06/25 13:07) Hives cobalt Allergy (Intermediate, Verified 01/06/25 13:07) Rash nickel Allergy (Intermediate, Verified 01/06/25 13:07) Rash PFSH Medical History Subclinical hyperthyroidism Otitis media Otitis externa Morbid obesity with body mass index of 50 or higher Candidiasis depression Pyelonephritis Gestational diabetes Pain in symphysis pubis during Incidental Tick bite Swelling of lower extremity Screening for cervical cancer Adult general medical exam Abdominal pain History of Lyme disease Laboratory exam ordered as part of routine general medical examination Joint pain Lyme disease Post depression Fatty liver Pre-eclampsia Postoperative nausea High triglycerides Gestational diabetes Anxiety Hypothyroid HTN (hypertension) GERD (gastroesophageal reflux disease) Morbid obesity Hx of endometriosis Low vitamin D level IBS (irritable bowel syndrome) Diverticulitis Surgical History S/P laparoscopic cholecystectomy History of endometrial ablation Hx of cholecystectomy History of appendix removal History of esophagogastroduodenoscopy (EGD) History of wisdom tooth extraction History of tonsillectomy History of colonoscopy Family History Father History of IBS HTN (hypertension) Psoriasis Mother Lupus Skin cancer Sister Lupus Thyroid disease Cervical cancer Son No problems noted. 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 While she felt she did not gain much from the program she attended, she was proud that she managed to avoid overeating during the trip. The patient continues to engage in weekly check-ins with Tammy for additional support. She reports significant improvement in her mood and anxiety since initiating thyroid medication. Overall, she describes her mental health as much better. Objective The patient attended the follow-up visit via Telehealth and appeared engaged and reflective. Interventions and focus areas during the session included: * Reviewed current functioning, progress, and identified areas needing continued support. * Reflected on the patient?s reported improvements in mood and motivation since starting thyroid medication. * Used reflective listening to process recent life events and discuss how to maintain consistency with behavioral goals despite travel or unexpected disruptions. * Revisited core concepts of commitment versus motivation, and reinforced the value of small, consistent actions in sustaining long-term goals. * Incorporated CBT-based strategies to examine unhelpful thought patterns related to travel, structure, and perceived setbacks. * Discussed routine planning tools (e.g., tracking meals, pre-scheduling exercise) to support ongoing adherence to meal and exercise plans. * Provided psychoeducation on emotional regulation and relapse prevention for high-risk or unstructured situations such as travel. * Validated her success in maintaining control over eating habits while away and explored ways to build on this progress. Assessment / Response * Mental Status: Within normal limits. Alert, oriented ?3, mood reported as improved, affect appropriate and congruent with discussion content. * Risk Reported/Identified: No suicidal or homicidal ideation reported. No current safety concerns. The patient continues to show positive gains in both mood and behavioral consistency. She is engaged in her treatment plan and receptive to therapeutic strategies. Food/Weight/Diet Expectations of change The initial goal is to lose 10% of your weight before surgery, about 25 lbs. The ultimate weight goal is 222 lbs before surgery. 08/11/2024 - Initial weight visit: 247 l b 6.4 oz 09/13/2024 weight: 239Lbs 10/04/2024: 231Lbs Pre-surgery weight: 221Lbs 11/09/2024 was 205.2 Lbs 11/23/2024: 200Lbs 12/07/24: 198 Lbs 12/15/24:195Lbs 01/04/25: 189Lbs 01/18/2025: 185Lbs. 02/15/2025: 178Lbs (lost 3 Lbs last week ) PT target weight: 120- 130 lbs - Current meal plan: 2 shakes, 2 bars, 1 meal (3FT protein/3FT cooked vegetables). PT reports having been following as prescribed by , denies any snacking despite hunger. Exercise: Cardio 5 days, add weight lifting 3 days. Assessment & Plan Assessment & Plan (1) PMDD (premenstrual dysphoric disorder): Code(s): F32.81 - Premenstrual dysphoric disorder (2) Adjustment disorder with anxiety: Code(s): F43.22 - Adjustment disorder with anxiety (3) Status post bariatric surgery: Code(s): Z98.84 - Bariatric surgery status Plan * Continue monthly behavioral health sessions for post-operative support. * Reinforce use of planning tools and coping strategies for future travel or unstructured situations. * Follow up in 4 weeks. Next cyndi: 03/15/2025 at 1pm, Telehealth -video Telehealth Telehealth Telehealth Platform: [facility] Location of provider rendering services: other Location of patient: address on file Patient Identification confirmed using: Name, : Yes Telehealth method: video Patient verbally consented to treatment: Yes Patient verbally consented to billing insurance company: Yes Patient informed of any privacy concerns related to visit: Yes Minutes spent on Phone/Video with Pt.: 45 Coding Level of Care Code Established Pt Tele Psytx 45 mins (52290) Patient Type Established Diagnoses PMDD (premenstrual dysphoric disorder) F32.81 Adjustment disorder with anxiety F43.22 Status post bariatric surgery Z98.84 Time Spent (min) 45
--- OUTSIDE RECORDS SUMMARY | 2025-02-15 14:42 | XMS_ITS | Clinical Summary ---
Author Organization Formerly [facility] Address [address] [place] [address] Care Team Providers Care Property Accountant Name Role Phone Pcp, No Primary Care Provider Unavailabl e Social History Tobacco Use Types Packs/Day Years Used Date Smoking Tobacco: Never Assessed Comments Unknown Sex and Gender Information Value Date Recorded Sex Assigned at Not on file Legal Sex Female 4:12 PM EDT Gender Identity Not on file Sexual Orientation Not on file Plan of Treatment Health Maintenance Due Date Last Done Comments Hepatitis C Virus Screening 1993 HIV Screening 2006 DTaP/Tdap/Td Vaccines (1 - Tdap) 2012 Hepatitis B Vaccines (1 of 3 - 19+ 3-dose series) 2012 Pap Smear (Ages 21-65) 2014 COVID-19 Vaccine ( - 2023-2 5 season) 2024 Influenza Vaccine 05/13/2025 HPV Vaccines Aged Out No longer eligi ble based on patient's age to complete this topic Pneumococcal Vaccine: Pediat frankie (0-5 Years) and At-Risk Patients (6 to 49 Years) Aged Out No longer eligible b ased on patient's age to complete this topic Insurance [facility] Care Teams Property Accountant Relationship Specialty Start Date End Date Pcp, Briseida PCP - General General Medicine 08/03/21
--- OUTSIDE RECORDS SUMMARY | 2025-02-15 14:42 | XMS_ITS | Data Portability ---
Author Organization [place] - [employer] , [facility] Address [address] [place] [address] Assessment Encounter Date Assessment Date Assessment LastModified [...] touched items. See PCP in person or electronic calibration technician if symptoms not improved in 1-2 days. If fever, sudden change in vision or ability to keep eye open [facility] 10/26/2024 08:05:21 Plan of Treatment Reminders Order Date Submit Date Provider Last Modified By Organization Details Last Modified Time Details Appointments None recorded. Lab None recorded. Referral None recorded. Procedures None recorded. Surgeries None recorded. Imaging None recorded. Medication Orders Polytrim 10,000 unit-1 mg/mL eye drops 2024 025 [facility]/Pharmacy #[id number], [address] [place], [address], 5 08:05:59 Patient TargetsNo targets recorded. Patient InstructionsNo instructions recorded. Reason for Referral None Reported. Problems Name Problem SNOMED Code Status Onset Date Resolution Date Notes Provider Name and Address Organization Details Recorded Time Gastritis 1722824 Active 025 Angie Acosta, [employer] 1 [facility] [address], [place], [address], [employer] 5 08:04:37 Problem Notes None recorded. Medical Equipment None Reported. Allergies Allergen ID Allergen Name Allergen Category Reaction Reaction Severity Criticality Documentation Date Start Date Code Code System Note Provider Name and Address Organization Details Recorded Time 220354 cobalt environme nt Not available Not available Not available 10/26/2024 17339 00 RxNorm Not Available Included [facility] 5 06:36:36 135818 nickel environme nt Not available Not available Not available 10/26/2024 90096 29 RxNorm Not Available Included [facility] 5 06:36:36 627443 Wellbutri n medicatio n Not available Not available Not available 10/26/2024 33117 RxNorm Not Available Included [facility] 5 06:36:36 Medications Name Sig Start Date [...] SNOMED-CT Code Diagnosis ICD10 Code Diagnosis Note [id number] Angie Acosta [address] [address] 10/26/2024 08:00:36 10/26/2024 08:06:28 Mucopurulent conjunctivitis of left eye [id number] 43613 H10.022 Health Concerns Section Related Observation LastModified by Organization Detai ls LastModified Time None Recorded Concern Status LastModified by Organization Details LastModified Time None Recorded Advance Directives Directive None Recorded Payers Encounter Date Sequence Insurance Name Policy Number Policy Ceron Covered Member ID Ceron Member ID Guarantor Name 10/26/2024 1 [employer] - [place] () Rosemary Hudson [id number] Rosemary Hudson 10/26/2024 2 *SELF PAY* Rosemary Venetie [id number] Rosemary Hudson Notes Date Note Type Note [...] contact lens wearLMP-2 weeks ago Angie Acosta, [facility] 1 [facility] [address], [place], [address], [place] [facility] 10/26/2024 08:06:25 OBGyn Episode No OBEpisode recorded.
== END 2025-02-15 14:11 | disposition home or self-care (01) ==
LOC: HO.HBST 13:27
PROVIDERS: PCP Family Medicine; Visit Provider Counselor Mental Health
DX: F32.81 Premenstrual dysphoric disorder (principal); F43.22 Adjustment disorder with anxiety; Z98.84 Bariatric surgery status
CPT/HCPCS: 90834

== ENCOUNTER → 2025-02-15 13:27 | Outpatient (BNVA) | payer OTHER, SELFPAY | PROVIDERS: PCP Family Medicine; Visit Provider Counselor Mental Health ==

== ENCOUNTER 2025-03-01 07:45 | Outpatient (REF) | payer OTHER, SELFPAY ==
--- OUTSIDE RECORDS SUMMARY | 2025-03-01 08:11 | XMS_ITS | Clinical Summary ---
Author Organization [facility] Address [address] [place] [address] Care Team Providers Care Otr Refrigerated Cdl Truck Driver Name Role Phone Pcp, No Primary Care [...] patient's age to complete this topic Insurance [facility] Care Teams Otr Refrigerated Cdl Truck Driver Relationship Specialty Start Date End Date Pcp, Briseida PCP - General General Medicine 08/03/21
[2025-03-01 09:44] LABS: Free T4 (Free Thyroxine) 0.86 ng/dL (0.71-1.85)
[2025-03-02 06:38] LABS: Triiodothyronine T3 Total 112 ng/dL (76-181)
== END 2025-03-01 07:46 | disposition home or self-care (01) ==
LOC: HO.LAB 07:45
PROVIDERS: PCP Family Medicine; Visit Provider Student in an Organized Health Care Education/Training Program
DX: E05.90 Thyrotoxicosis, unspecified without thyrotoxic crisis or storm (principal); Z79.899 Other long term (current) drug therapy
CPT/HCPCS: 36415; 84439; 84443; 84480; 99212

== ENCOUNTER 2025-03-01 07:45 | Outpatient (AMB) | payer OTHER, SELFPAY ==
--- OUTSIDE RECORDS SUMMARY | 2025-03-01 07:47 | XMS_ITS | Clinical Summary ---
Author Organization [facility] Address [address] [place] [address] Care Team Providers Care Crop Puller Name Role Phone Pcp, No Primary Care [...] patient's age to complete this topic Insurance [facility] Care Teams Crop Puller Relationship Specialty Start Date End Date Pcp, Briseida PCP - General General Medicine 08/03/21
[2025-03-01 07:48] VITALS: BP 110/90; PULSE 73; O2SAT 97; BMI 35.4
--- NOTE | 2025-03-01 07:48 | A.OFFVIS_ITS ---
Vital Signs 03/01/25 07:48 Height 4 ft 11 in Weight 175 lb 0.752 oz BMI 35.4 BP 110/90 H Blood Pressure Location Lt brachial Position Sitting Pulse 73 Pulse Source Pulse Oximeter Pulse Oximetry (%) 97 Oxygen Delivery Method Room Air Intake Visit Reasons: Subclinical hyperthyroidism Intake Note: Patient present today for Subclinical hyperthyroidism office visit. Floating Operator Required: No Accompanied by: Self / Same As Patient Allergies adhesive Allergy (Intermediate, Verified 03/01/25 07:52) Rash bupropion [From Wellbutrin] Allergy (Intermediate, Verified 03/01/25 07:52) Hives cobalt Allergy (Intermediate, Verified 03/01/25 07:52) Rash nickel Allergy (Intermediate, Verified 03/01/25 07:52) Rash Medication List - Last Reconciled 03/01/25 by Leslie Faulkner MD compr.stocking,knee,long,large Daily As directed, 90 days methimazole 2.5 mg (1/2 x 5 mg) PO DAILY pantoprazole 20 mg PO DAILY sennosides (senna) 8.6 mg PO BEDTIME sucralfate 10 mL PO BID HPI Comments Details: 29-year-old female here today for followup of subclinical hyperthyroidism and G raves disease . 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 HPI from prior visit Labs done 10/29/2024 showed TSH low at 0.01, with normal free T4 at 1.49. Prior to that in August 1024 she had a normal TSH of 1.29. Diagnosed at age 9, was on medication till 19 years old , then stopped and remained euthroid, were 50 and 75 mcg of synthroid. Did have preceding viral illness at that time. no contrast exposure recenlty. Down a total of 55 lbs, lost 25 lbs prior to surgery constipation since surgery , post suregery palpitations in Nov 02 2024 , no more. Patient currently denies heat or cold intolerance, diarrhea or constipation, hair loss, palpitation, anxiety, mood changes has PMDD, low energy, changes in appearance of eyes or vision changes, tremors, increased diaphoresis or dry skin. ? LMP 08 November, 9 months old son. 2 , one chemical Planning to use condoms Patient denies any difficulty swallowing, pain on swallowing or voice changes or difficulty breathing. Patient denies any history of childhood neck radiation. Denies having ever used lithium, amiodarone or biotin supplements. Patient denies any family history of thyroid cancer .Lots of maternal relatives Sister: hyper Mother: hypo Grandma: hypo another sister hypo No history of heart disease, no fractures 12/14/2024: Labs showed TSH low at 0.03, free T4 normal at 0.96, total T3 normal at 100, TSI antibodies elevated at 373, TPO antibodies normal at 4, TSH receptor antibody elevated at 4.73. Interval history 01/06/25: While given that she is premenopausal, no history of heart disease, no history of fragility fracture, she classified as low risk, however patient explained that her emotional turmoil and anxiety was really interfering with her life in 1 2 to start medication especially given TSH is less than 0.1, we are okay with starting her on low-dose methimazole. Started on methimazole 2.5 mg daily. She was supposed to get blood work before this appointment but forgot. Says much improved with hunger rage , emotions. loose stools resolved. Lost another 15 lbs since beginning of December 2024, but had sleeve gastrectomy in Oct 2024 no palpitation, no tremors No heat intolerance LMP:02/16/25 Physical exam General: sitting comfortably in no acute distress HEENT: normocephalic/atraumatic, no lid lag Neck: supple, symmetrical, no thyromegaly , Cardiac: normal heart sounds Pulm: normal breath sounds B/L, no added breath sounds Abd: not distended, no tenderness Extremities: no edema, no signs of myxedema, no tremor Laboratory Tests 10/29/24 12/14/24 07:26 10:20 TSH 0.01 L 0.03 L Free T4 1.49 0.96 Total T3 100 Thyroid Stim Immunoglob 373 H Thyroid Peroxidase Ab 4 TSH Receptor Ab 4.73 H Laboratory Tests 10/23/21 06/04/23 01/15/24 10:35 11:45 10:10 Free T4 0.88 0.83 TSH 2.15 07/09/24 08/23/24 10/29/24 09:01 11:54 07:26 Free T4 0.76 1.49 TSH 1.87 1.29 0.01 L [facility] Medical History Subclinical hyperthyroidism Otitis media Otitis externa Morbid obesity with body mass index of 50 or higher Candidiasis depression Pyelonephritis Gestational diabetes Pain in symphysis pubis during Incidental Tick bite Swelling of lower extremity Screening for cervical cancer Adult general medical exam Abdominal pain History of Lyme disease Laboratory exam ordered as part of routine general medical examination Joint pain Lyme disease Post depression Fatty liver Pre-eclampsia Postoperative nausea High triglycerides Gestational diabetes Anxiety Hypothyroid HTN (hypertension) GERD (gastroesophageal reflux disease) Morbid obesity Hx of endometriosis Low vitamin D level IBS (irritable bowel syndrome) Diverticulitis Surgical History S/P laparoscopic cholecystectomy History of endometrial ablation Hx of cholecystectomy History of appendix removal History of esophagogastroduodenoscopy (EGD) History of wisdom tooth extraction History of tonsillectomy History of colonoscopy Family History Father History of IBS HTN (hypertension) Psoriasis Mother Lupus Skin cancer Sister Lupus Thyroid disease Cervical cancer Son No problems noted. 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 Patient does does not look very hyperthyroid on my exam either. No orbitopathy, no goiter. No lid lag or tremors. She does have a strong maternal history of thyroid dysfunction , 12/14/2024: Labs showed TSH low at 0.03, free T4 normal at 0.96, total T3 normal at 100, TSI antibodies elevated at 373, TPO antibodies normal at 4, TSH receptor antibody elevated at 4.73. We had explained to the patient That she classifies as low risk of complications based on age less than 65 years, premenopausal, no history of heart disease. We could potentially repeat labs in 3 months and continue to observe, however given TSH is less than 0.1, and elevated TSI and TSH receptor antibodies are consistent with a diagnosis of Graves disease, we could also treat her depending on how symptomatic she is. While my examination does not shows she is symptomatic, she was complaining of a lot of emotional turmoil due to increased rage and anxiety, and increased hunger which is bothering her a lot as she underwent bariatric surgery recently and this is counter intuitive to her goals. We explained to her that observation is an alternative in asymptomatic patients however she is leaning towards treatment. After the above discussion on 01/06/2025 patient was started on methimazole 2.5 mg daily. She reports much improvement in all of her symptoms. Forgot to do blood work prior to appointment today. She is sexually active, I again explained to her methimazole is teratogenic, and can cause serious congenital defects, patient verbalized understanding and says she does not want to go on an oral contraceptive pill but will use condoms. Plan: -continue methimazole 2.5 mg daily ( half a tablet) -Do blood work today -Fup in 3 months The following were discussed as potential side effects of methimazole: - Serious skin rashes - nausea, vomiting, or severe hepatic injury - Agranulocytosis: a rare side effect of methimazole involves a severe decrease in the production of white blood cells. This condition is extremely serious, but affects only one out of every 200 to 500 people who take an antithyroid drug. Agranulocytosis more commonly occurs within the first three months of starting treatment with an antithyroid drug, but can occur at any time. If patient develops a fever (temperature above 100.5F), or other signs or symptoms of infection, she should stop taking the tapazole and immediately have a complete blood count (CBC) done. Serious and potentially life threatening infections, or even , can occur before agranulocytosis resolves. However, once the antithyroid drug is stopped, agranulocytosis usually resolves within a week. - Arthralgias, myalgias - Renal: Nephritis - Fever Patient will stop medication and call our office if these occur. This is a teratogenic medication, please use contraception reliably. Plan See above Patient Instructions: do blood work continue methimazole 2.5 mg daily ( half a tablet) The following were discussed as potential side effects of methimazole: - Serious skin rashes - nausea, vomiting, or severe hepatic injury - Agranulocytosis: a rare side effect of methimazole involves a severe decrease in the production of white blood cells. This condition is extremely serious, but affects only one out of every 200 to 500 people who take an antithyroid drug. Agranulocytosis more commonly occurs within the first three months of starting treatment with an antithyroid drug, but can occur at any time. If patient develops a fever (temperature above 100.5F), or other signs or symptoms of infection, she should stop taking the tapazole and immediately have a complete blood count (CBC) done. Serious and potentially life threatening infections, or even , can occur before agranulocytosis resolves. However, once the ant ithyroid drug is stopped, agranulocytosis usually resolves within a week. - Arthralgias, myalgias - Renal: Nephritis - Fever Patient will stop medication and call our office if these occur. This is a teratogenic medication, can cause serious congenital defects, , please use contraception reliably. Coding Level of Care Code Est Pt Level 3 (76895) Diagnoses Subclinical hyperthyroidism E05.90
--- OUTSIDE RECORDS SUMMARY | 2025-03-01 07:48 | XMS_ITS | Data Portability ---
Author Organization [place] [facility] , [facility] Address [address] [place] [address] Assessment Encounter Date Assessment Date Assessment LastModified [...] touched items. See PCP in person or customer account executive if symptoms not improved in 1-2 days. [...] 10,000 unit-1 mg/mL eye drops 2024 025 [facility] #[id number], [address] [place], [address], 5 08:05:59 Patient TargetsNo targets recorded. Patient InstructionsNo instructions recorded. Reason for Referral None Reported. Problems Name Problem SNOMED Code Status Onset Date Resolution Date Notes Provider Name and Address Organization Details Recorded Time Gastritis 9830338 Active 025 Angie Acosta, ADVERTISEMENT DISTRIBUTOR 1 [facility] [address], [place], [address], [employer] 5 08:04:37 Problem Notes None recorded. Medical Equipment None Reported. Allergies Allergen ID Allergen Name Allergen Category Reaction Reaction Severity Criticality Documentation Date Start Date Code Code System Note Provider Name and Address Organization Details Recorded Time 799779 cobalt environme nt Not available Not available Not available 10/26/2024 30669 00 RxNorm Not Available Included [facility] 5 06:36:36 182936 nickel environme nt Not available Not available Not available 10/26/2024 70355 29 RxNorm Not Available Included [facility] 5 06:36:36 978989 Wellbutri n medicatio n Not available Not available Not available 10/26/2024 58294 RxNorm Not Available Included [facility] 5 06:36:36 Medications Name Sig Start Date [...] SNOMED-CT Code Diagnosis ICD10 Code Diagnosis Note [id number] Angie Acosta [address] [address] 10/26/2024 08:00:36 10/26/2024 08:06:28 Mucopurulent conjunctivitis of left eye [id number] 87865 H10.022 Health Concerns Section Related Observation LastModified by Organization Detai ls LastModified Time None Recorded Concern Status LastModified by Organization Details LastModified Time None Recorded Advance Directives Directive None Recorded Payers Insurance Date Sequence Insurance Name Policy Number Policy Ceron Covered Member ID Ceron Member ID Guarantor Name 10/26/2024 [employer] Rosemary Bradford [id number] Rosemary Tristan 11/26/2024 1 [employer] [facility] () Rosemary Bradford [id number] Rosemary Tristan 10/26/2024 2 *SELF PAY* Rosemary Bradford [id number] Rosemary Bradford 10/26/2024 1 *SELF PAY* Ci arra Bradford 11/26/2024 1 [employer] - [facility] () Rosemary Tristan [id number] Rosemary Tristan Notes Date Note Type Note Provider Name and Address Organization Details Recorded Time 10/26/2024 text/html Call connected, patient greeted. Patient name, , telephone number and location verified verbally with the patient. Telemedicine limitations reviewed and verbal consent obtained to treat.Clinician attests they are physically located in the following state at the time of visit: [place]. CC: Eye Discharge HPI:29 yo female with left eye symptoms for 2 daysDischarge yellow in color presentMatting of eye is occurringNo complaints of painNo known trauma to eyeSick contactsEye does itchNo light sensitivity noticedNo history of recurrent eye infectionNo history of visual conditionNo contact lens wearLMP-2 weeks ago Angie Acosta, [facility] 1 [facility] [address], [place], [address], [place] [facility] 10/26/2024 08:06:25 OBGyn Episode No OBEpisode recorded.
== END 2025-03-01 08:00 | disposition home or self-care (01) ==
LOC: HO.ENCR 07:46
PROVIDERS: PCP Family Medicine; Visit Provider Student in an Organized Health Care Education/Training Program
DX: E05.90 Thyrotoxicosis, unspecified without thyrotoxic crisis or storm (principal)
CPT/HCPCS: 99213

== ENCOUNTER 2025-03-15 13:00 | Outpatient (AMB) | payer OTHER, SELFPAY ==
--- NOTE | 2025-03-15 13:05 | A.OFFWM_ITS ---
Intake Intake Visit Reasons: VIDEO PO LSG 11/02/24 Allergies adhesive Allergy (Intermediate, Verified 03/01/25 07:52) Rash bupropion [From Wellbutrin] Allergy (Intermediate, Verified 03/01/25 07:52) Hives cobalt Allergy (Intermediate, Verified 03/01/25 07:52) Rash nickel Allergy (Intermediate, Verified 03/01/25 07:52) Rash PFSH Medical History Subclinical hyperthyroidism Otitis media Otitis externa Morbid obesity with body mass index of 50 or higher Candidiasis depression Pyelonephritis Gestational diabetes Pain in symphysis pubis during Incidental Tick bite Swelling of lower extremity Screening for cervical cancer Adult general medical exam Abdominal pain History of Lyme disease Laboratory exam ordered as part of routine general medical examination Joint pain Lyme disease Post depression Fatty liver Pre-eclampsia Postoperative nausea High triglycerides Gestational diabetes Anxiety Hypothyroid HTN (hypertension) GERD (gastroesophageal reflux disease) Morbid obesity Hx of endometriosis Low vitamin D level IBS (irritable bowel syndrome) Diverticulitis Surgical History S/P laparoscopic cholecystectomy History of endometrial ablation Hx of cholecystectomy History of appendix removal History of esophagogastroduodenoscopy (EGD) History of wisdom tooth extraction History of tonsillectomy History of colonoscopy Family History Father History of IBS HTN (hypertension) Psoriasis Mother Lupus Skin cancer Sister Lupus Thyroid disease Cervical cancer Son No problems noted. 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 However, she has been less active with exercise over the past two weeks due to an endometriosis flare-up. She also expresses sensitivity and grief related to her experience and has an increased desire to have another child, despite being aware of previous complications. Objective: * Engaged in active listening and implemented Cognitive Processing Therapy (CPT) to help the patient process grief and trauma related to her and experiences. * Worked on reframing negative thoughts and past experiences. * Discussed mindfulness techniques and strategies to help her remain present. * Reviewed symptom management skills and developed a behavioral activation plan. Assessment/Response: * Mental status: Sensitive but not depressed. Mild-mod functioning issues due to pain (endometriosis) * Risk reported/identified: None. Assessment & Plan Assessment & Plan (1) PMDD (premenstrual dysphoric disorder): Code(s): F32.81 - Premenstrual dysphoric disorder (2) Adjustment disorder with anxiety: Code(s): F43.22 - Adjustment disorder with anxiety (3) Status post bariatric surgery: Code(s): Z98.84 - Bariatric surgery status Plan Continue monthly behavioral health sessions for post-operative support. Next cyndi: 04/11/2025 at 1pm, Telehealth -video Telehealth Telehealth Telehealth Platform: [employer] Managment Location of provider rendering services: other Location of patient: address on file Patient Identification confirmed using: Name, : Yes Telehealth method: video Patient verbally consented to treatment: Yes Patient verbally consented to billing insurance company: Yes Patient informed of any privacy concerns related to visit: Yes Minutes spent on Phone/Video with Pt.: 60 Coding Level of Care Code Established Pt Tele Psytx >53 mins (46734) Patient Type Established Diagnoses PMDD (premenstrual dysphoric disorder) F32.81 Adjustment disorder with anxiety F43.22 Status post bariatric surgery Z98.84 Time Spent (min) 60
--- OUTSIDE RECORDS SUMMARY | 2025-03-15 15:06 | XMS_ITS | Clinical Summary ---
Author Organization [facility] Address [address] [place] [address] Care Team Providers Care Administrative Coordinator Name Role Phone Pcp, No Primary [...] Pap Smear (Ages 21-65) 2014 COVID-19 Vaccine (1 - 2023-2 5 season) 2024 Influenza Vaccine 05/13/2025 HPV Vaccines Aged Out No longer eligi ble based on patient's age to complete this topic Pneumococcal Vaccine: Pediat frankie (0-5 Years) and At-Risk Patients (6 to 49 Years) Aged Out No longer eligible b ased on patient's age to complete this topic Insurance [facility] Care Teams Administrative Coordinator Relationship Specialty Start Date End Date Pcp, Briseida PCP - General General Medicine 08/03/21
== END 2025-03-15 14:09 | disposition home or self-care (01) ==
LOC: HO.HBST 13:29
PROVIDERS: PCP Family Medicine; Visit Provider Counselor Mental Health
DX: F32.81 Premenstrual dysphoric disorder (principal); F43.22 Adjustment disorder with anxiety; Z98.84 Bariatric surgery status
CPT/HCPCS: 90837

== ENCOUNTER → 2025-03-15 13:00 | Outpatient (BNVA) | payer OTHER, SELFPAY | PROVIDERS: PCP Family Medicine; Visit Provider Counselor Mental Health | DX: Z13.89 Encounter for screening for other disorder (principal) ==

== ENCOUNTER 2025-03-21 13:51 | Outpatient (AMB) | payer OTHER, SELFPAY ==
--- NOTE | 2025-03-21 13:02 | A.OFFVIS_ITS ---
VS Expanded 03/21/25 13:10 Height 4 ft 11 in Weight 170 lb BMI 34.3 Intake Visit Reasons: TELEPHONE PO LSG 11/02/24 Allergies adhesive Allergy (Intermediate, Verified 03/01/25 07:52) Rash bupropion [From Wellbutrin] Allergy (Intermediate, Verified 03/01/25 07:52) Hives cobalt Allergy (Intermediate, Verified 03/01/25 07:52) Rash nickel Allergy (Intermediate, Verified 03/01/25 07:52) Rash Medication List - Last Reconciled 03/21/25 by KIRSTIN Fernandez compr.stocking,knee,long,large Daily As directed, 90 days methimazole 2.5 mg (1/2 x 5 mg) PO DAILY sennosides (senna) 8.6 mg PO BEDTIME HPI Comments Details: This?is a?29?yo F who is s/p LSG 11/02/2024. Presents for 4.5mo post op visit. Weight at last visit on 01/17/2025 was 185 pounds with a BMI of 37.4, weight today is 170 pounds, representing a 15 pound weight loss with a BMI today of 34.3.? No complaints of nausea, emesis, abdominal pain, or constipation. Had some increased heartburn- was eating correct portions, but thinks she was eating too quickly. Pt is struggling with endometriosis sx, on medication for Graves dz. Reports hair loss. Present meal plan includes: 2 Celebrate Rebuild protein shakes, 1/2 scoop in 8oz UAM x 2 -sometimes will use premade shake but only drinks half, so protein is the same 2 protein bars- Magic Spoon brand or Built puffs 3 ff meat, 3ff veg then 1 shake at night with 1 scoop using Fusion MVI, tolerating this better Exercise routine includes: was working out 5x last week but struggles when endo pain flares up, does like to walk for exercise but does not track [facility] Medical History Subclinical hyperthyroidism Otitis media Otitis externa Morbid obesity with body mass index of 50 or higher Candidiasis depression Pyelonephritis Gestational diabetes Pain in symphysis pubis during Incidental Tick bite Swelling of lower extremity Screening for cervical cancer Adult general medical exam Abdominal pain History of Lyme disease Laboratory exam ordered as part of routine general medical examination Joint pain Lyme disease Post depression Fatty liver Pre-eclampsia Postoperative nausea High triglycerides Gestational diabetes Anxiety Hypothyroid HTN (hypertension) GERD (gastroesophageal reflux disease) Morbid obesity Hx of endometriosis Low vitamin D level IBS (irritable bowel syndrome) Diverticulitis Surgical History S/P laparoscopic cholecystectomy History of endometrial ablation Hx of cholecystectomy History of appendix removal History of esophagogastroduodenoscopy (EGD) History of wisdom tooth extraction History of tonsillectomy History of colonoscopy Family History Father History of IBS HTN (hypertension) Psoriasis Mother Lupus Skin cancer Sister Lupus Thyroid disease Cervical cancer Son No problems noted. 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 Doing well with pace of weight loss. Labs ordered in anticipation of 6mo visit, pt will have done next month. Ok to take biotin for hair loss. RTC 6-8w for 6mo visit. Orders: Orders Insulin Today - Bariatric surgery status Hemoglobin A1c Today - Bariatric surgery status Lipid Panel Today - Bariatric surgery status Comprehensive Met. Panel Today - Bariatric surgery status Vitamin B12 and Folate Today - Bariatric surgery status TSH reflex Free T4 Today - Bariatric surgery status Complete Blood Count Auto Diff Today Z98.84 - Bariatric surgery status IRON PROFILE Today Z98.84 - Bariatric surgery status Zinc Today Z98.84 - Bariatric surgery status C Reactive Protein Today Z98.84 - Bariatric surgery status Vitamin B1 Today Z98.84 - Bariatric surgery status Vitamin A Today Z98.84 - Bariatric surgery status Ferritin Today Z98.84 - Bariatric surgery status Vitamin D 25-OH Total Today Z98.84 - Bariatric surgery status
[2025-03-21 13:10] VITALS: BMI 34.3
--- OUTSIDE RECORDS SUMMARY | 2025-03-21 15:43 | XMS_ITS | Clinical Summary ---
Author Organization [facility] Address [address] [place] [address] Care Team Providers Care Agricultural Services Director Name Role Phone Pcp, No Primary Care [...] patient's age to complete this topic Insurance [facility] Care Teams Agricultural Services Director Relationship Specialty Start Date End Date Pcp, Briseida PCP - General General Medicine 08/03/21
== END 2025-03-21 13:57 | disposition home or self-care (01) ==
LOC: HO.HBS 13:51
PROVIDERS: PCP Family Medicine; Visit Provider Physician Assistant Surgical
DX: E66.9 Obesity, unspecified (principal); Z68.34 Body mass index [BMI] 34.0-34.9, adult; Z90.3 Acquired absence of stomach [part of]; Z98.84 Bariatric surgery status
CPT/HCPCS: 98013

== ENCOUNTER → 2025-03-21 13:51 | Outpatient (BNVA) | payer OTHER, SELFPAY | PROVIDERS: PCP Family Medicine; Visit Provider Physician Assistant Surgical | DX: Z98.84 Bariatric surgery status (principal); E66.9 Obesity, unspecified ==

== ENCOUNTER 2025-03-25 12:47 | Outpatient (AMB) | payer OTHER, SELFPAY ==
--- NOTE | 2025-03-25 13:09 | MHC.PC.OV ---
Vital Signs 03/25/25 13:11 Height 4 ft 11 in Weight 172 lb 6 oz BMI 34.8 BP 100/60 Blood Pressure Location Rt brachial Position Sitting Respiration 16 Pulse 75 Pulse Source Pulse Oximeter Temp 98.4 F Temp Source Oral Pulse Oximetry (%) 99 Oxygen Delivery Method Room Air Intake Visit Reasons: FLMA Intake Note: FMLA Wedger And Gluer Required: No Allergies adhesive Allergy (Intermediate, Verified 03/25/25 13:10) Rash bupropion [From Wellbutrin] Allergy (Intermediate, Verified 03/25/25 13:10) Hives cobalt Allergy (Intermediate, Verified 03/25/25 13:10) Rash nickel Allergy (Intermediate, Verified 03/25/25 13:10) Rash Tobacco use date assessed: 11/08/24 Dental Screening Dental Screen Date: 01/01/24 HPI FLMA HPI Details 29 y/o female presents for FMLA paperwork. Hx of endometriosis and has been occurring more than once a month. Pt notes symptoms usually last a day. PFSH Medical History Subclinical hyperthyroidism Otitis media Otitis externa Morbid obesity with body mass index of 50 or higher Candidiasis depression Pyelonephritis Gestational diabetes Pain in symphysis pubis during Incidental Tick bite Swelling of lower extremity Screening for cervical cancer Adult general medical exam Abdominal pain History of Lyme disease Laboratory exam ordered as part of routine general medical examination Joint pain Lyme disease Post depression Fatty liver Pre-eclampsia Postoperative nausea High triglycerides Gestational diabetes Anxiety Hypothyroid HTN (hypertension) GERD (gastroesophageal reflux disease) Morbid obesity Hx of endometriosis Low vitamin D level IBS (irritable bowel syndrome) Diverticulitis Surgical History S/P laparoscopic cholecystectomy History of endometrial ablation Hx of cholecystectomy History of appendix removal History of esophagogastroduodenoscopy (EGD) History of wisdom tooth extraction History of tonsillectomy History of colonoscopy Family History Father History of IBS HTN (hypertension) Psoriasis Mother Lupus Skin cancer Sister Lupus Thyroid disease Cervical cancer Son No problems noted. 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 Current occupational exposures/hazards: No Cognitive needs: No Hearing needs: No Vision needs: No (reading glasses) Questionnaire Thrive Questionnaire Date Thrive assessed: 11/08/24 I am a: Patient What is your living situation today?: I have a steady place to live Within the past 12 months, did the food you bought not last and you didn't have the money to get more?: Never true Within the past 12 months, did you worry whether your food would run out before you got money to buy more?: Never true Do you have trouble paying for medicines?: No Do you have trouble getting transportation to medical appointments?: No Do you have trouble paying your heating and electricity bill?: No Do you have trouble taking care of your child, family member or friend?: No Do you have trouble with day-to-day activities such as bathing, preparing meals, shopping, managing finances, etc.?: No Are you currently unemployed and looking for a job?: No Are you interested in more education?: No Please select the resources that you would like help with: None Currently or been in a relationship where the following occur: No concerns reported THRIVE Score: 0 JADON-7 AMB Questionnaire JADON-7 Date JADON - 7 assessed: 01/06/25 Source: Developed by Drs. Bari Aguillon, Ammy Fisher, Ish Grimaldo and colleagues, with an educational maldonado from [employer]. Review of Systems Const Denies chills, Denies fatigue, Denies fever(s), Denies headache(s) and Denies weakness ENT Denies dizziness and Denies headache(s) Card Denies dyspnea Resp Denies cough, Denies dyspnea, Denies wheezing and Denies other (shortness of breath) Musc Denies numbness and Denies tingling Neuro Denies dizziness, Denies headache(s), Denies numbness, Denies tingling and Denies weakness Psych Denies anxiety and Denies depression Endo Denies fatigue Aller/Immun Denies wheezing Physical exam (Primary Care) Vital Signs: Last Vital Signs Temp 98.4 F 03/25/25 13:11 Pulse 75 03/25/25 13:11 Resp 16 03/25/25 13:11 BP 100/60 03/25/25 13:11 Pulse Ox 99 03/25/25 13:11 Oxygen Delivery Method Room Air 03/25/25 13:11 BMI result Body Mass Index 34.8 Tobacco/Smoking Status: Tobacco use Status Tobacco use date assessed 11/08/24 03/25/25 13:15 Patient Tobacco Use Status Never used Tobacco 03/25/25 13:15 e-Cigarette/Vaping Use Never Used 03/25/25 13:15 Thrive Assessment: Date of Thrive Assessment Date Thrive assessed 11/08/24 03/25/25 13:15 Currently or been in a relationship where the following occur: No concerns reported Const General: well developed; No acute distress Nutritional Appearance: well nourished Orientation/consciousness: patient oriented x3 HENMT Head: Yes normocephalic and Yes atraumatic Eyes General: appearance normal, both eyes and all related structures Pupils: Equal, round and reactive pupils present EOM: EOMs intact bilaterally Resp Effort & Inspection: normal respiratory effort Neuro General: patient oriented x3 and gait normal Cranial nerves: Yes Equal, round and reactive pupils present Psych Affect: normal affect Coding Level of Care Code Est Pt Level 3 (12052) Diagnoses Endometriosis N80.9 Assessment & Plan Assessment & Plan (1) Endometriosis: Code(s): N80.9 - Endometriosis, unspecified Category: Medical Plan: History?of?endometriosis?and?history?of?endometrial?ablation?as?well. Patient?notes?initial?onset?of?symptoms?was?in?2021. (10/13/2021 for form) Patient?presents?for?FMLA?paperwork?for?intermittent?leave. She?is?followed?by Michael Morillo a production team leader?surgeon?in?[place]. Last?visit?was?10/04/2024. She?is?requiring?2-3?days?per?month and?1?day?per?episode?of?leave Filled?out?FMLA?paperwork with?start?date?of?March??and?end?date?of?03/13/2026.
[2025-03-25 13:11] VITALS: BP 100/60; PULSE 75; RESP 16; TEMP 36.9; O2SAT 99; BMI 34.8
--- OUTSIDE RECORDS SUMMARY | 2025-03-25 13:13 | XMS_ITS | Clinical Summary ---
Author Organization [facility] Address [address] [place] [address] Care Team Providers Care Pulping Machine Operator Name Role Phone Pcp, No Primary [...] patient's age to complete this topic Insurance [facility] Care Teams Pulping Machine Operator Relationship Specialty Start Date End Date Pcp, Briseida PCP - General General Medicine 08/03/21
== END 2025-03-25 14:09 | disposition home or self-care (01) ==
LOC: HO.HMCFM 12:47
PROVIDERS: PCP Family Medicine; Visit Provider Family Medicine
DX: N80.9 Endometriosis, unspecified (principal)

== ENCOUNTER → 2025-03-25 12:47 | Outpatient (BNVA) | payer OTHER, SELFPAY | PROVIDERS: PCP Family Medicine; Visit Provider Family Medicine | DX: N80.9 Endometriosis, unspecified (principal) | CPT/HCPCS: 99212 ==

== ENCOUNTER 2025-04-11 13:34 | Outpatient (AMB) | payer OTHER, SELFPAY ==
--- NOTE | 2025-04-11 13:05 | MHC.WMTHER ---
Intake Intake Visit Reasons: VIDEO PO LSG 11/02/24 Allergies adhesive Allergy (Intermediate, Verified 03/25/25 13:10) Rash bupropion (From Wellbutrin) Allergy (Intermediate, Verified 03/25/25 13:10) Hives cobalt Allergy (Intermediate, Verified 03/25/25 13:10) Rash nickel Allergy (Intermediate, Verified 03/25/25 13:10) Rash PFSH Medical History Subclinical hyperthyroidism Otitis media Otitis externa Morbid obesity with body mass index of 50 or higher Candidiasis depression Pyelonephritis Gestational diabetes Pain in symphysis pubis during Incidental Tick bite Swelling of lower extremity Screening for cervical cancer Adult general medical exam Abdominal pain History of Lyme disease Laboratory exam ordered as part of routine general medical examination Joint pain Lyme disease Post depression Fatty liver Pre-eclampsia Postoperative nausea High triglycerides Gestational diabetes Anxiety Hypothyroid HTN (hypertension) GERD (gastroesophageal reflux disease) Morbid obesity Hx of endometriosis Low vitamin D level IBS (irritable bowel syndrome) Diverticulitis Surgical History S/P laparoscopic cholecystectomy History of endometrial ablation Hx of cholecystectomy History of appendix removal History of esophagogastroduodenoscopy (EGD) History of wisdom tooth extraction History of tonsillectomy History of colonoscopy Family History Father History of IBS HTN (hypertension) Psoriasis Mother Lupus Skin cancer Sister Lupus Thyroid disease Cervical cancer Son No problems noted. 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 Mood has been fluctuating, which she attributes to ongoing financial stressors and significant hair loss, both of which have been emotionally challenging. She notes increased hunger the week prior to her menstrual cycle, with appetite returning to baseline afterward. She reports continued weight loss, though at a slower rate, and is now shifting her focus toward building muscle, improving tone, and increasing physical strength. Despite progress, she shares that she occasionally struggles with accepting or fully recognizing her new body, which can be emotionally difficult at times. The patient expressed a strong interest in continuing monthly behavioral health support sessions to help navigate these ongoing adjustments and maintain emotional well-being. Objective: PT presents for a Post-op f/up visit. . Discussed funtioning, progress and challenges. CBT and ACT techniques were utilized to support the patient in identifying unhelpful thought patterns related to body image and financial stress, and to promote self-acceptance and value-driven behavior. Psychoeducation was also provided regarding physiological changes during the menstrual cycle and the natural pace of body composition changes. Assessment/Response: Mental status: WNL Risk reported/identified: None. Food/Weight/Diet Expectations of change The initial goal is to lose 10% of your weight before surgery, about 25 lbs. The ultimate weight goal is 222 lbs before surgery. 08/11/2024 - Initial weight visit: 247 lb 6.4 oz 09/13/2024 weight: 239Lbs 10/04/2024: 231Lbs Pre-surgery weight: 221Lbs 11/09/2024 was 205.2 Lbs 11/23/2024: 200Lbs 12/07/24: 198 Lbs 12/15/24:195Lbs 01/04/25: 189Lbs 01/18/2025: 185Lbs. 02/15/2025: 178Lbs (lost 3 Lbs last week) 04/11/2025: 167Lbs PT target weight: 120- 130 lbs - Current meal plan: 3 shakes, 1 bars, 1 meal (3FT protein/3FT cooked vegetables). Exercise: Cardio 5 days, add weight lifting 3 days. Assessment & Plan Assessment & Plan (1) PMDD (premenstrual dysphoric disorder): Code(s): F32.81 - Premenstrual dysphoric disorder (2) Adjustment disorder with anxiety: Code(s): F43.22 - Adjustment disorder with anxiety (3) Status post bariatric surgery: Code(s): Z98.84 - Bariatric surgery status Plan Continue monthly behavioral health sessions for post-operative support. Next cyndi: 05/16/25 at 1pm - Telehealth -video Telehealth Telehealth Telehealth Platform: [employer] Location of provider rendering services: other (Home office. [place], [place]) Location of patient: address on file Patient Identification confirmed using: Name, : Yes Telehealth method: video Patient verbally consented to treatment: Yes Patient verbally consented to billing insurance company: Yes Patient informed of any privacy concerns related to visit: Yes Minutes spent on Phone/Video with Pt.: 55 Coding Level of Care Code Established Pt Tele Psytx >53 mins (59568) Patient Type Established Diagnoses PMDD (premenstrual dysphoric disorder) F32.81 Adjustment disorder with anxiety F43.22 Status post bariatric surgery Z98.84 Time Spent (min) 55
--- OUTSIDE RECORDS SUMMARY | 2025-04-11 14:01 | XMS_ITS | Clinical Summary ---
Author Organization [facility] Address [address] [place] [address] Care Team Providers Care Salesforce Developer Name Role Phone Pcp, No Primary Care [...] patient's age to complete this topic Insurance [facility] Care Teams Salesforce Developer Relationship Specialty Start Date End Date Pcp, Briseida PCP - General General Medicine 08/03/21
--- OUTSIDE RECORDS SUMMARY | 2025-04-11 14:02 | XMS_ITS | Data Portability ---
Author Organization [place] - [facility] Address [address] [place] [address] Assessment Encounter Date Assessment Date Assessment LastModified [...] touched items. See PCP in person or school inspector if symptoms not improved in 1-2 days. If fever, sudden change in vision or ability to keep eye open go to ER. terrie Not available 10/26/2024 08:05:21 03/01/2025 03/01/2025 Sinusitis - supported by the patient's persistent symptoms of nasal congestion, cough, sinus pressure, and green mucus production over two weeks, with no fever or wheezing. - Prescribed Prednisone, benzonatate, and Flonase. - Recommended saline irrigation with a neti pot or sinus rinse two to three times a day. - Advised follow-up if symptoms do not improve in 3 days. - Patient verbalized understanding and agreement with plan of care. This virtual encounter was conducted utilizing a synchronous video platform. Patient name/age/location were verified at the start of the visit. The patient/guardian provided consent for this video encounter prior to starting. The patient/guardian understands the limitations of not being physically examined in person and that we may not be able to address all issues via video. I was located in my home office in the [facility] and the patient was located in the [facility]. The documented physical exam is based on my observation during the video consult as well as patient-assisted exam under my direction. Not available 03/01/2025 13:13:53 Plan of Treatment Reminders Order Date Submit Date Provider Last Modified By Organization Details Last Modified Time Details Appointments None recorded. Lab None recorded. Referral None recorded. Procedures None recorded. Surgeries None recorded. Imaging None recorded. Medication Orders fluticasone propionate 50 mcg/actuati on nasal spray,suspe nsion 2024 025 [id number], [address] [place], [address], 13:12:17 benzonatate 200 mg capsule 2024 025 [id number], [address] [place], [address], 5 13:12:19 prednisone 20 mg tablet 2024 025 [id number], [address] [place], [address], 5 13:12:18 Polytrim 10,000 unit-1 mg/mL eye drops 2024 025 [facility], [address] [place], [address], 13:07:56 Patient TargetsNo targets recorded. Patient Instructions Encounter Date Encounter Id Patient Instructions Last Modified By Organization Details Last Modified Time 03/01/2025 [id number] Acute Sinusitis: Care Instructions Not available 03/01/2025 13:12:15 Reason for Referral None Reported. Problems Name Problem SNOMED Code Status Onset Date Resolution Date Notes Provider Name and Address Organization Details Recorded Time Gastritis 6636123 Active 025 Angie Acosta, [facility] [address], [place], [address], [facility] 08:04:37 Problem Notes None recorded. Medical Equipment None Reported. Allergies Allergen ID Allergen Name Allergen Category Reaction Reaction Severity Criticality Documentation Date Start Date Code Code System Note Provider Name and Address Organization Details Recorded Time 284232 cobalt environme nt Not available Not available Not available 10/26/2024 53812 00 RxNorm Not Available Included [facility] 5 06:36:36 596926 nickel environme nt Not available Not available Not available 10/26/2024 60698 29 RxNorm Not Available Included [facility] 5 06:36:36 501926 Wellbutri n medicatio n Not available Not available Not available 10/26/2024 78980 RxNorm Not Available Included [facility] 06:36:36 Medications Name Sig Start Date Stop Date Status Note LastModified by Organization Details LastModified Time benzonatat e 200 mg capsule Take 1 capsule 3 times a day by oral route for 7 days. 2024 active Not Available Not Available Not Avai lable prednisone 20 mg tablet Take 2 tablets every day by oral route with meal(s) for 3 days. 2024 active Not Available Not Available Not Avai lable Polytrim 10,000 unit-1 mg/mL eye drops INSTILL 1 DROP INTO AFFECTED EYE(S) BY OPHTHALMI C ROUTE EVERY 6 HOURS 03/01 completed [NOT TAKING ] Not Available Not Available Not Available methylpred nisolone 4 mg tablets in a dose pack 10/26 completed [NOT TAKING ] Not Available Not Available Not Available ipratropiu m bromide 42 mcg (0.06 %) nasal spray 03/01 completed [NOT TAKING ] Not Available Not Available Not Available fluticason e propionate 50 mcg/actuat ion nasal spray,susp ension Instill 1 spray in each nostril twice daily 2024 active Not Available Not Available Not Avai lable senna 03/01 completed [NOT TAKING ] Not Available Not Available Not Available methimazol e active ADDED BY KRISHAN T: 2.5 mg daily Not Available Not Available Not Available pantoprazo le 03/01 completed [NOT TAKING ] Not Available Not Available Not Available UNLISTED MEDICATION [Migrated medicatio n name:] Benzonata te 100 mg capsule:: 0 10/26 completed [NOT TAKING ] Not Available Not Available Not Available UNLISTED [...] SNOMED-CT Code Diagnosis ICD10 Code Diagnosis Note [id number] Angie Acosta , [address] [address] 10/26/2024 08:00:36 10/26/2024 08:06:28 Mucopurulent conjunctivitis of left eye [id number] 06994 H10.924 [id number] Mercedez Ferrera, [address] [address] 03/01/2025 13:06:51 03/01/2025 13:17:46 Acute sinusitis 48613950 J01.90 Health Concerns Section Related Observation LastModified by Organization Detai ls LastModified Time None Recorded Concern Status LastModified by Organization Details LastModified Time None Recorded Advance Directives Directive None Recorded Payers Insurance Date Sequence Insurance Name Policy Number Policy Ceron Covered Member ID Ceron Member ID Guarantor Name 10/26/2024 [facility] [facility] Rosemary Hartsel [id number] Rosemary Tristan 11/26/2024 1 [employer] - [place] () Rosemary Hartsel [id number] Rosemary Hartsel 10/26/2024 2 *SELF PAY* Rosemary Tristan [id number] Rosemary Hartsel 10/26/2024 1 *SELF PAY* Ci arra Hartsel 03/01/2025 1 [employer] - [place] () Rosemary Hartsel [id number] Rosemary Hartsel 03/02/2025 3 [employer] - [place] () Rosemary Hartsel [id number] Rosemary Hartsel 03/01/2025 1 [employer] - [place] () Rosemary Hudson [id number] Rosemary Hudson Notes Date Note Type Note [...] contact lens wearLMP-2 weeks ago Angie Acosta, [facility] 1 [facility] [address] [place] [address], [address], [place] [facility] 10/26/2024 08:06:25 03/01/2025 text/html CC: Persistent c ough and sinus congestion HPI: The patient presents with a persistent cough and nasal congestion, which began approximately two weeks ago accompanied by sore throat and mucus production. The symptoms initially consisted of sore throat followed by a cough with chest congestion and greenish mucus, escalating to a more severe cough that has not abated. The patient reports ongoing nasal congestion and significant sinus pressure, particularly in the maxillary region, but not to an overwhelming degree. The patient denies fever, wheezing, shortness of breath, or any history of smoking. Current treatments include increased fluid intake, frequent nose blowing, and the use of cough drops, although these measures have not yielded any significant improvement. The patient specifically denies using feig-awt-nfahqhl medications such as NyQuil or DayQuil. The persistent symptoms have negatively impacted daily activities, as indicated by a work-related incident where the patient s boss advised medical consultation due to concern over the persistent cough. The patient has no history of sinus surgery or asthma, and there are no other reported associated symptoms or relevant medical history. Mercedez Ferrera, [facility] 1 [facility] [address], [place], [address], [place] [facility] 03/01/2025 13:13:56 OBGyn Episode No OBEpisode recorded.
== END 2025-04-11 13:58 | disposition home or self-care (01) ==
LOC: HO.HBST 13:34
PROVIDERS: PCP Family Medicine; Visit Provider Counselor Mental Health
DX: F32.81 Premenstrual dysphoric disorder (principal); F43.22 Adjustment disorder with anxiety; Z98.84 Bariatric surgery status
CPT/HCPCS: 90837

== ENCOUNTER → 2025-04-11 13:34 | Outpatient (BNVA) | payer OTHER, SELFPAY | PROVIDERS: PCP Family Medicine; Visit Provider Counselor Mental Health | DX: Z13.89 Encounter for screening for other disorder (principal) ==

== ENCOUNTER 2025-05-02 09:08 | Outpatient (REF) | payer OTHER, SELFPAY ==
[2025-05-02 09:22] LABS: MANUAL DIFF FLAG NO
--- OUTSIDE RECORDS SUMMARY | 2025-05-02 09:25 | XMS_ITS | Clinical Summary ---
Author Organization [facility] Address [address] [place] [address] Care Team Providers Care Coating And Embossing Unit Operator Name Role Phone Pcp, No Primary Care Provider Lauro Mercado MD Unavailable [phone] Social History Tobacco Use Types Packs/Day Years Used Date Smoking Tobacco: Never Assessed Comments Unknown Sex and Gender Information Value Date Recorded Sex Assigned at Not on file Legal Sex Female 4:12 PM EDT Gender Identity Female 04/13/2025 3:14 PM EDT Sexual Orientation Heterosexual (straight) 04/13 3:14 PM EDT Plan of Treatment Health Maintenance Due Date [...] patient's age to complete this topic Insurance [facility] Care Teams Coating And Embossing Unit Operator Relationship Specialty Start Date End Date Pcp, No PCP - General General Medicine 08/03/21 Lauro Dudley MD [address] [facility] [address] [place] [address] Internal Medicine 08/03/21
--- OUTSIDE RECORDS SUMMARY | 2025-05-02 09:25 | XMS_ITS | Data Portability ---
Author Organization [place] - [facility] nothingGrinder , [facility] [place] Address [address] [place] [address] Assessment Encounter Date Assessment Date Assessment LastModified [...] touched items. See PCP in person or cafeteria associate if symptoms not improved in 1-2 days. [...] located in my home office in the [facility] and the patient was located in the [facility]. The documented physical exam is based on [...] mcg/actuati on nasal spray,suspe nsion 2024 025 [id number], [address] [place], [address], 13:12:17 benzonatate 200 mg capsule 2024 025 [facility], [address] [place], [address], 5 13:12:19 prednisone 20 mg tablet 2024 025 [facility], [address] [place], [address], 5 13:12:18 Polytrim 10,000 unit-1 mg/mL eye drops 2024 025 [facility], [address] [place], [address], 13:07:56 Patient TargetsNo targets recorded. Patient Instructions Encounter Date Encounter Id Patient Instructions Last Modified By Organization Details Last Modified Time 03/01/2025 [id number] Acute Sinusitis: Care Instructions Not available 03/01/2025 13:12:15 Reason for Referral None Reported. Problems Name Problem SNOMED Code Status Onset Date Resolution Date Notes Provider Name and Address Organization Details Recorded Time Gastritis 5973912 Active 025 Angie Acosta, [facility] 1 [facility] [address], [place], [address], [facility] 08:04:37 Problem Notes None recorded. Medical Equipment None Reported. Allergies Allergen ID Allergen Name Allergen Category Reaction Reaction Severity Criticality Documentation Date Start Date Code Code System Note Provider Name and Address Organization Details Recorded Time 735344 cobalt environme nt Not available Not available Not available 10/26/2024 47791 00 RxNorm Not Available [facility] 5 06:36:36 519025 nickel environme nt Not available Not available Not available 10/26/2024 11224 29 RxNorm Not Available [facility] 5 06:36:36 650854 Wellbutri n medicatio n Not available Not available Not available 10/26/2024 75167 RxNorm Not Available [facility] 06:36:36 Medications Name Sig Start Date Stop [...] SNOMED-CT Code Diagnosis ICD10 Code Diagnosis Note [id number] Angie Acosta , [address] [address] 10/26/2024 08:00:36 10/26/2024 08:06:28 Mucopurulent conjunctivitis of left eye 8995648326 57614 H10.147 [id number] Mercedez Ferrera, [address] [address] 03/01/2025 13:06:51 03/01/2025 13:17:46 Acute sinusitis 50114101 J01.90 Health Concerns Section Related Observation LastModified by Organization Detai ls LastModified Time None Recorded Concern Status LastModified by Organization Details LastModified Time None Recorded Advance Directives Directive None Recorded Payers Insurance Date Sequence Insurance Name Policy Number Policy Ceron Covered Member ID Ceron Member ID Guarantor Name 10/26/2024 [employer] [facility] Rosemary Smithton [id number] Rosemary Tristan 11/26/2024 1 [employer] - [facility] () Rosemary Smithton [id number] Rosemary Smithton 10/26/2024 2 *SELF PAY* Rosemary Tristan [id number] Rosemary Smithton 10/26/2024 1 *SELF PAY* Ci arra Smithton 03/01/2025 1 [employer] - UC () Rosemary Smithton [id number] Rosemary Smithton 03/02/2025 3 [employer] - UC () Rosemary [place]ton [id number] Rosemary Smithton 03/01/2025 1 [employer] - [place] () Rosemary [place] [id number] Rosemary [place] Notes Date Note Type Note Provider Name and Address Organization Details Recorded Time 10/26/2024 text/html Call connected, patient greeted. Patient name, , telephone number and location verified verbally with the patient. Telemedicine limitations reviewed and verbal consent obtained to treat.Clinician attests they are physically located in the following state at the time of visit: [place]. CC: Eye Discharge HPI:29 yo female with left eye symptoms for 2 daysDischarge yellow in color presentMatting of eye is occurringNo complaints of painNo known trauma to eyeSick contactsEye does itchNo light sensitivity noticedNo history of recurrent eye infectionNo history of visual conditionNo contact lens wearLMP-2 weeks ago Angie Acosta, [facility] 1 [facility] [address] [place] [address], [address], [place] [facility] 10/26/2024 08:06:25 03/01/2025 [...] significant improvement. The patient specifically denies using wynz-jtr-jiizzwa medications such as NyQuil or DayQuil. The persistent symptoms have negatively impacted daily activities, as indicated by a work-related incident where the patient s boss advised medical consultation due to concern over the persistent cough. The patient has no history of sinus surgery or asthma, and there are no other reported associated symptoms or relevant medical history. Mercedez Ferrera, [facility] 1 [facility] [address], [place], [address], [place] [facility] 03/01/2025 13:13:56 OBGyn Episode No OBEpisode recorded.
[2025-05-02 10:06] LABS: Hematocrit 39.8 % (37.0-47.0); Hemoglobin 13.1 g/dl (12.0-16.0); Imm Gran Abs Auto 0.06 X10*3/uL (0.00-0.03); Imm Gran Pct Auto 0.8 % (0.0-0.4); Lymphocytes Absolute Auto 2.8 X10*3/uL (1.2-4.9); Mean Corpuscular HGB Conc 32.9 g/dl (31.0-35.0); Mean Corpuscular Hemoglobin 27.8 pg (27.0-33.0); Mean Corpuscular Volume 84.3 fL (80.0-98.0); NRBC Abs Auto 0.000 X10*3/uL (0.0-0.012); NRBC Pct Auto 0.0 /100WBC (0.0-0.2); Platelet Count 307 X10*3/uL (160-400); Red Blood Count 4.72 X10*6/uL (4.20-5.50); White Blood Count 7.9 X10*3/uL (4.8-10.8)
[2025-05-02 10:19] LABS: Hemoglobin A1C 98.7517 umol/L; Total Hemoglobin (HGBA1C) 3470.9557 umol/L
[2025-05-02 11:05] LABS: Alanine Aminotransferase 12 U/L (0-31); Albumin Level 4.5 g/dL (3.5-5.0); Alkaline Phosphatase 74 U/L (39-117); Anion Gap 13 (12-20); Aspartate Amino Transferase 19 U/L (5-31); Blood Urea Nitrogen 18 mg/dL (9-16); Calcium 9.5 mg/dL (8.4-10.2); Carbon Dioxide 27 mmol/L (22-29); Chloride 105 mmol/L (96-108); Cholesterol 132 mg/dL (<200); Estimated Glomerular Filt Rate > 60; HDL Cholesterol 39 mg/dL (>40); Iron 49 mcg/dL (30-160); Percent Iron Saturation 16 % (15-50); Potassium 4.1 mmol/L (3.3-5.1); Sodium 141 mmol/L (135-145); Total Iron Binding Capacity 315 mcg/dL (228-428); Total Protein 7.2 g/dL (6.5-8.0); Triglycerides 104 mg/dL (<150); Unsaturated Iron Binding 266 ug/dL
[2025-05-02 11:12] LABS: Ferritin 16 ng/mL (10-122)
[2025-05-02 11:18] LABS: Folate 13.5 ng/mL (> or = 4.0); Vitamin B12 494 pg/mL (200-900)
== END 2025-05-02 09:09 | disposition home or self-care (01) ==
LOC: HO.LAB 09:08
PROVIDERS: PCP Family Medicine; Visit Provider Physician Assistant Surgical
DX: Z98.84 Bariatric surgery status (principal)
CPT/HCPCS: 36415; 80053; 80061; 82306; 82607; 82728; 82746; 83036; 83525; 83540; 84425; 84443; 84590; 84630; 85025; 86140

== ENCOUNTER 2025-05-16 13:13 | Outpatient (AMB) | payer OTHER, SELFPAY ==
--- NOTE | 2025-05-16 13:05 | MHC.WMTHER ---
Intake Intake Visit Reasons: VIDEO PO LSG 11/02/24 Allergies adhesive Allergy (Intermediate, Verified 03/25/25 13:10) Rash bupropion (From Wellbutrin) Allergy (Intermediate, Verified 03/25/25 13:10) Hives cobalt Allergy (Intermediate, Verified 03/25/25 13:10) Rash nickel Allergy (Intermediate, Verified 03/25/25 13:10) Rash PFSH Medical History Subclinical hyperthyroidism Otitis media Otitis externa Morbid obesity with body mass index of 50 or higher Candidiasis depression Pyelonephritis Gestational diabetes Pain in symphysis pubis during Incidental Tick bite Swelling of lower extremity Screening for cervical cancer Adult general medical exam Abdominal pain History of Lyme disease Laboratory exam ordered as part of routine general medical examination Joint pain Lyme disease Post depression Fatty liver Pre-eclampsia Postoperative nausea High triglycerides Gestational diabetes Anxiety Hypothyroid HTN (hypertension) GERD (gastroesophageal reflux disease) Morbid obesity Hx of endometriosis Low vitamin D level IBS (irritable bowel syndrome) Diverticulitis Surgical History S/P laparoscopic cholecystectomy History of endometrial ablation Hx of cholecystectomy History of appendix removal History of esophagogastroduodenoscopy (EGD) History of wisdom tooth extraction History of tonsillectomy History of colonoscopy Family History Father History of IBS HTN (hypertension) Psoriasis Mother Lupus Skin cancer Sister Lupus Thyroid disease Cervical cancer Son No problems noted. 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 She notes that once the morphine wears off, she tends to feel depressed?an effect she has experienced in the past. Additionally, she reports an increase in hunger during the week leading up to her menstrual period. Post-operative weight as of 05/16/2025: 159 lbs (target goal: 125 lbs). Objective: Patient attended follow-up session via telehealth. At 8 months post-bariatric surgery, she continues to express motivation to lose additional weight. CBT interventions were used to address body image concerns, emotional regulation, consistency with eating patterns, and cognitive distortions related to food choices and hunger cues. Assessment/Response: Mental status: WNL Risk reported/identified: none Engaged appropriately in session and responded well to CBT strategies. Demonstrates insight into emotional and hormonal influences on eating behavior. Food/Weight/Diet Expectations of change The initial goal is to lose 10% of your weight before surgery, about 25 lbs. The ultimate weight goal is 222 lbs before surgery. 08/11/2024 - Initial weight visit: 247 lb 6.4 oz 09/13/2024 weight: 239Lbs 10/04/2024: 231Lbs Pre-surgery weight: 221Lbs 11/09/2024 was 205.2 Lbs 11/23/2024: 200Lbs 12/07/24: 198 Lbs 12/15/24:195Lbs 01/04/25: 189Lbs 01/18/2025: 185Lbs. 02/15/2025: 178Lbs (lost 3 Lbs last week) 04/11/2025: 167Lbs 05/16/2025: 159Lbs PT target weight: 120- 130 lbs - Current meal plan: 3 shakes, 1 bars, 1 meal (3FT protein/3FT cooked vegetables). Exercise: Cardio 5 days, add weight lifting 3 days. Assessment & Plan Assessment & Plan (1) PMDD (premenstrual dysphoric disorder): Code(s): F32.81 - Premenstrual dysphoric disorder (2) Adjustment disorder with anxiety: Code(s): F43.22 - Adjustment disorder with anxiety (3) Status post bariatric surgery: Code(s): Z98.84 - Bariatric surgery status Plan Continue monthly behavioral health follow-up to support post-op adjustment and weight maintenance goals Reinforce CBT tools for managing hunger, mood shifts, and body image Next appointment: 06/14/2025 at 1:00 PM - Video Telehealth Telehealth Telehealth Platform: [employer] Location of provider rendering services: other (Home office. [place], [place]) Location of patient: address on file Patient Identification confirmed using: Name, : Yes Telehealth method: video Patient verbally consented to treatment: Yes Patient verbally consented to billing insurance company: Yes Patient informed of any privacy concerns related to visit: Yes Minutes spent on Phone/Video with Pt.: 55 Coding Level of Care Code Established Pt Tele Psytx >53 mins (98319) Patient Type Established Diagnoses PMDD (premenstrual dysphoric disorder) F32.81 Adjustment disorder with anxiety F43.22 Status post bariatric surgery Z98.84 Time Spent (min) 55
--- OUTSIDE RECORDS SUMMARY | 2025-05-16 13:31 | XMS_ITS | Clinical Summary ---
Author Organization [facility] Address [address] [place] [address] Care Team Providers Care Zipper Repairer Name Role Phone Pcp, No Primary Care Provider Lauro Mercado MD Unavailable [phone] Social History Tobacco Use Types Packs/Day Years Used Date Smoking Tobacco: Never Assessed Comments Unknown Sex and Gender Information Value Date Recorded Sex Assigned at Female 05/06/2025 11:43 AM EDT Legal Sex Female 4:12 PM EDT Gender Identity Female 04/13/2025 3:14 PM EDT Sexual Orientation Heterosexual (straight) 04/13 3:14 PM EDT Plan of Treatment Upcoming Encounters Date Type Department Care Team (Late st Contact Info) Description 07/07/2025 9:00 AM EDT Office Visit Gynecologic Specialties at [facility] [address] [facility] [address] [place] [phone] Valery Mcnally MD [address] [place] [id number] Health Maintenance Due Date Last Done Comments [...] patient's age to complete this topic Insurance [facility] Care Teams Zipper Repairer Relationship Specialty Start Date End Date Pcp, No PCP - General General Medicine 08/03/21 Lauro Dudley MD [address] [place] [address] [address] [place] [address] Internal Medicine 08/03/21
--- OUTSIDE RECORDS SUMMARY | 2025-05-16 13:31 | XMS_ITS ---
[facility] Care Team Organization Name Specialty Phone Email Start Date End Da te [facility] NO PCP Primary Care 05/06/2025 [place] [facility] 04/13/2025 [facility] GEORGINA BOSE, Primary Care 04/13/2025
== END 2025-05-16 14:19 | disposition home or self-care (01) ==
LOC: HO.HBST 13:13
PROVIDERS: PCP Family Medicine; Visit Provider Counselor Mental Health
DX: F32.81 Premenstrual dysphoric disorder (principal); F43.22 Adjustment disorder with anxiety; Z98.84 Bariatric surgery status
CPT/HCPCS: 90837

== ENCOUNTER 2025-05-18 13:15 | Outpatient (AMB) | payer OTHER, SELFPAY ==
--- NOTE | 2025-05-18 13:02 | A.OFFVIS_ITS ---
VS Expanded 05/18/25 13:04 Height 4 ft 11 in Weight 159 lb BMI 32.1 Intake Visit Reasons: TELEPHONE PO LSG 11/02/24 Allergies adhesive Allergy (Intermediate, Verified 03/25/25 13:10) Rash bupropion (From Wellbutrin) Allergy (Intermediate, Verified 03/25/25 13:10) Hives cobalt Allergy (Intermediate, Verified 03/25/25 13:10) Rash nickel Allergy (Intermediate, Verified 03/25/25 13:10) Rash Medication List - Last Reconciled 05/18/25 by KIRSTIN Fernandez compr.stocking,knee,long,large Daily As directed, 90 days methimazole 2.5 mg (1/2 x 5 mg) PO DAILY sennosides (senna) 8.6 mg PO BEDTIME HPI Comments Details: This?is a?29?yo F who is s/p LSG 11/02/2024. Presents for 6mo post op visit. Weight at last visit on 01/17/2025 was 185 pounds with a BMI of 37.4, weight today is 170 pounds, representing a 15 pound weight loss with a BMI today of 34.3.? No complaints of nausea, emesis, abdominal pain, or constipation. Had some increased heartburn- was eating correct portions, but thinks she was eating too quickly. Pt continues to struggle with endometriosis sx. Present meal plan includes: 2 Celebrate Rebuild protein shakes, 1/2 scoop in 8oz UAM x 2 -sometimes will use premade shake but only drinks half, so protein is the same 2 protein bars- Magic Spoon brand or Built puffs 3 ff meat, 3ff veg then 1 shake at night with 1 scoop using Fusion MVI, tolerating this better sometimes feels hungry, will eat more protein Exercise routine includes: was working out 5x last week but struggles when endo pain flares up, does like to walk for exercise but does not track [facility] Medical History Subclinical hyperthyroidism Otitis media Otitis externa Morbid obesity with body mass index of 50 or higher Candidiasis depression Pyelonephritis Gestational diabetes Pain in symphysis pubis during Incidental Tick bite Swelling of lower extremity Screening for cervical cancer Adult general medical exam Abdominal pain History of Lyme disease Laboratory exam ordered as part of routine general medical examination Joint pain Lyme disease Post depression Fatty liver Pre-eclampsia Postoperative nausea High triglycerides Gestational diabetes Anxiety Hypothyroid HTN (hypertension) GERD (gastroesophageal reflux disease) Morbid obesity Hx of endometriosis Low vitamin D level IBS (irritable bowel syndrome) Diverticulitis Surgical History S/P laparoscopic cholecystectomy History of endometrial ablation Hx of cholecystectomy History of appendix removal History of esophagogastroduodenoscopy (EGD) History of wisdom tooth extraction History of tonsillectomy History of colonoscopy Family History Father History of IBS HTN (hypertension) Psoriasis Mother Lupus Skin cancer Sister Lupus Thyroid disease Cervical cancer Son No problems noted. 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 Current occupational exposures/hazards: No Cognitive needs: No Hearing needs: No Vision needs: No (reading glasses) Telehealth Telehealth Telehealth Platform: Telephone Location of provider rendering services: practice address Location of patient: address on file Patient Identification confirmed using: Name, : Yes Telehealth method: voice only Patient verbally consented to treatment: Yes Patient verbally consented to billing insurance company: Yes Patient informed of any privacy concerns related to visit: Yes Minutes spent on Phone/Video with Pt.: 16 Assessment & Plan Assessment & Plan (1) Obesity: Code(s): E66.9 - Obesity, unspecified Category: Medical (2) S/P laparoscopic sleeve gastrectomy: Code(s): Z98.84 - Bariatric surgery status Category: Surgical Plan Pt to continue high protein meal plan and exercise regimen. Due to follow up with endometriosis provider next month, might have to consider hysterectomy. Labs reviewed. RTC 3mo.
[2025-05-18 13:04] VITALS: BMI 32.1
--- OUTSIDE RECORDS SUMMARY | 2025-05-18 13:48 | XMS_ITS | Clinical Summary ---
Author Organization [facility] Address [address] [place] [address] Care Team Providers Care Street And Building Decorator Name Role Phone Pcp, No Primary Care Provider Lauro Mercado MD Unavailable [phone] Social History Tobacco Use Types Packs/Day [...] Specialties at [facility] [address] [facility] [address] [place] [phone] Valery Mcnally MD [address] [place] [address] Health Maintenance Due Date Last Done Comments Hepatitis C Virus Screening 1993 HIV Screening 2006 DTaP/Tdap/Td Vaccines (1 - Tdap) 2012 Hepatitis B Vaccines (1 of 3 - 19+ 3-dose series) 2012 Pap Smear (Ages 21-65) 2014 HPV Vaccines (1 - 3-dose SCD M series) 2020 COVID-19 Vaccine (1 - 2023-2 5 season) 2024 Influenza Vaccine 05/13/2025 Pneumococcal Vaccine: Pediat frankie (0-5 Years) and At-Risk Patients (6 to 49 Years) Aged Out No longer eligible b ased on patient's age to complete this topic Insurance [facility] Care Teams Street And Building Decorator Relationship Specialty Start Date End Date Pcp, No PCP - General General Medicine 08/03/21 Lauro Dudley MD [address] [place] [address] [address] [place] [address] Internal Medicine 08/03/21
== END 2025-05-18 13:24 | disposition home or self-care (01) ==
LOC: HO.HBS 13:15
PROVIDERS: PCP Family Medicine; Visit Provider Physician Assistant Surgical
DX: E66.9 Obesity, unspecified (principal); Z98.84 Bariatric surgery status
CPT/HCPCS: 99214; G2211

== ENCOUNTER 2025-05-25 07:40 | Outpatient (REF) | payer OTHER, SELFPAY ==
[2025-05-25 09:38] LABS: Free T4 (Free Thyroxine) 0.91 ng/dL (0.71-1.85); Thyroid Stimulating Hormone 1.26 uIU/mL (0.32-4.0)
== END 2025-05-25 07:41 | disposition home or self-care (01) ==
LOC: HO.LAB 07:40
PROVIDERS: PCP Family Medicine; Visit Provider Student in an Organized Health Care Education/Training Program
DX: E05.90 Thyrotoxicosis, unspecified without thyrotoxic crisis or storm (principal)
CPT/HCPCS: 36415; 84439; 84443

== ENCOUNTER 2025-05-27 09:26 | Outpatient (AMB) | payer OTHER, SELFPAY ==
--- OUTSIDE RECORDS SUMMARY | 2025-05-27 09:40 | XMS_ITS | Clinical Summary ---
Author Organization [facility] Address [address] [place] [address] Care Team Providers Care Piano Mover Name Role Phone Pcp, No Primary Care Provider Lauro Mercado MD Unavailable Social History Tobacco Use Types Packs/Day Years [...] AM EDT Office Visit Gynecologic Specialties at [facility] [address] [facility] [address] [place] [phone] Valery Mcnally MD [address] [place] [address] Health Maintenance Due Date Last Done Comments [...] patient's age to complete this topic Insurance [facility] Care Teams Piano Mover Relationship Specialty Start Date End Date Pcp, No PCP - General General Medicine 08/03/21 Lauro Dudley MD [address] [place] [address] [address] [place] [address] Internal Medicine 08/03/21
--- NOTE | 2025-05-27 09:42 | MHC.PC.OV ---
Vital Signs 05/27/25 09:50 Height 4 ft 11 in Weight 159 lb 2 oz BMI 32.1 BP 102/62 Blood Pressure Location Rt brachial Position Sitting Respiration 16 Pulse 96 Pulse Source Pulse Oximeter Temp 98.4 F Temp Source Temporal Artery Scan Pulse Oximetry (%) 98 Oxygen Delivery Method Room Air Intake Visit Reasons: f/u endometriosis Intake Note: Rosemary presents in the office today for a follow up to endometriosis. Is last menstrual period known: Yes Last menstrual period: 05/11/25 Allergies adhesive Allergy (Intermediate, Verified 05/27/25 09:47) Rash bupropion (From Wellbutrin) Allergy (Intermediate, Verified 05/27/25 09:47) Hives cobalt Allergy (Intermediate, Verified 05/27/25 09:47) Rash nickel Allergy (Intermediate, Verified 05/27/25 09:47) Rash Tobacco use date assessed: 05/27/25 Dental Screening Dental Screen Date: 05/27/25 Did you have a dental visit in the last 12 months?: Yes Did you have a dental problem in the last 6 months where you did not have access to dental care?: No Was dental information given to patient?: Patient has dentist HPI f/u endometriosis HPI Details 29 y/o female presents to f/u endometriosis with abd. pain and chronic conditions. Pt notes she has a specialist now for her endometriosis. Has an appt. set up at the end of June. Labs drawn 05/02/25. Reviewed labs with pt. Triglycerides 104. TC 132. LDL 73. HDL low at 39. Rest of labs are fine. [facility] Medical History (Updated 05/27/25 @ 10:42 by Santy Carolina MD) Abdominal pain Subclinical hyperthyroidism Otitis media Otitis externa Morbid obesity with body mass index of 50 or higher Candidiasis depression Pyelonephritis Gestational diabetes Pain in symphysis pubis during Incidental Tick bite Swelling of lower extremity Screening for cervical cancer Adult general medical exam History of Lyme disease Laboratory exam ordered as part of routine general medical examination Joint pain Lyme disease Post depression Fatty liver Pre-eclampsia Postoperative nausea High triglycerides Gestational diabetes Anxiety Hypothyroid HTN (hypertension) GERD (gastroesophageal reflux disease) Morbid obesity Hx of endometriosis Low vitamin D level IBS (irritable bowel syndrome) Diverticulitis Surgical History History of endometrial ablation Hx of cholecystectomy S/P laparoscopic cholecystectomy History of appendix removal History of esophagogastroduodenoscopy (EGD) History of wisdom tooth extraction History of tonsillectomy History of colonoscopy Family History Father History of IBS HTN (hypertension) Psoriasis Mother Lupus Skin cancer Sister Lupus Thyroid disease Cervical cancer Son No problems noted. 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 Current occupational exposures/hazards: No Cognitive needs: No Hearing needs: No Vision needs: No (reading glasses) Female Reproductive History Menstrual Date of last menstrual period: 05/11/25 Questionnaire Thrive Questionnaire Date Thrive assessed: 11/08/24 I am a: Patient What is your living situation today?: I have a steady place to live Within the past 12 months, did the food you bought not last and you didn't have the money to get more?: Never true Within the past 12 months, did you worry whether your food would run out before you got money to buy more?: Never true Do you have trouble paying for medicines?: No Do you have trouble getting transportation to medical appointments?: No Do you have trouble paying your heating and electricity bill?: No Do you have trouble taking care of your child, family member or friend?: No Do you have trouble with day-to-day activities such as bathing, preparing meals, shopping, managing finances, etc.?: No Are you currently unemployed and looking for a job?: No Are you interested in more education?: No Please select the resources that you would like help with: None Currently or been in a relationship where the following occur: No concerns reported THRIVE Score: 0 AUDIT C Alcohol Use Questionnaire (AUDIT-C) 2. How many drinks containing alcohol do you have on a typical day when you are drinking?: 1 or 2 3. How often do you have six or more drinks on one occasion?: Never Total Score: 0 JADON-7 AMB Questionnaire JADON-7 Date JADON - 7 assessed: 01/06/25 Source: Developed by Drs. Bari Aguillon, Ammy Fisher, Ish Grimaldo and colleagues, with an educational maldonado from [employer]. Review of Systems Const Denies chills, Denies fatigue, Denies fever(s), Denies headache(s) and Denies weakness ENT Denies dizziness and Denies headache(s) Card Denies dyspnea Resp Denies cough, Denies dyspnea, Denies wheezing and Denies other (shortness of breath) Musc Denies numbness and Denies tingling Neuro Denies dizziness, Denies headache(s), Denies numbness, Denies tingling and Denies weakness Psych Denies anxiety and Denies depression Endo Denies fatigue Aller/Immun Denies wheezing Physical exam (Primary Care) Vital Signs: Last Vital Signs Temp 98.4 F 05/27/25 09:50 Pulse 96 05/27/25 09:50 Resp 16 05/27/25 09:50 BP 102/62 05/27/25 09:50 Pulse Ox 98 05/27/25 09:50 Oxygen Delivery Method Room Air 05/27/25 09:50 BMI result Body Mass Index 32.1 Tobacco/Smoking Status: Tobacco use Status Tobacco use date assessed 05/27/25 05/27/25 09:52 Patient Tobacco Use Status Never used Tobacco 05/27/25 09:49 e-Cigarette/Vaping Use Never Used 05/27/25 09:49 Thrive Assessment: Date of Thrive Assessment Date Thrive assessed 11/08/24 05/27/25 09:42 Currently or been in a relationship where the following occur: No concerns reported Const General: well developed; No acute distress Nutritional Appearance: well nourished Orientation/consciousness: patient oriented x3 HENMT Head: Yes normocephalic and Yes atraumatic Eyes General: appearance normal, both eyes and all related structures Pupils: Equal, round and reactive pupils present EOM: EOMs intact bilaterally Resp Effort & Inspection: normal respiratory effort Neuro General: patient oriented x3 and gait normal Cranial nerves: Yes Equal, round and reactive pupils present Psych Affect: normal affect Coding Level of Care Code Est Pt Level 4 (90720) Diagnoses Endometriosis N80.9 Low HDL (under 40) E78.6 Assessment & Plan Assessment & Plan (1) Endometriosis: Code(s): N80.9 - Endometriosis, unspecified Category: Medical Plan: Ongoing symptoms during menstruation and ovulation Recent emergency department visit severe pain and difficulty urinating She is followed by Dr Fidel Mcnally [employer] [facility] in [place] and locally by Dr. Arizmendi. Had filled out [facility] paperwork for patient at last visit for intermittent leave 2-3 times per month. Will require intermittent leave 4 times per month. Updated paperwork today. Will make referral to Dr. Mcnally Will refer to pelvic floor therapy as well. (2) Low HDL (under 40): Code(s): E78.6 - Lipoprotein deficiency Category: Medical Plan: Mildly low HDL Continue exercise as tolerated Plan * I spent 38 minutes reviewing the patients prior records and specialists notes, examining and speaking to the patient, coordinating care, completing paperwork and documenting in the patient's chart. ---- She has a physical in January Orders: Orders PT Evaluation and Treatment 05/27/25 D25.9 - Leiomyoma of uterus, unspecified, N80.9 - Endometriosis, unspecified, R10.32 - Left lower quadrant pain Referrals [facility] [facility] Referral D25.9 - Leiomyoma of uterus, unspecified, M62.89 - Other specified disorders of muscle, N80.9 - Endometriosis, unspecified, R10.32 - Left lower quadrant pain
[2025-05-27 09:50] VITALS: BP 102/62; PULSE 96; RESP 16; TEMP 36.9; O2SAT 98; BMI 32.1
== END 2025-05-27 11:02 | disposition home or self-care (01) ==
LOC: HO.HMCFM 09:27
PROVIDERS: PCP Family Medicine; Visit Provider Family Medicine
DX: N80.9 Endometriosis, unspecified (principal); E78.6 Lipoprotein deficiency

== ENCOUNTER → 2025-05-27 09:26 | Outpatient (BNVA) | payer OTHER, SELFPAY | PROVIDERS: PCP Family Medicine; Visit Provider Family Medicine | DX: N80.9 Endometriosis, unspecified (principal); E78.6 Lipoprotein deficiency | CPT/HCPCS: 99212 ==

== ENCOUNTER 2025-05-31 07:40 | Outpatient (AMB) | payer OTHER, SELFPAY ==
--- NOTE | 2025-05-31 07:42 | A.OFFVIS_ITS ---
Vital Signs 05/31/25 07:43 Height 4 ft 11 in Weight 159 lb 13.362 oz BMI 32.3 BP 106/68 Blood Pressure Location Rt brachial Position Sitting Pulse 87 Pulse Source Pulse Oximeter Pulse Oximetry (%) 97 Oxygen Delivery Method Room Air Intake Visit Reasons: Subclinical hyperthyroidism Intake Note: Patient present today for Subclinical hyperthyroidism office visit. Finishing Machine Tender Required: No Accompanied by: Child Allergies adhesive Allergy (Intermediate, Verified 05/31/25 07:47) Rash bupropion (From Wellbutrin) Allergy (Intermediate, Verified 05/31/25 07:47) Hives cobalt Allergy (Intermediate, Verified 05/31/25 07:47) Rash nickel Allergy (Intermediate, Verified 05/31/25 07:47) Rash Medication List - Last Reconciled 05/31/25 by Leslie Faulkner MD baclofen 10 mg PO DAILY PRN compr.stocking,knee,long,large Daily As directed, 90 days methimazole 2.5 mg (1/2 x 5 mg) PO DAILY sennosides (senna) 8.6 mg PO BEDTIME HPI Comments Details: 29-year-old female here today for followup of subclinical hyperthyroidism and Graves disease . 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 HPI from prior visit Labs done 10/29/2024 showed TSH low at 0.01, with normal free T4 at 1.49. Prior to that in August 1024 she had a normal TSH of 1.29. Diagnosed at age 9, was on medication till 19 years old , then stopped and remained euthroid, were 50 and 75 mcg of synthroid. Did have preceding viral illness at that time. no contrast exposure recenlty. Down a total of 55 lbs, lost 25 lbs prior to surgery constipation since surgery , post suregery palpitations in Nov 02 2024 , no more. Patient currently denies heat or cold intolerance, diarrhea or constipation, hair loss, palpitation, anxiety, mood changes has PMDD, low energy, changes in appearance of eyes or vision changes, tremors, increased diaphoresis or dry skin. ? LMP 08 November, 9 months old son. 2 , one chemical Planning to use condoms Patient denies any difficulty swallowing, pain on swallowing or voice changes or difficulty breathing. Patient denies any history of childhood neck radiation. Denies having ever used lithium, amiodarone or biotin supplements. Patient denies any family history of thyroid cancer .Lots of maternal relatives Sister: hyper Mother: hypo Grandma: hypo another sister hypo No history of heart disease, no fractures 12/14/2024: Labs showed TSH low at 0.03, free T4 normal at 0.96, total T3 normal at 100, TSI antibodies elevated at 373, TPO antibodies normal at 4, TSH receptor antibody elevated at 4.73. 01/06/25: While given that she is premenopausal, no history of heart disease, no history of fragility fracture, she classified as low risk, however patient explained that her emotional turmoil and anxiety was really interfering with her life in 1 2 to start medication especially given TSH is less than 0.1, we are okay with starting her on low-dose methimazole. Started on methimazole 2.5 mg daily. Interval history Labs 05/25/2025: Showed normal TSH and free T4 Continues on methimazole 2.5 mg daily Says much improved with hunger rage , emotions. loose stools resolved. Lost another 15 lbs since beginning of February 2025, had sleeve gastrectomy in Oct 2024 no palpitation, no tremors No heat intolerance LMP:05/11/25 Physical exam General: sitting comfortably in no acute distress HEENT: normocephalic/atraumatic, no lid lag Neck: supple, symmetrical, no thyromegaly , Cardiac: normal heart sounds Pulm: normal breath sounds B/L, no added breath sounds Abd: not distended, no tenderness Extremities: no edema, no signs of myxedema, no tremor Laboratory Tests 10/29/24 12/14/24 07:26 10:20 TSH 0.01 L 0.03 L Free T4 1.49 0.96 Total T3 100 Thyroid Stim Immunoglob 373 H Thyroid Peroxidase Ab 4 TSH Receptor Ab 4.73 H Laboratory Tests 10/23/21 06/04/23 01/15/24 10:35 11:45 10:10 Free T4 0.88 0.83 TSH 2.15 07/09/24 08/23/24 10/29/24 09:01 11:54 07:26 Free T4 0.76 1.49 TSH 1.87 1.29 0.01 L Laboratory Tests 03/04/25 05/20/25 07/21/25 10:20 08:16 09:21 TSH 0.03 L 0.80 1.33 Free T4 0.96 0.86 Total T3 100 112 Thyroid Stim Immunoglob 373 H 05/25/25 07:56 TSH 1.26 Free T4 0.91 Total T3 Thyroid Stim Immunoglob PFSH Medical History (Updated 05/27/25 @ 10:42 by Santy Carolnia MD) Abdominal pain Subclinical hyperthyroidism Otitis media Otitis externa Morbid obesity with body mass index of 50 or higher Candidiasis depression Pyelonephritis Gestational diabetes Pain in symphysis pubis during Incidental Tick bite Swelling of lower extremity Screening for cervical cancer Adult general medical exam History of Lyme disease Laboratory exam ordered as part of routine general medical examination Joint pain Lyme disease Post depression Fatty liver Pre-eclampsia Postoperative nausea High triglycerides Gestational diabetes Anxiety Hypothyroid HTN (hypertension) GERD (gastroesophageal reflux disease) Morbid obesity Hx of endometriosis Low vitamin D level IBS (irritable bowel syndrome) Diverticulitis Surgical History History of endometrial ablation Hx of cholecystectomy S/P laparoscopic cholecystectomy History of appendix removal History of esophagogastroduodenoscopy (EGD) History of wisdom tooth extraction History of tonsillectomy History of colonoscopy Family History Father History of IBS HTN (hypertension) Psoriasis Mother Lupus Skin cancer Sister Lupus Thyroid disease Cervical cancer Son No problems noted. 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 Patient does does not look very hyperthyroid on my exam either. No orbitopathy, no goiter. No lid lag or tremors. She does have a strong maternal history of thyroid dysfunction , 12/14/2024: Labs showed TSH low at 0.03, free T4 normal at 0.96, total T3 normal at 100, TSI antibodies elevated at 373, TPO antibodies normal at 4, TSH receptor antibody elevated at 4.73. We had explained to the patient That she classifies as low risk of complications based on age less than 65 years, premenopausal, no history of heart disease. We could potentially repeat labs in 3 months and continue to observe, however given TSH is less than 0.1, and elevated TSI and TSH receptor antibodies are consistent with a diagnosis of Graves disease, we could also treat her depending on how symptomatic she is. While my examination does not shows she is symptomatic, she was complaining of a lot of emotional turmoil due to increased rage and anxiety, and increased hunger which is bothering her a lot as she underwent bariatric surgery recently and this is counter intuitive to her goals. We explained to her that observation is an alternative in asymptomatic patients however she is leaning towards treatment. After the above discussion on 01/06/2025 patient was started on methimazole 2.5 mg daily. She reports much improvement in all of her symptoms. Forgot to do blood work prior to appointment today. She is sexually active, I again explained to her methimazole is teratogenic, and can cause serious congenital defects, patient verbalized understanding and says she does not want to go on an oral contraceptive pill but will use condoms. Doing well overall now, on methimazole 2.5 mg daily. Most recent blood work from 05/25/2025 shows normal TSH and free T4. Plan: -continue methimazole 2.5 mg daily ( half a tablet) -Do blood work a few days prior to her next follow up in 6-7 months. -Fup in 6 months The following were discussed as potential side effects of methimazole: - Serious skin rashes - nausea, vomiting, or severe hepatic injury - Agranulocytosis: a rare side effect of methimazole involves a severe decrease in the production of white blood cells. This condition is extremely serious, but affects only one out of every 200 to 500 people who take an antithyroid drug. Agranulocytosis more commonly occurs within the first three months of starting treatment with an antithyroid drug, but can occur at any time. If patient develops a fever (temperature above 100.5F), or other signs or symptoms of infection, she should stop taking the tapazole and immediately have a complete blood count (CBC) done. Serious and potentially life threatening infections, or even , can occur before agranulocytosis resolves. However, once the antithyroid drug is stopped, agranulocytosis usually resolves within a week. - Arthralgias, myalgias - Renal: Nephritis - Fever Patient will stop medication and call our office if these occur. This is a teratogenic medication, please use contraception reliably. Plan See above Orders: Orders Free T4 (Free Thyroxine) 11/14/25 E05.90 - Thyrotoxicosis, unspecified without thyrotoxic crisis or storm Thyroid Stimulating Hormone 11/14/25 E05.90 - Thyrotoxicosis, unspecified without thyrotoxic crisis or storm Medications: Refilled methimazole 2.5 mg (1/2 x 5 mg) PO DAILY 30 tabs 5RF Patient Instructions: Continue methimazole 2.5 mg daily Do blood work a few days prior to your visit in December 2025 The following were discussed as potential side effects of methimazole: - Serious skin rashes - nausea, vomiting, or severe hepatic injury - Agranulocytosis: a rare side effect of methimazole involves a severe decrease in the production of white blood cells. This condition is extremely serious, but affects only one out of every 200 to 500 people who take an antithyroid drug. Agranulocytosis more commonly occurs within the first three months of starting treatment with an antithyroid drug, but can occur at any time. If patient develops a fever (temperature above 100.5F), or other signs or symptoms of infection, she should stop taking the tapazole and immediately have a complete blood count (CBC) done. Serious and potentially life threatening infections, or even , can occur before agranulocytosis resolves. However, once the antithyroid drug is stopped, agranulocytosis usually resolves within a week. - Arthralgias, myalgias - Renal: Nephritis - Fever Patient will stop medication and call our office if these occur. This is a teratogenic medication, please use contraception reliably. Coding Level of Care Code Est Pt Level 3 (51434) Diagnoses Subclinical hyperthyroidism E05.90
[2025-05-31 07:43] VITALS: BP 106/68; PULSE 87; O2SAT 97; BMI 32.3
--- OUTSIDE RECORDS SUMMARY | 2025-05-31 07:43 | XMS_ITS | Clinical Summary ---
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 Name Role Phone Pcp, No Primary Care Provider Lauro Mercado MD Unavailable [phone] Social History Tobacco Use Types Packs/Day [...] EDT Office Visit [facility] [facility] [address] [facility] [address] [place] [phone] Valery Mcnally MD [address] [place] [id number] Health Maintenance Due Date Last Done Comments [...] age to complete this topic Insurance [facility] Care Teams Paintings Restorer Relationship Specialty Start Date End Date Pcp, No PCP - General General Medicine 08/03/21 Lauro Dudley MD [address] [place] [address] [address] [place] [address] Internal Medicine 08/03/21
== END 2025-05-31 07:56 | disposition home or self-care (01) ==
LOC: HO.ENCR 07:41
PROVIDERS: PCP Family Medicine; Visit Provider Student in an Organized Health Care Education/Training Program
DX: E05.90 Thyrotoxicosis, unspecified without thyrotoxic crisis or storm (principal)
CPT/HCPCS: 99213

== ENCOUNTER → 2025-05-31 07:40 | Outpatient (BNVA) | payer OTHER, SELFPAY | PROVIDERS: PCP Family Medicine; Visit Provider Student in an Organized Health Care Education/Training Program | DX: E05.90 Thyrotoxicosis, unspecified without thyrotoxic crisis or storm (principal) | CPT/HCPCS: 99212 ==

== ENCOUNTER 2025-06-10 13:00 | Outpatient (AMB) | payer OTHER, SELFPAY ==
--- NOTE | 2025-06-10 13:15 | MHC.WMTHER ---
Intake Intake Visit Reasons: VIDEO PO LSG 11/02/24 Allergies adhesive Allergy (Intermediate, Verified 05/31/25 07:47) Rash bupropion (From Wellbutrin) Allergy (Intermediate, Verified 05/31/25 07:47) Hives cobalt Allergy (Intermediate, Verified 05/31/25 07:47) Rash nickel Allergy (Intermediate, Verified 05/31/25 07:47) Rash PFSH Medical History (Updated 05/27/25 @ 10:42 by Santy Carolina MD) Abdominal pain Subclinical hyperthyroidism Otitis media Otitis externa Morbid obesity with body mass index of 50 or higher Candidiasis depression Pyelonephritis Gestational diabetes Pain in symphysis pubis during Incidental Tick bite Swelling of lower extremity Screening for cervical cancer Adult general medical exam History of Lyme disease Laboratory exam ordered as part of routine general medical examination Joint pain Lyme disease Post depression Fatty liver Pre-eclampsia Postoperative nausea High triglycerides Gestational diabetes Anxiety Hypothyroid HTN (hypertension) GERD (gastroesophageal reflux disease) Morbid obesity Hx of endometriosis Low vitamin D level IBS (irritable bowel syndrome) Diverticulitis Surgical History History of endometrial ablation Hx of cholecystectomy S/P laparoscopic cholecystectomy History of appendix removal History of esophagogastroduodenoscopy (EGD) History of wisdom tooth extraction History of tonsillectomy History of colonoscopy Family History Father History of IBS HTN (hypertension) Psoriasis Mother Lupus Skin cancer Sister Lupus Thyroid disease Cervical cancer Son No problems noted. 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 She notes her weight has been fluctuating between 157 and 160 lbs, leaving her approximately 25 lbs from her target goal. The patient expresses frustration with her perceived lack of progress. She is engaging in low-impact exercise 3?4 times per week, limited by endometriosis-related pain and symptoms. She denies any new medical or surgical complications, and reports adherence to her prescribed dietary plan, though she occasionally struggles with emotional eating during periods of stress. Objective: The patient attended a post-operative behavioral health follow-up visit via telehealth. The session focused on processing family dynamics and frustrations related to weight, as well as their emotional impact. Progress since surgery was reviewed, highlighting a total weight loss of 90 lbs over 9 months, which was used to reframe negative self-talk and reinforce her achievements. Cognitive restructuring techniques were implemented to address distorted thoughts about progress and self-worth. The importance of discipline over motivation was discussed, and the patient identified external motivators and accountability strategies to support exercise adherence. Coping skills for managing stress and emotional eating were reviewed and reinforced. Psychoeducation was provided regarding the typical weight loss trajectory after bariatric surgery, expected plateaus, and the impact of chronic pain on physical activity. The patient was encouraged to continue tracking her food intake, physical activity, and mood to identify patterns and triggers. Assessment/Response: Mental status: Alert, oriented, mood mildly dysphoric but appropriate to context, affect congruent, thought process logical and goal-directed. Risk reported/identified: None. No signs of acute distress or safety concerns were observed; the patient was engaged, cooperative, and demonstrated insight into her challenges. Food/Weight/Diet Expectations of change The initial goal is to lose 10% of your weight before surgery, about 25 lbs. The ultimate weight goal is 222 lbs before surgery. 08/11/2024 - Initial weight visit: 247 lb 6.4 oz 09/13/2024 weight: 239Lbs 10/04/2024: 231Lbs Pre-surgery weight: 221Lbs 11/09/2024 was 205.2 Lbs 11/23/2024: 200Lbs 12/07/24: 198 Lbs 12/15/24:195Lbs 01/04/25: 189Lbs 01/18/2025: 185Lbs. 02/15/2025: 178Lbs (lost 3 Lbs last week) 04/11/2025: 167Lbs 05/16/2025: 159Lbs 05/31/2025: 157Lbs PT target weight: 120- 130 lbs - Current meal plan: 2 shakes, 2 bars, 1 meal (3FT protein/3FT cooked vegetables). Exercise: Cardio 5 days, add weight lifting 3 days, hot yoga 3x week. Assessment & Plan Assessment & Plan (1) PMDD (premenstrual dysphoric disorder): Code(s): F32.81 - Premenstrual dysphoric disorder (2) Adjustment disorder with anxiety: Code(s): F43.22 - Adjustment disorder with anxiety (3) Status post bariatric surgery: Code(s): Z98.84 - Bariatric surgery status Plan -Encourage continued use of coping strategies and accountability supports for exercise. -Monitor for changes in mood, eating patterns, or pain symptoms, and address as indicated. -Continue monthly post-operative behavioral health visits. Next appointment scheduled for 07/12/25 at 1:00 pm via video. Telehealth Telehealth Telehealth Platform: [facility] Location of provider rendering services: practice address Location of patient: address on file Patient Identification confirmed using: Name, : Yes Telehealth method: video Patient verbally consented to treatment: Yes Patient verbally consented to billing insurance company: Yes Patient informed of any privacy concerns related to visit: Yes Minutes spent on Phone/Video with Pt.: 60 Coding Level of Care Code Established Pt Tele Psytx >53 mins (43089) Patient Type Established Diagnoses PMDD (premenstrual dysphoric disorder) F32.81 Adjustment disorder with anxiety F43.22 Status post bariatric surgery Z98.84 Time Spent (min) 60 Comment Start time: 1:15pm - End time: 2:15pm
--- OUTSIDE RECORDS SUMMARY | 2025-06-10 13:38 | XMS_ITS | Clinical Summary ---
Author Organization [facility] Address [address] [place] [address] Care Team Providers Care Senior Policy Advisor Name Role Phone Pcp, No Primary Care Provider Lauro Mercado MD Unavailable [phone] Social History Tobacco Use Types Packs/Day [...] AM EDT Office Visit [facility] at [facility] [address] [phone] Valery Mcnally MD [address] [address] Health Maintenance Due Date Last Done Comments [...] patient's age to complete this topic Insurance [facility] Care Teams Senior Policy Advisor Relationship Specialty Start Date End Date Pcp, No PCP - General General Medicine 08/03/21 Lauro Dudley MD [address] [place] [address] [address] [place] [address] Internal Medicine 08/03/21
== END 2025-06-10 14:17 | disposition home or self-care (01) ==
LOC: HO.HBST 13:25
PROVIDERS: PCP Family Medicine; Visit Provider Counselor Mental Health
DX: F32.81 Premenstrual dysphoric disorder (principal); F43.22 Adjustment disorder with anxiety; Z98.84 Bariatric surgery status
CPT/HCPCS: 90837

== ENCOUNTER 2025-07-12 13:12 | Outpatient (AMB) | payer OTHER, SELFPAY ==
--- OUTSIDE RECORDS SUMMARY | 2025-07-07 09:00 | XMS_ITS | Encounter Summary ---
Author Organization [facility] Address [address] [place] [address] Care Team Providers Care Project Management Professor Name Role Phone Pcp, No Primary Care Provider Lauro Mercado MD Unavailable [phone] Reason for Referral * Diagnostic Imaging (Routine) - Pending Review Specialty Diagnoses / Procedures Referred By Contac t Referred To Contact Diagnoses Endometriosis Procedures MRI Pelvis w w/o contrast Valery Mcnally MD [address] [place] [address] Phone: tel: fax: Referral ID Status Reason Start Date Expiration Date V isits Requested Visits Authorized [id number] Pending Review 07/07/2025 07/08/2026 1 1 * Colorectal (Routine) - Authorized Specialty Diagnoses / Procedures Referred By Contac t Referred To Contact Surgery, Colorectal Diagnoses Endometriosis Valery Mcnally MD [address] [place] [address] Phone: tel: fax: Lyly West MD [address] [place] [phone] Phone: tel: fax: Referral ID Status Reason Start Date Expiration Date V isits Requested Visits Authorized [id number] Authorized Consult 07/07/2025 07/08/2026 1 1 Question Answer Select Referral Type Consult Comments Planning on TLH, known endometriosis/diverticulosis noted on prior LSC endo excision Reason for Visit * Reason Comments Follow-up Discuss possible jcarlos rosalee for Endo Encounter Details Date Type Department Care Team (Latest Contact Info) Description 07/07/2025 9:00 AM EDT [facility] [address] [place] [phone] Valery Mcnally MD [address] [place], [place] [phone] Endometriosis (Primary Dx) Social History Tobacco Use Types Packs/Day Years Used Date Smoking Tobacco: Never Tobacco Cessation:Counseling Given: Not Answered Alcohol Use Standard Drinks/Week Comments Not Currently 0 (1 standard drink = 0.6 oz pur e alcohol) Comments Unknown Sex and Gender Information Value Date Recorded Sex Assigned at Female 05/06/2025 11:43 AM EDT Legal Sex Female 4:12 PM EDT Gender Identity Female 04/13/2025 3:14 PM EDT Sexual Orientation Heterosexual (straight) 04/13 3:14 PM EDT documented as of this encounter Last Filed Vital Signs Vital Sign Reading Time Taken Comments Blood Pressure 113/68 07/07/2025 9:16 AM EDT Pulse 72 07/07/2025 9:16 AM EDT Temperature 36.5 C (97.7 F) 07/07/2025 9:16 AM EDT Respiratory Rate - - Oxygen Saturation 99% 07/07/2025 9:16 AM EDT Inhaled Oxygen Concentration - - Weight 68.7 kg (151 lb 8 oz) 07/07/2025 9:16 AM EDT Height 149.9 cm (4' 11 ) 07/07/2025 9:16 AM EDT Body Mass Index 30.6 07/07/2025 9:16 AM EDT documented in this encounter Progress Notes * Valery Mcnally MD - 07/07/2025 9:54 AM EDT CC residential follow up HPI 29yo status post LSC endometriosis excision 08/2022 - spontaneous in the interim - successful - now almost 12 months with return of pelvic pain, dysmenorrhea, dyschezia and AUB - interested in options moving forward BP 113/68 NAD Normal respiratory effort Pelvic na PMH: negative PSH: endometriosis excision, LSC gastric sleeve OBGYNH; SVDx1 Imaging: MRI ordered A/P 29yo status post LSC endometriosis excision 08/2022 as above - Pelvic pain recurrence Reviewed options, repeat LSC vs TLH Given the persistence of dysmenorrhea and the desire for definitive treatment, pt opted for TLH R/B reviewed, will schedule documented in this encounter Plan of Treatment Upcoming Encounters Date Type Department Care Team (Late st Contact Info) Description 08/05/2025 8:00 AM EDT Appointment [facility] [place] [address] [place] [phone] Valery Mcnally MD [address] [place] [phone] 09/28/2025 9:30 AM EST [facility]med[facility] [address] [phone] Valery Mcnally MD [address] [place] [phone] Scheduled Orders Name Type Priority Associated Diagnoses Orde r Schedule MRI Pelvis w w/o contrast Imaging Routine Endometriosis Expected: 07/07/2025, Expires: 07/07/2026 Scheduled Referrals Name Type Priority Associated Diagnoses Order Schedule Amb Referral to Colorectal Surgery Outpatient Referral Routine Endometriosis Ordered: 07/07/2025 documented as of this encounter Visit Diagnoses Diagnosis Endometriosis- Primary Endometriosis, site unspecified documented in this encounter Care Teams Project Management Professor Relationship Specialty Start Date End Date Pcp, No PCP - General General Medicine 08/03/21 Lauro Dudley MD [address] [place] [address] Internal Medicine 08/03/21 documented as of this encounter
--- NOTE | 2025-07-12 13:05 | A.OFFWM_ITS ---
Intake Intake Visit Reasons: VIDEO PO LSG 11/02/24 Allergies adhesive Allergy (Intermediate, Verified 05/31/25 07:47) Rash bupropion (From Wellbutrin) Allergy (Intermediate, Verified 05/31/25 07:47) Hives cobalt Allergy (Intermediate, Verified 05/31/25 07:47) Rash nickel Allergy (Intermediate, Verified 05/31/25 07:47) Rash PFSH Medical History (Updated 05/27/25 @ 10:42 by Santy Carolina MD) Abdominal pain Subclinical hyperthyroidism Otitis media Otitis externa Morbid obesity with body mass index of 50 or higher Candidiasis depression Pyelonephritis Gestational diabetes Pain in symphysis pubis during Incidental Tick bite Swelling of lower extremity Screening for cervical cancer Adult general medical exam History of Lyme disease Laboratory exam ordered as part of routine general medical examination Joint pain Lyme disease Post depression Fatty liver Pre-eclampsia Postoperative nausea High triglycerides Gestational diabetes Anxiety Hypothyroid HTN (hypertension) GERD (gastroesophageal reflux disease) Morbid obesity Hx of endometriosis Low vitamin D level IBS (irritable bowel syndrome) Diverticulitis Surgical History History of endometrial ablation Hx of cholecystectomy S/P laparoscopic cholecystectomy History of appendix removal History of esophagogastroduodenoscopy (EGD) History of wisdom tooth extraction History of tonsillectomy History of colonoscopy Family History Father History of IBS HTN (hypertension) Psoriasis Mother Lupus Skin cancer Sister Lupus Thyroid disease Cervical cancer Son No problems noted. 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 She continues to be consistent with her exercise and meal plan and is noticing steady progress. Patient recently had an appointment with her OBGYN-surgeon and is planning a hysterectomy. She expresses sadness and is processing complex emotions related to the loss of future fertility, as she had hoped to have more children. Objective: Patient presents for a post-operative behavioral health session via telehealth. Interventions focused on providing psychoeducation regarding anxiety management techniques, including deep breathing exercises and progressive muscle relaxation. Cognitive-behavioral strategies were introduced to help the patient identify and challenge maladaptive thought patterns contributing to distress. The patient was encouraged to utilize grounding techniques during episodes of heightened anxiety and to maintain a daily journal to track mood fluctuations and triggers. Additionally, supportive counseling was provided to address current stressors and enhance coping skills. Collaborative goal-setting was initiated to promote engagement in positive activities and reinforce adaptive behaviors. Assessment/Response: * Mental status: WNL. Congruent with situation; displays sadness and grief, but also pride in weight loss achievements. * Risk reported/identified: None. Assessment & Plan Assessment & Plan (1) PMDD (premenstrual dysphoric disorder): Code(s): F32.81 - Premenstrual dysphoric disorder (2) Adjustment disorder with anxiety: Code(s): F43.22 - Adjustment disorder with anxiety (3) Status post bariatric surgery: Code(s): Z98.84 - Bariatric surgery status Plan Continue behavioral health support with focus on grief processing, coping skills, and adjustment to medical and life changes. Encourage ongoing use of coping strategies and engagement in support systems. Consider referral to support group or couples counseling if marital stress per sists. Follow up in 1 month. * Next appointment scheduled for 08/08/2025 at 1:00 PM. Telehealth Telehealth Telehealth Platform: [facility] Location of provider rendering services: practice address Location of patient: address on file Patient Identification confirmed using: Name, : Yes Telehealth method: video Patient verbally consented to treatment: Yes Patient verbally consented to billing insurance company: Yes Patient informed of any privacy concerns related to visit: Yes Minutes spent on Phone/Video with Pt.: 55 Coding Level of Care Code Established Pt Tele Psytx >53 mins (67700) Patient Type Established Diagnoses PMDD (premenstrual dysphoric disorder) F32.81 Adjustment disorder with anxiety F43.22 Status post bariatric surgery Z98.84 Time Spent (min) 55
--- OUTSIDE RECORDS SUMMARY | 2025-07-12 14:26 | XMS_ITS | Clinical Summary ---
Author Organization [facility] Address [address] [place] [address] Care Team Providers Care Oil Field Rig Builder Name Role Phone Pcp, No Primary Care Provider UnavailLauro Villalpando MD Unavailable [phone] Allergies Active Allergy Reactions Criticality Noted Date Comments Ray Rash/Dermatitis Low 04/01/2019 As per allergy testing Nickel Rash/Dermatitis Low 04/05/2019 As per allergy testing Bupropion Hives Medium 07/07/2025 Medications baclofen (LIORESAL) 10 MG tablet Take 1 tablet (10 mg total) by mouth 3 (three) times a day as needed. Muscle Spasms 10/05/2024 Active methimazole (TAPAZOLE) 5 MG tablet Take 1 tablet (5 mg total) by mouth daily. 07/06/2025 Active Vitamins-Lipotro pics (Tony Multiple/Chelate d Mineral) Tab Take 1 tablet by mouth. Active senna-docusate (SENNA-S) 8.6-50 MG Take 1 tablet by mouth. Active Encounters Date Type Department Care Team Description 07/07/2025 9:00 AM EDT Office Visit Gynecologic Specialties at [facility] Pract[facility] [address] [facility] [address] [place] [phone] Valery Mcnally MD Endometriosis (Primary Dx) 07/07/2025 Travel from Last 3 Months Family History Medical History Relation Name Comments Cholelithiasis Father Kamran Sanchez Gallbladder r emoved Hypertension Father Kamran Sanchez Colon cancer Maternal Grandfather Janak Conway Colon polyps Maternal Grandfather Janak Conway Celiac disease Maternal Grandmother Halley Scott Autoimmune disease Mother Keira Sanchez Lupus Cancer, other Mother Keira Sanchez Skin cancer, c ervical cancer Celiac disease Mother Keira Sanchez Cholelithiasis Mother Keira Sanchez Gallbladder r emoved Colon polyps Mother Keira Sanchez Diabetes Mother Keira Sanchez Gestational, no n-current Alcohol abuse Paternal Grandfather Amauri Sanchez Diabetes Paternal Grandfather Amauri Sanchez Liver disease Paternal Grandfather Amauri Sanchez Alcoh ol induced Diabetes Paternal Grandmother Alexandria Sanchez Heart attack Paternal Grandmother Alexandria Sanchez Heart attack Paternal Uncle Amauri Sanchez Autoimmune disease Sister 1 Donnademarcus Sanchez Lupus Autoimmune disease Sister 2 Tracy Herrera Hashim otos Thyroid disease Sister 2 Tracy Herrera Michelle s Celiac disease Sister 3 Kelley Sanchez Relation Name Status Comments Father Kamran Sanchez Alive Maternal Grandfather Janak Conway Alive Maternal Grandmother Halley Scott Alive Mother Keira Sanchez Alive Paternal Grandfather Amauri Sanchez Alive Paternal Grandmother Alexandria Sanchez Alive Paternal Uncle Amauri Sanchez Alive Sister 1 Donnalanie Sanchez Alive Sister 2 Tracy Herrera Alive Sister 3 Kelley Sanchez Alive Social History Tobacco Use Types Packs/Day Years [...] Orientation Heterosexual (straight) 04/13 3:14 PM EDT Last Filed Vital Signs Vital Sign Reading [...] Mass Index 30.6 07/07/2025 9:16 AM EDT Plan of Treatment Upcoming Encounters Date Type Department Care Team (Late st Contact Info) Description 08/05/2025 8:00 AM EDT Appointment [facility] [place] [address] [facility] [address] Valery Mcnally MD [address] [place], [place] [phone] 09/28/2025 9:30 AM EST Telemedicine Gynecologic Specialties at [facility] [address] [place] [address] Valery Mcnally MD [address] [place] [phone] Health Maintenance Due Date Last Done Comments Hepatitis C Virus Screening 1993 HIV Screening 2006 DTaP/Tdap/Td Vaccines (1 - Tdap) 2012 Hepatitis B Vaccines (1 of 3 - 19+ 3-dose series) 2012 Pap Smear (Ages 21-65) 2014 Influenza Vaccine 05/13/2025 COVID-19 Vaccine (2 - 2024-2 6 season) 2025 04/25/2021 HPV Vaccines (No Doses Required) Completed Pneumococcal Vaccine: Pediat frankie (0-5 Years) and At-Risk Patients (6 to 49 Years) Aged Out No longer eligible b ased on patient's age to complete this topic Insurance [facility] Care Teams Oil Field Rig Builder Relationship Specialty Start Date End Date Pcp, No PCP - General General Medicine 08/03/21 Lauro Dudley MD [address] [place] [address] Internal Medicine 08/03/21
--- OUTSIDE RECORDS SUMMARY | 2025-07-12 14:26 | XMS_ITS | Encounter Summary ---
Author Organization [facility] Address [address] [place] [address] Care Team Providers Care Water Reclamation Systems Operator Name Role Phone Pcp, No Primary Care Provider Lauro Mercado MD Unavailable [phone] Encounter Details Date Type Department Care Team (Latest Contact Info) Description 07/07/2025 Travel Social History Tobacco Use Types Packs/Day Years Used Date Smoking Tobacco: Never Alcohol Use Standard Drinks/Week Comments Not Currently 0 (1 standard drink = 0.6 oz pur e alcohol) Comments Unknown Sex and Gender Information Value Date Recorded Sex Assigned at Female 05/06/2025 11:43 AM EDT Legal Sex Female 4:12 PM EDT Gender Identity Female 04/13/2025 3:14 PM EDT Sexual Orientation Heterosexual (straight) 04/13 3:14 PM EDT documented as of this encounter Plan of Treatment Upcoming Encounters Date Type Department Care Team (Late st Contact Info) Description 08/05/2025 8:00 AM EDT Appointment [facility] [place] [address] [place] [phone] Valery Mcnally MD [address] [place] [phone] 09/28/2025 9:30 AM EST [facility] [address] [phone] Valery Mcnally MD [address] [place] [phone] documented as of this encounter Visit Diagnoses Not on filedocumented in this encounter Care Teams Water Reclamation Systems Operator Relationship Specialty Start Date End Date Pcp, No PCP - General General Medicine 08/03/21 Lauro Dudley MD [address] [place] [address] Internal Medicine 08/03/21 documented as of this encounter
== END 2025-07-12 14:07 | disposition home or self-care (01) ==
LOC: HO.HBST 13:12
PROVIDERS: PCP Family Medicine; Visit Provider Counselor Mental Health
DX: F32.81 Premenstrual dysphoric disorder (principal); F43.22 Adjustment disorder with anxiety; Z98.84 Bariatric surgery status
CPT/HCPCS: 90837

== ENCOUNTER 2025-08-08 13:13 | Outpatient (AMB) | payer OTHER, SELFPAY ==
--- NOTE | 2025-08-08 13:09 | MHC.WMTHER ---
Intake Intake Visit Reasons: VIDEO PO LSG 11/02/24 Allergies adhesive Allergy (Intermediate, Verified 05/31/25 07:47) Rash bupropion (From Wellbutrin) Allergy (Intermediate, Verified 05/31/25 07:47) Hives cobalt Allergy (Intermediate, Verified 05/31/25 07:47) Rash nickel Allergy (Intermediate, Verified 05/31/25 07:47) Rash PFSH Medical History (Updated 05/27/25 @ 10:42 by Santy Carolina MD) Abdominal pain Subclinical hyperthyroidism Otitis media Otitis externa Morbid obesity with body mass index of 50 or higher Candidiasis depression Pyelonephritis Gestational diabetes Pain in symphysis pubis during Incidental Tick bite Swelling of lower extremity Screening for cervical cancer Adult general medical exam History of Lyme disease Laboratory exam ordered as part of routine general medical examination Joint pain Lyme disease Post depression Fatty liver Pre-eclampsia Postoperative nausea High triglycerides Gestational diabetes Anxiety Hypothyroid HTN (hypertension) GERD (gastroesophageal reflux disease) Morbid obesity Hx of endometriosis Low vitamin D level IBS (irritable bowel syndrome) Diverticulitis Surgical History History of endometrial ablation Hx of cholecystectomy S/P laparoscopic cholecystectomy History of appendix removal History of esophagogastroduodenoscopy (EGD) History of wisdom tooth extraction History of tonsillectomy History of colonoscopy Family History Father History of IBS HTN (hypertension) Psoriasis Mother Lupus Skin cancer Sister Lupus Thyroid disease Cervical cancer Son No problems noted. 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 She notes that this stress has triggered endometriosis flares and worsened her menstrual symptoms, which she feels are negatively affecting her weight-loss efforts. Her current weight is 151 lbs. She is working on re-establishing a consistent gym routine after recent changes disrupted her previous schedule, leading to decreased exercise consistency. Objective: The patient attended a post-operative behavioral health follow-up appointment via telehealth. The session focused on assessing her current functioning and identifying primary sources of stress. CBT-based interventions were utilized, including validation and normalization of her emotional responses to situational stressors. The patient was encouraged to identify and leverage her existing support systems and to review her financial contingency plans. Together, we processed the impact of recent routine changes that have contributed to her feeling ?stuck,? and collaboratively developed a structured plan to help her re-engage with her fitness goals. Behavioral activation strategies were discussed to support gradual reintroduction of exercise and to address barriers related to motivation and symptom flares. The patient was receptive and engaged in problem-solving throughout the session. Assessment/Response: Mental status: Alert, oriented, and appropriately dressed. Mood described as ?stressed but determined.? Affect congruent. Thought process logical and goal-directed. No suicidal or homicidal ideation. No evidence of psychosis. Insight and judgment intact. Risk reported/identified: None. Assessment & Plan Assessment & Plan (1) PMDD (premenstrual dysphoric disorder): Code(s): F32.81 - Premenstrual dysphoric disorder (2) Adjustment disorder with anxiety: Code(s): F43.22 - Adjustment disorder with anxiety (3) Status post bariatric surgery: Code(s): Z98.84 - Bariatric surgery status Plan Continue behavioral health support with a focus on stress management, symptom tracking, and gradual re-establishment of healthy routines. Reinforce use of CBT-based coping skills and behavioral activation strategies. Follow up in 1 month; next appointment scheduled for 09/05 at 1pm via video. Telehealth Telehealth Telehealth Platform: [facility] Location of provider rendering services: other (Home office. [place]) Location of patient: address on file Patient Identification confirmed using: Name, : Yes Telehealth method: video Patient verbally consented to treatment: Yes Patient verbally consented to billing insurance company: Yes Patient informed of any privacy concerns related to visit: Yes Minutes spent on Phone/Video with Pt.: 51 [place] [address] Tele Psytx 45 mins Patient Type Established Diagnoses PMDD (premenstrual dysphoric disorder) F32.81 Adjustment disorder with anxiety F43.22 Status post bariatric surgery Z98.84 Time Spent (min) 51
--- OUTSIDE RECORDS SUMMARY | 2025-08-08 16:49 | XMS_ITS | Clinical Summary ---
Author Organization [facility] Address [address] [place] [address] Care Team Providers Care Manufacturing Intern Name Role Phone Santy Carolina MD Primary Care Provider +1- [phone] Allergies Active Allergy Reactions Criticality Noted Date Comments Compton Rash/Dermatitis Low 04/01/2019 As per allergy testing [...] MG Take 1 tablet by mouth. Active Active Problems Problem Noted Date Diagnosed Date Endometriosis 07/07/2025 Adenomyosis 07/07/2025 Dysmenorrhea 07/07/2025 Encounters Date Type Department Care Team Description 08/03/2025 Scanned Document Gynecologic Specialties at [address] [phone] Valery Mcnally MD 08/02/2025 Scanned Document Gynecologic Specialties at [address] [phone] Valery Mcnally MD 07/22/2025 Orders Only [facility] [address] [place] [address] Valery Mcnally MD 07/21/2025 Orders Only Gynecologic Specialties at [facility] [address] [facility] [address] [place] [address] Valery Mcnally MD Endometriosis (Primary Dx) 07/07/2025 9:00 AM EDT Office Visit Gynecologic Specialties at [facility] [address] [facility] [address] [place] [address] Valery Mcnally MD Endometriosis (Primary Dx); Adenomyosis; Dysmenorrhea 07/07/2025 Travel from Last 3 Months Family History Medical History Relation Name Comments Cholelithiasis Father Kamran Sanchez Gallbladder r emoved Hypertension Father Kamran Sanchez Colon cancer Maternal Grandfather Janak Conway Colon polyps Maternal Grandfather Janak Conway Celiac disease Maternal Grandmother Halley Tyler Autoimmune disease Mother Keira Sanchez Lupus Cancer, other Mother Keira Sanchez Skin cancer, c ervical cancer Celiac disease Mother Keira Sanchez Cholelithiasis Mother Keira Sanchez Gallbladder r emoved Colon polyps Mother Keira Sanchez Diabetes Mother Keira Sanchez Gestational, no n-current Alcohol abuse Paternal Grandfather Amauri Sanchez Diabetes Paternal Grandfather Amauri Dimasne Liver disease Paternal Grandfather Amauri Dimasne Alcoh ol induced Diabetes Paternal Grandmother Alexandria Daniel Heart attack Paternal Grandmother Alexandria Daniel Heart attack Paternal Uncle Amauri Dimasne Autoimmune disease Sister 1 Donnalanie Sanchez Lupus Autoimmune disease Sister 2 Tracy Herrera Hashim otos Thyroid disease Sister 2 Tracy Herrera Michelle s Celiac disease Sister 3 Kelley Daniel Relation Name Status Comments Father Kamran Sanchez Alive Maternal Grandfather Janak Conway Alive Maternal Grandmother Halley Tyler Alive Mother Keira Sanchez Alive Paternal Grandfather Amauri Dimasne Alive Paternal Grandmother Alexandria Sanchez Alive Paternal Uncle Amauri Daniel Alive Sister 1 Donna Daniel Alive Sister 2 Tracy Herrera Alive Sister 3 Kelley Daniel Alive Social History Tobacco Use Types Packs/Day [...] Upcoming Encounters Date Type Department Care Team (Latest Contact Info) Description 09/28/2025 9:30 AM EST Telemedicine Gynecologic Specialties at [facility] Multispecialty Practices [address] [place] [phone] Valery Mcnally MD [address] [place] [address] 10/27/2025 8:45 AM EST Hospital Encounter [facility] [address] [place] [phone] Valery Mcnally MD [address] [place] [address] 10/27/2025 8:45 AM EST - 10/27/2025 12:45 PM EST Surgery [facility] [address] [place] [phone] Valery Mcnally MD [address] [place] [address] LAPAROSCOPIC HYSTERECTOMY TOTAL Scheduled Procedures Name Priority Associated Diagnoses Date/Ti me LAPAROSCOPIC HYSTERECTOMY TOTAL ABDOMINAL Endometriosis Adenomyosis Dysmenorrhea 10/27/2025 8:45 AM EST Health Maintenance Due Date Last Done Comments [...] patient's age to complete this topic [place] [place] [address] Care Teams Manufacturing Intern Relationship Specialty Start Date End Date Santy Carolina MD [address] [place] [address] [place] [address] PCP - General Family Medicine 07/29/25
--- OUTSIDE RECORDS SUMMARY | 2025-08-08 16:49 | XMS_ITS | Encounter Summary ---
Author Organization [facility] Address [address] [place] [address] Care Team Providers Care Filament Wound Parts Fabricator Name Role Phone Santy Carolina MD Primary Care Provider +1- [phone] Encounter Details Date Type Department Care Team (Late st Contact Info) Description 08/02/2025 Scanned Document Gynecologic Specialties at [address] [phone] Valery Mcnally MD [address] [place] [address] Social History Tobacco Use Types Packs/Day Years [...] 9:30 AM EST Telemedicine Gynecologic Specialties at [address] [phone] Valery Mcnally MD [address] [place] [address] 10/27/2025 8:45 AM EST Hospital Encounter [facility] Services [address] [place] [phone] Valery Mcnally MD [address] [place] [address] 10/27/2025 8:45 AM EST - 10/27/2025 12:45 PM EST Surgery [facility] [address] [place] [phone] Valery Mcnally MD [address] [place] [phone] LAPAROSCOPIC HYSTERECTOMY TOTAL Scheduled Procedures Name Priority Associated Diagnoses Date/Ti me LAPAROSCOPIC HYSTERECTOMY TOTAL ABDOMINAL Endometriosis Adenomyosis Dysmenorrhea 10/27/2025 8:45 AM EST documented as of this encounter Visit Diagnoses Not on filedocumented in this encounter Care Teams Filament Wound Parts Fabricator Relationship Specialty Start Date End Date Santy Carolina MD [address] [place] [address] [place] [id number] PCP - General Family Medicine 07/29/25 documented as of this encounter
--- OUTSIDE RECORDS SUMMARY | 2025-08-08 16:49 | XMS_ITS | Encounter Summary ---
Author Organization [facility] Address [address] [place] [address] Care Team Providers Care Paper Mill Superintendent Name Role Phone Santy Carolina MD Primary Care Provider +1- [phone] Encounter Details Date Type Department Care Team (Late st Contact Info) Description 08/03/2025 Scanned Document Gynecologic Specialties at [address] [phone] Valery Mcnally MD [address] [place] [address] Social History Tobacco Use Types Packs/Day [...] 9:30 AM EST Telemedicine Gynecologic Specialties at [address] [phone] Valery Mcnally MD [address] [place] [address] 10/27/2025 8:45 AM EST Hospital Encounter [facility]operative Surgical Services [address] [place] [phone] Valery Mcnally MD [address] [place] [address] 10/27/2025 8:45 AM EST - 10/27/2025 12:45 PM EST Surgery [facility] Services [address] [place] [phone] Valery Mcnally MD [address] [place] [phone] LAPAROSCOPIC HYSTERECTOMY TOTAL Scheduled Procedures Name Priority Associated Diagnoses Date/Ti me LAPAROSCOPIC HYSTERECTOMY TOTAL ABDOMINAL Endometriosis Adenomyosis Dysmenorrhea 10/27/2025 8:45 AM EST documented as of this encounter Visit Diagnoses Not on filedocumented in this encounter Care Teams Paper Mill Superintendent Relationship Specialty Start Date End Date Santy Carolina MD [address] [place] [address] [place] [phone] PCP - General Family Medicine 07/29/25 documented as of this encounter
== END 2025-08-08 14:02 | disposition home or self-care (01) ==
LOC: HO.HBST 13:13
PROVIDERS: PCP Family Medicine; Visit Provider Counselor Mental Health
DX: F32.81 Premenstrual dysphoric disorder (principal); F43.22 Adjustment disorder with anxiety; Z98.84 Bariatric surgery status
CPT/HCPCS: 90834

== ENCOUNTER 2025-08-22 13:07 | Outpatient (AMB) | payer OTHER, SELFPAY ==
--- NOTE | 2025-08-22 13:02 | MHC.OFFVISWM ---
VS Expanded 08/22/25 13:05 Height 4 ft 11 in Weight 150 lb BMI 30.3 Intake Visit Reasons: PHONE PO LSG 11/02/24 Allergies adhesive Allergy (Intermediate, Verified 05/31/25 07:47) Rash bupropion (From Wellbutrin) Allergy (Intermediate, Verified 05/31/25 07:47) Hives cobalt Allergy (Intermediate, Verified 05/31/25 07:47) Rash nickel Allergy (Intermediate, Verified 05/31/25 07:47) Rash Medication List - Last Reconciled 08/22/25 by KIRSTIN Fernandez baclofen 10 mg PO DAILY PRN compr.stocking,knee,long,large Daily As directed, 90 days methimazole 2.5 mg (1/2 x 5 mg) PO DAILY sennosides (senna) 8.6 mg PO BEDTIME HPI Comments Details: This is a 29 yo F who is s/p LSG 11/02/2024. Presents for 9mo post op visit. Weight at last visit on 05/18/2025 was 159 pounds; weight today is 150 pounds, representing a 9 pound weight loss with a BMI today of 30.3. No complaints of nausea, emesis, or constipation. Rare heartburn, not worse since last visit, had thought it was due to pace of eating too fast. Pt continues to struggle with endometriosis sx. Scheduled for hysterectomy in October ([facility]). Has some vague abdominal pain when she eats, but thinks it may be related to endometriosis. Present meal plan includes: 2 Celebrate Rebuild protein shakes, 1/2 scoop in 8oz UAM x 2 -sometimes will use premade shake but only drinks half, so protein is the same 3 protein bars- Magic Spoon brand or Built puffs 3 ff meat, 3ff veg using Fusion MVI, tolerating this better sometimes feels hungry, will eat more protein Exercise routine includes: was working out 5x/week but struggles when endo pain flares up, does like to walk for exercise but does not track does a lot more yoga now which increases HR but less intense so less likely to cause pain PFSH Medical History (Updated 05/27/25 @ 10:42 by Santy Carolina MD) Abdominal pain Subclinical hyperthyroidism Otitis media Otitis externa Morbid obesity with body mass index of 50 or higher Candidiasis depression Pyelonephritis Gestational diabetes Pain in symphysis pubis during Incidental Tick bite Swelling of lower extremity Screening for cervical cancer Adult general medical exam History of Lyme disease Laboratory exam ordered as part of routine general medical examination Joint pain Lyme disease Post depression Fatty liver Pre-eclampsia Postoperative nausea High triglycerides Gestational diabetes Anxiety Hypothyroid HTN (hypertension) GERD (gastroesophageal reflux disease) Morbid obesity Hx of endometriosis Low vitamin D level IBS (irritable bowel syndrome) Diverticulitis Surgical History History of endometrial ablation Hx of cholecystectomy S/P laparoscopic cholecystectomy History of appendix removal History of esophagogastroduodenoscopy (EGD) History of wisdom tooth extraction History of tonsillectomy History of colonoscopy Family History Father History of IBS HTN (hypertension) Psoriasis Mother Lupus Skin cancer Sister Lupus Thyroid disease Cervical cancer Son No problems noted. 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 Current occupational exposures/hazards: No Cognitive needs: No Hearing needs: No Vision needs: No (reading glasses) Telehealth Telehealth Telehealth Platform: Telephone Location of provider rendering services: other Location of patient: address on file Patient Identification confirmed using: Name, : Yes Telehealth method: voice only Patient verbally consented to treatment: Yes Patient verbally consented to billing insurance company: Yes Patient informed of any privacy concerns related to visit: Yes Minutes spent on Phone/Video with Pt.: 16 Assessment & Plan Assessment & Plan (1) S/P laparoscopic sleeve gastrectomy: Code(s): Z98.84 - Bariatric surgery status Category: Surgical (2) Obesity: Code(s): E66.9 - Obesity, unspecified Category: Medical Plan Pt is interested in GLP1 medications. We discussed not starting GLP1s until 1 year postop at least. She believes it may help with her ongoing inflammation from endometriosis and I agree it is worth trying. She asked about bowel prep options for upcoming surgery; we discussed lower volume options. RTC 3-4 months TV.
[2025-08-22 13:05] VITALS: BMI 30.3
--- OUTSIDE RECORDS SUMMARY | 2025-08-22 15:16 | XMS_ITS | Encounter Summary ---
Author Organization [facility] Address [address] [place] [address] Care Team Providers Care Restaurant Management Internship Name Role Phone Santy Carolina MD Primary Care Provider Encounter Details Date Type Department Care Team (Late st Contact Info) Description 08/02/2025 Scanned Document Gynecologic Specialties at [facility] Multispecialty Practices [address] [place] [phone] Valery Mcnally MD [address] [place] [phone] Social History Tobacco Use Types Packs/Day Years [...] Department Care Team (Latest Contact Info) Description 10/27/2025 8:45 AM EST Hospital Encounter [facility] [address] [place] [phone] Valery Mcnally MD [address] [place], [place] [phone] 10/27/2025 8:45 AM EST - 10/27/2025 12:45 PM EST Surgery [facility] [address] [place] [phone] Valery Mcnally MD [address] [place] [address] LAPAROSCOPIC HYSTERECTOMY TOTAL Scheduled Procedures Name Priority Associated Diagnoses Date/Ti me LAPAROSCOPIC HYSTERECTOMY TOTAL ABDOMINAL Endometriosis Adenomyosis Dysmenorrhea 10/27/2025 8:45 AM EST documented as of this encounter Visit Diagnoses Not on filedocumented in this encounter Care Teams Restaurant Management Internship Relationship Specialty Start Date End Date Santy Carolina MD [address] [place] [address] [place] [id number] PCP - General Family Medicine 07/29/25 documented as of this encounter
--- OUTSIDE RECORDS SUMMARY | 2025-08-22 15:16 | XMS_ITS | Data Portability ---
Author Organization [place] - [facility] Address [id number] [place] [address] Care Team Providers Care Cash Surrender Calculator Name Role Phone GEORGINA BOSE Primary Care Provider Assessment Encounter Date Assessment Date Assessment LastModified by Organization Details LastModified Time 12/14/2015 12/14/2015 NL WEB APPLICATIONS ADMINISTRATOR EXAM aomrani Not available 14:46:13 05/16/2016 05/16/2016 20 yp female temi and urinary sx Not available 05/16/2016 11:23:28 Plan of Treatment Reminders Order Date Submit Date Provider Last Modified By Organization Details Last Modified Time Details Appointments None recorded. Lab pap, LB + HPV 2018 019 [facility], [address] [place], [address] 9 13:58:45 pap, LB + HPV 2017 018 [facility], [address] [place], [address] 8 15:15:51 urinalysis, dipstick 2017 018 [facility] 2 In-Office Order, Internal Use Only DO Not Attach Compendium DO Not Attach Compendium, Do Not Delete/merge, [id number] 8 11:13:34 bacterial vaginosis + vaginitis panel, vaginal 2015 016 [facility], [address] [place], [address] 6 12:05:03 culture, urine 2015 016 [facility], [address] [place] [address], [id number] 6 11:20:14 CT + NG DNA, PCR, unspecified specimen 2015 016 [facility], [address] [place] [address], [address] 6 11:20:15 pap, LB + HPV 2015 016 [facility], [address] [place] [address], [address] 6 08:47:07 bacterial vaginosis + vaginitis panel, vaginal 2015 [facility], [address] [place] [address], [id number] 6 09:08:12 Referral None recorded. Procedures None recorded. Surgeries None recorded. Imaging None recorded. Medication Orders None recorded. Patient TargetsNo targets recorded. Patient Instructions Encounter Date Encounter Id Patient Instructions Last Modified By Organization Details Last Modified Time 12/14/2015 [id number] Patient presents for a well woman exam. Her history is unremarkable and her exam is normal. She is less than 26 years old so she has received GC/Chl screening and Pap smear screening as per guidelines of every two years for cytology review with reflex HPV testing if the results are ASCUS. She has been counseled regarding control and safe sex as well as monthly self-breast exams. 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 Not available 12/14/2015 14:04:23 02/18/2018 [id number] tips to help you stay healthy Not available 02/18/2018 11:13:34 03/03/2019 [id number] tips to help you stay healthy Not available 03/03/2019 11:07:22 Reason for Referral None Reported. Results Created Date Observation Date Name Description Value Unit Range Abnormal Flag Note LastModifiedBy Organization Detail LastModifiedTime 02/19/20 18 02/18/2018 urina lysis , dipst ick Interpretati on negati ve Not Available In-Office Order Internal Use Only DO Not Attach Compendium DO Not Attach Compendium, Do Not Delete/merge, [id number] 02/18/2018 09:39:25 12/14/19 16 12/15/2015 bacte rial vagin osis + vagin itis panel , vagin al trichomonas vaginalis DNA Negati ve negati ve Not Available [facility] [address] [place], [address] 12/15/2015 09:08:12 12/14/19 16 12/15/2015 bacte rial vagin osis + vagin itis panel , vagin al gardnerella vaginalis DNA Positi ve negati ve abnormal Not Available [facility] [address] [place], [address] 12/15/2015 09:08:12 12/14/19 16 12/15/2015 bacte rial vagin osis + vagin itis panel , vagin al dioni species DNA Negati ve negati ve Not Available [facility] [address] [place], [address] 12/15/2015 09:08:12 12/14/19 16 12/18/2015 pap, LB + HPV report abnormal GYNEC OLOGI MICHAEL CYTOL OGY REPOR T THINP REP PAP TEST WITH HPV REFLE X AND GC/CH LAMYD IA SPECI MEN ADEQU ACY: SATIS FACTO RY FOR EVALU ATION ; ENDOC ERVIC AL/TR ANSFO RMATI ON ZONE COMPO NENT PRESE NT. INTER PRETA TION: NEGAT ERICA FOR INTRA EPITH ELIAL LESIO N OR MALIG SARAH . SHIFT IN RACHEL SUGGE STIVE OF BACTE RIAL VAGIN OSIS. (dept .cyto ) Elect salvatore bedolla Abida d Out By: DAISHA STEIN( CP) CLINI MICHAEL INFOR MATIO N: LMP: NI Sourc e CERVI X/END OCERV IX Numbe r of vials /slid es submi tted 1 Diagn osis / ICD CODE Z01.4 19 Hyste recto my N/A Abnor mal Pap Date NI Autom ated presc reeni ng of all liqui d based speci mens is perfo rmed by the ThinP rep Imagi ng Syste m, [place]. The Pap test is a scree julio test with an inher ent false negat erica rate. Testi ng [facility] , [address] [place] [address] CLIA [id number] CL-PO [id number] [facility] [address] [place] [address], [address] 12/18/2015 08:47:07 12/14/19 16 12/15/2015 CT + NG DNA, PCR, unspe cifie d speci men source Unspec ified Not Available [address], [address] 12/18/2015 08:47:07 12/14/19 16 12/15/2015 CT + NG DNA, PCR, unspe cifie d speci men chlamydia by DNA Positi ve negati ve abnormal Not Available [address], [address] 12/18/2015 08:47:07 12/14/19 16 12/15/2015 CT + NG DNA, PCR, unspe cifie d speci men GC by DNA Negati ve negati ve Not FDA appro priyanka for GC/Ch lamyd ia in femal e urine speci mens. Test valid ated by [facility] for detec ting GC/Ch lamyd ia from this sourc e. Not Available [facility] [address] [place] [address], [id number] 12/18/2015 08:47:07 05/16/20 16 05/17/2016 bacte rial vagin osis + vagin itis panel , vagin al trichomonas vaginalis DNA Negati ve negati ve Not Available [facility] [address] [place] [address], [id number] 05/17/2016 12:05:03 05/16/20 16 05/17/2016 bacte rial vagin osis + vagin itis panel , vagin al gardnerella vaginalis DNA Negati ve negati ve Not Available [facility] [address] [place], [address] 05/17/2016 12:05:03 05/16/20 16 05/17/2016 bacte rial vagin osis + vagin itis panel , vagin al dioni species DNA Positi ve negati ve abnormal Not Available [facility] [address] [place], [address] 05/17/2016 12:05:03 05/16/20 16 05/18/2016 cultu re, urine source urine clean catch Not Available [facility] [address] [place], [address] 05/18/2016 11:20:14 05/16/20 16 05/18/2016 cultu re, urine culture CULTU RE, URINE , ROUTI NE MICRO NUMBE R: [id number] TEST STATU S: FINAL SPECI MEN SOURC E: URINE CLEAN CATCH SPECI MEN QUALI TY: ADEQU ATE RESUL T: No Growt h Not Available [facility] [address] [place], [address] 05/18/2016 11:20:14 05/16/20 16 05/17/2016 CT + NG DNA, PCR, unspe cifie d speci men source Cervic al Not Available [facility] [address] [place] [address], [address] 05/18/2016 11:20:15 05/16/20 16 05/17/2016 CT + NG DNA, PCR, unspe cifie d speci men chlamydia by DNA Negati ve negati ve Not Available [facility] [address] [place], [address] 05/18/2016 11:20:15 05/16/20 16 05/17/2016 CT + NG DNA, PCR, unspe cifie d speci men GC by DNA Negati ve negati ve Not FDA appro priyanka for GC/Ch lamyd ia in femal e urine speci mens. Test valid ated by [facility] for detec ting GC/Ch lamyd ia from this sourc e. Not Available [facility] [address] [place], [address] 05/18/2016 11:20:15 02/19/20 18 02/19/2018 pap, LB + HPV report GYNEC OLOGI MICHAEL CYTOL OGY REPOR T A. THINP REP PAP TEST WITH HPV REFLE X AND GC/CH LAMYD IA: SPECI MEN ADEQU ACY: SATIS FACTO RY FOR EVALU ATION ; ENDOC ERVIC AL/TR ANSFO RMATI ON ZONE COMPO NENT PRESE NT. INTER PRETA TION: NEGAT ERICA FOR INTRA EPITH ELIAL LESIO N OR MALIG SARAH . Elect salvatore bedolal Abida d Out By: DAISHA STEIN( CP) CLINI MICHAEL INFOR BRANDIE N: LMP: 01/30 Z01.4 19 Z11.3 Biops y Date: NI Numbe r of vials /slid es submi tted: 1 Speci men sour e: CERVI X/END OCERV IX Abnor mal Pap Date: N Autom ated presc reeni ng of all liqui d based speci mens is perfo rmed by the [facility] rep Imagi ng Syste m, [place] other [place]. The Pap test is a scree julio test with an inher ent false negat erica rate. Testi ng [facility] , [address] [place] [address] CLIA [id number] CL-[address] [facility] [address] [place], [address] 02/19/2018 15:15:51 02/19/20 18 02/19/2018 CT + NG DNA, PCR, unspe cifie d speci men source Infor brandie n not given Not Available [facility] [address] [place], [address] 02/19/2018 15:15:51 02/19/20 18 02/19/2018 CT + NG DNA, PCR, unspe cifie d speci men chlamydia by DNA Negati ve negati ve Not Available [facility] [address] [place], [address] 02/19/2018 15:15:51 02/19/20 18 02/19/2018 CT + NG DNA, PCR, unspe cifie d speci men GC by DNA Negati ve negati ve Not FDA appro priyanka for GC/Ch lamyd ia in femal e urine speci mens. Test valid ated by [facility] for detec ting GC/Ch lamyd ia from this sourc e. Not Available [facility] [address] [place] [address], [address] 02/19/2018 15:15:51 03/03/20 19 03/04/2019 pap, LB + HPV report GYNEC OLOGI MICHAEL CYTOL OGY REPOR T A. THINP REP PAP TEST WITH HPV REFLE X AND GC/CH LAMYD IA: SPECI MEN ADEQU ACY: SATIS FACTO RY FOR EVALU ATION ; ENDOC ERVIC AL/TR ANSFO RMATI ON ZONE COMPO NENT PRESE NT. INTER PRETA TION: NEGAT ERICA FOR INTRA EPITH ELIAL LESIO N OR MALIG SRAAH . Elect salvatore bedolla Abida d Out By: JD AVILA CT( CP) CLINI MICHAEL INFOR MATIO N: LMP: 02/27 Z01.4 19 Z11.3 Biops y Date: NG Numbe r of vials /slid es submi tted: 1 Speci men sourc e: CERVI X/END OCERV IX Abnor mal Pap Date: NG Autom ated presc reeni ng of all liqui d based speci mens is perfo rmed by the ThinP rep Imagi ng Syste m, un[place] other [place]. The Pap test is a scree julio test with an inher ent false negat erica rate. Testi ng perfo rmed at [facility] , [address] [place] [address] CLIA [id number] CL-[address] [facility] [address] [place], [address] 03/04/2019 13:58:45 03/03/20 19 03/04/2019 CT + NG DNA, PCR, unspe cifie d speci men source Infor matio n not given Not Available [facility] [address] [place], [address] 03/04/2019 13:58:45 03/03/20 19 03/04/2019 CT + NG DNA, PCR, unspe cifie d speci men chlamydia by DNA Negati ve negati ve Not Available [facility] [address] [place], [address] 03/04/2019 13:58:45 03/03/20 19 03/04/2019 CT + NG DNA, PCR, unspe cifie d speci men GC by DNA Negati ve negati ve Not Available [facility] [address] [place], [address] 03/04/2019 13:58:45 05/04/20 19 05/04/2019 beta- HCG, quant itati ve, serum or plasm a beta HCG, quantitative <5 mIU/m L <[address] [facility] [address] [place], [address] 05/05/2019 08:39:54 Result Notes None recorded. Problems Name Problem SNOMED Code Status Onset Date Resolution Date Notes Provider Name and Address Organization Details Recorded Time Depressive disorder 79349466 Active 2013 NARA METZ MD 175 [facility], [address] [place] [address], [phone], [facility] 6 11:16:56 Anxiety 45523461 Active 2013 NARA METZ MD 175 [facility], [address] [place] [address], [address] 4, [facility] 6 11:16:56 Lyme disease 21535220 Active 2013 NARA METZ MD 175 [facility], [address] [place] [address], [address] 4, [facility] 6 11:16:56 Occult blood detected in feces 53036464 Active 2017 Sylvia [facility] 8 09:45:52 Diverticulitis 341022760 Active 2017 Sylvia Pitt [facility] 8 09:48:15 Problem Notes None recorded. Procedures Surgical History Date Name Laterality Status Provider Name and Address Organization Details Recorded Time 03/03/20 19 Date of Last Pap Smear completed Michael David [facility] 03/03/2019 09:08:36 10/13/19 17 Date of Last Colonoscopy completed Sylvia Pitt [facility] 02/18/2018 09:47:12 12/14/19 16 [id number] completed KRIS GALVAN MD 175 [facility], [address] [place] [address], [address] [place] [address], [facility] 12/14/2015 14:29:32 12/14/19 16 [id number] completed KRIS GALVAN MD 175 [facility], [address] [place] [address], [place], [place], [address] [place] [address], [facility] 12/14/2015 14:29:32 12/14/19 16 [id number] completed KRIS GALVAN MD [address] [facility] [address] [facility], [place], [place], [address] [place] [address], [facility] - [facility] 12/14/2015 14:29:32 12/14/19 16 [id number] completed [facility]AN MD 175 [facility], [address] [place] [address], [place], [place], [address] [place] [address], [facility] - [facility] 12/14/2015 14:29:32 12/14/19 16 [id number] completed KRIS GALVAN MD [address] [facility], [address] [place] [address], [place], [address] [place] [address], [facility] - [facility] 12/14/2015 14:29:33 Tonsillectomy completed Not Available [facility] 02/24/2015 15:55:32 Colonoscopy completed Sylvia Pitt [facility] 02/18/2018 09:47:03 Unlisted px dentalvlr strux completed NARA MICHELLE MD 175 [facility], [address] [place] [address], [address] [place] [address], [facility] 02/18/2018 13:14:07 Imaging Results None recorded. Procedure Notes None recorded. Medical Equipment None Reported. Allergies Allergen ID Allergen Name Allergen Category Reaction Reaction Severity Criticality Documentation Date Start Date Code Code System Note Provider Name and Address Organization Details Recorded Time 886912 pyridoxin e hydrochlo ride medicatio n Not available Not available Not available 02/04/20152013 4 RxNorm COMME NT: CAUSA TIVE AGENT : NICAD AN; Not Available [facility] 5 14:41:54 315588 cobalt environme nt,medica tion Not available Not available Not available 02/04/20152013 63298 00 RxNorm Not Available [facility] 5 14:41:54 374334 copper gluconate medicatio n Not available Not available Not available 02/04/20152013 2839 RxNorm COMME NT: CAUSA TIVE AGENT : NICAD AN; Not Available [facility] 5 14:41:54 912197 thioctic acid medicatio n Not available Not available Not available 02/04/20152013 6417 RxNorm COMME NT: CAUSA TIVE AGENT : NICAD AN; Not Available [facility] 5 14:41:54 661315 magnesium citrate medicatio n Not available Not available Not available 02/04/20152013 68574 RxNorm COMME NT: CAUSA TIVE AGENT : NICAD AN; Not Available [facility] 5 14:41:54 687099 zinc gluconate medicatio n Not available Not available Not available 02/04/20152013 14367 RxNorm COMME NT: CAUSA TIVE AGENT : NICAD AN; Not Available [facility] 5 14:41:54 803676 ascorbic acid medicatio n Not available Not available Not available 02/04/20152013 1151 RxNorm COMME NT: CAUSA TIVE AGENT : NICAD AN; Not Available [facility] 5 14:41:54 182192 folic acid medicatio n Not available Not available Not available 02/04/20152013 4511 RxNorm COMME NT: CAUSA TIVE AGENT : NICAD AN; Not Available [facility] 5 14:41:54 174745 niacinami de medicatio n Not available Not available Not available 02/04/20152013 7405 RxNorm COMME NT: CAUSA TIVE AGENT : NICAD AN; Not Available [facility] 5 14:41:54 Medications Name Sig Start Date Stop Date Status Note LastModified by Organization Details LastModified Time [place] Thyroid 60 mg tablet 03/03 completed Not Available Not Available Not Available fluconazole 150 mg tablet Take by oral route. 03/03 completed Not Available Not Available Not Available meloxicam 15 mg tablet 03/03 completed Not Available Not Available Not Available prednisone 20 mg tablet 02/18 completed Not Available Not Available Not Available metronidazole 500 mg tablet Take 1 tablet every 12 hours by oral route for 7 days. 02/18 completed Not Available Not Available Not Available ciprofloxacin 500 mg tablet 03/03 completed Not Available Not Available Not Available sulfamethoxaz ole 800 mg-trimethopr im 160 mg tablet 03/03 completed Not Available Not Available Not Available doxycycline monohydrate 100 mg tablet 03/03 completed Not Available Not Available Not Available neomycin-poly myxin-dexamet h 3.5 mg/mL-10,000 unit/mL-0.1% eye drops 03/03 completed Not Available Not Available Not Available clotrimazole- betamethasone 1 %-0.05 % topical cream 03/03 completed Not Available Not Available Not Available hydroxyzine HCl 25 mg tablet 03/03 completed Not Available Not Available Not Available ergocalcifero l (vitamin D2) 1,250 mcg (50,000 unit) capsule 02/18 completed Not Available Not Available Not Available doxycycline hyclate 100 mg tablet 03/03 completed Not Available Not Available Not Available amoxicillin 875 mg-potassium clavulanate 125 mg tablet 03/03 completed Not Available Not Available Not Available azithromycin 500 mg tablet Take 2 tablet( s) by oral route once 02/18 completed Not Available Not Available Not Available Vitamin D3 03/03 completed Not Available Not Available Not Available multivitamin 03/03 completed Not Available Not Available Not Available Super B-50 Complex 03/03 completed Not Available Not Available Not Available ProAir HFA 90 mcg/actuation aerosol inhaler 02/18 completed Not Available Not Available Not Available Ulesfia 5 % lotion 02/18 completed Not Available Not Available Not Available Suprep Bowel Prep Kit 17.5 gram-3.13 gram-1.6 gram oral solution 02/18 completed Not Available Not Available Not Available Vitals Date Recorded Body weight Body mass index (BMI) Body height Systolic And Diastolic Provider Name and Address Organization Details Last Updated DateTime 12/14/2015 85055.779 2 g 32.3 kg/m2 149.86 cm 126/68 mm[Hg] Sary Hernandez [facility] 12/14/2015 14:10:36 Date Recorded Body height Body mass index (BMI) Body weight Systolic And Diastolic Provider Name and Address Organization Details Last Updated DateTime 02/18/2018 149.86 cm 42 kg/m2 28659.21 g 100/70 mm[Hg] Sylvia Pitt [facility] 02/18/2018 09:49:23 Date Recorded Body height Body mass index (BMI) Body weight Systolic And Diastolic Provider Name and Address Organization Details Last Updated DateTime 03/03/2019 149.86 cm 42.8 kg/m2 89457.58 g 118/80 mm[Hg] Michael David [facility] 03/03/2019 09:09:41 Date Recorded Systolic And Diastolic Provider Name and Address Organization Details Last Updated DateTime 05/16/2016 120/76 mm[Hg] Lucia Nunez [facility] 05/16/2016 10:53:40 Social History Question Answer Notes LastModified by Organizat ion Details LastModified Time Tobacco Smoking Status [facility] 10:43:23 Do You Have Any Children? No Information not available 02/18/2018 Does Your Partner Physically Hurt You Or Threaten To Hurt You? No Information not available 03/03/2019 Has Your Partner Forced You To Have Sex Or Perform Sex Acts When You Did Not Want To? No Information not available 03/03/2019 Does Your Partner Insult, Scream At Or Talk Down To You? No Information not available 03/03/2019 Does Your Partner Control You Or Any Part Of Your Life? No Information not available 03/03/2019 Are You Afraid Of Your Partner? No Information not available 03/03/2019 Drug Use? No Information no t available 12/14/2015 Do You Feel Safe At Home? Yes Information not available 02/18/2018 What Was The Date Of Your Most Recent Tobacco Screening? 03/03/2019 Information not available 05/05/2019 How Many Children Do You Have? 0 Information not available 02/18/2018 Do You Use Protection During Sex? Usually Information not available 02/18/2018 How Much Tobacco Do You Smoke? No Information not available 12/14/2015 Have You Recently (within The Last 12 Weeks, Or During A Current ) Traveled To Or Lived In A Zika-affected Area? No Information not available 12/14/2015 Sex: Unknown Functional Status Question Answer Note LastModified by Organizat ion Details LastModified Time What is your level of alcohol consumption? Occasional 3x month Information not available 12/14/2015 What is your exercise level? Occasional walking/da annel Information not available 12/14/2015 Mental Status None recorded. Family History Relationship Description Onset Age of this Age Resolved Age Notes LastModified by Organization Details LastModified Time Father Hypertensive disorder Not available 2015 11:17:43 Maternal Aunt Disorder of thyroid gland Not available 2015 11:17:43 Maternal Grandmother Disorder of thyroid gland Not available 2015 11:17:43 Maternal Grandmother Heart disease Not available 2015 11:17:43 Mother Disorder of thyroid gland Not available 2015 11:17:43 Mother Malignant neoplasm of skin Not available 2015 11:17:43 Mother Malignant neoplasm of cervix uteri alive & well, had hyster ectomy - pt unsure if that was the reason Not available 05/16/2016 11:17:43 Paternal Aunt Heart disease Not available 2015 11:17:43 Paternal Grandfather Diabetes mellitus Not available 2015 11:17:43 Sister Malignant neoplasm of cervix uteri 18 alive & well, LEEP Not available 05/16/2016 11:17:43 Sister Disorder of thyroid gland Not available 2015 11:17:43 Paternal Grandmother Malignant neoplasm of cervix uteri Not available 01/2016 11:17:43 Paternal Grandmother Diabetes mellitus Not available 02/18 13:12:10 Paternal Grandmother Heart disease ?h/o Heart dz? Not available 02/18/2018 13:13:53 Paternal Uncle Heart disease ?h/o Valvul ar heart dz, s/p surger y x 2; ?h/o [place] Not available 02/18/2018 13:13:12 Medical History Condition Response Other N *No Diseases or Conditions Y Blood clots N Breast Cancer N Benign breast disease N Colon cancer N Lung Disease N Depression Y Defects or Inherited Disease N Anesthesia Complications N Headaches/Migraines N Have you ever been on isolation N Anxiety Disorder Y HSV N Arthritis N Infertility N Interstitial Cystitis N Abnormal pap N Acid Reflux (GERD) N Cancer N Stroke N Endometriosis N Fibromyalgia N Spina Bifida N HIV N Heart Problems N Sexual Dysfunction N Autoimmune disorder N Kidney or Bladder Problems N Thyroid Problems Y GI Problems Y Eating Disorder N Anemia N Multiple Sclerosis N Psychiatric Illness N Ovarian Cancer N Diabetes N Blood Transfusions N Bladder disease N History of MRSA N Abnormal Uterine Bleeding N Hyperlipidemia N BrCa positive N Diverticulitis Y Abuse/Domestic Violence N Asthma N Hepatitis N Hypertension N Osteoporosis N Thrombophilias N Gynecological History Statement/Question Response Benign Breast Disease N Flow Moderate Date of Last Mammogram Breast Biopsy N IPV Screen Done 02/27/2019 [facility] Biopsy N Post Menopausal Bleeding STIs/STDs Y PID N Cervical Cancer N History of Endometrial Biopsy? N If Post Menopausal, Age at Menopause Ovarian Cancer N Date of Last Colonoscopy 10/13/2016 Breast Cancer N Date of last DEXA Bladder Problems N Abnormal Uterine Bleeding N Abnormal Pap N Infertility N Breast Ultrasound N Leep N Sexual Orientation heterosexual HPV Vaccine Y Duration of Flow (days) 5 Endometriosis N Age at Menarche 9 Age at First Child Fibroids N Uterine Cancer N Current Control Method None Frequency of Cycle (Q days) 28 Sexually Active? Y Sexual Problems? N Date of Last Pap Smear 03/03/2019 Hormone Replacement Therapy Obstetrics History GPAL:G 0 P 0 0 0 0 Past Encounters Encounter ID Performer Location Encounter Start Date Encounter Closed Date Diagnosis/Indication Diagnosis SNOMED-CT Code Diagnosis ICD10 Code Diagnosis IMO Codes Diagnosis Note [id number] KRIS GALVAN MD MAO1 [address] [place] [address] 12/14/2015 13:58:23 12/14/2015 15:00:02 Gynecologic examination [id number] [id number] NARA METZ MD MAO3 [facility] [address] 05/16/2016 10:47:21 05/16/2016 13:59:21 History of sexually transmitted disease 883924387 Z87.42 Dysuria [id number] R30.0 R35.0 Vaginitis [id number] N76.0 [id number] NARA MICHELLE MD WHG5 [address] [place] [address] 02/18/2018 09:35:39 02/19/2018 11:15:27 Gynecologic examination [id number] Z01.419 Z11.3 Nl WEB APPLICATIONS ADMINISTRATOR exam Pap done today; check GC/CT w/ pap Pt declines review of contracept erica options, offered at visit today. Pt intending to have in the next couple of years , feels starting contracept ion is just not worth it . Pt advised to contact office if her needs change & she wishes to review options. RTO q 1 yr or prn [id number] NARA MICHELLE MD WHG5 [address] [place] [address] 03/03/2019 08:56:00 03/04/2019 14:15:27 Gynecologic examination [id number] Z01.419 Z11.3 Nl WEB APPLICATIONS ADMINISTRATOR exam Pap done; check GC/CT w/ pap RTO q 1 yr or prn Health Concerns Section Related Observation LastModified by Organization Detai ls LastModified Time None Recorded Concern Status LastModified by Organization Details LastModified Time None Recorded Advance Directives Directive None Recorded Payers Insurance Date Sequence Insurance Name Policy Number Policy Ceron Covered Member ID Ceron Member ID Guarantor Name 05/06/2019 1 [place]: ARIELLA YANEZ [id number] Tico Sanchez [id number] Rosemary Sanchez Notes Date Note Type Note Provider Name and Address Organization Details Recorded Time 6 text/html [facility] Annual GYNReported by PatientGenitourinary symptomsFor menstrual cycle, patient reportsnormal menses. For urinary symptoms, patient reportsno hematuriaandno incontinence. For vulva, patient reportsno genital lesion. For vagina, patient reportsnormal vaginal discharge.Breast symptomsFor breast, patient reportsno breast pain,no breast lump, andno nipple discharge.ContraceptionFor current contraception, patient reportswants to discuss contraceptive options.Endocrine symptomsFor sexual activity, patient reportsno sexual complaints,no pain during intercourse,normal libido, andrequests testing for sexually transmitted infections.Psychological symptomsFor psychological symptoms, patient reportsno depression,no anxiety, andno pmdd.Preventative measuresFor preventive measures, patient reportsencourage self breast examinationandencourage regular exercise.CONTACTED BY FORMER AND WAS TOLD HE TESTED POS FOR GONNORRHEA KRIS GALVAN MD [address] [facility], [address] [place] [address], [phone], [facility] 12/14/2015 14:46:22 6 text/html 20 yo female here for TEMI due to chlamydia. pt has new partner. she noted pain at her cervix with intercourse. no vaginal itching or discharge, no odor NARA METZ MD 175 [facility], [address] [place] [address], [phone], [facility] 05/16/2016 11:23:50 8 text/html 22 yo G0 presents for annual exam. Pt reports last pap was done 12/26, pt denies known h/o abnl paps (except + chlamydia dx'd w/ pap in past, tx'd). Pt reports menses occur regularly q 4 wks x 4-5 d w/out IMB; pt describes mild, easily tolerable dysmenorrhea. Pt denies current sx's. Pt reports she was dx'd ~ 2 wks ago w/ UTI, but has not yet picked up meds for tx because she was not able to pay for them. Pt states she is hoping for a some time over next 1-2 yrs, therefore declines any contraception at present. NARA MICHELLE MD 175 [facility], [address] [place] [address], [place], [phone], [facility] 02/18/2018 14:39:42 9 text/html [facility] Annual GYNReported by Patient 23 yo G0 presents for annual exam. Pt reports menses occur predictably q 28-30 d x 5-7 d w/out IMB & w/ min dysenorrhea. Pt denies current /UTI sx's. Pt continues to consider in next few yrs, does not desire presently; pt does desire contraception other than condoms at present. NARA MICHELLE MD [address] [place] [address], [address] Floor, [place], [phone], [place] [facility] 03/03/2019 13:00:43 OBGyn Episode No OBEpisode recorded.
--- OUTSIDE RECORDS SUMMARY | 2025-08-22 15:16 | XMS_ITS | Encounter Summary ---
Author Organization [facility] Address [address] [place] [address] Care Team Providers Care Hotel Service Manager Name Role Phone Santy Carolina MD Primary Care Provider [phone] Encounter Details Date Type Department Care Team (Late st Contact Info) Description 08/03/2025 Scanned Document Gynecologic Specialties at [facility] [address] [place] [phone] Valery Mcnally MD [address] [place] [phone] Social History Tobacco Use Types Packs/Day Years [...] Description 10/27/2025 8:45 AM EST Hospital Encounter [facility] Perioperative Surgical Services [address] [place] [phone] Valery Mcnally MD [address] [place], [place] [phone] 10/27/2025 8:45 AM EST - 10/27/2025 12:45 PM EST Surgery [facility]operative Surgical Services [address] [place] [address] Valery Mcnally MD [address] [place] [address] LAPAROSCOPIC HYSTERECTOMY TOTAL Scheduled Procedures Name Priority Associated Diagnoses Date/Ti me LAPAROSCOPIC HYSTERECTOMY TOTAL ABDOMINAL Endometriosis Adenomyosis Dysmenorrhea 10/27/2025 8:45 AM EST documented as of this encounter Visit Diagnoses Not on filedocumented in this encounter Care Teams Hotel Service Manager Relationship Specialty Start Date End Date Santy Carolina MD [address] [place] [address] [place] [address] PCP - General Family Medicine 07/29/25 documented as of this encounter
--- OUTSIDE RECORDS SUMMARY | 2025-08-22 15:16 | XMS_ITS | Clinical Summary ---
Author Organization [facility] Address [address] [place] [address] Care Team Providers Care Parking Lot Spotter Name Role Phone Santy Carolina MD Primary Care Provider Allergies Active Allergy Reactions Criticality Noted Date Comments Sanborn Rash/Dermatitis Low 04/01/2019 As per allergy testing [...] Description 08/03/2025 Scanned Document Gynecologic Specialties at [address] [address] Valery Mcnally MD 08/02/2025 Scanned Document Gynecologic Specialties at [address] [phone] Valery Mcnally MD 07/07/2025 9:00 AM EDT Office Visit Gynecologic Specialties at [facility] [address] [facility] [address] [place] [address] Valery Mcnally MD Endometriosis (Primary [...] no n-current Alcohol abuse Paternal Grandfather Amauri Dimasne Diabetes Paternal Grandfather Amauri Daniel Liver disease Paternal Grandfather Amauri Dimasne Alcoh ol induced Diabetes Paternal Grandmother Alexandria Daniel Heart attack Paternal Grandmother Alexandria Daniel Heart attack Paternal Uncle Amauri Dimasne Autoimmune disease Sister 1 Donna Daniel Lupus Autoimmune disease Sister 2 Tracy Herrera Hashim otos Thyroid disease Sister 2 Tracy Herrera Michelle s Celiac disease Sister 3 Kelley Daniel Relation Name Status Comments Father Kamran Sanchez Alive Maternal Grandfather Janak Conway Alive Maternal Grandmother Halley Scott Alive Mother Keira Sanchez Alive Paternal Grandfather Amauri Dimasne Alive Paternal Grandmother Alexandria Dimasne Alive Paternal Uncle Amauri Dimasne Alive Sister 1 Donna Daniel Alive Sister 2 Tracy Sharon Alive Sister 3 Kelley Daniel Alive Social [...] Description 10/27/2025 8:45 AM EST Hospital Encounter [facility] Perioperative Surgical Services [address] [place] [phone] Valery Mcnally MD [address] [place] [address] 10/27/2025 8:45 AM EST - 10/27/2025 12:45 PM EST Surgery [facility]operative Surgical Services [address] [place] [phone] Valery Mcnally MD [address] [place] [address] LAPAROSCOPIC HYSTERECTOMY TOTAL Scheduled Procedures Name Priority [...] patient's age to complete this topic Insurance [facility] Care Teams Parking Lot Spotter Relationship Specialty Start Date End Date Santy Carolina MD [address] [place] [address] [place] [address] PCP - General Family Medicine 07/29/25
== END 2025-08-22 13:22 | disposition home or self-care (01) ==
LOC: HO.HBS 13:07
PROVIDERS: PCP Family Medicine; Visit Provider Physician Assistant Surgical
DX: E66.9 Obesity, unspecified (principal); Z68.30 Body mass index [BMI] 30.0-30.9, adult; Z90.3 Acquired absence of stomach [part of]; Z98.84 Bariatric surgery status
CPT/HCPCS: 99213; G2211

== ENCOUNTER 2025-09-05 13:13 | Outpatient (AMB) | payer OTHER, SELFPAY ==
--- NOTE | 2025-09-05 13:05 | A.OFFWM_ITS ---
Intake Intake Visit Reasons: VIDEO PO LSG 11/02/24 Allergies adhesive Allergy (Intermediate, Verified 05/31/25 07:47) Rash bupropion (From Wellbutrin) Allergy (Intermediate, Verified 05/31/25 07:47) Hives cobalt Allergy (Intermediate, Verified 05/31/25 07:47) Rash nickel Allergy (Intermediate, Verified 05/31/25 07:47) Rash PFSH Medical History (Updated 05/27/25 @ 10:42 by Santy Carolina MD) Abdominal pain Subclinical hyperthyroidism Otitis media Otitis externa Morbid obesity with body mass index of 50 or higher Candidiasis depression Pyelonephritis Gestational diabetes Pain in symphysis pubis during Incidental Tick bite Swelling of lower extremity Screening for cervical cancer Adult general medical exam History of Lyme disease Laboratory exam ordered as part of routine general medical examination Joint pain Lyme disease Post depression Fatty liver Pre-eclampsia Postoperative nausea High triglycerides Gestational diabetes Anxiety Hypothyroid HTN (hypertension) GERD (gastroesophageal reflux disease) Morbid obesity Hx of endometriosis Low vitamin D level IBS (irritable bowel syndrome) Diverticulitis Surgical History History of endometrial ablation Hx of cholecystectomy S/P laparoscopic cholecystectomy History of appendix removal History of esophagogastroduodenoscopy (EGD) History of wisdom tooth extraction History of tonsillectomy History of colonoscopy Family History Father History of IBS HTN (hypertension) Psoriasis Mother Lupus Skin cancer Sister Lupus Thyroid disease Cervical cancer Son No problems noted. 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 She acknowledges feeling more fatigued and somewhat less motivated, but remains committed to her recovery and overall well-being. She is aware of the impact that stress and disrupted routines can have on her mood and health behaviors, and is open to exploring strategies to manage these challenges. Additionally, the patient shared that she is scheduled for an elective hysterectomy in October and anticipates needing support as she prepares for and recovers from this upcoming surgery. Objective: The patient participated in a telehealth session and was engaged throughout. We discussed the impact of seasonal changes on mood, including symptoms of seasonal affective disorder. The option of using a light therapy lamp was reviewed, and a behavioral activation plan was introduced to help increase positive activities and support mood regulation. We also reviewed the Holiday Survival Guide After Bariatric Surgery, focusing on practical tips to stay on track, maintain balance, and enjoy the season while managing potential triggers and stressors. Assessment/Response: * Mental status: The patient appeared well-groomed and cooperative. Mood was mildly stressed but hopeful; affect was congruent. Thought process was logical and goal-directed. No evidence of psychosis, suicidal, or homicidal ideation. * Risk reported/identified: none Assessment & Plan Assessment & Plan (1) PMDD (premenstrual dysphoric disorder): Code(s): F32.81 - Premenstrual dysphoric disorder (2) Adjustment disorder with anxiety: Code(s): F43.22 - Adjustment disorder with anxiety (3) Status post bariatric surgery: Code(s): Z98.84 - Bariatric surgery status Plan Continue to monitor mood and stress levels, and encourage the use of behavioral activation strategies and light therapy as appropriate. Reinforce practical coping skills for managing holiday-related challenges and maintaining healthy routines. Provide additional support and resources as the patient prepares for her elective hysterectomy in October, including emotional support and guidance for post-surgical adjustment. * Follow up in 2 months; next appointment scheduled for 11/07/2025 at 1:00 PM via video. Patient encouraged to reach out sooner if additional support is needed. Telehealth Telehealth Telehealth Platform: [facility] Location of provider rendering services: other (Home office. [place], [place]) Location of patient: address on file Patient Identification confirmed using: Name, : Yes Telehealth method: video Patient verbally consented to treatment: Yes Patient verbally consented to billing insurance company: Yes Patient informed of any privacy concerns related to visit: Yes Minutes spent on Phone/Video with Pt.: 60 [place] [address] Tele Psytx >53 mins Patient Type Established Diagnoses PMDD (premenstrual dysphoric disorder) F32.81 Adjustment disorder with anxiety F43.22 Status post bariatric surgery Z98.84 Time Spent (min) 60
--- OUTSIDE RECORDS SUMMARY | 2025-09-05 17:52 | XMS_ITS | Clinical Summary ---
Author Organization [facility] Address [address] [place] [address] Phone Care Team Providers Care Cleaning Porter Name Role Phone Lauro Dudley MD Primary Care Provider [phone] Encounters Date Type Department Care Team Description 08/09/2025 12:48 PM EDT - 08/09/2025 11:59 PM EDT Hospital Encounter [facility] MRI [address] [place] [address] Endometriosis, unspecified Discharge Disposition: Home or Self Care from Last 3 Months Surgical History Surgery Date Site/Laterality Comments UPPER GASTROINTESTINAL ENDOSCOPY 2005 PROCEDURE:UPPER GASTROINTESTINAL ENDOSCOPY;COMMENT:Normal. COLONOSCOPY 2004 PROCEDURE:COLONOSCOPY;COMMENT :Anal fissure. COLONOSCOPY 07/2016 PROCEDURE:COLONOSCOPY;COMMENT :Sigmoid and left colon diverticuli. COLONOSCOPY 04/05/2019 N/A PROCEDURE:COLONOSCOPY;COMMENT :Procedure: COLONOSCOPY 40 minutes ; Surgeon: Raymon Montanez MD; Location: [facility]; Service: Gastroenterology; Laterality: N/A; Medical History Medical History Date Comments Anal fissure DX:Anal fissure Irritable bowel syndrome DX:Irri table bowel syndrome Hypothyroidism DX:Hypothyroidis m Diverticulitis of colon DX:Diver ticulitis of colon Lyme disease DX:Lyme disease Family History Medical History Relation Name Comments Colon polyps Maternal Grandfather Relation Name Status Comments Maternal Grandfather Social History Tobacco Use Types Packs/Day Years Used Date Smoking Tobacco: Never Smokeless Tobacco: Never Alcohol Use Standard Drinks/Week Comments Yes 2 (1 standard drink = 0.6 oz pur e alcohol) Comments Unknown Sex and Gender Information Value Date Recorded Sex Assigned at Not on file Legal Sex Female 5:33 PM EST Gender Identity Not on file Sexual Orientation Not on file Obstetrics History Plan of Treatment Health Maintenance Due Date Last Done Comments DTaP,Tdap,and Td Vaccines (1 - Tdap) 2012 Hepatitis B Vaccines (1 of 3 - 19+ 3-dose series) 2012 Cervical Cancer Screening: P ap Smear 2014 HPV Vaccines (1 - 3-dose SCD M series) 2020 Depression Screening 10/13/2024 COVID-19 Vaccine (3 - 2024-2 6 season) 2025 04/25/2021, 04/04/2021 Influenza Vaccine (#1) 2025 Cholesterol Screening (Lipid Panel) 08/05/2025 HIV Screening 08/05/2025 Hepatitis C Screening 08/05/2025 Social Influencers of Health Screening 08/05/2025 RSV Immunization Adult Patients (1 - 1-dose 75+ series) 2068 HIB Vaccines Aged Out No longer eligi ble based on patient's age to complete this topic Hepatitis A Vaccines Aged Out No long er eligible based on patient's age to complete this topic IPV Vaccines Aged Out No longer eligi ble based on patient's age to complete this topic MMR Vaccines Aged Out No longer eligi ble based on patient's age to complete this topic Meningococcal ACWY Vaccine Aged Out N o longer eligible based on patient's age to complete this topic Meningococcal B Vaccine Aged Out No l onger eligible based on patient's age to complete this topic Pneumococcal Vaccine: Pediatrics (0 to 5 Years) and At-Risk Patients (6 to 49 Years) Aged Out No longer eligible b ased on patient's age to complete this topic RSV Immunization Patients Under 20 months Aged Out No longer eligible b ased on patient's age to complete this topic Varicella Vaccines Aged Out No longer eligible based on patient's age to complete this topic Procedures Procedure Name Priority Date/Time Associated Diagnosis Comments MR PELVIS WO AND W CONTRAST Routine 08/09/2025 2:31 PM EDT Endometriosis, unspecified from Last 3 Months Results * MR Pelvis wo and w Contrast (08/09/2025 2:31 PM EDT) Anatomical Region Laterality Modality Pelvis, Body Magnetic Resonan ce 08/12/2025 12:2 0 PM EDT Impressions 08/12/2025 3:33 PM EDT No MRI evidence of pelvic endometriosis. 2 small intramural uterine fibroids. -------- FINAL REPORT -------- Dictated By: Jensen Willams Dictated Date: 08/12/2025 12:20 ET Assigned Physician: Jensen Willams Reviewed and Electronically Signed By: Jensen Willams Signed Date: 08/12/2025 15:33 ET Workstation ID: [id number] Transcribed By: Self Edit Transcribed Date: 08/12/2025 12:20 ET Narrative 08/12/2025 3:33 PM EDT PROCEDURE: Contrast enhanced MRI of the pelvis. TECHNIQUE: Multiplanar multisequence MRI of the pelvis with and without intravenous contrast administration. IV contrast dose: 15 mL Dotarem from a 15 mL vial with 0 mL discarded. HISTORY: pre/op endometriosis COMPARISON: Outside pelvic ultrasound dated 08/06/2024. FINDINGS: The uterus is anteverted and measures 8.1 x 4.2 x 5.2 cm. The endometrial stripe and junctional zone are within normal limits. 2 small low signal masses in the right posterior uterine body suggestive of intramural fibroids, one measuring 7 mm and the 2nd 10 mm in diameter. Both are mildly hypoenhancing relative to the normal myometrium. These appear similar to the comparison ultrasound. There are several small nabothian cysts. Otherwise unremarkable appearance of the cervix and vagina. There are multiple small follicles in both ovaries. The ovaries are normal in size. There is no pelvic mass or cyst. Normal appearance of the urinary bladder. There are scattered sigmoid diverticuli; the pelvic bowel loops are otherwise unremarkable. No pelvic lymphadenopathy. Partially visible small fat-containing paraumbilical hernia. Procedure Note Jensen Willams MD - 08/12/2025 PROCEDURE: Contrast enhanced MRI of the pelvis. TECHNIQUE: Multiplanar multisequence MRI of the pelvis with and withoutintravenous contrast administration. IV contrast dose: 15 mL Dotarem from a 15 mL vial with 0 mL discarded. HISTORY: pre/op endometriosis COMPARISON: Outside pelvic ultrasound dated 08/06/2024. FINDINGS: The uterus is anteverted and measures 8.1 x 4.2 x 5.2 cm. The endometrialstripe and junctional zone are within normal limits. 2 small low signalmasses in the right posterior uterine body suggestive of intramuralfibroids, one measuring 7 mm and the 2nd 10 mm in diameter. Both aremildly hypoenhancing relative to the normal myometrium. These appearsimilar to the comparison ultrasound. There are several small nabothian cysts. Otherwise unremarkableappearance of the cervix and vagina. There are multiple small follicles in both ovaries. The ovaries arenormal in size. There is no pelvic mass or cyst. Normal appearance of the urinary bladder. There are scattered sigmoiddiverticuli; the pelvic bowel loops are otherwise unremarkable. No pelvic lymphadenopathy. Partially visible small fat-containing paraumbilical hernia. IMPRESSION: No MRI evidence of pelvic endometriosis. 2 small intramural uterine fibroids. -------- FINAL REPORT -------- Dictated By: Jensen Willams Dictated Date: 08/12/2025 12:20 ET Assigned Physician: Jensen Willams Reviewed and Electronically Signed By: Jensen Willams Signed Date: 08/12/2025 15:33 ET Workstation ID: [id number] Transcribed By: Self Edit Transcribed Date: 08/12/2025 12:20 ET Valery Mcnally MD IMG MRI PROCEDURES Carolyn kenney Result from Last 3 Months Insurance [facility] Care Teams Cleaning Porter Relationship Specialty Start Date End Date Lauro Dudley MD [address] [facility] [address] [place] [phone] PCP - General Internal Medicine 02/29/16
--- OUTSIDE RECORDS SUMMARY | 2025-09-05 17:52 | XMS_ITS | Encounter Summary ---
Author Organization [facility] Address [address] [place] [address] Care Team Providers Care Foundation Assistant Name Role Phone Santy Carolina MD Primary Care Provider Encounter Details Date Type Department Care Team (Late st Contact Info) Description 08/02/2025 Scanned Document Gynecologic Specialties at [facility] Practices [address] [place] [phone] Valery Mcnally MD [address] [place] [phone] Social History Tobacco Use Types Packs/Day Years [...] AM EST Hospital Encounter [facility] Perioperative Surgical Services [address] [place] [phone] Valery Mcnally MD [address] [place], [place] [phone] 10/27/2025 8:45 AM EST - 10/27/2025 12:45 PM EST Surgery [facility] Per[facility] Services [address] [place] [address] Valery Mcnally MD [address] [place] [address] LAPAROSCOPIC HYSTERECTOMY TOTAL Scheduled Procedures Name Priority Associated Diagnoses Date/Ti me LAPAROSCOPIC HYSTERECTOMY TOTAL ABDOMINAL Endometriosis Adenomyosis Dysmenorrhea 10/27/2025 8:45 AM EST documented as of this encounter Visit Diagnoses Not on filedocumented in this encounter Care Teams Foundation Assistant Relationship Specialty Start Date End Date Santy Carolina MD [address] [place] [address] [place] [address] PCP - General Family Medicine 07/29/25 documented as of this encounter
--- OUTSIDE RECORDS SUMMARY | 2025-09-05 17:52 | XMS_ITS | Encounter Summary ---
Author Organization [facility] Address [address] [place] [address] Care Team Providers Care Senior Architectural Designer Name Role Phone Santy Carolina MD Primary Care Provider [phone] Encounter Details Date Type Department Care Team (Late st Contact Info) Description 08/03/2025 Scanned Document [facility] at [facility] [address] [place] [phone] Valery Mcnally MD [address] [place] [address] [id number] Social History Tobacco Use Types Packs/Day Years [...] Description 10/27/2025 8:45 AM EST Hospital Encounter [facility] [address] [place] [phone] Valery Mcnally MD [address], [place] [phone] 10/27/2025 8:45 AM EST - 10/27/2025 12:45 PM EST Surgery [facility] [address] [place] [phone] Valery Mcnally MD [address] [place] [address] LAPAROSCOPIC HYSTERECTOMY TOTAL Scheduled Procedures Name Priority Associated Diagnoses Date/Ti me LAPAROSCOPIC HYSTERECTOMY TOTAL ABDOMINAL Endometriosis Adenomyosis Dysmenorrhea 10/27/2025 8:45 AM EST documented as of this encounter Visit Diagnoses Not on filedocumented in this encounter Care Teams Senior Architectural Designer Relationship Specialty Start Date End Date Santy Carolina MD [address] [place] [address] [place] [id number] PCP - General Family Medicine 07/29/25 documented as of this encounter
--- OUTSIDE RECORDS SUMMARY | 2025-09-05 17:52 | XMS_ITS | Clinical Summary ---
Author Organization [facility] Address [address] [place] [address] Care Team Providers Care Manager Medicare Name Role Phone Santy Carolina MD Primary Care Provider Allergies Active Allergy Reactions Criticality Noted Date Comments [place] Rash/Dermatitis Low 04/01/2019 As per allergy testing [...] MG Take 1 tablet by mouth. Active HYDROmorphone (DILAUDID) 2 MG tabletIndication s:Postoperative pain Take 1 tablet (2 mg total) by mouth 3 times daily (every 8 hours) as needed for severe pain. Max Daily Amount: 6 mg 21 tablet 08/30/2025 Active Active Problems Problem Noted Date Diagnosed Date Endometriosis 07/07/2025 Adenomyosis 07/07/2025 Dysmenorrhea 07/07/2025 Encounters Date Type Department Care Team Description 08/30/2025 3:30 PM EST Telemedicine [facility] at [facility] [address] [phone] Valery Mcnally MD Postoperative pain (Primary Dx) 08/03/2025 Scanned Document Gynecologic Specialties at [address] [phone] Valery Mcnally MD 08/02/2025 Scanned Document [facility] at [address] [phone] Valery Mcnally MD 07/07/2025 9:00 AM EDT Office Visit [facility] Specialties at [address] [phone] Valery Mcnally MD Endometriosis (Primary Dx); Adenomyosis; Dysmenorrhea from Last 3 Months Family History Medical History Relation Name Comments Cholelithiasis Father Kamran Sanchez Gallbladder r emoved Hypertension Father Kamran Sanchez Colon cancer Maternal Grandfather Janak Conway Colon polyps Maternal Grandfather Janka Conway Celiac disease Maternal Grandmother Ahlley Tyler Autoimmune disease Mother Keira Sanchez Lupus [...] Alexandria Daniel Heart attack Paternal Uncle Amauri Sanchez Autoimmune disease Sister 1 Donnalanie Sanchez Lupus Autoimmune disease Sister 2 Tracyleladn Herrera Hashim otos Thyroid disease Sister 2 Tracyleland Herrera Michelle s Celiac disease Sister 3 Kelley Daniel Relation Name Status Comments Father Kamran Sanchez Alive Maternal Grandfather Janak Conway Alive Maternal Grandmother Halley [place] Alive Mother Keira Sanchez Alive Paternal Grandfather Amauri Dim[place]ne Alive Paternal Grandmother Alexandria Daniel Alive Paternal Uncle Amauri Daniel Alive Sister 1 Donna Daniel Alive Sister 2 Tracy Herrera Alive Sister 3 Kelley Sanchez Alive Social History Tobacco Use Types Packs/Day Years Used Date Smoking Tobacco: Never Passive Smoke Exposure: Never Smokeless Tobacco: Never Tobacco Cessation:Counseling Given: No Alcohol Use Standard Drinks/Week Comments Not Currently 0 (1 standard drink = 0.6 oz pur e alcohol) Comments No Sex and Gender Information Value Date Recorded [...] EDT Inhaled Oxygen Concentration - - Weight 68 kg (150 lb) 08/30/2025 3:50 PM EST Height 149.9 cm (4' 11 ) 08/30/2025 3:50 PM EST Body Mass Index 30.3 08/30/2025 3:50 PM EST Plan of Treatment Upcoming Encounters Date Type Department Care Team (Latest Contact Info) Description 10/27/2025 8:45 AM EST Hospital Encounter [facility] [address] [place] [phone] Valery Mcnally MD [address] [place] [phone] 10/27/2025 8:45 AM EST - 10/27/2025 12:45 PM EST Surgery [facility] [address] [place] [phone] Valery Mcnally MD [address] [place] [phone] LAPAROSCOPIC HYSTERECTOMY TOTAL Scheduled Procedures Name Priority [...] age to complete this topic Insurance [facility] Care Teams Manager Medicare Relationship Specialty Start Date End Date Santy Carolina MD [address] [place] [address] Dr [place], [place] [id number] PCP - General Family Medicine 07/29/25
== END 2025-09-05 14:06 | disposition home or self-care (01) ==
LOC: HO.HBST 13:13
PROVIDERS: PCP Family Medicine; Visit Provider Counselor Mental Health
DX: F32.81 Premenstrual dysphoric disorder (principal); F43.22 Adjustment disorder with anxiety; Z98.84 Bariatric surgery status
CPT/HCPCS: 90837